=== PATIENT | male | born 1955 | race Caucasian/White ===

== ENCOUNTER 2022-10-23 11:40 | Outpatient (OUT) | payer MEDICARE, OTHER, SELFPAY ==
[2022-10-23 12:20] LABS: Estimated Average Glucose 120 mg/dL; Glycohemoglobin A1C 5.8 % (4.5-6.2)
== END 2022-10-23 11:41 ==
LOC: LAB 11:45
PROVIDERS: PCP Internal Medicine; Visit Provider Internal Medicine
DX: R73.9 Hyperglycemia, unspecified (principal)
CPT/HCPCS: 36415; 83036

== ENCOUNTER 2023-11-07 08:22 | Outpatient (OUT) | payer MEDICARE, OTHER, SELFPAY ==
[2023-11-07 08:52] LABS: Hematocrit 46.7 % (42.0-54.0); Hemoglobin 15.5 g/dL (14.0-18.0); Mean Corpuscular HGB Conc 33.2 g/dL (29.9-35.2); Mean Corpuscular Hemoglobin 34.9 pg (25.9-34.0); Mean Corpuscular Volume 105.2 fL (80.0-94.0); Mean Platelet Volume 10.7 fL (9.5-13.5); Platelet Count 201 10^3/uL (150-450); Red Blood Count 4.44 10^6/uL (4.70-6.10); White Blood Count 6.2 10^3/uL (4.0-11.0)
[2023-11-07 09:52] LABS: Segmented Neut Absolute Manual 3.72 10^3/uL (1.4-6.5)
[2023-11-07 09:53] LABS: Eosinophils Absolute Manual 0.24 10^3/uL (0.00-0.70); Lymphocytes Absolute Manual 2.17 10^3/uL (1.20-3.80); Macrocytosis 2+; Monocytes Absolute Manual 0.06 10^3/uL (0.30-0.80)
[2023-11-07 11:12] LABS: Alanine Aminotransferase 26 U/L (16-63); Albumin Globulin Ratio 0.9; Albumin Level 3.6 g/dL (3.4-5.0); Alkaline Phosphatase 71 U/L (46-116); Aspartate Amino Transferase 25 U/L (15-37); BUN Creatinine Ratio 10.5; Bilirubin Total 0.4 mg/dL (0.2-1.0); Carbon Dioxide 29.5 mmol/L (21.0-32.0); Chloride 106 mmol/L (98-107); Chol HDL Ratio 3.5; Cholesterol 212 mg/dL (<=200); Estimated GFR (African America >60 (>=60); Estimated GFR (Non-African Ame >60 (>=60); Globulin 4.2 g/dL; Glucose 115 mg/dL (74-106); HDL Cholesterol 61 mg/dL (40-60); Potassium 4.5 mmol/L (3.5-5.1); Sodium 144 mmol/L (136-145); Total Protein 7.8 g/dL (6.4-8.2); Triglycerides 63 mg/dL (<=150); VLDL CHOLESTEROL 12.6 mg/dL
== END 2023-11-07 08:23 | disposition home or self-care (01) ==
LOC: LAB 08:25
PROVIDERS: PCP Internal Medicine; Visit Provider Internal Medicine
DX: E78.49 Other hyperlipidemia (principal); I10 Essential (primary) hypertension
CPT/HCPCS: 36415; 80053; 80061; 85007; 85027

== ENCOUNTER 2023-11-18 10:35 | Outpatient (OUT) | payer MEDICARE, OTHER, SELFPAY ==
--- NOTE | 2023-11-18 10:43 | XR_ITS ---
[facility] [place] [address] Patient Name: MERE ADAMS MRN: [id number] date: 1955 Sex: M Assigned Patient Location: [facility] Current Patient Location: Accession/Order Number: [id number] Exam Date: 11/18/2023 10:54 Report Date: 11/19/2023 07:15 At the request of: SHAIKH ELPIDIO Procedure: XR lumbar spine 2-3V EXAMINATION: XR lumbar spine 2-3V HISTORY: Chronic Bilateral Low Back Pain With Sciatica r COMPARISON: No relevant comparison available. FINDINGS: BONES: Normal alignment with no acute fracture or spondylolisthesis. Moderate spondylosis. Moderate to severe facet osteoarthropathy most significant L4-S1 DISC SPACES: Moderate disc space narrowing and endplate sclerosis L5-S1 PARASPINOUS: Negative. No paraspinous abnormality is seen. OTHER: Calcified aortic aneurysm measuring up to 5.8 cm in AP dimension XR/XR lumbar spine 2-3V IMPRESSION: 5.8 cm abdominal aortic aneurysm Moderate spondylosis and moderate to severe facet arthropathy Electronically authenticated by: PRAVEEN CARRASCO Date: 11/19/2023 07:15
== END 2023-11-18 10:36 | disposition home or self-care (01) ==
LOC: RAD 10:38
PROVIDERS: PCP Internal Medicine; Visit Provider Internal Medicine
DX: M54.42 Lumbago with sciatica, left side (principal); M54.41 Lumbago with sciatica, right side; G89.29 Other chronic pain; I71.40 Abdominal aortic aneurysm, without rupture, unspecified; M47.816 Spondylosis without myelopathy or radiculopathy, lumbar region
CPT/HCPCS: 72100

== ENCOUNTER 2023-11-26 08:19 | Outpatient (OUT) | payer MEDICARE, OTHER, SELFPAY ==
--- NOTE | 2023-11-26 08:23 | US_ITS ---
[address] [address] Patient Name: MERE ADAMS MRN: [id number] date: 1955 Sex: M Assigned Patient Location: [place] Current Patient Location: Accession/Order Number: [id number] Exam Date: 11/26/2023 08:30 Report Date: 11/26/2023 09:28 At the request of: SHAIKH ELPIDIO Procedure: US abdominal aortic aneurysm EXAMINATION: US abdominal aortic aneurysm HISTORY: Abdominal Aortic Aneurysm COMPARISON: No relevant comparison available. TECHNIQUE: Ultrasound examination of the retroperitoneal area was performed, with a focused evaluation of the abdominal aorta. FINDINGS: Proximal aorta: 2.7 x 2.5 cm Mid aorta: 3.2 x 3.0 cm Distal aorta: 5.2 x 5.4 cm Right common iliac artery: 1.9 x 1.9 cm Left common iliac artery: 2.3 x 1.8 cm Moderate soft and calcific atherosclerotic plaque US/US abdominal aortic aneurysm IMPRESSION: 5.4 cm fusiform aneurysm of the distal abdominal aorta Electronically authenticated by: PRAVEEN CARRASCO Date: 11/26/2023 09:28
== END 2023-11-26 08:20 | disposition home or self-care (01) ==
LOC: US 08:20
PROVIDERS: PCP Internal Medicine; Visit Provider Internal Medicine
DX: I71.40 Abdominal aortic aneurysm, without rupture, unspecified (principal); I71.43 Infrarenal abdominal aortic aneurysm, without rupture
CPT/HCPCS: 76775

== ENCOUNTER 2024-01-22 08:40 | Outpatient (OUT) | payer MEDICARE, OTHER, SELFPAY ==
[2024-01-22 09:41] LABS: Phosphorus 2.8 mg/dL (2.6-4.7)
[2024-01-22 10:27] LABS: Percent Iron Saturation 59.6 %
[2024-01-23 04:12] LABS: Vitamin B12 379 pg/mL (232-1245)
[2024-01-23 08:12] LABS: Transferrin 244 mg/dL (177-329)
== END 2024-01-22 08:41 | disposition home or self-care (01) ==
LOC: LAB 08:41
DX: F10.10 Alcohol abuse, uncomplicated (principal)
CPT/HCPCS: 36415; 82306; 82607; 82728; 82746; 83540; 83550; 83735; 84100; 84207; 84425; 84466; 84591

== ENCOUNTER 2024-03-02 14:34 | Emergency (ER) | payer MEDICARE, OTHER, SELFPAY ==
[2024-03-02 14:37] VITALS: BP 198/104; PULSE 98; TEMP 37; O2SAT 99; BMI 22.5
--- NOTE | 2024-03-02 14:53 | ED.EXTPRO1 ---
HPI - Extremity Problem General Chief complaint: Extremity Problem, Nontraumatic Stated complaint: UPPER EXTREMITY, LEFT, SKIN Time Seen by Provider: 03/02/24 14:39 Source: patient Mode of arrival: walk-in History of Present Illness HPI Narrative: Patient is a 68-year-old male with a history of borderline diabetes who presents to the emergency department for 2 weeks of increasing redness and swelling to the left elbow. He states that he scraped his elbow 2 weeks ago and the area has become more swollen and red. He states he squeezed it and there was pus that he was able to express from the area. He has not had any fevers or vomiting. Unknown last tetanus. No medications taken prior to arrival. He is able to fully flex and extend the left elbow and denies any significant pain. He does not take any diabetic medications. He is a heavy smoker. No falls or injuries. Related Data Home Medications ?Medication ?Instructions ?Recorded ?Confirmed lisinopril 20 mg tablet 20 mg PO DAILY 03/02/24 03/02/24 venlafaxine 75 mg capsule,extended 75 mg PO DAILY 03/02/24 03/02/24 release 24 hr Previous Rx's ?Medication ?Instructions ?Recorded cephalexin 500 mg capsule 500 mg PO Q8H 10 days #30 caps 03/02/24 hydrocodone 5 mg-acetaminophen 325 1 tab PO Q6H PRN pain 3 days #12 03/02/24 mg tablet tabs sulfamethoxazole 800 1 tab PO BID 10 days #20 tabs 03/02/24 mg-trimethoprim 160 mg tablet (Bactrim DS) Allergies Allergy/AdvReac Type Severity Reaction Status Date / Time No Known Drug Allergies Allergy Verified 03/02/24 14:41 Review of Systems ROS Constitutional Denies: fever or chills Ears, nose, mouth, and throat Denies: throat pain Respiratory Denies: shortness of breath Gastrointestinal Denies: nausea or vomiting Musculoskeletal Reports: extremity pain, extremity swelling, joint pain and joint swelling; Denies: back pain, neck pain or limited range of motion Neurological Denies: numbness in extremities or weakness in extremities Hematologic/Lymphatic Denies: easy bruising or easy bleeding PFSH PFSH Social History Little interest or pleasure in doing things: not at all Feeling down, depressed, or hopeless: not at all Exam Narrative Exam Narrative: Gen.: Awake, alert, in no distress Head: Normocephalic, atraumatic ENT: Moist mucous membranes Respiratory: No respiratory distress Extremities: Patient is able to fully flex and extend the left elbow with no pain out of proportion or limited range of motion. Posterior aspect of the left elbow over the olecranon with a small scabbed area surrounded by erythema, the area is fluctuant with joint effusion and there is induration and erythema extending to the forearm and humerus. No circumferential erythema noted. Psych: Normal mood and affect Neuro: No focal neuro deficit Skin: Warm, dry, intact Constitutional Vital Signs, click to edit/add: Last Vital Signs Temp 98.6 F 03/02/24 14:37 Pulse 98 H 03/02/24 14:37 Resp 18 03/02/24 14:37 BP 177/96 H 03/02/24 16:55 Pulse Ox 99 03/02/24 14:37 O2 Del Method Room Air 03/02/24 14:37 Course Vital Signs Vital signs: Vital Signs Temperature 98.6 F 03/02/24 14:37 Pulse Rate 98 H 03/02/24 14:37 Respiratory Rate 18 03/02/24 14:37 Blood Pressure 198/104 H 03/02/24 14:37 Pulse Oximetry 99 03/02/24 14:37 Oxygen Delivery Method Room Air 03/02/24 14:37 Temperature 98.6 F 03/02/24 14:37 Pulse Rate 98 H 03/02/24 14:37 Respiratory Rate 18 03/02/24 14:37 Blood Pressure 177/96 H 03/02/24 16:55 Pulse Oximetry 99 03/02/24 14:37 Oxygen Delivery Method Room Air 03/02/24 14:37 MDM - Extremity (Nontraumatic) MDM Narrative Medical decision making narrative: Tetanus is updated for the patient, he declined pain medication in the ER. IV was established and labs were drawn including blood cultures. Patient with normal white blood cell count, elevated CRP and sed rates. He was treated with Zosyn and vancomycin for antibiotic coverage. X-rays were obtained showing possible gas-forming organism in the left elbow. Arthrocentesis was performed at bedside by myself. Please see procedure note for details. Cell count was sent to the lab, this shows elevated white blood cell count and red blood cell count. I discussed the case with Dr. Blood for orthopedics who can see the patient tomorrow morning between 8 and 9 AM in the family office. Patient states he should be able to make this appointment. He was given the phone number and address for the office and instructed to be reevaluated if he is not able to make this appointment. Patient started on Bactrim, Keflex and a short course of analgesics. Arthrocentesis: Betadine swabs were used to cleanse the left elbow, 3 cc of 1% lidocaine were used to inject locally for anesthesia of the skin. An 18-gauge needle was used with syringe to aspirate the left elbow joint. 40 cc of serous fluid were aspirated. At the end of the aspiration, there were bubbles aspirated into the syringe. No purulence or pus noted. Patient tolerated this well, minimal bleeding noted after the aspiration and the area was dressed with Telfa and gauze. SUPERVISED APC VISIT, PHYSICIAN ATTESTATION: Based on the medical record the care appears appropriate. ? Medical Records Attestation: I reviewed the patient's medical records. Lab Data Attestation: I reviewed the patient's lab results. Labs: Lab Results 03/02/24 03/02/24 03/02/24 Range/Units 14:55 15:07 15:25 WBC 10.1 (4.0-11.0) 10^3/uL RBC 4.24 L (4.70-6.10) 10^6/uL Hgb 15.1 (14.0-18.0) g/dL Hct 43.7 (42.0-54.0) % MCV 103.1 H (80.0-94.0) fL MCH 35.6 H (25.9-34.0) pg MCHC 34.6 (29.9-35.2) g/dL RDW 12.7 (11.0-15.0) % Plt Count 183 (150-450) 10^3/uL MPV 11.1 (9.5-13.5) fL Neut % (Auto) 69.1 (43.0-75.0) % Lymph % (Auto) 15.4 L (20.5-60.0) % [place] % (Auto) 14.0 H (1.7-12.0) % Eos % (Auto) 0.8 L (0.9-7.0) % Baso % (Auto) 0.4 (0.2-2.0) % Neut # (Auto) 7.0 H (1.4-6.5) 10^3/uL Lymph # (Auto) 1.6 (1.2-3.8) 10^3/uL [place] # (Auto) 1.4 H (0.3-0.8) 10^3/uL Eos # (Auto) 0.1 (0.0-0.7) 10^3/uL Baso # (Auto) 0.0 (0.0-0.1) 10^3/uL Abs Immat Gran (auto) 0.03 (0.00-0.03) 10^3/uL Imm/Tot Granulo (auto) 0.3 (0.0-0.5) % ESR 101 H (<=20) mm/hr VBG pH 7.439 H (7.330-7.430) VBG pCO2 41.8 (40.0-52.0) mmHg Sodium 141 (136-145) mmol/L Potassium 3.7 (3.5-5.1) mmol/L Chloride 104 (98-107) mmol/L Carbon Dioxide 25.3 (21.0-32.0) mmol/L Anion Gap 15.4 BUN 8.0 (7.0-18.0) mg/dL Creatinine 0.88 (0.70-1.30) mg/dL Est GFR ( Amer) >60 (>=60 mL/min/1.73m^2) Est GFR (Non-Af Amer) >60 (>=60 mL/min/1.73m^2) BUN/Creatinine Ratio 9.1 Glucose 126 H (74-106) mg/dL Lactate 2.0 (0.4-2.0) mmol/L Calcium 9.0 (8.5-10.1) mg/dL Total Bilirubin 0.6 (0.2-1.0) mg/dL AST 18 (15-37) U/L ALT 20 (16-63) U/L Alkaline Phosphatase 81 (46-116) U/L C-Reactive Protein 7.58 H (<=0.50) mg/dL Total Protein 7.7 (6.4-8.2) g/dL Albumin 3.2 L (3.4-5.0) g/dL Globulin 4.5 g/dL Albumin/Globulin Ratio 0.7 Fluid Color Yellow Fluid Clarity Cloudy Fluid WBC 4730 H (0-5) cubic mm Fluid RBC 1081 H (0-0) cubic mm Fluid Neutrophils 95 % Fluid Lymphocytes 4 % Fluid Monocytes 1 % Imaging Data XR elbow: Attestation: I have reviewed the pertinent imaging results. Radiologist's impression: ITS Impressions Elbow X-Ray 03/02/24 15:10 IMPRESSION: Posterior soft tissue swelling and subcutaneous emphysema, consider cellulitis/fasciitis with gas-forming organism Electronically authenticated by: PRAVEEN CARRASCO Date: 03/02/2024 15:57 Discharge Plan Discharge Chief Complaint: Extremity Problem, Nontraumatic Clinical Impression: Septic arthritis of elbow, left Patient Disposition: Home, Self-Care Time of Disposition Decision: 16:52 Condition: Good Mode of Transportation: Private Vehicle Prescriptions / Home Meds: New hydrocodone-acetaminophen 5-325 mg tablet 1 tab PO Q6H PRN (Reason: pain) 3 Days Qty: 12 0RF Rx Instructions: DX: M25.522 sulfamethoxazole-trimethoprim [Bactrim DS] 800-160 mg tablet 1 tab PO BID 10 Days Qty: 20 0RF cephalexin 500 mg capsule 500 mg PO Q8H 10 Days Qty: 30 0RF No Action lisinopril 20 mg tablet 20 mg PO DAILY venlafaxine 75 mg capsule,extended release 24hr 75 mg PO DAILY Print Language: Slovak Instructions: Swollen Joint (ED) Additional Instructions: Please follow up with Dr. Blood tomorrow in his [place] office between 8-9 am [address] [facility] [address] PLEASE CALL THE OFFICE IF YOU ARE NOT ABLE TO MAKE THIS APPOINTMENT TO RESCHEDULE WITH DR. BLOOD Referrals: WASHINGTON LOPEZ [Primary Care Provider] - 1 week Discharge Date/Time: 03/02/24 17:06
--- OUTSIDE RECORDS SUMMARY | 2024-03-02 14:58 | XMS_ITS | CCD ---
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 Name Role Phone Hillary La Unavailable SHAIKH Anais MAGALLANES Attending Unavailable SHAIKH Anais MAGALLANES Consulting Unavailable SHAIKH Anais MAGALLANES Primary Care Unavailable SHAIKH Anais MAGALLANES Admitting Unavailable DO Carlitos Douglas Attending Provider NO FAMILY, PHYSICIAN Primary Care Provider Unava ilable NO FAMILY, PHYSICIAN Primary Care Provider Unava ilable ROBIN Hurt Attending Provider Frannie Hurt Admitting Unavailable Frannie Hurt Attending Unavailable NO FAMILY, PHYSICIAN Primary Care Unavailable MAURICE ROSADO Referring Unavailable SHAIKH MAGALLANES Attending Unavailable SHAIKH MAGALLANES Attending Unavailable WASHINGTON LOPEZ Attending Unavailabl e Medications Current Medications Medication Drug Class(es) Dates Sig (Normalized) Sig (Original) acetaminophen 500 mg oral tablet (4 sources) Start: 09-24-2022 take 1 tablet by mouth four times daily Acetaminophen (Acetaminophen Extra Strength) 500 mg Tablet Active 500 MG PO Four times daily September 24, 2022 12:00am amoxicillin 875 mg / clavulanate 125 mg oral tablet (1 source) Penicillin-class Antibacterial Start: 06-18-2022 take 1 tablet by mouth every twelve hours Amoxicillin-Pot Clavulanate 875-125 MG 1 tablet Orally every 12 hrs for 10 day(s) Jun, Active fluticasone propionate 0.05 mg/actuat metered dose nasal spray (1 source) Corticosteroid Start: 06-18-2022 take 2 spray(s) nasal route once daily Fluticasone Propionate 50 MCG/ACT 2 sprays Nasally Once a day for 14 day(s) Jun, Active lisinopril 20 mg oral tablet (5 sources) Angiotensin Converting Enzyme Inhibitor Start: 09-24-2022 take 20 mg by mouth once daily in the morning Lisinopril Active 20 MG PO Every morning September 24, 2022 12:00am Lisinopril Activ e meloxicam 15 mg oral tablet (3 sources) Nonsteroidal Anti-inflammatory Drug Start: 12-09-2023 Meloxicam Active MG PO December 09, 2023 12:00am predniSONE 20 mg oral tablet (1 source) Start: 06-18-2022 take 1 tablet by mouth every twelve hours predniSONE 20 MG 1 tablet Orally 2 times a day for 5 day(s) Jun, Active 24 hr venlafaxine 75 mg extended release oral capsule (6 sources) Serotonin and Norepinephrine Reuptake Inhibitor Start: 12-23-2023 Venlafaxine Active 75 MG PO December 23, 2023 12:00am Start: 09-24-2022 End: 12-23-2023 take 37.5 mg by mouth once daily in the morning Venlafaxine Discontinued 37.5 MG PO Every morning September 24, 2022 12:00am December 23, 2023 9:59am Effexor Active Completed/Discontinued Medications Medication Drug Class(es) Dates Sig (Normalized) Sig (Original) acetaminophen 325 mg / HYDROcodone bitartrate 7.5 mg oral tablet (3 sources) Opioid Agonist Start: 10-04-2022 End: 12-09-2023 Hydrocodone-Acetami nophen Discontinued 1 TAB PO every 6 to 8 hours 20 7 October 04, 2022 December 09, 2023 8:52am Problems Active Problems Problem Classification Problem Date Documented Date Episodic/Chronic Aortic; peripheral; and visceral artery aneurysms (5 sources) Abdominal aortic aneurysm without rupture; Translations: [Abdominal aortic aneurysm (AAA) without rupture] 12-09-2023 Chronic Disorders of lipid metabolism (4 sources) Hyperlipidemia, unspecified; Translations: [HYPERLIPIDEMIA UNSPECIFIED] Onset: 09-05-2022 Chronic Essential hypertension (5 sources) Essential (primary) hypertension; Translations: [Hypertensive disorder] Onset: 09-08-2022 12-09-2023 Chronic Other nervous system disorders (3 sources) Postoperative pain ; Translations: [Other acute postprocedural pain] 04-24-2023 Episodic Other screening for suspected conditions (not mental disorders or infectious disease) (1 source) Encounter for screening for malignant neoplasm of respiratory organs; Translations: [Encounter for screening for malignant neoplasm of respiratory organs] Onset: 12-17-2023 Episodic Other upper respiratory infections (2 sources) Sinusitis; Translations: [Chronic sinusitis, unspecified] Chronic Substance-related disorders (5 sources) Smokes tobacco daily; Translations: [Nicotine dependence, unspecified, uncomplicated] Onset: 12-17-2023 12-09-2023 Chronic Unclassified (1 source) Abdominal aortic aneurysm, without rupture, unspecified; Translations: [Abdominal aortic aneurysm, without rupture, unspecified] Onset: 12-13-2023 Past or Other Problems Problem Classification Problem Date Documented Da te Episodic/Chronic Unclassified (1 source) Cough R05.9 Results Test Name Value Interpretation Reference Range Facility CT LOW DOSE LUNG SCREENINGon 12-18-2023 CT LOW DOSE LUNG SCREENING CT LOW DOSE LUNG SCREENING CLINICAL INFORMATION: Screening visit: Personal history of tobacco use/personal history of nicotine dependence. Lung cancer screening. Current tobacco abuse and 66 pack year exposure history COMPARISON: No relevant prior studies are available. TECHNIQUE: Low dose CT chest performed without contrast with coronal and sagittal and maximum intensity projection reconstructed images. Maximum intensity projection images generated to increase the sensitivity of pulmonary nodule detection. All CT scans at this facility use dose modulation, iterative reconstruction, and/or weight based dosing when appropriate to reduce radiation dose to as low as reasonably achievable. Automated exposure control was utilized. Computer aided detection for pulmonary nodules?was performed utilizing Affirm software.? FINDINGS: Diagnostic quality: Satisfactory Lung nodules: Anterior left upper lobe juxtapleural 5 mm nodule axial image 49 series 2, 3 mm nodule right upper lobe axial image 56 series 2. 2 mm nodule lingula axial image 63 series 2 Lungs and pleural spaces: Advanced centrilobular emphysema Mediastinum: Heart size: Normal Coronary calcification: Extensive Pericardial effusion: None Other findings: IMPRESSION: Lung Rads Category: 3- Probably benign Multiple low suspicion nodules. Lung RADS category 3. CT chest in 3 months recommended for further characterization. 50 Finalized by Mikhail Elena MD on 12/18/2023 6:28 PM 3 LDCT 3 Mo Normal [facility] CT angio abdomen pelvison CT angio abdomen pelvis [facility] [place] [address] [place] [address] CT Scan Report Signed Patient: Hua Adams MR#: [id number] 8 : 1955 Acct:[id number] Age/Sex: 68 / M ADM Date: 12/13/23 Loc: CT Room: Type: [facility] Attending Dr: Frannie Hurt BODY CORPORATE MANAGER-C Copies to: Frannie Hurt APRN Ordering Provider: Frannie Hurt APRN Date of Service: 12/13/23 CT/CT angio abdomen pelvis: I71.40 - Abdominal aortic aneurysm, without rupture, unsp... CTA abdomen and pelvis . CLINICAL DATA: Abdominal aortic aneurysm found on ultrasound.. TECHNIQUE: CT of the abdomen and pelvis was initially performed without contrast. Intravenous contrast-enhanced CT angiography of the abdomen and pelvis was then performed. Axial, sagittal, coronal and volume-rendered three-dimensional reconstructions were created and reviewed. This CT exam was performed using one or more of the following dose reduction techniques: Automated exposure control, adjustment of the mA and/or kV according to patient size, or use of iterative reconstruction technique. COMPARISON: Ultrasound 11/26/2023 performed at outside institution.. FINDINGS: Lung Bases: Mild reticular changes. No acute findings. Organs:Fusiform type infrarenal abdominal aneurysm is present with associated thrombus and calcification measuring 4.8 cm in greatest axial dimension. This tapers to the level of the iliac bifurcation. No evidence of rupture is seen. No critical stenosis or occlusion is seen involving the major visceral branch vessels. Moderate calcification at the origin of the SMA. Moderate calcification of the external iliac vasculature. 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 Liver gallbladder pancreas and adrenal glands appear unremarkable. Small cyst involving the spleen. No enhancing renal mass or hydronephrosis. GI: Stomach is grossly unremarkable. Small bowel appears nondilated. Colonic diverticulosis.[ Pelvis:[Urinary bladder is grossly unremarkable. Uterus has been removed]. No adnexal mass. Peritoneum/Retrope ritoneum:No free air, free fluid or lymphadenopathy.[ Abd wall/Bones:Abdomin al wall demonstrates no acute findings. Osseous structures demonstrate degenerative change.[ CT/CT angio abdomen pelvis IMPRESSION: Fusiform type infrarenal abdominal aneurysm measuring 4.8 cm. Finding is similar to the prior ultrasound study. No acute intra-abdominal process. Impression dictated by: Eladio Broderick Jr., D.O.12/13/2023 1:27 PM Dictation Location: [place] [address] Transcribed By: [facility] 12/13/23 1327 Dictated By: Eladio Broderick Jr, DO 12/13/23 1319 Signed By: 12/13/23 1327 Normal [facility] ISTAT XRay CREon 12-13-2023 ISTAT GFR > 60.0 Normal [facility] Comment on above: Result Comment: PERF ORMED BY: [place] [address] PATHOLOGIST VP SITE DEVONTE MOJICA M.D. Performed By: #### I SCRE #### [facility] [address] [place] [address] No Panel InformationOrdered By: Frannie Hurt on 12-13-2023 Bedside Estimated GFR (eGFR) > 60.0 [facility] Whole blood creatinine measu rementOrdered By: Frannie Hurt on 12-13-2023 Creatinine [Mass/Vol] 0.8 mg/dL 0.6-1.3 [facility] Comment on above: ER/ESD physician is notified/shown all ISTAT results.Critical values may be confirmed by laboratory testing ifdeemed necessary by ER attending doctor. Result Comment: ER/E SD physician is notified/shown all ISTAT results. Critical values may be confirmed by laboratory testing if deemed necessary by ER attending doctor. Performed By: #### I SCRE #### [facility] [address] [place] [address] Basophils Auto (Bld) [#/Vol] Ordered By: Carlitos Douglas on 09-24-2022 Basophils (Bld) [#/Vol] 0.0 10*3/uL 0.0-0.2 [facility] Basophils/100 WBC Auto (Bld) Ordered By: Carlitos Douglas on 09-24-2022 Basophils/100 WBC (Bld) 0.4 % . [facility] Calcium [Mass/volume] in Ser um or PlasmaOrdered By: Carlitos Douglas on 09-24-2022 Calcium [Mass/Vol] 9.3 mg/dL 8.6-10.3 [facility] Carbon dioxide, total [Moles /volume] in Serum or PlasmaOrdered By: Carlitos Douglas on 09-24-2022 CO2 [Moles/Vol] 29.1 mmol/L 21.0-31.0 [facility] Chloride [Moles/volume] in S ebony or PlasmaOrdered By: Carlitos Douglas on 09-24-2022 Chloride [Moles/Vol] 106 mmol/L 98-107 [facility] Creatinine [Mass/volume] in Serum or PlasmaOrdered By: Carlitos Douglas on 09-24-2022 Creatinine [Mass/Vol] 0.82 mg/dL 0.70-1.30 [facility] Eosinophils Auto (Bld) [#/Vo l]Ordered By: Carlitos Douglas on 09-24-2022 Eosinophils (Bld) [#/Vol] 0.1 10*3/uL 0.0-0.45 [facility] Eosinophils/100 WBC Auto (Bl d)Ordered By: Carlitos Douglas on 09-24-2022 Eosinophils/100 WBC (Bld) 1.5 % . [facility] Erythrocyte distribution wid th Auto (RBC) [Ratio]Ordered By: Carlitos Douglas on 09-24-2022 Erythrocyte distribution width (RBC) [Ratio] 13.5 % 12.0-14.8 [facility] Glucose [Mass/volume] in Ser um or PlasmaOrdered By: Carlitos Douglas on 09-24-2022 Glucose [Mass/Vol] 83 mg/dL 70-100 [facility] Comment on above: ADA recommended refe rence rangeRandom Glucose Reference Range is dependent on time and content of last meal. Glucose of more than 200 mg/dL in a nonstressed, ambulatory subject supports the diagnosis of Diabetes Mellitus. Hematocrit Auto (Bld) [Volum e fraction]Ordered By: Carlitos Douglas on 09-24-2022 Hematocrit (Bld) [Volume fraction] 46.7 % 38.8-50.0 [facility] Hemoglobin [Mass/volume] in BloodOrdered By: Carlitos Douglas on 09-24-2022 Hemoglobin (Bld) [Mass/Vol] 15.6 g/dL 13.0-17.0 [facility] Leukocytes [#/volume] correc bandar for nucleated erythrocytes in Blood by Automated counOrdered By: Carlitos Douglas on 09-24-2022 WBC corrected for nucl RBC Auto (Bld) [#/Vol] 6.8 10*3/uL 4.1-10.5 [facility] Lymphocytes Auto (Bld) [#/Vo l]Ordered By: Carlitos Douglas on 09-24-2022 Lymphocytes (Bld) [#/Vol] 1.7 10*3/uL 1.00-4.8 [facility] Lymphocytes/100 WBC Auto (Bl d)Ordered By: Carlitos Douglas on 09-24-2022 Lymphocytes/100 WBC (Bld) 24.8 % . [facility] MCH Auto (RBC) [Entitic mass ]Ordered By: Carlitos Douglas on 09-24-2022 MCH (RBC) [Entitic mass] 34.1 pg 27.5-35.2 [facility] MCHC Auto (RBC) [Mass/Vol]Or dered By: Carlitos Douglas on 09-24-2022 MCHC (RBC) [Mass/Vol] 33.5 g/dL 32.5-35.6 [facility] MCV Auto (RBC) [Entitic vol] Ordered By: Carlitos Douglas on 09-24-2022 MCV (RBC) [Entitic vol] 101.9 fL 83.5-101 [facility] Monocytes Auto (Bld) [#/Vol] Ordered By: Carlitos Douglas on 09-24-2022 Monocytes (Bld) [#/Vol] 0.7 10*3/uL 0.0-0.8 [facility] Monocytes/100 WBC Auto (Bld) Ordered By: Carlitos Douglas on 09-24-2022 Monocytes/100 WBC (Bld) 9.9 % . [facility] Neutrophils Auto (Bld) [#/Vo l]Ordered By: Carlitos Douglas on 09-24-2022 Neutrophils (Bld) [#/Vol] 4.3 10*3/uL 1.8-7.7 [facility] Neutrophils/100 WBC Auto (Bl d)Ordered By: Carlitos Douglas on 09-24-2022 Neutrophils/100 WBC (Bld) 63.4 % . [facility] No Panel InformationOrdered By: Carlitos Douglas on 09-24-2022 Estimated GFR (CKD-EPI) > 60.0 mL/Min [facility] Creatinine Clearance (Chem N/A [facility] Nucleated erythrocytes [Pres ence] in Blood by Automated countOrdered By: Carlitos Douglas on 09-24-2022 Nucleated RBC Auto Ql (Bld) 0.0 /100{WBC} 0-0.5 [facility] Platelet mean volume Auto (B ld) [Entitic vol]Ordered By: Carlitos Douglas on 09-24-2022 Platelet mean volume (Bld) [Entitic vol] 9.1 fL 6.6-10.1 [facility] Platelets Auto (Bld) [#/Vol] Ordered By: Carlitos Douglas on 09-24-2022 Platelets (Bld) [#/Vol] 189 10*3/uL 150-450 [facility] Potassium [Moles/volume] in Serum or PlasmaOrdered By: Carlitos Douglas on 09-24-2022 Potassium [Moles/Vol] 4.0 mmol/L 3.5-5.1 [facility] RBC Auto (Bld) [#/Vol]Ordere d By: Carlitos Douglas on 09-24-2022 RBC (Bld) [#/Vol] 4.58 10*6/uL 3.90-5.[address] [facility] Serum or plasma anion gap de terminationOrdered By: Carlitos Douglas on 09-24-2022 Anion gap [Moles/Vol] 10.9 mmol/L 6.0-15.0 [facility] Sodium [Moles/volume] in Ser um or PlasmaOrdered By: Carlitos Douglas on 09-24-2022 Sodium [Moles/Vol] 142 mmol/L 136-145 [facility] Urea nitrogen [Mass/volume] in Serum or PlasmaOrdered By: Carlitos Douglas on 09-24-2022 Urea nitrogen [Mass/Vol] 9 mg/dL 12-04 [facility] WBC Auto (Bld) [#/Vol]Ordere d By: Carlitos Douglas on 09-24-2022 WBC (Bld) [#/Vol] 6.8 10*3/uL 4.1-10.5 [facility] CBC AUTO DIFFon 09-05-2022 BASO # 0.1 103/ul Normal 0.0-0.1 [facility] Comment on above: Performed By: #### C BC #### [facility] [address] [place] [address] Dr. Petr Winchester Basophils/100 WBC (Bld) 0.6 % Normal 0.2-2.0 [facility] Comment on above: Performed By: #### C BC #### [facility] [address] [place] [address] Dr. Petr Winchester EO # 0.3 103/ul Normal 0.0-0.7 [facility] Comment on above: Performed By: #### C BC #### [facility] [address] [place] [address] Dr. Petr Winchester Eosinophils/100 WBC (Bld) 3.0 % Normal 0.9-7.0 [facility] Comment on above: Performed By: #### C BC #### [facility] [address] [place] [address] Dr. Petr Winchester Erythrocyte distribution width (RBC) [Ratio] 13.2 % Normal 11.0-15.0 [facility] Comment on above: Performed By: #### C BC #### [facility] [address] [place] [address] Dr. Petr Winchester Hematocrit (Bld) [Volume fraction] 46.1 % Normal 42.0-54.0 [facility] Comment on above: Performed By: #### C BC #### [facility] [address] [place] [address] Dr. Petr Winchester Hemoglobin (Bld) [Mass/Vol] 15.3 g/dL Normal 14.0-18.0 [facility] Comment on above: Performed By: #### C BC #### [facility] [address] [place] [address] Dr. Petr Winchester IG # 0.03 10e3/ul Normal 0.00-0.03 [facility] Comment on above: Performed By: #### C BC #### [facility] [address] [place] [address] Dr. Petr Winchester IG % 0.3 % Normal 0.0-0.5 [facility] Comment on above: Performed By: #### C BC #### [facility] [address] [place] [address] Dr. Petr Winchester LYMPH # 1.9 103/ul Normal 1.2-3.8 [facility] Comment on above: Performed By: #### C BC #### [facility] [address] [place] [address] Dr. Petr Winchester Lymphocytes/100 WBC (Bld) 19.2 % Critically low 20.5-60.0 [facility] Comment on above: Performed By: #### C BC #### [facility] [address] [place] [address] Dr. Petr Winchester MANUAL DIFF REQ NO Normal [facility] Comment on above: Performed By: #### C BC #### [facility] [address] [place] [address] Dr. Petr Winchester MCH (RBC) [Entitic mass] 34.0 pg Normal 25.9-34.0 [facility] Comment on above: Performed By: #### C BC #### [facility] [address] [place] [address] Dr. Petr Winchester MCHC (RBC) [Mass/Vol] 33.2 g/dL Normal 29.9-35.2 [facility] Comment on above: Performed By: #### C BC #### [facility] [address] [place] [address] Dr. Petr Winchester MCV (RBC) [Entitic vol] 102.4 fL Critically high 80.0-94 .0 [facility] Comment on above: Performed By: #### C BC #### [facility] [address] [place] [address] [address] Petr Winchester MONO # 0.9 103/ul Critically high 0.3-0.8 [facility] Comment on above: Performed By: #### C BC #### [facility] [address] [place] [address] [address] Petr Winchester Monocytes/100 WBC (Bld) 9.6 % Normal 1.7-12.0 [facility] Comment on above: Performed By: #### C BC #### [facility] [address] [place] [address] [address] Petr Winchester NEUT # 6.5 103/ul Normal 1.4-6.5 [facility] Comment on above: Performed By: #### C BC #### [facility] [address] [place] [address] Dr. Petr Winchester Neutrophils/100 WBC (Bld) 67.3 % Normal 43.0-75.0 [facility] Comment on above: Performed By: #### C BC #### [facility] [address] [place] [address] [address] Petr Winchester Platelet mean volume (Bld) [Entitic vol] 10.6 fL Normal 9.5-13.5 [facility] Comment on above: Performed By: #### C BC #### [facility] [address] [place] [address] Dr. Petr Winchester PLT 210 103/ul Normal 150-450 [facility] Comment on above: Performed By: #### C BC #### [facility] [address] [place] [address] [address] Petr Winchester RBC 4.50 106/ul Critically low 4.70-6.10 [facility] Comment on above: Performed By: #### C BC #### [facility] [address] [place] [address] [address] Petr Winchester WBC 9.7 103/ul Normal 4.0-11.0 [facility] Comment on above: Performed By: #### C BC #### [facility] [address] [place] [address] [address] Petr Winchester LIPID PROFILEon 09-05-2022 CHOL-HDL RATIO NORM SEE BELOW Normal [facility] Comment on above: Result Comment: 3.3 - 4.4 LOW RISK 4.4 - 7.1 AVERAGE RISK 7.1 - 11.0 MODERATE RISK >11.0 HIGH RISK Performed By: #### L IPID, CMP #### [facility] [address] [place] [address] [address] Petr Winchester Cholesterol [Mass/Vol] 224 mg/dL Critically high <=200 [facility] Comment on above: Performed By: #### L IPID, CMP #### [facility] [address] [place] [address] [address] Petr Winchester Cholesterol in HDL [Mass/Vol] 41 mg/dL Normal 40-60 [facility] Comment on above: Performed By: #### L IPID, CMP #### [facility] [address] [place] [address] [address] Petr Winchester Cholesterol in LDL [Mass/Vol] 163.8 mg/dL Normal [facility] Comment on above: Performed By: #### L IPID, CMP #### [facility] [address] [place] [address] [address] Petr Winchester Cholesterol.total/Choles terol in HDL [Mass ratio] 5.5 {ratio} Normal [facility] Comment on above: Performed By: #### L IPID, CMP #### [facility] [address] [place] [address] [address] Petr Winchester HDL NORMAL > or = 60 mg/dl - LOW CARDIOVASCULAR RISK <40 mg/dl - HIGH CARDIOVASCULAR RISK Normal [facility] Comment on above: Performed By: #### L IPID, CMP #### [facility] [address] [place] [address] [address] Petr Winchester LDL CALC NORMAL SEE BELOW Normal [facility] Comment on above: Result Comment: <100 mg/dl OPTIMAL 100 - 129 mg/dl NEAR OR ABOVE OPTIMAL 130 - 159 mg/dl BORDERLINE HIGH 160 - 189 mg/dl HIGH >190 mg/dl VERY HIGH Performed By: #### L IPID, CMP #### [facility] [address] [place] [address] Dr. Petr Winchester Triglyceride [Mass/Vol] 96 mg/dL Normal <=150 [facility] Comment on above: Performed By: #### L IPID, CMP #### [facility] [address] [place] [address] Dr. Petr Winchester VLDL CALC 19.2 mg/dL Normal [facility] Comment on above: Performed By: #### L IPID, CMP #### [facility] [address] [place] [address] [address] Petr Winchester PROF 14(COMP METB)on 023 Albumin [Mass/Vol] 3.4 g/dL Normal 3.4-5.0 [facility] Comment on above: Performed By: #### L IPID, CMP #### [facility] [address] [place] [address] Dr. Petr Winchester Albumin/Globulin [Mass ratio] 0.8 {ratio} Normal [facility] Comment on above: Performed By: #### L IPID, CMP #### [facility] [address] [place] [address] Dr. Petr Winchester ALP [Catalytic activity/Vol] 74 U/L Normal 46-116 [facility] Comment on above: Performed By: #### L IPID, CMP #### [facility] [address] [place] [address] Dr. Petr Winchester ALT [Catalytic activity/Vol] 32 U/L Normal 16-63 [facility] Comment on above: Performed By: #### L IPID, CMP #### [facility] [address] [place] [address] Dr. Petr Winchester Anion gap [Moles/Vol] 9.9 mmol/L Normal [facility] Comment on above: Performed By: #### L IPID, CMP #### [facility] [address] [place] [address] Dr. Petr Winchester AST [Catalytic activity/Vol] 17 U/L Normal 15-37 [facility] Comment on above: Performed By: #### L IPID, CMP #### [facility] [address] [place] [address] [address] Petr Winchester Bilirubin [Mass/Vol] 0.3 mg/dL Normal 0.2-1.0 [facility] Comment on above: Performed By: #### L IPID, CMP #### [facility] [address] [place] [address] [address] Petr Winchester Calcium [Mass/Vol] 9.0 mg/dL Normal 8.5-10.1 [facility] Comment on above: Performed By: #### L IPID, CMP #### [facility] [address] [place] [address] Dr. Petr Winchester Chloride [Moles/Vol] 106 mmol/L Normal 98-107 [facility] Comment on above: Performed By: #### L IPID, CMP #### [facility] [address] [place] [address] Dr. Petr Winchester CO2 [Moles/Vol] 29.8 mmol/L Normal 21.0-32.[address] [facility] Comment on above: Performed By: #### L IPID, CMP #### [facility] [address] [place] [address] Dr. Petr Winchester Creatinine [Mass/Vol] 0.97 mg/dL Normal 0.70-1.30 [facility] Comment on above: Performed By: #### L IPID, CMP #### [facility] [address] [place] [address] Dr. Petr Winchester EGFR-AF MONTSERRATIAN >60 Normal >=[address] [facility] Comment on above: Performed By: #### L IPID, CMP #### [facility] [address] [place] [address] Dr. Petr Winchester EGFR-NON AF MONTSERRATIAN >60 Normal >=60 [facility] Comment on above: Performed By: #### L IPID, CMP #### [facility] [address] [place] [address] Dr. Petr Winchester Globulin (S) [Mass/Vol] 4.2 g/dL Normal T [facility] Comment on above: Performed By: #### L IPID, CMP #### [facility] [address] [address] [address] Petr Winchester Glucose [Mass/Vol] 127 mg/dL Critically high 74-106 [facility] Comment on above: Performed By: #### L IPID, CMP #### [facility] [address] [place] [address] Dr. Petr Winchester Potassium [Moles/Vol] 4.7 mmol/L Normal 3.5-5.1 [facility] Comment on above: Performed By: #### L IPID, CMP #### [facility] [address] [place] [address] Dr. Petr Winchester Protein [Mass/Vol] 7.6 g/dL Normal 6.4-8.2 [facility] Comment on above: Performed By: #### L IPID, CMP #### [facility] [address] [place] [address] Dr. Petr Winchester Sodium [Moles/Vol] 141 mmol/L Normal 136-145 [facility] Comment on above: Performed By: #### L IPID, CMP #### [facility] [address] [place] [address] Dr. Petr Winchester Urea nitrogen [Mass/Vol] 18.0 mg/dL Normal 7.0-18.0 [facility] Comment on above: Performed By: #### L IPID, CMP #### [facility] [address] [place] [address] Dr. Petr Winchester Urea nitrogen/Creatinine [Mass ratio] 18.6 mg/mg Normal [facility] Comment on above: Performed By: #### L IPID, CMP #### [facility] [address] [place] [address] Dr. Petr Winchester COVID + FLU Quick Testingon 06-18-2022 SARS-CoV-2 (COVID-19) RNA KALEN+probe Ql (Unsp spec) Negative [facility] Other COVID + FLU Quick Testing Negative [facility] Other Vital Signs Date Time Vital Sign Value Performing Clinician Facility 12-23-2023 09:59-0400 Body height 170.[address] [facility] 12-23-2023 09:59-0400 Body mass index (BMI) [Ratio] 23.4 kg/m2 PHYSICIAN NO [facility] 12-23-2023 09:59-0400 Body temperature 97.8 [degF] PHYSICIAN NO [facility] 12-23-2023 09:59-0400 Body weight 67.[address] [facility] 12-23-2023 09:59-0400 Diastolic blood pressure 84 mm[Hg] PHYSICIAN NO [facility] 12-23-2023 09:59-0400 Heart rate 73 /min PHYSICIAN NO [facility] 12-23-2023 09:59-0400 Respiratory rate 16 /min PHYSICIAN NO [facility] 12-23-2023 09:59-0400 SaO2% (BldA) [Mass fraction] 96 % PHYSICIAN NO [facility] 12-23-2023 09:59-0400 Systolic blood pressure 122 mm[Hg] PHYSICIAN NO [facility] 12-09-2023 08:54-0400 Body height 170.18 cm [facility] 12-09-2023 08:54-0400 Body mass index (BMI) [Ratio] 23.5 kg/m2 [facility] 12-09-2023 08:54-0400 Body temperature 97.2 [degF] [facility] 12-09-2023 08:54-0400 Body weight 68.03 kg [facility] 12-09-2023 08:54-0400 Diastolic blood pressure 80 mm[Hg] [facility] 12-09-2023 08:54-0400 Heart rate 76 /min [facility] 12-09-2023 08:54-0400 SaO2% (BldA) [Mass fraction] 98 % [facility] 12-09-2023 08:54-0400 Systolic blood pressure 166 mm[Hg] [facility] 06-18-2022 12:45-0500 Body height 170.18 cm Hillary La Other [facility] Other 06-18-2022 12:45-0500 Body mass index (BMI) [Ratio] 25.12 kg/m2 Hillary La Other [facility] Other 06-18-2022 12:45-0500 Body temperature 98.2 [degF] [facility] Other [facility] Other 06-18-2022 12:45-0500 Body weight 72.76 kg Hillary La Other [facility] Other 06-18-2022 12:45-0500 Respiratory rate 18 /min Hillary La Other [facility] Other 06-18-2022 12:45-0500 SaO2% (BldA) [Mass fraction] 97 % [facility] Other [facility] Other Encounters Encounter Date Encounter Type Care Provider Facility Start: 01-15-2024 End: 01-15-2024 ambulatory WASHINGTON LOPEZ Not Available Start: 12-23-2023 End: 12-23-2023 ambulatory PHYSICIAN NO [facility] Work Phone: Start: 12-23-2023 End: 12-23-2023 Patient encounter procedure PHYSICIAN NO [facility] Vascular Surgery Work Phone: Start: 12-17-2023 End: 12-17-2023 ambulatory MAURICE SALAZARRACHEL [facility] Start: 12-13-2023 End: 12-13-2023 Patient encounter procedure PHYSICIAN NO [facility] [place] Work Phone: Start: 12-13-2023 End: 12-13-2023 ambulatory PHYSICIAN NO [facility] Work Phone: Start: 12-09-2023 End: 12-09-2023 ambulatory [facility] Work Phone: Start: 12-09-2023 End: 12-09-2023 Patient encounter procedure [facility] Vascular Surgery Work Phone: Start: 11-12-2023 End: 11-12-2023 ambulatory SHAIKH LAXMIWAD Not Available Start: 09-03-2023 End: 09-03-2023 ambulatory SHAIKH LAXMIWAD Not Available Start: 09-24-2022 End: 09-24-2022 ambulatory PHYSICIAN NO [facility] Work Phone: Start: 09-24-2022 End: 09-24-2022 Patient encounter procedure PHYSICIAN NO [facility] Work Phone: Start: 09-05-2022 End: 09-06-2022 ambulatory SHAIKH Anais MAGALLANES Facility: Start: 06-18-2022 End: 06-18-2022 ambulatory Hillary La Other [facility] Other Start: 06-18-2022 Office outpatient ne w 20 minutes Hillary La [facility] Procedures Date Procedure Procedure Detail Performing Clinician Start: 12-13-2023 Computed tomography of abdomen and pelvis with contrast PHYSICIAN NO [facility] Immunizations Immunization Date Immunization Notes Care Provider [facility] 01-20-2021 COVID-19 mRNA, Comirnaty (Pfizer) PHYSICIAN NO [facility] 12-30-2020 COVID-19 mRNA, Comirnaty (Pfizer) PHYSICIAN NO [facility] Payers Date Payer Category Payer Self-pay 2022 Unknown [id number] 1960 Medicare [id number] 2.1 [id number] 1960 Unknown [id number] 2.16.8 [id number] 1955 Unknown [id number] 2.16.84 [id number] 1955 Unknown [id number] 2.16.8 [id number] 1955 Unknown [id number] 2.16.84 [id number] 1955 Unknown [id number] 2.16.84 [id number] 1955 Unknown [id number] 2.16.84 [id number] Unknown [id number] 2.16.8 [id number] Social History Date Type Detail Facility Sex Assigned At [facility] Other Start: 09-24-2022 End: 12-09-2023 Tobacco smoking status [facility] Smoker (finding) [facility] Start: 1955 Sex Assigned At Male F [facility] Medical Equipment Procedure Code Equipment Code Equipment Origin al Text Equipment Identifier Dates VISTASEAL 4ML FI BRIN SE[employer] FDA Start: 10-04-2022 VISTASEAL 4ML FI [employer]IN SE[employer] FDA Start: 10-04-2022 VISTASEAL 4ML FI BRIN SEAL[employer] FDA Start: 10-04-2022 Evaluation note 06-18-2022 Note Date & Type Note Facility 06-18-2022 Evaluation note Encounter Date Diagnosis Assessment Notes Jun, Cough (ICD-10 - R05.9) Jun, Sinusitis, unspecified chronicity, unspecified location (ICD-10 - J32.9) Sinusitis home care material was printed Drink plenty fluids, get plenty of rest. Take the amoxicillin with clavulanate and prednisone as prescribed until gone. Use the Flonase inhaler as prescribed and her symptoms improved. Take Tylenol or Motrin as needed for aches pains or fevers. Follow-up with your family physician if no improvement in 2 to 3 days. [facility] Other Evaluation note Note Date & Type Note Facility Evaluation note No assessment information availa ble [facility] Work Phone: Evaluation note Note Date & Type Note Facility Evaluation note Diagnosis Onset Date AAA (abdominal aortic aneury sm) without rupture acute Current every day smoker acu te Uncontrolled hypertension [place] [facility] Work Phone: History general Narrative - Reported Note Date & Type Note Facility History general Narrative - Reported Type Medical History Hypertension Medical History Depression [facility] Other Summary Purpose Family History No Family History Records Found Relationship Condition Age at Onset Recorded Date/T shantell father Aneurysm Unknown brother Malignant neoplasm of lung Unknown Relationship Condition Age at Onset Recorded Date/T shantell father Aneurysm Unknown Renal failure Unknown brother Malignant neoplasm of lung Unknown mother Myocardial infarction Unknown father Unknown mother Unknown Advance Directives No Advanced Directives Records Found Advance Directive Response Recorded Date/ Time Advance Directives No September 24 3 1:13pm Advance Directive Response Recorded Date/ Time Advance Directives No December 01 24 4:24pm Chief Complaint and Reason for Visit Chief Complaint pharyngeal mass, pha ryngitis Chief Complaint REF FOR 5.5CM AAA Chief Complaint REF FOR 5.5CM AAA I71.40 Reason for Visit AAA (abdominal aorti c aneurysm) without rupture Current every day smoker Uncontrolled hypertension Chief Complaint REF FOR 5.5CM AAA I71.[address] [place] [facility] Reason for Visit AAA (abdominal aorti c aneurysm) without rupture Current every day smoker Uncontrolled hypertension Additional Source Comments REASON FOR VISIT (unrecogniz ed section and content) CONGESTION SORE THROAT (unrecognized sect ion and content) No Status Records FoundNo Status Records FoundNo Status Records FoundNo Status Records Found INFORMATION SOURCE (unrecogn ized section and content) DATE CREATED AUTHOR 09/08/2022 [facility] DATE CREATED AUTHOR AUTHOR'S ORGANIZ ATION 12/15/2023 [facility] DATE CREATED AUTHOR AUTHOR'S ORGANIZ ATION 12/19/2023 [facility] DATE CREATED AUTHOR AUTHOR'S ORGANIZ ATION 01/16/2024 [facility] EPIC Care Teams (unrecognized sec tion and content) Team Status: Active Member Role Status Dates PHYSICIAN NO FAMILY Primary Care Provider Active Team Status: Inactive Member Role Status Dates Carlitos Douglas DO Attending Provider Active PHYSICIAN NO FAMILY Primary Care Provider Active Team Status: Inactive Member Role Status Dates PHYSICIAN NO FAMILY Primary Care Provider Active Start: December 09, 2023 End: December 09, 2023 Ken Bland MD Attending Provider Active S tart: December 09, 2023 End: December 09, 2023 Team Status: Inactive Member Role Status Dates PHYSICIAN NO FAMILY Primary Care Provider Active Start: December 13, 2023 End: December 13, 2023 ROBIN Carcamo Attending Provider Active Start: December 13, 2023 End: December 13, 2023 Team Status: Inactive Member Role Status Dates PHYSICIAN NO FAMILY Primary Care Provider Active Start: December 23, 2023 End: December 23, 2023 Ken Blnad MD Attending Provider Active S tart: December 23, 2023 End: December 23, 2023 Goals (unrecognized section and content) Goals may be documented in a n alternate section FOR RECORDS PERTAINING TO PATIENTS WHO ARE OR HAVE BEEN ENROLLED IN A CHEMICAL DEPENDENCY/SUBSTANCEABUSE PROGRAM, SOME INFORMATION MAY BE OMITTED. This clinical summary was aggregated from multiple sources. Caution should be exercised in using it in the provision of clinical care. This summary normalizes information from multiple sources, and as a consequence, information in this document may materially change the coding, format and clinical context of patient data. In addition, data may be omitted in some cases. CLINICAL DECISIONS SHOULD BE BASED ON THE PRIMARY CLINICAL RECORDS. [employer] provides no warranty or guarantee of the accuracy or completeness of information in this document.
[2024-03-02] MEDS: VANCOMYCIN HCL 1,000 MG in 0.9 % SODIUM CHLORIDE 250 ML 250 MG IV (15:09)
[2024-03-02] MEDS: ADACEL DIPH,PERTUSS(ACELL),TET VAC/PF 0.5 ML ADULT SYRINGE IM (15:10)
--- NOTE | 2024-03-02 15:10 | XR_ITS ---
The [place] [id number] Patient Name: MERE ADAMS MRN: [id number] date: 1955 Sex: M Assigned Patient Location: ER Current Patient Location: ER Accession/Order Number: [id number] Exam Date: 03/02/2024 15:05 Report Date: 03/02/2024 15:57 At the request of: FRANKO SETH Procedure: XR elbow LT min 3V PROCEDURE: XR elbow LT min 3V COMPARISON: None. HISTORY: infection FINDINGS: BONES:No acute fracture or dislocation. Mild degenerative changes with marginal osteophyte formation SOFT TISSUES:Extensive posterior soft tissue swelling with subcutaneous emphysema EFFUSION:None visible. OTHER: Negative. XR/XR elbow LT min 3V IMPRESSION: Posterior soft tissue swelling and subcutaneous emphysema, consider cellulitis/fasciitis with gas-forming organism Electronically authenticated by: RPAVEEN CARRASCO Date: 03/02/2024 15:57
[2024-03-02 15:16] LABS: Basophils Percent Auto 0.4 % (0.2-2.0); Eosinophils Absolute Auto 0.1 10^3/uL (0.0-0.7); Eosinophils Percent Auto 0.8 % (0.9-7.0); Hematocrit 43.7 % (42.0-54.0); Hemoglobin 15.1 g/dL (14.0-18.0); Immature Granulocytes Abs Auto 0.03 10^3/uL (0.00-0.03); Immature Granulocytes Pct Auto 0.3 % (0.0-0.5); Lymphocytes Absolute Auto 1.6 10^3/uL (1.2-3.8); Lymphocytes Percent Auto 15.4 % (20.5-60.0); Mean Corpuscular HGB Conc 34.6 g/dL (29.9-35.2); Mean Corpuscular Hemoglobin 35.6 pg (25.9-34.0); Mean Corpuscular Volume 103.1 fL (80.0-94.0); Mean Platelet Volume 11.1 fL (9.5-13.5); Monocytes Absolute Auto 1.4 10^3/uL (0.3-0.8); Neutrophils Percent Auto 69.1 % (43.0-75.0); Platelet Count 183 10^3/uL (150-450); Red Blood Count 4.24 10^6/uL (4.70-6.10); Red Cell Distribution Width 12.7 % (11.0-15.0); White Blood Count 10.1 10^3/uL (4.0-11.0)
[2024-03-02] MEDS: LIDOCAINE HCL 1% 100 MG/10 ML MDV INJ (15:19)
[2024-03-02 15:21] LABS: PCO2 VBG 41.8 mmHg (40.0-52.0); pH VBG 7.439 (7.330-7.430)
[2024-03-02 15:31] LABS: Erythrocyte Sedimentation Rate 101 mm/hr (<=20)
[2024-03-02 15:33] LABS: Alanine Aminotransferase 20 U/L (16-63); Albumin Globulin Ratio 0.7; Albumin Level 3.2 g/dL (3.4-5.0); Alkaline Phosphatase 81 U/L (46-116); Anion Gap 15.4; Aspartate Amino Transferase 18 U/L (15-37); BUN Creatinine Ratio 9.1; Bilirubin Total 0.6 mg/dL (0.2-1.0); C Reactive Protein 7.58 mg/dL (<=0.50); Carbon Dioxide 25.3 mmol/L (21.0-32.0); Chloride 104 mmol/L (98-107); Estimated GFR (African America >60 (>=60 mL/min/1.73m^2); Estimated GFR (Non-African Ame >60 (>=60 mL/min/1.73m^2); Globulin 4.5 g/dL; Glucose 126 mg/dL (74-106); Potassium 3.7 mmol/L (3.5-5.1); Sodium 141 mmol/L (136-145); Total Protein 7.7 g/dL (6.4-8.2)
[2024-03-02] MEDS: PIPERACILLIN SODIUM/TAZOBACTAM 4.5 GM in 0.9 % SODIUM CHLORIDE 50 ML IV (16:14)
[2024-03-02 16:23] LABS: Clarity Body Fluid CLOUDY; Color Body Fluid YELLOW
[2024-03-02 16:24] LABS: Lymphocytes Body Fluid 4 %; Monocytes Body Fluid 1 %; Neutrophils Body Fluid 95 %; RBC Body Fluid 1081 cubic mm (0-0); Red Blood Cell BF Side 1 990; Red Blood Cell BF Side 2 957; WBC Body Fluid 4730 cubic mm (0-5); White Blood Cell BF Side 1 4092; White Blood Cell BF Side 2 4422
[2024-03-02 16:55] VITALS: BP 177/96
== END 2024-03-02 17:06 | disposition home or self-care (01) ==
PROVIDERS: Physician Assistant; Emergency Provider Emergency Medicine
DX: M00.9 Pyogenic arthritis, unspecified (principal); Z23 Encounter for immunization
CPT/HCPCS: 36415; 73080; 80053; 82800; 83605; 85025; 85652; 86140; 87040; 87070; 87205; 89051; 90471; 90715; 96365; 96367; 99285; J2543; J3370

== ENCOUNTER 2024-07-23 08:29 | Outpatient (OUT) | payer MEDICARE, OTHER, SELFPAY ==
--- NOTE | 2024-07-23 08:33 | MR_ITS ---
The [address] [address] Patient Name: MERE ADAMS MRN: [id number] date: 1955 Sex: M Assigned Patient Location: MRI Current Patient Location: MRI Accession/Order Number: [id number] Exam Date: 07/23/2024 09:30 Report Date: 07/23/2024 09:50 At the request of: ISAMAR MAXWELL MD Procedure: MR lumbar spine wo con MRI LUMBAR SPINE WITHOUT CONTRAST COMPARISON: Plain films 11/19/2023 CLINICAL DATA: Chronic back pain with radiation to the hips over the past 6 months. No injury. Multiecho imaging in the axial and sagittal plane was performed without contrast. There is levoscoliotic curvature. There is no significant displacement on the sagittal sequences. There are no acute compression fractures or marrow edema. The conus medullaris terminates at the T12-L1 level. No paraspinal soft tissue abnormalities are noted. There is a 4.5 cm abdominal aortic aneurysm. At T12-L1 and L1-2, the discs are normal height and signal intensity. No disc bulge or herniation is present. There is anterolateral endplate spurring at L1-2. No stenosis is identified. At L2-3, there is mild disc desiccation. There is disco-osteophytic bulging toward the neural foramen and asymmetric extending laterally on the right. There is minor facet and ligamentous hypertrophy. There is slight thecal sac effacement. No significant neural foraminal stenosis is identified. At L3-4, there is minor annular disc bulging, greater extending laterally on both sides. There is minor facet and ligamentous hypertrophy. There is no significant thecal sac effacement or foraminal stenosis. At L4-5, mild disc desiccation is present. Disco-osteophytic bulging is noted, greater extending laterally. There is prominent facet hypertrophy with fluid in the joints. There is thickening of ligamentum flavum. There is a small synovial cyst along the central aspect of the facets on the left measuring approximately 1 cm in greatest dimension on the sagittal T2 sequence. Severe central stenosis is present. There is also moderate foraminal impingement. At the lumbosacral junction, there is slight disc desiccation. There is minor annular disc bulging, asymmetric extending laterally on the left where there is also endplate spurring. There is mild facet hypertrophy. No central stenosis is identified. There is minimal right and at least moderate left foraminal impingement. MR/MR lumbar spine wo con IMPRESSION: SUBTLE SCOLIOSIS. MULTILEVEL DISCOVERTEBRAL DEGENERATIVE CHANGES, GREATEST AT L4-5 WHERE SEVERE CENTRAL STENOSIS IS SEEN. INCIDENTAL 4.5 CM ABDOMINAL AORTIC ANEURYSM. Impression dictated by: Darlyn Vo M.D.07/23/2024 9:50 AM Dictation Location: [place] [address] Electronically authenticated by: [id number] Y Date: 07/23/2024 09:50
--- OUTSIDE RECORDS SUMMARY | 2024-07-23 08:43 | XMS_ITS | CCD ---
Author Organization [facility] Care Team Providers Care Composite Technician Name Role Phone Hillary La Unavailable SHAIKH Anais MAGALLANES Attending Unavailable SHAIKH Anais MAGALLANES Consulting Unavailable SHAIKH Anais MAGALLANES Primary Care Unavailable SHAIKH Anais MAGALLANES Admitting Unavailable DO Carlitos Douglas Attending Provider NO FAMILY, PHYSICIAN Primary Care Provider Unava ilable NO FAMILY, PHYSICIAN Primary Care Provider Unava ilable ROBIN Hurt Attending Provider MAURICE ROSADO Referring Unavailable Kevin Maxwell MD Primary Care Provider Estrellita Teresa NP Unavailable NO FAMILY, PHYSICIAN Primary Care Unavailable Ken Bland Attending Unavailable Ken Bland Admitting Unavailable Frannie Hurt Attending Unavailable Frannie Hurt Admitting Unavailable NO FAMILY, PHYSICIAN Primary Care Unavailable Estrellita Teresa NP Unavailable KEVIN MAXWELL Attending Unavailable SHAIKH MAGALLANES Attending Unavailable SHAIKH MAGALLANES Attending Unavailable ESTRELLITA TERESA Attending UnavailESTRELLITA Hall Attending UnavailESTRELLITA Hall Referring UnavailESTRELLITA Hall Attending Unavailmeli e Medications Current Medications Medication Drug Class(es) Dates Sig (Normalized) Sig (Original) acetaminophen 500 mg oral tablet (6 sources) Start: 09-24-2022 take 1 tablet by mouth four times daily as needed for pain Acetaminophen (Acetaminophen Extra Strength) 500 mg Tablet Active 500 MG PO Four times daily as needed for Pain September 23, 2022 11:00pm acetaminophen 325 mg / HYDROcodone bitartrate 5 mg oral tablet (10 sources) Opioid Agonist Start: 03-03-2024 End: 04-16-2024 take 1 tablet by mouth every six hours as needed HYDROcodone-acetami nophen ([place]) 5-325 MG tablet Take 1 tablet by mouth every 6 (six) hours if needed 03/03/2024 04/16/2024 Discontinued (Therapy completed) Start: 10-04-2022 End: 12-09-2023 Hydrocodone-Acetaminophen 7. 5-325 mg tablet Discontinued 1 TAB PO every 6 to 8 hours as needed for pain 29 11October 04, 2022 December 09, 2023 7:52am [id number] 200 actuat albuterol 0.09 mg/actuat metered dose inhaler (2 sources) beta2-Adrenergic Agonist Start: 07-16-2024 take 2 puff(s) by inhalation every four hours for wheezing albuterol HFA 90 mcg/act inhaler Indications: Chronic obstructive pulmonary disease, unspecified COPD type (CMS/HCC) Inhale 2 puffs every 4 (four) hours if needed for shortness of breath or wheezing 18 g 2 07/16/2024 Active Start: 07-16-2024 take 2 puff(s) by in halation every four hours for wheezing albuterol HFA 90 mcg/act inhaler Indications: Chronic obstructive pulmonary disease, unspecified COPD type (CMS/HCC) Inhale 2 puffs every 4 (four) hours if needed for shortness of breath or wheezing 18 g 2 07/16/2024 Active amoxicillin 875 mg / clavulanate 125 mg oral tablet (1 source) Penicillin-class Antibacterial Start: 06-18-2022 take 1 tablet by mouth every twelve hours Amoxicillin-Pot Clavulanate 875-125 MG 1 tablet Orally every 12 hrs for 10 day(s) Jun, Active Blood Pressure Monitoring (Blood Pressure Cuff) misc (9 sources) Start: 03-16-2024 Blood Pressure Monitoring (Blood Pressure Cuff) misc Indications: Essential (primary) hypertension (CMS/HCC) 1 each in the morning and 1 each before bedtime. 1 each 03/16/2024 Active cephalexin 500 mg oral capsule (5 sources) Cephalosporin Antibacterial Start: 03-03-2024 End: 04-16-2024 take 1 capsule by mouth every eight hours cephalexin (Keflex) 500 MG capsule Take 500 mg by mouth every 8 (eight) hours 03/03/2024 04/16/2024 Discontinued (Therapy completed) fluticasone propionate 0.05 mg/actuat metered dose nasal spray (1 source) Corticosteroid Start: 06-18-2022 take 2 spray(s) nasal route once daily Fluticasone Propionate 50 MCG/ACT 2 sprays Nasally Once a day for 14 day(s) Jun, Active hydroCHLOROthiazide 12.5 mg / lisinopril 20 mg oral tablet (13 sources) Thiazide Diuretic, Angiotensin Converting Enzyme Inhibitor Start: 06-29-2024 Lisinopril-Hydroch lorothiazide 20-12.5 mg tablet Active 1 TAB PO June 29, 2024 12:00am Start: 03-16-2024 End: 04-16-2025 take 1 tablet by mouth once daily lisinopril-hydroCHLOROthiazide 20-12.5 M G tablet Indications: Essential (primary) hypertension (CMS/HCC) Take 1 tablet by mouth Daily 90 tablet 04/16/2024 04/16/2025 Active meloxicam 15 mg oral tablet (20 sources) Nonsteroidal Anti-inflammatory Drug Start: 12-09-2023 Meloxicam Active MG PO December 09, 2023 12:00am Start: 11-12-2023 End: 07-16-2024 take 1 tablet by mouth once daily meloxicam (Mobic) 15 MG tablet Indications: Chronic bilateral low back pain with bilateral sciatica Take 1 tablet (15 mg) by mouth Daily 90 tablet 04/16/2024 07/16/2024 Discontinued 24 hr nicotine 0.583 mg/hr transdermal system (3 sources) Cholinergic Nicotinic Agonist Start: 11-12-2023 End: 01-15-2024 apply 1 dose transdermal route every twenty-four hours nicotine (Nicoderm CQ) 14 MG/24HR patch Indications: Nicotine abuse Place 1 patch over 24 hours on the skin 1 (one) time each day at the same time 30 patch 11/12/2023 01/15/2024 Discontinued (Therapy completed) predniSONE 20 mg oral tablet (1 source) Start: 06-18-2022 take 1 tablet by mouth every twelve hours predniSONE 20 MG 1 tablet Orally 2 times a day for 5 day(s) Jun, Active sulfamethoxazole 800 mg / trimethoprim 160 mg oral tablet (5 sources) Dihydrofolate Reductase Inhibitor Antibacterial, Sulfonamide Antimicrobial Start: 03-03-2024 End: 04-16-2024 take 1 tablet by mouth once in the morning, then take 1 tablet by mouth once at bedtime sulfamethoxazole -trimethoprim (Bactrim DS) 800-160 MG per tablet Take 1 tablet by mouth in the morning and 1 tablet before bedtime. 03/03/2024 04/16/2024 Discontinued (Therapy completed) 24 hr venlafaxine 75 mg extended release oral capsule (20 sources) Serotonin and Norepinephrine Reuptake Inhibitor Start: 12-23-2023 take 1 capsule by mouth every twenty-four hours Venlafaxine 75 mg capsule,extended release 24hr Active 75 MG PO December 22, 2023 11:00pm Start: 11-12-2023 End: 04-27-2024 take 1 capsule by mouth once daily venlafaxine XR (Effexor XR) 75 MG 24 hr capsule Indications: Depression, unspecified (CMS/HCC) Take 1 capsule (75 mg) by mouth Daily 90 capsule 1 04/27/2024 Active Start: 09-24-2022 End: 12-23-2023 take 1 tablet by mouth once daily in the morning Venlafaxine 37.5 mg Tablet Discontinued 37.5 MG PO Every morning September 23, 2022 11:00pm December 23, 2023 8:59am Effexor Active Completed/Discontinued Medications Medication Drug Class(es) Dates Sig (Normalized) Sig (Original) lisinopril 20 mg oral tablet (16 sources) Angiotensin Converting Enzyme Inhibitor Start: 09-24-2022 End: 06-29-2024 take 1 tablet by mouth once daily in the morning Lisinopril 20 mg tablet Discontinued 20 MG PO Every morning September 23, 2022 11:00pm June 29, 2024 9:00am Lisinopril Activ e Problems Active Problems Problem Classification Problem Date Documented Date Episodic/Chronic Alcohol-related disorders (17 sources) Alcohol abuse; Translations: [Alcohol abuse, uncomplicated] Onset: 01-15-2024 01-15-2024 Chronic Aortic; peripheral; and visceral artery aneurysms (12 sources) Abdominal aortic aneurysm without rupture; Translations: [Abdominal aortic aneurysm (AAA) without rupture] Onset: 07-16-2024 12-09-2023 Chronic Chronic obstructive pulmonary disease and bronchiectasis (18 sources) Pulmonary emphysema; Translations: [Other emphysema] Onset: 09-03-2023 09-03-2023 Chronic Disorders of lipid metabolism (20 sources) Hyperlipidemia, unspecified; Translations: [Hyperlipidemia] Onset: 09-05-2022 Chronic Essential hypertension (20 sources) Essential (primary) hypertension; Translations: [Hypertensive disorder] Onset: 09-08-2022 12-09-2023 Chronic Mood disorders (20 sources) Recurrent major depression in full remission; Translations: [Major depressive disorder, recurrent, in full remission] Onset: 09-03-2023 Resolved: 07-16-2024 09-03-2023 Chronic Other nervous system disorders (5 sources) Postoperative pain ; Translations: [Other acute postprocedural pain] 04-24-2023 Episodic Comment on above: Problem List clean-u p per request of Phys. EHR Cmte Other upper respiratory infections (2 sources) Sinusitis; Translations: [Chronic sinusitis, unspecified] Chronic Spondylosis; intervertebral disc disorders; other back problems (8 sources) Lumbar spondylosis; Translations: [Spondylosis without myelopathy or radiculopathy, lumbar region] Onset: 09-03-2023 07-16-2024 Chronic Substance-related disorders (20 sources) Smokes tobacco daily; Translations: [Nicotine dependence, unspecified, uncomplicated] Onset: 09-03-2023 12-09-2023 Chronic Unclassified (1 source) Abdominal aortic aneurysm, without rupture, unspecified; Translations: [Abdominal aortic aneurysm, without rupture, unspecified] Onset: 06-29-2024 Past or Other Problems Problem Classification Problem Date Documented Da te Episodic/Chronic Mood disorders (16 sources) Mood disorders Onset: 11-12-2023 11-12-2023 Other lower respiratory disease (17 sources) Multiple nodules of lung; Translations: [Other nonspecific abnormal finding of lung field] Onset: 01-15-2024 01-15-2024 Episodic Other screening for suspected conditions (not mental disorders or infectious disease) (17 sources) Encounter for screening for malignant neoplasm of respiratory organs; Translations: [Patient encounter status] Onset: 11-12-2023 Resolved: 07-16-2024 11-12-2023 Episodic Residual codes; unclassified (18 sources) Tobacco user; Translations: [Tobacco use] Onset: 09-03-2023 Resolved: 07-16-2024 09-03-2023 Episodic Residual codes; unclassified (16 sources) Harmful pattern of use of nicotine; Translations: [Tobacco use] Onset: 11-12-2023 11-12-2023 Episodic Spondylosis; intervertebral disc disorders; other back problems (20 sources) Chronic low back pain; Translations: [Lumbago with sciatica, left side] Onset: 09-03-2023 Resolved: 07-16-2024 11-12-2023 Episodic Unclassified (1 source) Cough R05.9 Results Test Name Value Interpretation Reference Range Facility US aortaon 06-29-2024 US aorta [facility] [address] [place] [address] Ultrasound Report Signed Patient: Hua Bennett MR#: [id number] 8 : 1955 Acct:[id number] Age/Sex: 68 / M ADM Date: 06/29/24 Loc: [facility] Room: Type: [facility] Attending Dr: Ken Bland MD Ordering Provider: Ken Bland MD Date of Service: 06/29/24 US/US aorta: I71.40 - Abdominal aortic aneurysm, without rupture, unsp... Copies to: Ken Bland MD ULTRASOUND OF THE ABDOMINAL AORTA: CLINICAL INFORMATION: Follow-up known abdominal aortic aneurysm COMPARISON : CT December 2023 TECHNIQUE AND FINDINGS: Multiple ultrasonographic scans of the abdominal aorta were obtained and show Following measurement were obtained: Proximal height: 2.71 cm width : 2.6 Mid height: 3.2 width : 3.3 Distal height: 5.01 cm width : 5.0 Bilateral common iliac arteries measure 1.7 in height and 1.8 in width on the right and 1.9 in height and 1.8 in width on the left US/US aorta IMPRESSION: 5 CM INFRARENAL ABDOMINAL AORTIC ANEURYSM WITH MODERATE BILATERAL ILIAC ANEURYSMS Impression dictated by: Ken Bland M.D.06/29/2024 10:49 AM Dictation Location: [id number] Tech: Gayatri Dawkins Transcribed By: RL 06/29/24 1049 Dictated By: Ken Bland MD 06/29/24 1047 Signed By: 06/29/24 1049 Normal [facility] CT CHEST WO IV CONTRASTon CT CHEST WO IV CONTRAST CT CHEST WO IV CONTRAST Reason for exam: Follow-up lung nodule from previous CT on 12/18/2023 Technical: Spiral images were obtained through the chest. IV Contrast: None. FINDINGS: Chest wall: No soft tissue abnormalities. No significant rib lesions. Thyroid: The included portion is unremarkable. Heart: Normal size. No pericardial abnormalities. Coronary Artery Calcification: Present in all vessels. Thoracic aorta: No aneurysm or dissection. Mediastinum and ryan: No masses or lymphadenopathy. Lungs: Emphysematous. A 4 mm noncalcified nodule is noted in the right upper lobe, unchanged from previous CT dated 12/17/2023. A 3 mm nodule is present in the left upper lobe, also unchanged. There is an oval 5 x 3 mm nodule in the right upper lobe adjacent to a pulmonary artery branch which is stable. Pleura: Negative for effusion, plaques or pleural nodules. Upper abdomen included on study: No significant findings. Impression: Several nodules are stable. No evidence of new or enlarging nodules compared to 12/17/2023. Recommendation: Follow-up LDCT in [address] scans at this institution are performed using dose optimization techniques as appropriate for the performed exam including the following: Automated exposure control Adjustment of the mA and/or kV according to patient size Use of iterative reconstruction technique Dictated on: 03/18/2024 11:10 AM This report has been electronically signed and approved by the interpreting Radiologist. Normal Not Available [facility] GRAM STAINon 03-02-2024 Microscopic observation Gram stain Nom (Unsp spec) Gram Stain GSNOS Organisms Seen^Organisms Seen [facility] Microscopic observation Gram stain Nom (Unsp spec) NO NO ORGANISM SEEN^NO ORGANISM SEEN [facility] Microscopic observation Gram stain Nom (Unsp spec) GSWBC White Blood Cells^White Blood Cells [facility] Microscopic observation Gram stain Nom (Unsp spec) R RARE^RARE [facility] LEFT ELBOW FLUID [facility] ALL MAGNESIUMon 01-22-2024 Magnesium [Mass/Vol] 2.0 mg/dL 1.8 - 2 .4 mg/dL [facility] ALL PHOSPHOROUSon 01-22-2024 Phosphate [Mass/Vol] 2.8 mg/dL 2.6 - 4 .7 mg/dL [facility] No Panel Informationon 01-21 [facility] LOW DOSE LUNG SCREENINGon 12-18-2023 CT [...] aided detection for pulmonary nodules?was performed utilizing [employer] software.? FINDINGS: Diagnostic quality: Satisfactory Lung nodules: [...] in 3 months recommended for further characterization. 0 Finalized by Mikhail Elena MD on 12/18/2023 6:28 PM 3 LDCT 3 Mo Normal [facility] CT angio abdomen pelvison CT angio abdomen pelvis [facility] [place] [address] [place] [address] CT Scan Report Signed Patient: Hua Bennett MR#: [id number] 8 : 1955 Acct:[id number] Age/Sex: 68 / M ADM Date: 12/13/23 Loc: CT Room: Type: [facility] Attending Dr: Frannie Hurt ADVERTISING ACCOUNT REPRESENTATIVE-C Copies to: Frannie Hurt APRN Ordering Provider: [...] Uterus has been removed]. No adnexal mass. Peritoneum/Retroper itoneum:No free air, free fluid or lymphadenopathy.[ Abd wall/Bones:Abdomina l wall demonstrates no acute findings. Osseous structures demonstrate degenerative change.[ CT/CT angio abdomen pelvis IMPRESSION: Fusiform type infrarenal abdominal aneurysm measuring 4.8 cm. Finding is similar to the prior ultrasound study. No acute intra-abdominal process. Impression dictated by: Eladio Broderick Jr., D.OKaris12/13/2023 1:27 PM Dictation Location: [place] [address] Transcribed By: [facility] 12/13/23 1327 Dictated By: Eladio Broderick Jr, DO 12/13/23 1319 Signed By: 12/13/23 1327 Normal [facility] ISTAT XRay CREon 12-13-2023 ISTAT GFR > 60.0 Normal [facility] Comment on above: Result Comment: PERF ORMED BY: [place] [address] PATHOLOGIST MANAGER HARDWARE DEVONTE MOJICA M.D. Performed By: #### I SCRE #### [facility] [address] No Panel InformationOrdered By: Frannie Hurt on 12-13-2023 Bedside Estimated GFR (eGFR) > 60.0 [facility] Whole blood creatinine measu rementOrdered By: Frannie Hurt on 12-13-2023 Creatinine [Mass/Vol] 0.8 mg/dL Normal 0.6-1.3 [facility] Comment on above: ER/ESD physician is notified/shown all ISTAT results.Critical values may be confirmed by laboratory testing ifdeemed necessary by ER attending doctor. Result Comment: ER/E SD physician is notified/shown all ISTAT results. Critical values may be confirmed by laboratory testing if deemed necessary by ER attending doctor. Performed By: #### I SCRE #### [facility] [address] [place] [address] Basophils Auto (Bld) [#/Vol] Ordered By: Carlitos Douglas on 09-24-2022 Basophils (Bld) [#/Vol] 0.0 10*3/uL 0.0-0.2 [facility] Basophils/100 WBC Auto (Bld) Ordered By: Carlitos Douglas on 09-24-2022 Basophils/100 WBC (Bld) 0.4 % . [facility] Calcium [Mass/volume] in Ser um or PlasmaOrdered By: Carlitos Douglas on 09-24-2022 Calcium [Mass/Vol] 9.3 mg/dL 8.6-10.3 [facility] Carbon dioxide, total [Moles /volume] in Serum or PlasmaOrdered By: Carlitos Douglas on 09-24-2022 CO2 [Moles/Vol] 29.1 mmol/L 21.0-31.0 [facility] Chloride [Moles/volume] in S ebony or PlasmaOrdered By: Carlitos Douglas on 09-24-2022 Chloride [Moles/Vol] 106 mmol/L 98-107 [facility] Creatinine [Mass/volume] in Serum or PlasmaOrdered By: Carlitos Douglas on 09-24-2022 Creatinine [Mass/Vol] 0.82 mg/dL 0.70-1.30 [facility] Eosinophils Auto (Bld) [#/Vo l]Ordered By: Carlitos Douglas on 09-24-2022 Eosinophils (Bld) [#/Vol] 0.1 10*3/uL 0.0-0.45 [facility] Eosinophils/100 WBC Auto (Bl d)Ordered By: Carlitos Douglas on 09-24-2022 Eosinophils/100 WBC (Bld) 1.5 % . [facility] Erythrocyte distribution wid th Auto (RBC) [Ratio]Ordered By: Carlitos Douglas on 09-24-2022 Erythrocyte distribution width (RBC) [Ratio] 13.5 % 12.0-14.8 [facility] Glucose [Mass/volume] in Ser um or PlasmaOrdered By: Carlitos Douglas on 09-24-2022 Glucose [Mass/Vol] 83 mg/dL 70-100 [facility] Comment on above: ADA recommended refe rence rangeRandom Glucose Reference Range is dependent on time and content of last meal. Glucose of more than 200 mg/dL in a nonstressed, ambulatory subject supports the diagnosis of Diabetes Mellitus. Hematocrit Auto (Bld) [Volum e fraction]Ordered By: Carlitos Douglas on 09-24-2022 Hematocrit (Bld) [Volume fraction] 46.7 % 38.8-50.0 [facility] Hemoglobin [Mass/volume] in BloodOrdered By: Carlitos Douglas on 09-24-2022 Hemoglobin (Bld) [Mass/Vol] 15.6 g/dL 13.0-17.0 [facility] Leukocytes [#/volume] correc bandar for nucleated erythrocytes in Blood by Automated counOrdered By: Carlitos Douglas on 09-24-2022 WBC corrected for nucl RBC Auto (Bld) [#/Vol] 6.8 10*3/uL 4.1-10.5 [facility] Lymphocytes Auto (Bld) [#/Vo l]Ordered By: Carlitos Douglas on 09-24-2022 Lymphocytes (Bld) [#/Vol] 1.7 10*3/uL 1.00-4.8 [facility] Lymphocytes/100 WBC Auto (Bl d)Ordered By: Carlitos Douglas on 09-24-2022 Lymphocytes/100 WBC (Bld) 24.8 % . [facility] MCH Auto (RBC) [Entitic mass ]Ordered By: Carlitos Douglas on 09-24-2022 MCH (RBC) [Entitic mass] 34.1 pg 27.5-35.2 [facility] MCHC Auto (RBC) [Mass/Vol]Or dered By: Carlitos Douglas on 09-24-2022 MCHC (RBC) [Mass/Vol] 33.5 g/dL 32.5-35.6 [facility] MCV Auto (RBC) [Entitic vol] Ordered By: Carlitos Douglas on 09-24-2022 MCV (RBC) [Entitic vol] 101.9 fL 83.5-101 [facility] Monocytes Auto (Bld) [#/Vol] Ordered By: Carlitos Douglas on 09-24-2022 Monocytes (Bld) [#/Vol] 0.7 10*3/uL 0.0-0.8 [facility] Monocytes/100 WBC Auto (Bld) Ordered By: Carlitos Douglas on 09-24-2022 Monocytes/100 WBC (Bld) 9.9 % . [facility] Neutrophils Auto (Bld) [#/Vo l]Ordered By: Carlitos Douglas on 09-24-2022 Neutrophils (Bld) [#/Vol] 4.3 10*3/uL 1.8-7.7 [facility] Neutrophils/100 WBC Auto (Bl d)Ordered By: Carlitos Douglas on 09-24-2022 Neutrophils/100 WBC (Bld) 63.4 % . [facility] No Panel InformationOrdered By: Carlitos Douglas on 09-24-2022 Estimated GFR (CKD-EPI) > 60.0 mL/Min [facility] Creatinine Clearance (Chem N/A [facility] Nucleated erythrocytes [Pres ence] in Blood by Automated countOrdered By: Carlitos Douglas on 09-24-2022 Nucleated RBC Auto Ql (Bld) 0.0 /100{WBC} 0-0.5 [facility] Platelet mean volume Auto (B ld) [Entitic vol]Ordered By: Carlitos Douglas on 09-24-2022 Platelet mean volume (Bld) [Entitic vol] 9.1 fL 6.6-10.1 [facility] Platelets Auto (Bld) [#/Vol] Ordered By: Carlitos Douglas on 09-24-2022 Platelets (Bld) [#/Vol] 189 10*3/uL 150-450 [facility] Potassium [Moles/volume] in Serum or PlasmaOrdered By: Carlitos Douglas on 09-24-2022 Potassium [Moles/Vol] 4.0 mmol/L 3.5-5.1 [facility] RBC Auto (Bld) [#/Vol]Ordere d By: Carlitos Douglas on 09-24-2022 RBC (Bld) [#/Vol] 4.58 10*6/uL 3.90-5.60 [facility] Serum or plasma anion gap de terminationOrdered By: Carlitos Douglas on 09-24-2022 Anion gap [Moles/Vol] 10.9 mmol/L 6.0-15.0 [facility] Sodium [Moles/volume] in Ser um or PlasmaOrdered By: Carlitos Douglas on 09-24-2022 Sodium [Moles/Vol] 142 mmol/L 136-145 [facility] Urea nitrogen [Mass/volume] in Serum or PlasmaOrdered By: Carlitos Douglas on 09-24-2022 Urea nitrogen [Mass/Vol] 9 mg/dL 7-25 [facility] WBC Auto (Bld) [#/Vol]Ordere d By: Carlitos Douglas on 09-24-2022 WBC (Bld) [#/Vol] 6.8 10*3/uL 4.1-10.5 [facility] CBC AUTO DIFFon 04-26-2023 BASO # 0.1 103/ul Normal 0.0-0.1 [facility] Comment on above: Performed By: #### C BC #### [facility] [address] [place] [address] [address] Petr Winchester Basophils/100 WBC (Bld) 0.6 % Normal 0.2-2.[address] [facility] Comment on above: Performed By: #### C BC #### [facility] [address] [place] [address] Dr. Petr Winchester EO # 0.3 103/ul Normal 0.0-0.7 [facility] Comment on above: Performed By: #### C BC #### [facility] [address] [place] [address] Dr. Petr Winchester Eosinophils/100 WBC (Bld) 3.0 % Normal 0.9-7.0 [facility] Comment on above: Performed By: #### C BC #### [facility] [address] [place] [address] Dr. Petr Winchester Erythrocyte distribution width (RBC) [Ratio] 13.2 % Normal 11.0-15.0 [facility] Comment on above: Performed By: #### C BC #### [facility] [address] [place] [address] Dr. Petr Winchester Hematocrit (Bld) [Volume fraction] 46.1 % Normal 42.0-54.0 [facility] Comment on above: Performed By: #### C BC #### [facility] [address] [place] [address] Dr. Petr Winchester Hemoglobin (Bld) [Mass/Vol] 15.3 g/dL Normal 14.0-18.0 [facility] Comment on above: Performed By: #### C BC #### [facility] [address] [place] [address] Dr. Petr Winchester IG # 0.03 10e3/ul Normal 0.00-0.03 [facility] Comment on above: Performed By: #### C BC #### [facility] [address] [place] [address] Dr. Petr Winchester IG % 0.3 % Normal 0.0-0.5 [facility] Comment on above: Performed By: #### C BC #### [facility] [address] [place] [address] Dr. Petr Winchester LYMPH # 1.9 103/ul Normal 1.2-3.8 [facility] Comment on above: Performed By: #### C BC #### [facility] [address] [place] [address] Dr. Petr Winchester Lymphocytes/100 WBC (Bld) 19.2 % Critically low 20.5-60.0 [facility] Comment on above: Performed By: #### C BC #### [facility] [address] [place] [address] Dr. Petr Winchester MANUAL DIFF REQ NO Normal [facility] Comment on above: Performed By: #### C BC #### [facility] [address] [place] [address] Dr. Petr Winchester MCH (RBC) [Entitic mass] 34.0 pg Normal 25.9-34.0 [facility] Comment on above: Performed By: #### C BC #### [facility] [address] [place] [address] Dr. Petr Winchester MCHC (RBC) [Mass/Vol] 33.2 g/dL Normal 29.9-35.2 [facility] [facility] Comment on above: Performed By: #### C BC #### [facility] [address] [place] [address] Dr. Petr Winchester MCV (RBC) [Entitic vol] 102.4 fL Critically high 80.0-94 .0 [facility] Comment on above: Performed By: #### C BC #### [facility] [address] [place] [address] Dr. Petr Winchester MONO # 0.9 103/ul Critically high 0.3-0.8 [facility] Comment on above: Performed By: #### C BC #### [facility] [address] [place] [address] Dr. Petr Winchester Monocytes/100 WBC (Bld) 9.6 % Normal 1.7-12.[address] [facility] Comment on above: Performed By: #### C BC #### [facility] [address] [place] [address] Dr. Petr Winchester NEUT # 6.5 103/ul Normal 1.4-6.5 [facility] Comment on above: Performed By: #### C BC #### [facility] [address] [place] [address] Dr. Petr Winchester Neutrophils/100 WBC (Bld) 67.3 % Normal 43.0-75.0 [facility] Comment on above: Performed By: #### C BC #### [facility] [address] [place] [address] Dr. Petr Winchester Platelet mean volume (Bld) [Entitic vol] 10.6 fL Normal 9.5-13.5 [facility] Comment on above: Performed By: #### C BC #### [facility] [address] [place] [address] Dr. Petr Winchester PLT 210 103/ul Normal 150-450 [facility] Comment on above: Performed By: #### C BC #### [facility] [address] [place] [address] Dr. Petr Winchester RBC 4.50 106/ul Critically low 4.70-6.10 [facility] Comment on above: Performed By: #### C BC #### [facility] [address] [place] [address] Dr. Petr Winchester WBC 9.7 103/ul Normal 4.0-11.0 [facility] Comment on above: Performed By: #### C BC #### [facility] [address] [place] [address] Dr. Petr Winchester LIPID PROFILEon 09-05-2022 CHOL-HDL RATIO NORM SEE BELOW Normal [facility] Comment on above: Result Comment: 3.3 - 4.4 LOW RISK 4.4 - 7.1 AVERAGE RISK 7.1 - 11.0 MODERATE RISK >11.0 HIGH RISK Performed By: #### L IPID, CMP #### [facility] [address] [address] [address] Petr Winchester Cholesterol [Mass/Vol] 224 mg/dL Critically high <=200 [facility] Comment on above: Performed By: #### L IPID, CMP #### [facility] [address] [address] [address] Petr Winchester Cholesterol in HDL [Mass/Vol] 41 mg/dL Normal 40-60 [facility] Comment on above: Performed By: #### L IPID, CMP #### [facility] [address] [address] [address] Petr Winchester Cholesterol in LDL [Mass/Vol] 163.8 mg/dL Normal [facility] Comment on above: Performed By: #### L IPID, CMP #### [facility] [address] [address] [address] Petr Winchester Cholesterol.total/Camilla sterol in HDL [Mass ratio] 5.5 {ratio} Normal [facility] Comment on above: Performed By: #### L IPID, CMP #### [facility] [address] [address] [address] Petr Winchester HDL NORMAL > or = 60 mg/dl - LOW CARDIOVASCULAR RISK <40 mg/dl - HIGH CARDIOVASCULAR RISK Normal [facility] Comment on above: Performed By: #### L IPID, CMP #### [facility] [address] [address] [address] Petr Winchester LDL CALC NORMAL SEE BELOW Normal [facility] Comment on above: Result Comment: <100 mg/dl OPTIMAL 100 - 129 mg/dl NEAR OR ABOVE OPTIMAL 130 - 159 mg/dl BORDERLINE HIGH 160 - 189 mg/dl HIGH >190 mg/dl VERY HIGH Performed By: #### L IPID, CMP #### [facility] [address] [address] [address] Petr Winchester Triglyceride [Mass/Vol] 96 mg/dL Normal <=150 [facility] Comment on above: Performed By: #### L IPID, CMP #### [facility] [address] [address] [address] Petr Winchester VLDL CALC 19.2 mg/dL Normal [facility] Comment on above: Performed By: #### L IPID, CMP #### [facility] [address] [place] [address] Dr. Petr Winchester PROF 14(COMP METB)on 023 Albumin [Mass/Vol] 3.4 g/dL Normal 3.4-5.0 [facility] Comment on above: Performed By: #### L IPID, CMP #### [facility] [address] [place] [address] Dr. Petr Winchester Albumin/Globulin [Mass ratio] 0.8 {ratio} Normal [facility] Comment on above: Performed By: #### L IPID, CMP #### [facility] [address] [place] [address] Dr. Petr Winchester ALP [Catalytic activity/Vol] 74 U/L Normal 46-116 [facility] Comment on above: Performed By: #### L IPID, CMP #### [facility] [address] [place] [address] Dr. Petr Winchester ALT [Catalytic activity/Vol] 32 U/L Normal 16-63 [facility] Comment on above: Performed By: #### L IPID, CMP #### [facility] [address] [place] [address] Dr. Petr Winchester Anion gap [Moles/Vol] 9.9 mmol/L Normal [facility] Comment on above: Performed By: #### L IPID, CMP #### [facility] [address] [place] [address] Dr. Petr Winchester AST [Catalytic activity/Vol] 17 U/L Normal 15-37 [facility] Comment on above: Performed By: #### L IPID, CMP #### [facility] [address] [place] [address] Dr. Petr Winchester Bilirubin [Mass/Vol] 0.3 mg/dL Normal 0.2-1.0 [facility] Comment on above: Performed By: #### L IPID, CMP #### [facility] [address] [place] [address] Dr. Petr Winchester Calcium [Mass/Vol] 9.0 mg/dL Normal 8.5-10.1 [facility] Comment on above: Performed By: #### L IPID, CMP #### [facility] [address] [place] [address] Dr. Petr Winchester Chloride [Moles/Vol] 106 mmol/L Normal 98-107 [facility] Comment on above: Performed By: #### L IPID, CMP #### [facility] [address] [place] [address] Dr. Petr Winchester CO2 [Moles/Vol] 29.8 mmol/L Normal 21.0-32.0 [facility] Comment on above: Performed By: #### L IPID, CMP #### [facility] [address] [place] [address] Dr. Petr Winchester Creatinine [Mass/Vol] 0.97 mg/dL Normal 0.70-1.30 [facility] Comment on above: Performed By: #### L IPID, CMP #### [facility] [address] [place] [address] Dr. Petr Winchester EGFR-AF EGYPTIAN >60 Normal >=60 [facility] Comment on above: Performed By: #### L IPID, CMP #### [facility] [address] [place] [address] Dr. Petr Winchester EGFR-NON AF EGYPTIAN >60 Normal >=60 [facility] Comment on above: Performed By: #### L IPID, CMP #### [facility] [address] [place] [address] Dr. Petr Winchester Globulin (S) [Mass/Vol] 4.2 g/dL Normal [facility] Comment on above: Performed By: #### L IPID, CMP #### [facility] [address] [place] [address] Dr. Petr Winchester Glucose [Mass/Vol] 127 mg/dL Critically high 74-[address] [facility] Comment on above: Performed By: #### L IPID, CMP #### [facility] [address] [place] [address] Dr. Petr Winchester Potassium [Moles/Vol] 4.7 mmol/L Normal 3.5-5.1 [facility] Comment on above: Performed By: #### L IPID, CMP #### [facility] [address] [place] [address] Dr. Petr Winchester Protein [Mass/Vol] 7.6 g/dL Normal 6.4-8.[address] [facility] Comment on above: Performed By: #### L IPID, CMP #### [facility] [address] [place] [address] Dr. Petr Winchester Sodium [Moles/Vol] 141 mmol/L Normal 136-[address] [facility] Comment on above: Performed By: #### L IPID, CMP #### [facility] [address] [place] [address] Dr. Petr Winchester Urea nitrogen [Mass/Vol] 18.0 mg/dL Normal 7.0-18.0 [facility] Comment on above: Performed By: #### L IPID, CMP #### [facility] [address] [place] [address] Dr. Petr Winchester Urea nitrogen/Creatinine [Mass ratio] 18.6 mg/mg Normal [facility] Comment on above: Performed By: #### L IPID, CMP #### [facility] [address] [place] [address] Dr. Petr Winchester COVID + FLU Quick Testingon 06-18-2022 SARS-CoV-2 (COVID-19) RNA KALEN+probe Ql (Unsp spec) Negative [facility] [employer] Other COVID + FLU Quick Testing Negative [facility] [employer] Other Vital Signs Date Time Vital Sign Value Performing Clinician Facility 07-16-2024 11:08-0500 Body mass index (BMI) [Ratio] 21.59 kg/m2 Kevin Maxwell MD Work Phone: [facility] 07-16-2024 11:08-0500 Body temperature 98.2 [degF] Kevin Maxwell MD Work Phone: [facility] 07-16-2024 11:08-0500 Body weight 64.41 kg Kevin Maxwell MD Work Phone: [facility] 07-16-2024 11:08-0500 Diastolic blood pressure 90 mm[Hg] Kevin Maxwell MD Work Phone: [facility] 07-16-2024 11:08-0500 Heart rate 105 /min Kevin Maxwell MD Work Phone: [facility] 07-16-2024 11:08-0500 SaO2% (BldA) [Mass fraction] 94 % Kevin Maxwell MD Work Phone: [facility] 07-16-2024 11:08-0500 Systolic blood pressure 150 mm[Hg] Kevin Maxwell MD Work Phone: [facility] 06-29-2024 09:01-0500 Body height 170.18 cm [facility] 06-29-2024 09:01-0500 Body mass index (BMI) [Ratio] 23.4 kg/m2 [facility] 06-29-2024 09:01-0500 Body temperature 98.2 [degF] [facility] 06-29-2024 09:01-0500 Body weight 68 kg [facility] 06-29-2024 09:01-0500 Diastolic blood pressure 84 mm[Hg] [facility] 06-29-2024 09:01-0500 Heart rate 88 /min [facility] 06-29-2024 09:01-0500 Respiratory rate 16 /min [facility] 06-29-2024 09:01-0500 SaO2% (BldA) [Mass fraction] 96 % [facility] 06-29-2024 09:01-0500 Systolic blood pressure 122 mm[Hg] [facility] 04-16-2024 08:50-0500 Body mass index (BMI) [Ratio] 22.69 kg/m2 Estrellita Teresa NP Work Phone: [facility] 04-16-2024 08:50-0500 Body temperature 97.81 [degF] Estrellita Teresa ADVERTISING ACCOUNT REPRESENTATIVE Work Phone: [facility] 04-16-2024 08:50-0500 Body weight 67.68 kg Estrellita Teresa ADVERTISING ACCOUNT REPRESENTATIVE Work Phone: [facility] 04-16-2024 08:50-0500 Diastolic blood pressure 89 mm[Hg] Estrellita Teresa ADVERTISING ACCOUNT REPRESENTATIVE Work Phone: [facility] 04-16-2024 08:50-0500 Heart rate 101 /min Estrellita Teresa ADVERTISING ACCOUNT REPRESENTATIVE Work Phone: [facility] 04-16-2024 08:50-0500 SaO2% (BldA) [Mass fraction] 96 % Estrellita Teresa ADVERTISING ACCOUNT REPRESENTATIVE Work Phone: [facility] 04-16-2024 08:50-0500 Systolic blood pressure 138 mm[Hg] Estrellita Teresa ADVERTISING ACCOUNT REPRESENTATIVE Work Phone: [facility] 03-16-2024 09:35-0500 Body height 172.7 cm Estrellita Teresa ADVERTISING ACCOUNT REPRESENTATIVE Work Phone: [facility] 03-16-2024 09:35-0500 Body mass index (BMI) [Ratio] 21.96 kg/m2 Estrellita Teresa ADVERTISING ACCOUNT REPRESENTATIVE Work Phone: [facility] 03-16-2024 09:35-0500 Body temperature 96.1 [degF] Estrellita Teresa ADVERTISING ACCOUNT REPRESENTATIVE Work Phone: [facility] 03-16-2024 09:35-0500 Body weight 65.5 kg Estrellita Teresa ADVERTISING ACCOUNT REPRESENTATIVE Work Phone: [facility] 03-16-2024 09:35-0500 Diastolic blood pressure 92 mm[Hg] Estrellita Teresa ADVERTISING ACCOUNT REPRESENTATIVE Work Phone: [facility] 03-16-2024 09:35-0500 Heart rate 120 /min Estrellita Teresa ADVERTISING ACCOUNT REPRESENTATIVE Work Phone: [facility] 03-16-2024 09:35-0500 Respiratory rate 16 /min Estrellita Teresa ADVERTISING ACCOUNT REPRESENTATIVE Work Phone: [facility] 03-16-2024 09:35-0500 SaO2% (BldA) [Mass fraction] 98 % Estrellita Teresa ADVERTISING ACCOUNT REPRESENTATIVE Work Phone: [facility] 03-16-2024 09:35-0500 Systolic blood pressure 176 mm[Hg] Estrellita Teresa ADVERTISING ACCOUNT REPRESENTATIVE Work Phone: [facility] 01-15-2024 09:47-0400 Body height 170.2 cm Estrellita Teresa ADVERTISING ACCOUNT REPRESENTATIVE Work Phone: [facility] 01-15-2024 09:47-0400 Body mass index (BMI) [Ratio] 22.71 kg/m2 Estrellita Teresa ADVERTISING ACCOUNT REPRESENTATIVE Work Phone: [facility] 01-15-2024 09:47-0400 Body temperature 97 [degF] Estrellita Teresa ADVERTISING ACCOUNT REPRESENTATIVE Work Phone: [facility] 01-15-2024 09:47-0400 Body weight 65.77 kg Estrellita Teresa ADVERTISING ACCOUNT REPRESENTATIVE Work Phone: [facility] 01-15-2024 09:47-0400 Diastolic blood pressure 98 mm[Hg] Estrellita Teresa ADVERTISING ACCOUNT REPRESENTATIVE Work Phone: [facility] Comment on above: RT ARM LG CUFF 180/90 01-15-2024 09:47-0400 Heart rate 79 /min Estrellita Teresa ADVERTISING ACCOUNT REPRESENTATIVE Work Phone: [facility] Comment on above: 99% O2 01-15-2024 09:47-0400 Systolic blood pressure 178 mm[Hg] Estrellita Teresa ADVERTISING ACCOUNT REPRESENTATIVE Work Phone: [facility] Comment on above: RT ARM LG CUFF 180/90 12-23-2023 09:59-0400 Body height 170.18 cm PHYSICIAN NO [facility] 12-23-2023 09:59-0400 Body mass index (BMI) [Ratio] 23.4 kg/m2 PHYSICIAN NO [facility] 12-23-2023 09:59-0400 Body temperature 97.8 [degF] PHYSICIAN NO [facility] 12-23-2023 09:59-0400 Body weight 67.99 kg PHYSICIAN NO [facility] 12-23-2023 09:59-0400 Diastolic blood pressure 84 mm[Hg] PHYSICIAN NO [facility] 12-23-2023 09:59-0400 Heart rate 73 /min PHYSICIAN NO [facility] 12-23-2023 09:59-0400 Respiratory rate 16 /min PHYSICIAN NO [facility] 12-23-2023 09:59-0400 SaO2% (BldA) [Mass fraction] 96 % PHYSICIAN NO [facility] 12-23-2023 09:59-0400 Systolic blood pressure 122 mm[Hg] PHYSICIAN NO [facility] 12-09-2023 08:54-0400 Body height 170.18 cm [facility] 12-09-2023 08:54-0400 Body mass index (BMI) [Ratio] 23.5 kg/m2 [facility] 12-09-2023 08:54-0400 Body temperature 97.2 [degF] [facility] 12-09-2023 08:54-0400 Body weight 68.03 kg [facility] 12-09-2023 08:54-0400 Diastolic blood pressure 80 mm[Hg] [facility] 12-09-2023 08:54-0400 Heart rate 76 /min [facility] 12-09-2023 08:54-0400 SaO2% (BldA) [Mass fraction] 98 % [facility] 12-09-2023 08:54-0400 Systolic blood pressure 166 mm[Hg] [facility] 06-18-2022 12:45-0500 Body height 170.18 cm Hillary La Other [employer] Other 06-18-2022 12:45-0500 Body mass index (BMI) [Ratio] 25.12 kg/m2 Hillary La Other [employer] Other 06-18-2022 12:45-0500 Body temperature 98.2 [degF] Hillary La Other [employer] Other 06-18-2022 12:45-0500 Body weight 72.76 kg Hillary La Other [employer] Other 06-18-2022 12:45-0500 Respiratory rate 18 /min Hillary La Other [employer] Other 06-18-2022 12:45-0500 SaO2% (BldA) [Mass fraction] 97 % Hillary La Other [employer] Other Encounters Encounter Date Encounter Type Care Provider Facility Start: 07-16-2024 End: 07-16-2024 Laz Maxwell MD Work Phone: [facility] Start: 07-16-2024 End: 07-16-2024 Laz Maxwell MD Work Phone: [facility] Start: 07-16-2024 End: 07-16-2024 ambulatory KEVIN MAXWELL Not Available Start: 07-16-2024 End: 07-16-2024 Office outpatient visit 25 minutes Kevin Maxwell MD Work Phone: [facility] Comment on above: Essential (primary) hypertension (CMS/HCC) (Primary Dx); Chronic obstructive pulmonary disease, unspecified COPD type (CMS/HCC); Major depressive disorder, recurrent episode, mild (HCC) (CMS/HCC); Lumbar spondylosis; Infrarenal abdominal aortic aneurysm (AAA) without rupture (CMS/HCC); History of substance abuse (CMS/HCC) Start: 06-29-2024 End: 06-29-2024 Patient encounter procedure [facility] Work Phone: Start: 06-29-2024 End: 06-29-2024 ambulatory PHYSICIAN NO FAMILY Facility:[facility] Start: 04-27-2024 End: 04-27-2024 Refill Estrellita Teresa ADVERTISING ACCOUNT REPRESENTATIVE Work Phone: [facility] Comment on above: Depression, unspecif ied (CMS/HCC) Start: 04-16-2024 End: 04-16-2024 Bamboo flowsheet Estrellita Teresa ADVERTISING ACCOUNT REPRESENTATIVE Work Phone: [facility] Start: 04-16-2024 End: 04-16-2024 Bamboo flowsheet Estrellita Teresa ADVERTISING ACCOUNT REPRESENTATIVE Work Phone: [facility] Start: 04-16-2024 End: 04-16-2024 Office outpatient visit 15 minutes Estrellita Teresa ADVERTISING ACCOUNT REPRESENTATIVE Work Phone: [facility] Comment on above: Essential (primary) hypertension (CMS/HCC) (Primary Dx); Chronic bilateral low back pain with bilateral sciatica; Depression, unspecified (CMS/HCC) Start: 04-16-2024 End: 04-16-2024 ambulatory ESTRELLITA TERESA Not Available Start: 03-17-2024 End: 03-17-2024 ambulatory ESTRELLITA TERESA Not Available Start: 03-16-2024 End: 03-16-2024 Bamboo flowsheet Estrellita Teresa ADVERTISING ACCOUNT REPRESENTATIVE Work Phone: [facility] Start: 03-16-2024 End: 03-16-2024 Bamboo flowsheet Estrellita Teresa ADVERTISING ACCOUNT REPRESENTATIVE Work Phone: [facility] Start: 03-16-2024 End: 03-16-2024 Office outpatient visit 15 minutes Estrellita Teresa ADVERTISING ACCOUNT REPRESENTATIVE Work Phone: [facility] Comment on above: Essential (primary) hypertension (CMS/HCC) (Primary Dx) Start: 03-16-2024 End: 03-16-2024 ambulatory ESTRELLITA TERESA Not Available Start: 03-02-2024 End: 03-02-2024 Clinisync Result Encounter Generic External Data Provider [facility] External Department Unsolicited Start: 03-02-2024 End: 03-02-2024 Clinisync Result Encounter Generic External Data Provider [facility] External Department Unsolicited Start: 02-05-2024 End: 02-06-2024 Refill Amber Lwo MA [facility] Comment on above: Chronic bilateral lo w back pain with bilateral sciatica Start: 01-22-2024 End: 01-22-2024 Clinisync Result Encounter Estrellita Teresa ADVERTISING ACCOUNT REPRESENTATIVE Work Phone: [facility] Unsolicited Start: 01-22-2024 End: 01-22-2024 Clinisync Result Encounter Estrellita Teresa ADVERTISING ACCOUNT REPRESENTATIVE Work Phone: [facility] Unsolicited Start: 01-15-2024 End: 01-15-2024 Bamboo flowsheet Estrellita Teresa ADVERTISING ACCOUNT REPRESENTATIVE Work Phone: [facility] Start: 01-15-2024 End: 01-15-2024 Bamboo flowsheet Estrellita Teresa ADVERTISING ACCOUNT REPRESENTATIVE Work Phone: [facility] Start: 01-15-2024 End: 01-15-2024 Office outpatient visit 25 minutes Estrellita Teresa ADVERTISING ACCOUNT REPRESENTATIVE Work Phone: [facility] Comment on above: Essential (primary) hypertension (CMS/HCC) (Primary Dx); Other hyperlipidemia (CMS/HCC); Persistent depressive disorder (CMS/HCC); Chronic bilateral low back pain with bilateral sciatica; Alcohol use disorder, mild, abuse; Multiple lung nodules on CT; Lumbar stenosis with neurogenic claudication; Tobacco abuse Start: 01-15-2024 End: 01-15-2024 ambulatory ESTRELLITA TERESA Not Available Start: 12-23-2023 End: 12-23-2023 ambulatory PHYSICIAN NO [facility] Work Phone: Start: 12-23-2023 End: 12-23-2023 Patient encounter procedure PHYSICIAN NO [facility] Work Phone: Start: 12-17-2023 End: 12-17-2023 ambulatory [facility] Start: 12-13-2023 End: 12-13-2023 Patient encounter procedure PHYSICIAN NO [facility] [place] Work Phone: Start: 12-13-2023 End: 12-13-2023 ambulatory PHYSICIAN NO [facility] Work Phone: Start: 12-09-2023 End: 12-09-2023 ambulatory [facility] Work Phone: Start: 12-09-2023 End: 12-09-2023 Patient encounter procedure [facility] V[facility] Surgery Work Phone: Start: 11-12-2023 Patient encounter procedure Estrellita Teresa ADVERTISING ACCOUNT REPRESENTATIVE Work Phone: [facility] Start: 11-12-2023 End: 11-12-2023 ambulatory SHAIKH ELPIDIO Not Available Start: 09-03-2023 End: 09-03-2023 ambulatory SHAIKH ELPIDIO Not Available Start: 09-24-2022 End: 09-24-2022 ambulatory PHYSICIAN NO [facility] Work Phone: Start: 09-24-2022 End: 09-24-2022 Patient encounter procedure PHYSICIAN NO [facility] Work Phone: Start: 09-05-2022 End: 09-06-2022 ambulatory SHAIKH Anais MAGALLANES Facility: Start: 06-18-2022 End: 06-18-2022 ambulatory Hillary La Other [employer] Other Start: 06-18-2022 Office outpatient ne w 20 minutes Hillary Bessie [facility] Procedures Date Procedure Procedure Detail Performing Clinician Start: 03-02-2024 [facility] Generic External Data Provider Start: 01-22-2024 [facility] Estrellita Malick ADVERTISING ACCOUNT REPRESENTATIVE Work Phone: Start: 01-22-2024 ALL PHOSPHOROUS Jyoti y Malick ADVERTISING ACCOUNT REPRESENTATIVE Work Phone: Start: 12-13-2023 Computed tomography of abdomen and pelvis with contrast PHYSICIAN NO FAMILY Start: 05-15-2021 Colonoscopy Estrellita F naun ADVERTISING ACCOUNT REPRESENTATIVE Work Phone: Plan of Treatment Date Care Activity Detail Author Start: 05-15-2026 Screening for malign ant neoplasm of colon [facility] Start: 01-26-2025 End: 01-26-2025 Patient encounter procedure 01/26/2025 11:00 AM EDT Office Visit [facility] [address] [place] [phone] Kevin Maxwell MD [address] [place] [id number] [facility] Start: 11-11-2024 Medicare Annual Well ness (AWV) Medicare Annual Wellness (AWV) [facility] Start: 07-16-2024 End: 07-16-2025 MR Lumbar spine WO contrast MR lumbar spine wo contrast Imaging Routine Lumbar spondylosis Expected: 07/16/2024, Expires: 07/16/2025 [facility] Work Phone: Comment on above: Expected: 07/16/2024 , Expires: 07/16/2025 Start: 07-16-2024 End: 07-16-2024 Patient encounter procedure 07/16/2024 9:00 AM EST Office Visit [facility] [address] [place] [phone] Estrellita Teresa NP [address] [place] [phone] [facility] Start: 06-29-2024 US Thoracic and abdominal aorta [facility] Start: 04-16-2024 End: 04-16-2024 Patient encounter procedure [facility] Comment on above: Arrived Start: 03-17-2024 End: 03-17-2024 Professional / ancillary services management 03/17/2024 11:00 AM EST Ancillary Procedure [facility] [address] [place] [id number] [facility] Start: 03-16-2024 End: 03-16-2024 Patient encounter procedure [facility] Comment on above: Arrived Start: 01-15-2024 End: 01-14-2025 25-hydroxyvitamin D3 [Mass/volume] in Serum or Plasma Vitamin D 25 hydroxy Lab Routine Alcohol use disorder, mild, abuse Expected: 01/15/2024 (Approximate), Expires: 01/14/2025 [facility] Comment on above: Expected: 01/15/2024 (Approximate), Expires: 01/14/2025 Start: 01-15-2024 End: 01-14-2025 Cobalamin (Vitamin B12) [Mass/volume] in Serum or Plasma Vitamin B12 Lab Routine Alcohol use disorder, mild, abuse Expected: 01/15/2024 (Approximate), Expires: 01/14/2025 [facility] Work Phone: Comment on above: Expected: 01/15/2024 (Approximate), Expires: 01/14/2025 Start: 01-15-2024 End: 01-14-2025 CT Chest WO contrast CT chest wo IV contrast Imaging Routine Multiple lung nodules on CT Expected: 01/15/2024, Expires: 01/14/2025 [facility] Comment on above: Expected: 01/15/2024 , Expires: 01/14/2025 Start: 01-15-2024 End: 01-14-2025 Ferritin [Mass/volume] in Serum or Plasma Ferritin Lab Routine Alcohol use disorder, mild, abuse Expected: 01/15/2024 (Approximate), Expires: 01/14/2025 [facility] Comment on above: Expected: 01/15/2024 (Approximate), Expires: 01/14/2025 Start: 01-15-2024 End: 01-14-2025 Folate [Mass/volume] in Serum or Plasma Folate Lab Routine Alcohol use disorder, mild, abuse Expected: 01/15/2024 (Approximate), Expires: 01/14/2025 [facility] Comment on above: Expected: 01/15/2024 (Approximate), Expires: 01/14/2025 Start: 01-15-2024 End: 01-14-2025 Iron + transferrin + TIBC Iron + transferrin + TIBC Lab Routine Alcohol use disorder, mild, abuse Expected: 01/15/2024 (Approximate), Expires: 01/14/2025 [facility] Comment on above: Expected: 01/15/2024 (Approximate), Expires: 01/14/2025 Start: 01-15-2024 End: 01-14-2025 Magnesium [Mass/volume] in Serum or Plasma Magnesium Lab Routine Alcohol use disorder, mild, abuse Expected: 01/15/2024 (Approximate), Expires: 01/14/2025 [facility] Comment on above: Expected: 01/15/2024 (Approximate), Expires: 01/14/2025 Start: 01-15-2024 End: 01-14-2025 Niacin (vitamin B3) Niacin (vitamin B3) Lab Routine Alcohol use disorder, mild, abuse Expected: 01/15/2024 (Approximate), Expires: 01/14/2025 [facility] Comment on above: Expected: 01/15/2024 (Approximate), Expires: 01/14/2025 Start: 01-15-2024 End: 01-14-2025 Phosphate [Moles/volume] in Serum or Plasma Phosphorus Lab Routine Alcohol use disorder, mild, abuse Expected: 01/15/2024 (Approximate), Expires: 01/14/2025 [facility] Comment on above: Expected: 01/15/2024 (Approximate), Expires: 01/14/2025 Start: 01-15-2024 End: 01-14-2025 Vitamin B1 Vitamin B1 Lab Routine Alcohol use disorder, mild, abuse Expected: 01/15/2024 (Approximate), Expires: 01/14/2025 [facility] Comment on above: Expected: 01/15/2024 (Approximate), Expires: 01/14/2025 Start: 01-15-2024 End: 01-14-2025 Vitamin B6 Vitamin B6 Lab Routine Alcohol use disorder, mild, abuse Expected: 01/15/2024 (Approximate), Expires: 01/14/2025 [facility] Comment on above: Expected: 01/15/2024 (Approximate), Expires: 01/14/2025 Start: 01-15-2024 End: 01-15-2024 Patient encounter procedure 01/15/2024 10:00 AM EDT Office Visit [facility] [address] [place] [address] Estrellita Teresa NP [address] [place] [address] Essential (primary) hypertension (CMS/HCC) (Primary Dx); Other hyperlipidemia (CMS/HCC) [facility] Comment on above: Essential (primary) hypertension (CMS/HCC) (Primary Dx); Other hyperlipidemia (CMS/HCC) Start: 01-12-2024 Influenza vaccination Influenza Vacc ine (#1) [facility] Start: 1961 Pneumococcal Vaccine : 65+ Years (1 of 2 - PCV) Pneumococcal Vaccine: 65+ Years (1 of 2 - PCV) [facility] Start: 1955 Screening for malign ant neoplasm of colon [facility] Comprehensive metabo lic 2000 panel - Serum or Plasma Comprehensive metabolic panel Lab Routine Essential (primary) hypertension (CMS/HCC) Ordered: 04/16/2024 [facility] Work Phone: Comment on above: Ordered: 04/16/2024 CTA Abdominal vessel s and Pelvis vessels W contrast IV [facility] Immunizations Immunization Date Immunization Notes Care Provider Fa marely 01-20-2021 COVID-19 mRNA, Comirnaty (Pfizer) PHYSICIAN NO [facility] 12-30-2020 COVID-19 mRNA, Comirnaty (Pfizer) PHYSICIAN NO [facility] Payers Date Payer Category Payer Self-pay 2022 Unknown [id number] 2022 Private Health Insurance [facility] [id number] 5 2022 Unknown [id number] 2021 Medicare [id number] 5 1959 Medicare [id number] 1959 Unknown [id number] 1954 Unknown [id number] 2.16.840.1.053764.3.579 .2.593 1954 Unknown [id number] 2.16.840.1.789749.3.579 .2.1286 1954 Unknown [id number] 2.16.840.1.681200.3.579 .2.1259 1954 Unknown [id number] 2.16.840.1.603042.3.579 .2.1259 1954 Unknown [id number] 2.16.840.1.153377.3.579 .2.1259 1954 Unknown [id number] 2.16.840.1.243943.3.579 .2.1259 1954 Unknown [id number] 2.16.840.1.215443.3.579 .2.9 1954 Unknown [id number] 2.16.840.1.002263.3.579 .2.9 1954 Unknown [id number] 2.16.840.1.794393.3.579 .2.1259 Unknown [id number] 2.16.840.1.070101.3.579 .2.531 Unknown [id number] [id number] .2.531 Social History Date Type Detail Facility Start: 01-15-2024 End: 07-16-2024 Sex Assigned At [facility] [employer] Other Start: 09-24-2022 End: 12-09-2023 Tobacco smoking status NHIS Smoker (finding) [facility] Start: 1955 Sex Assigned At Male [facility] Start: 11-12-2023 Tobacco smoking stat us [facility] Smokes tobacco daily [facility] History of tobacco use Cigarette Smoker [facility] History of tobacco use Passive smoker [facility] Start: 11-12-2023 Tobacco use and exposure Smokeless tobacco non-user [facility] Start: 01-15-2024 End: 07-16-2024 Alcoholic beverage intake Current drinker of alcohol (finding) [facility] Start: 01-15-2024 End: 07-16-2024 Alcoholic beverage intake [facility] Start: 10-12-2022 Alcohol Comment Caffiene: More than 4 cups daily [facility] Start: 1955 Sex assigned at Not on file [facility] Start: 06-29-2024 End: 06-30-2024 Sex Male (finding) [facility] Medical Equipment Procedure Code Equipment Code Equipment Origin al Text Equipment Identifier Dates VISTASEAL 4ML FI [employer] FDA Start: 10-04-2022 VISTASEAL 4ML FI [employer] FDA Start: 10-04-2022 VISTASEAL 4ML FI [employer] FDA Start: 10-04-2022 VISTASEAL 4ML FI [employer] FDA Start: 10-04-2022 VISTASEAL 4ML FI [employer] FDA Start: 10-04-2022 Clinical Notes 06-18-2022 to 07-16-2024 Kevin Maxwell MD - 07/16/2024 11:42 AM Ayden Maxwell MD - 07/16/2024 11:42 AM Ayden Maxwell MD - 07/16/2024 11:42 AM Ayden Maxwell MD - 07/16/2024 11:41 AM EST Note Date & Type Note Facility 07-16-2024 History of Presen t illness Narrative Associated Problem(s): Major depressive disorder, recurrent episode, mild (HCC) (CMS/HCC) Symptoms controlled with effexor and continue. Associated Problem(s): Lumbar spondylosis Pain worse and hard to stay active. Check MRI and refer to pain management. Associated Problem(s): Essential (primary) hypertension (CMS/HCC) BP controlled at home and monitor PRN. Associated Problem(s): COPD (chronic obstructive pulmonary disease) (CMS/HCC) Continued SOB and use albuterol PRN. Stressed need to stop smoking. Associated Problem(s): Abdominal aortic aneurysm (AAA) without rupture (CMS/HCC) Follow with specialists. Images from the original note were not included. Subjective Patient ID: Hua Bennett is a 68 y.o. male who presents for No chief complaint on file.. Follow up HTN, COPD, depression, and back pain. Patient stable today. Checking BP PRN and typically controlled. BP elevated today but reports typically elevated in office. Taking medication daily and tolerating without side effects. COPD stable. Mild SOB with exertion. Frequent cough and sputum. Using albuterol PRN and helps. Still smoking 1 PPD. Back pain unchanged. Pain in low back and top hips. Pain into left leg and weakness in leg. Difficult to walk or stay active due to pain. Depression controlled with effexor. Not down or sad and doing well. Interacting with others. Follows with vascular for AAA. Review of Systems Constitutional: Negative for fatigue. Respiratory: Positive for cough and shortness of breath. Negative for wheezing. Cardiovascular: Negative for chest pain and palpitations. Gastrointestinal: Negative for abdominal pain, diarrhea, nausea and vomiting. Genitourinary: Negative for dysuria. Objective Physical Exam Constitutional: General: He is not in acute distress. Appearance: Normal appearance. HENT: Head: Normocephalic. Right Ear: Tympanic membrane and ear canal normal. Left Ear: Tympanic membrane and ear canal normal. Eyes: Extraocular Movements: Extraocular movements intact. Pupils: Pupils are equal, round, and reactive to light. Cardiovascular: Rate and Rhythm: Normal rate and regular rhythm. Heart sounds: No murmur heard. No friction rub. No gallop. Pulmonary: Breath sounds: Normal breath sounds. No wheezing, rhonchi or rales. Abdominal: General: Bowel sounds are normal. There is no distension. Palpations: Abdomen is soft. Tenderness: There is no abdominal tenderness. There is no guarding or rebound. Musculoskeletal: Left lower leg: No edema. Neurological: Mental Status: He is alert. Assessment/Plan Problem List Items Addressed This Visit Essential (primary) hypertension (CMS/HCC) - Primary BP controlled at home and monitor PRN. Major depressive disorder, recurrent episode, mild (HCC) (CMS/HCC) Symptoms controlled with effexor and continue. Lumbar spondylosis Pain worse and hard to stay active. Check MRI and refer to pain management. Relevant Orders MR lumbar spine wo contrast Ambulatory referral to Pain Medicine COPD (chronic obstructive pulmonary disease) (CMS/HCC) Continued SOB and use albuterol PRN. Stressed need to stop smoking. Relevant Medications albuterol HFA 90 mcg/act inhaler Abdominal aortic aneurysm (AAA) without rupture (CMS/HCC) Follow with specialists. documented in this encounter [facility] 06-29-2024 Evaluation note Diagnosis Onset Date Resolution AAA (abdominal aortic aneurysm) without rupture acute June 29, 2 025 8:09am [facility] Work Phone: [phone] 474-132612-05-2024 History of Present illness Narrative* Estrellita Teresa NP - 04/16/2024 9:04 AM ESTAssociated Problem(s): Essential (primary) hypertension (CMS/HCC) Currently taking Lisinopril-hydrochlorothiazide, added hydrochlorothiazide component at last OV. Checks BP at home; Averages are 120's-130's Denies orthostatic changes, dizziness, cough, shortness of breath, swelling in extremities. Continue current regimen. Given BP log, advised pt to record BP and bring log back with them to next visit. * Estrellita Teresa NP - 04/16/2024 9:00 AM EST Images from the original note were not included. Subjective Patient ID: Hua Bennett is a 68 y.o. male who presents for medication change follow up. HPI HTN: Currently taking Lisinopril-hydrochlorothiazide initiated hydrochlorothiazide component at last OV. Checks BP at home; Averages are 120's-130's Denies orthostatic changes, dizziness, cough, shortness of breath, swelling in extremities. Continue current regimen. Given BP log, advised pt to record BP and bring log back with them to next visit. Review of Systems Constitutional: Negative for activity change, appetite change, chills, diaphoresis, fatigue, fever and unexpected weight change. HENT: Negative for congestion, ear pain, rhinorrhea, sinus pressure, sinus pain, sneezing, sore throat, trouble swallowing and voice change. Eyes: Negative for visual disturbance. Respiratory: Negative for cough, chest tightness, shortness of breath and wheezing. Cardiovascular: Negative for chest pain, palpitations and leg swelling. Gastrointestinal: Negative for abdominal distention, abdominal pain, blood in stool, constipation, diarrhea and vomiting. Genitourinary: Negative for decreased urine volume, dysuria, flank pain, frequency, hematuria and urgency. Musculoskeletal: Negative for arthralgias, gait problem, joint swelling and myalgias. Skin: Negative for rash. Neurological: Negative for dizziness, tremors, syncope, weakness, light- headedness and headaches. Psychiatric/Behavioral: Negative for decreased concentration and suicidal ideas. The patient is notnervous/anxious. Hematological: Does not bruise/bleed easily. Endocrine: Negative for cold intolerance, heat intolerance, polydipsia, polyphagia and polyuria. Objective Physical Exam Vitals reviewed. Constitutional: Appearance: Normal appearance. HENT: Head: Normocephalic and atraumatic. Right Ear: Tympanic membrane normal. Left Ear: Tympanic membrane normal. Nose: Nose normal. Mouth/Throat: Mouth: Mucous membranes are moist. Pharynx: Oropharynx is clear. Eyes: Pupils: Pupils are equal, round, and reactive to light. Cardiovascular: Rate and Rhythm: Normal rate and regular rhythm. Pulses: Normal pulses. Heart sounds: Normal heart sounds. Pulmonary: Effort: Pulmonary effort is normal. Breath sounds: Normal breath sounds. Abdominal: General: Abdomen is flat. Bowel sounds are normal. Palpations: Abdomen is soft. Musculoskeletal: General: Normal range of motion. Cervical back: Normal range of motion. Skin: General: Skin is warm and dry. Capillary Refill: Capillary refill takes less than 2 seconds. Neurological: General: No focal deficit present. Mental Status: He is alert and oriented to person, place, and time. Psychiatric: Mood and Affect: Mood normal. Behavior: Behavior normal. Assessment/Plan Problem List Items Addressed This Visit Essential (primary) hypertension (CMS/HCC) - Primary Currently taking Lisinopril-hydrochlorothiazide, added hydrochlorothiazide component at last OV. Checks BP at home; Averages are 120's-130's Denies orthostatic changes, dizziness, cough, shortness of breath, swelling in extremities. Continue current regimen. Given BP log, advised pt to record BP and bring log back with them to next visit. Relevant Medications lisinopril-hydroCHLOROthiazide 20-12.5 MG tablet Other Relevant Orders Comprehensive metabolic panel Chronic bilateral low back pain with bilateral sciatica Relevant Medications meloxicam (Mobic) 15 MG tablet Depression, unspecified (CMS/HCC) Relevant Medications venlafaxine XR (Effexor XR) 75 MG 24 hr capsule [facility] [id number] History of Present illness Narrative* Estrellita Teresa NP - 03/16/2024 9:49 AM ESTAssociated Problem(s): Essential (primary) hypertension (CMS/HCC) Currently taking Lisinopril 20mg Does not check BP at home; BP has been consistently elevated during office visits. Will initiate Lisinopril-hydrochlorothiazide today. Denies orthostatic changes, dizziness, cough, shortness of breath, swelling in extremities. Given BP log, advised pt to record BP and bring log back with them to next visit. * Estrellita Teresa NP - 03/16/2024 9:30 AM EST Images from the original note were not included. Subjective Patient ID: Hua Bennett is a 68 y.o. male who presents for Labs Only. HPI CT chest scheduled for Saturday this week Labs ordered by me in January reviewed with patient. All WNL. HTN: Currently taking Lisinopril 20mg Does not check BP at home; BP has been consistently elevated during office visits. Will initiate Lisinopril-hydrochlorothiazide today. Denies orthostatic changes, dizziness, cough, shortness of breath, swelling in extremities. Given BP log, advised pt to record BP and bring log back with them to next visit. Was seeni ED on 03/02 for Infection of L elbow. (Do not have ED visit ereport. Will request.) Was discharged on Keflex and Bactrim Will complete ATB regimen today. Reports he feels symtpoms are imprioving signifcantly. Is using ice as needed for pain relief. Denies Fever, chills, drainage, s/s of infection. Review of Systems Constitutional: Negative for activity change, appetite change, chills, diaphoresis, fatigue, fever and unexpected weight change. HENT: Negative for congestion, ear pain, rhinorrhea, sinus pressure, sinus pain, sneezing, sore throat, trouble swallowing and voice change. Eyes: Negative for visual disturbance. Respiratory: Negative for cough, chest tightness, shortness of breath and wheezing. Cardiovascular: Negative for chest pain, palpitations and leg swelling. Gastrointestinal: Negative for abdominal distention, abdominal pain, blood in stool, constipation, diarrhea and vomiting. Genitourinary: Negative for decreased urine volume, dysuria, flank pain, frequency, hematuria and urgency. Musculoskeletal: Negative for arthralgias, gait problem, joint swelling and myalgias. Skin: Negative for rash. Neurological: Negative for dizziness, tremors, syncope, weakness, light- headedness and headaches. Psychiatric/Behavioral: Negative for decreased concentration and suicidal ideas. The patient is notnervous/anxious. Hematological: Does not bruise/bleed easily. Endocrine: Negative for cold intolerance, heat intolerance, polydipsia, polyphagia and polyuria. Objective Physical Exam Vitals reviewed. Constitutional: Appearance: Normal appearance. HENT: Head: Normocephalic and atraumatic. Right Ear: Tympanic membrane normal. Left Ear: Tympanic membrane normal. Nose: Nose normal. Mouth/Throat: Mouth: Mucous membranes are moist. Pharynx: Oropharynx is clear. Eyes: Pupils: Pupils are equal, round, and reactive to light. Cardiovascular: Rate and Rhythm: Normal rate and regular rhythm. Pulses: Normal pulses. Heart sounds: Normal heart sounds. Pulmonary: Effort: Pulmonary effort is normal. Breath sounds: Normal breath sounds. Abdominal: General: Abdomen is flat. Bowel sounds are normal. Palpations: Abdomen is soft. Musculoskeletal: General: Normal range of motion. Left elbow: Laceration present. Tenderness present. Cervical back: Normal range of motion. Skin: General: Skin is warm and dry. Capillary Refill: Capillary refill takes less than 2 seconds. Neurological: General: No focal deficit present. Mental Status: He is alert and oriented to person, place, and time. Psychiatric: Mood and Affect: Mood normal. Behavior: Behavior normal. Assessment/Plan Problem List Items Addressed This Visit Essential (primary) hypertension (CMS/HCC) - Primary Currently taking Lisinopril 20mg Does not check BP at home; BP has been consistently elevated during office visits. Will initiate Lisinopril-hydrochlorothiazide today. Denies orthostatic changes, dizziness, cough, shortness of breath, swelling in extremities. Given BP log, advised pt to record BP and bring log back with them to next visit. Relevant Medications lisinopril-hydroCHLOROthiazide 20-12.5 MG tablet Blood Pressure Monitoring (Blood Pressure Cuff) misc documented in this encounterMid [facility] [id number] Instructions* Patient Instructions* Estrellita Teresa NP - 03/16/2024 9:30 AM EST Your blood pressure is TOO HIGH in the office today. Check your blood pressure at home TWICE per day, once in the morning and once in the evening. Goal <130/90. Record results in blood pressure log. Bring back with you to your next visit. Redness, swelling, drainage from elbow, fever, chills, s/s of infection GO TO EMERGENCY DEPARTMENT!!! documented in this [facility]09-04-2024 History of Present illness Narrative* Estrellita Teresa NP - 01/15/2024 10:39 AM EDTAssociated Problem(s): Tobacco abuse Patient counseled on smoking/tobacco cessation. Patient educated on harmful effects of smoking cigarettes/tobacco including increased risk of cardiovascular diseases, chronic lung disease and multiple cancers. * Estrellita Teresa NP - 01/15/2024 10:37 AM EDTAssociated Problem(s): Lumbar stenosis with neurogenic claudication Xray completed 11/2023 shows: Moderate spondylosis. Moderate to severe facet osteoarthropathy most significant L4-S1 ; Pt does not feel Meloxicam is working effectively any longer. Stopped PT due to AAA. Following with Cardiology. Referral sent to Pain Management. * Estrellita Teresa NP - 01/15/2024 10:23 AM EDTAssociated Problem(s): Depression, unspecified (CMS/HCC) Currently taking Effexor 75mg Denies SI/HI. Feels is stable at this time. * Estrellita Teresa NP - 01/15/2024 10:22 AM EDTAssociated Problem(s): Other hyperlipidemia (CMS/HCC) Currently not on any regimen. Most recent Lipid panel below. Continue to monitor. Discussed dietary habits and lifestyle modifications for cholesterol. * Estrellita Teresa NP - 01/15/2024 10:21 AM EDTAssociated Problem(s): Essential (primary) hypertension (CMS/HCC) Currently taking Lisinopril 20mg Rarely Checks BP at home; Averages are 130's. Elevated in office today. Denies orthostatic changes, dizziness, cough, shortness of breath, swelling in extremities. Continue current regimen. * Estrellita Teresa NP - 01/15/2024 10:18 AM EDTAssociated Problem(s): Alcohol use disorder, mild, abuse Reports drinking 6-9 beers per day. Discussed health hazardous associated with alcohol consumption and need for cessation with patient. Vitamin levels ordered today * Estrellita Teresa NP - 01/15/2024 10:00 AM EDT Images from the original note were not included. Subjective Patient ID: Hua Bennett is a 68 y.o. male who presents for Follow-up (2MO). HPI Follows Cardiology for AAA Is a heavy drinker Reports drinking 6-9 beers per day. HTN: Currently taking Lisinopril 20mg Rarely Checks BP at home; Averages are 130's. Elevated in office today. Denies orthostatic changes, dizziness, cough, shortness of breath, swelling in extremities. Continue current regimen. HLD: Currently not on any regimen. Most recent Lipid panel below. Continue to monitor. Discussed dietary habits and lifestyle modifications for cholesterol. Component Ref Range & Units 2 mo ago (11/07/23) 2 mo ago (11/07/23) 2 mo ago (11/07/23) TRIGLYCERIDES <=150 mg/dL 63 144 R 60.0 R CHOLESTEROL <=200 mg/dL 212 High 4.5 R 35.0 R HDL CHOLESTEROL 40 - 60 mg/dL 61 High 13.0 R 1.0 Low R Comment: > or =60 mg/dl - LOW CARDIOVASCULAR RISK <40 mg/dl - HIGH CARDIOVASCULAR RISK LDL CHOLESTEROL CALCULATED mg/dL 139.0 115 High R 3.72 R Comment: <100 mg/dl OPTIMAL 100-129 mg/dl NEAR OR ABOVE OPTIMAL 130-159 mg/dl BORDERLINE HIGH 160-189 mg/dl HIGH >190 mg/dl VERY HIGH VLDL CHOLESTEROL mg/dL 12.6 0.4 R 2.17 R CHOL HDL RATIO 3.5 25 R 0.06 Low R Comment: 3.3 - 4.4 LOW RISK 4.4 - 7.1 AVERAGE RISK 7.1 - 11.0 MODERATE RISK >11.0 HIGH RISK ALANINE AMINOTRANSFERASE 26 R ALKALINE PHOSPHATASE 71 R TOTAL PROTEIN 7.8 R ALBUMIN LEVEL 3.6 R ALBUMIN GLOBULIN RATIO 0.9 Resulting Agency [facility] Depression: Currently taking Effexor 75mg Denies SI/HI. Feels is stable at this time. Review of Systems Constitutional: Negative for activity change, appetite change, chills, diaphoresis, fatigue, fever and unexpected weight change. HENT: Negative for congestion, ear pain, rhinorrhea, sinus pressure, sinus pain, sneezing, sore throat, trouble swallowing and voice change. Eyes: Negative for visual disturbance. Respiratory: Negative for cough, chest tightness, shortness of breath and wheezing. Cardiovascular: Negative for chest pain, palpitations and leg swelling. Gastrointestinal: Negative for abdominal distention, abdominal pain, blood in stool, constipation, diarrhea and vomiting. Genitourinary: Negative for decreased urine volume, dysuria, flank pain, frequency, hematuria and urgency. Musculoskeletal: Positive for arthralgias and back pain. Negative for gait problem, joint swelling and myalgias. Skin: Negative for rash. Neurological: Negative for dizziness, tremors, syncope, weakness, light- headedness and headaches. Psychiatric/Behavioral: Negative for decreased concentration and suicidal ideas. The patient is notnervous/anxious. Hematological: Does not bruise/bleed easily. Endocrine: Negative for cold intolerance, heat intolerance, polydipsia, polyphagia and polyuria. Objective Physical Exam Vitals reviewed. Constitutional: Appearance: Normal appearance. HENT: Head: Normocephalic and atraumatic. Right Ear: Tympanic membrane normal. Left Ear: Tympanic membrane normal. Nose: Nose normal. Mouth/Throat: Mouth: Mucous membranes are moist. Pharynx: Oropharynx is clear. Eyes: Pupils: Pupils are equal, round, and reactive to light. Cardiovascular: Rate and Rhythm: Normal rate and regular rhythm. Pulses: Normal pulses. Heart sounds: Normal heart sounds. Pulmonary: Effort: Pulmonary effort is normal. Breath sounds: Normal breath sounds. Abdominal: General: Abdomen is flat. Bowel sounds are normal. Palpations: Abdomen is soft. Musculoskeletal: General: Normal range of motion. Cervical back: Normal range of motion. Skin: General: Skin is warm and dry. Capillary Refill: Capillary refill takes less than 2 seconds. Neurological: General: No focal deficit present. Mental Status: He is alert and oriented to person, place, and time. Psychiatric: Mood and Affect: Mood normal. Behavior: Behavior normal. Assessment/Plan Problem List Items Addressed This Visit Essential (primary) hypertension (CMS/HCC) - Primary Currently taking Lisinopril 20mg Rarely Checks BP at home; Averages are 130's. Elevated in office today. Denies orthostatic changes, dizziness, cough, shortness of breath, swelling in extremities. Continue current regimen. Tobacco abuse Patient counseled on smoking/tobacco cessation. Patient educated on harmful effects of smoking cigarettes/tobacco including increased risk of cardiovascular diseases, chronic lung disease and multiple cancers. Chronic bilateral low back pain with bilateral sciatica Relevant Orders Ambulatory referral to Pain Medicine Lumbar stenosis with neurogenic claudication Xray completed 11/2023 shows: Moderate spondylosis. Moderate to severe facet osteoarthropathy most significant L4-S1 ; Pt does not feel Meloxicam is working effectively any longer. Stopped PT due to AAA. Following with Cardiology. Referral sent to Pain Management. Other hyperlipidemia (CMS/HCC) Currently not on any regimen. Most recent Lipid panel below. Continue to monitor. Discussed dietary habits and lifestyle modifications for cholesterol. Depression, unspecified (CMS/HCC) Currently taking Effexor 75mg Denies SI/HI. Feels is stable at this time. Multiple lung nodules on CT Relevant Orders CT chest wo IV contrast Alcohol use disorder, mild, abuse Reports drinking 6-9 beers per day. Discussed health hazardous associated with alcohol consumption and need for cessation with patient. Vitamin levels ordered today Relevant Orders Vitamin B12 Ferritin Iron + transferrin + TIBC Vitamin B6 Niacin (vitamin B3) Folate Vitamin B1 Magnesium Phosphorus Vitamin D 25 hydroxy documented in this encounterMid [facility] Mental Health [id number] Instructions* Patient Instructions* Estrellita Teresa NP - 01/15/2024 10:00 AM EDT Your blood pressure is TOO HIGH in the office today. Check your blood pressure at home 3 times per week, preferably in the afternoon. Goal <130/90. Record results in blood pressure log. Bring back with you to your next visit. Have labwork and CT of your chest done. DASH stands for Dietary Approaches to Stop Hypertension. The DASH diet is a healthy-eating plan designed to help prevent or treat high blood pressure, also called hypertension. It also may help lower cholesterol linked to heart disease, called low density lipoprotein (LDL) cholesterol. High blood pressure and high LDL cholesterol levels are two major risk factors for heart disease and stroke. Foods in the DASH diet are rich in the minerals potassium, calcium and magnesium. The DASH diet focuses on vegetables, fruits and whole grains. It includes fat-free or low-fat dairy products, fish, poultry, beans and nuts. The diet limits foods that are high in salt, also called sodium. It also limits added sugar and saturated fat, such as in fatty meats and full-fat dairy products. DASH diet and sodium The standard DASH diet limits salt to 2,300 milligrams (mg) a day. That amount agrees with the Dietary Guidelines for Americans. That's about the amount of sodium in 1 teaspoon of table salt. A lower sodium version of DASH restricts sodium to 1,500 mg a day. You can choose the version of the diet that meets your health needs. If you aren't sure what sodium level is right for you, talk to your health care provider. DASH diet: What to eat The DASH diet is a balanced eating plan that gives choices of what to eat. The diet helps create a heart-healthy eating style for life. There's no need for special foods or drinks. Foods in the diet are at grocery stores and in most restaurants. When following DASH, it is important to choose foods that are: Rich in potassium, calcium, magnesium, fiber and protein. Low in saturated fat. Low in salt. DASH diet: Suggested servings The DASH diet provides daily and weekly nutritional goals. The number of servings depends on daily calorie needs. Here's a look at the recommended servings from each food group for a 2,062-jiivjwf-j-day DASH diet: Grains: 6 to 8 servings a day. One serving may be 1/2 cup of cooked cereal, rice or pasta, 1 slice of bread or 1 ounce dry cereal. Vegetables: 4 to 5 servings a day. One serving is 1 cup raw leafy green vegetable, 1/2 cup cut-up raw or cooked vegetables, or 1/2 cup vegetable juice. Fruits: 4 to 5 servings a day. One serving is one medium fruit, 1/2 cup fresh, frozen or canned fruit, or 1/2 cup fruit juice. Fat-free or low-fat dairy products: 2 to 3 servings a day. One serving is 1 cup milk or yogurt, or 1 1/2 ounces cheese. Lean meats, poultry and fish: six 1-ounce servings or fewer a day. One serving is 1 ounce of cookedmeat, poultry or fish, or 1 egg. Nuts, seeds, or dry beans and peas: 4 to 5 servings a week. One serving is 1/3 cup nuts, 2 tablespoons peanut butter, 2 tablespoons seeds, or 1/2 cup cooked dried beans or peas, also called legumes. Fats and oils: 2 to 3 servings a day. One serving is 1 teaspoon soft margarine, 1 teaspoon vegetable oil, 1 tablespoon mayonnaise or 2 tablespoons salad dressing. Sweets and added sugars: 5 servings or fewer a week. One serving is 1 tablespoon sugar, jelly or jam, 1/2 cup sorbet or 1 cup lemonade. DASH diet: Alcohol and caffeine Drinking too much alcohol can increase blood pressure. The Dietary Guidelines for Americans recommends that men limit alcohol to no more than two drinks a day and women to one or less. The DASH diet doesn't talk about caffeine. How caffeine affects blood pressure isn't clear. But caffeine can cause blood pressure to rise at least briefly. If you have high blood pressure or if you think caffeine affects your blood pressure, think about cutting down. You might talk to your health care provider about caffeine. Take aim at salt The foods at the center of the DASH diet are low in salt. So following the DASH diet is likely to lower salt intake. To further reduce salt: Read food labels and choose low-salt or [id number] options. Use salt-free spices or flavorings instead of salt. Don't add salt when cooking rice, pasta or hot cereal. Choose plain fresh or frozen vegetables. Choose fresh skinless poultry, fish and lean cuts of meat. Eat less restaurant food. When eating at restaurants, ask for dishes with less salt and ask not to have salt added to your order. As you cut back on processed, salty foods, you might notice that food tastes different. It can taketime for your taste buds to adjust. But once they do, you might prefer the DASH way of eating. And you'll be healthier for it. documented in this encounterMid Missouri Mental Health [id number] Evaluation note* Encounter Date Diagnosis Assessment Notes Treatment Notes Treatment Clinical Notes Jun, Cough (ICD-10 - R05.9) Jun, [...] no improvement in 2 to 3 days. [employer] Other Evaluation noteNo assessment information available [facility] Work Phone: Evaluation note* Diagnosis Onset Date Resolution Status AAA (abdominal aortic aneurysm) without rupture acute Current every day smoker acu te Uncontrolled hypertension ac cassy [facility] Work Phone: Evaluation note* Diagnosis Primary hypertension (CMS/HCC)- Primary Unspecified essential hypertension Tobacco abuse Tobacco use disorder Lumbar stenosis with neurogenic claudication Recurrent major depressive disorder, in full remission (CMS/HCC) Other hyperlipidemia (CMS/HCC) Chronic right-sided low back pain with right-sided sciatica Essential (primary) hypertension (CMS/HCC) Unspecified essential hypertension Depression, unspecified (CMS/HCC) Primary hypertension (CMS/HCC)- Primary Unspecified essential hypertension Encounter for screening for lung cancer Chronic bilateral low back pain with bilateral sciatica Nicotine abuse Depression, unspecified (CMS/HCC) Essential (primary) hypertension (CMS/HCC) Unspecified essential hypertension Cigarette nicotine dependence without complication Medicare annual wellness visit, subsequent Essential (primary) hypertension (CMS/HCC)- Primary Unspecified essential hypertension Other hyperlipidemia (CMS/HCC) Persistent depressive disorder (CMS/HCC) Chronic bilateral low back pain with bilateral sciatica Alcohol use disorder, mild, abuse Multiple lung nodules on CT Lumbar stenosis with neurogenic claudication Tobacco abuse Tobacco use disorder Essential (primary) hypertension (CMS/HCC)- Primary Unspecified essential hypertension [facility] Diagnosis Primary hypertension (CMS/HCC)- Primary Unspecified essential hypertension Tobacco abuse Tobacco use disorder Lumbar stenosis with neurogenic claudication Recurrent major depressive disorder, in full remission (CMS/HCC) Other hyperlipidemia (CMS/HCC) Chronic right-sided low back pain with right-sided sciatica Essential (primary) hypertension (CMS/HCC) Unspecified essential hypertension Depression, unspecified (CMS/HCC) Primary hypertension (CMS/HCC)- Primary Unspecified essential hypertension Encounter for screening for lung cancer Chronic bilateral low back pain with bilateral sciatica Nicotine abuse Depression, unspecified (CMS/HCC) Essential (primary) hypertension (CMS/HCC) Unspecified essential hypertension Cigarette nicotine dependence without complication Medicare annual wellness visit, subsequent Essential (primary) hypertension (CMS/HCC)- Primary Unspecified essential hypertension Other hyperlipidemia (CMS/HCC) Persistent depressive disorder (CMS/HCC) Chronic bilateral low back pain with bilateral sciatica Alcohol use disorder, mild, abuse Multiple lung nodules on CT Lumbar stenosis with neurogenic claudication Tobacco abuse Tobacco use disorder Essential (primary) hypertension (CMS/HCC)- Primary Unspecified essential hypertension Essential (primary) hypertension (CMS/HCC)- Primary Unspecified essential hypertension Chronic bilateral low back pain with bilateral sciatica Depression, unspecified (CMS/HCC) [facility] Diagnosis Primary hypertension (CMS/HCC)- Primary Unspecified essential hypertension Tobacco abuse Tobacco use disorder Lumbar stenosis with neurogenic claudication Recurrent major depressive disorder, in full remission (CMS/HCC) Other hyperlipidemia (CMS/HCC) Chronic right-sided low back pain with right-sided sciatica Essential (primary) hypertension (CMS/HCC) Unspecified essential hypertension Depression, unspecified (CMS/HCC) Primary hypertension (CMS/HCC)- Primary Unspecified essential hypertension Encounter for screening for lung cancer Chronic bilateral low back pain with bilateral sciatica Nicotine abuse Depression, unspecified (CMS/HCC) Essential (primary) hypertension (CMS/HCC) Unspecified essential hypertension Cigarette nicotine dependence without complication Medicare annual wellness visit, subsequent Essential (primary) hypertension (CMS/HCC)- Primary Unspecified essential hypertension Other hyperlipidemia (CMS/HCC) Persistent depressive disorder (CMS/HCC) Chronic bilateral low back pain with bilateral sciatica Alcohol use disorder, mild, abuse Multiple lung nodules on CT Lumbar stenosis with neurogenic claudication Tobacco abuse Tobacco use disorder Essential (primary) hypertension (CMS/HCC)- Primary Unspecified essential hypertension Essential (primary) hypertension (CMS/HCC)- Primary Unspecified essential hypertension Chronic bilateral low back pain with bilateral sciatica Depression, unspecified (CMS/HCC) Depression, unspecified (CMS/HCC) [facility] Diagnosis Essential (primary) hypertension (CMS/HCC)- Primary Unspecified essential hypertension Other hyperlipidemia (CMS/HCC) Persistent depressive disorder (CMS/HCC) Chronic bilateral low back pain with bilateral sciatica Alcohol use disorder, mild, abuse Multiple lung nodules on CT Lumbar stenosis with neurogenic claudication Tobacco abuse Tobacco use disorder [facility] Diagnosis Chronic bilateral low back pain with bilateral sciatica documented in this encounter [facility]* Diagnosis Primary hypertension (CMS/HCC)- Primary Unspecified essential hypertension Tobacco abuse Tobacco use disorder Lumbar stenosis with neurogenic claudication Recurrent major depressive disorder, in full remission (CMS/HCC) Other hyperlipidemia (CMS/HCC) Chronic right-sided low back pain with right-sided sciatica Essential (primary) hypertension (CMS/HCC) Unspecified essential hypertension Depression, unspecified (CMS/HCC) Primary hypertension (CMS/HCC)- Primary Unspecified essential hypertension Encounter for screening for lung cancer Chronic bilateral low back pain with bilateral sciatica Nicotine abuse Depression, unspecified (CMS/HCC) Essential (primary) hypertension (CMS/HCC) Unspecified essential hypertension Cigarette nicotine dependence without complication Medicare annual wellness visit, subsequent Essential (primary) hypertension (CMS/HCC)- Primary Unspecified essential hypertension Other hyperlipidemia (CMS/HCC) Persistent depressive disorder (CMS/HCC) Chronic bilateral low back pain with bilateral sciatica Alcohol use disorder, mild, abuse Multiple lung nodules on CT Lumbar stenosis with neurogenic claudication Tobacco abuse Tobacco use disorder Essential (primary) hypertension (CMS/HCC)- Primary Unspecified essential hypertension Essential (primary) hypertension (CMS/HCC)- Primary Unspecified essential hypertension Chronic bilateral low back pain with bilateral sciatica Depression, unspecified (CMS/HCC) Essential (primary) hypertension (CMS/HCC)- Primary Unspecified essential hypertension Chronic obstructive pulmonary disease, unspecified COPD type (CMS/HCC) Major depressive disorder, recurrent episode, mild (HCC) (CMS/HCC) Major depressive disorder, recurrent episode, mild Lumbar spondylosis Lumbosacral spondylosis without myelopathy Infrarenal abdominal aortic aneurysm (AAA) without rupture (CMS/HCC) History of substance abuse (CMS/HCC) Other, mixed, or unspecified nondependent drug abuse, unspecified documented in this encounter [facility] HealthcareHistory general Narrative - Reported* Type Description Date Medical History Hypertension Medical History Depression [employer] Other Summary Purpose Family History No Family [...] Date/ Time Advance Directives No September 24 1:13pm Advance Directive Response Recorded Date/ Time Advance Directives No December 01 4:24pm Advance Directive Response Recorded Date/ Time Advance Directives No December 01 3:24pm Chief Complaint and Reason for Visit Chief Complaint pharyngeal mass, pha ryngitis Chief Complaint REF FOR 5.5CM AAA Chief Complaint REF FOR 5.5CM AAA I71.40 Reason for Visit AAA (abdominal aorti c aneurysm) without rupture Current every day smoker Uncontrolled hypertension Chief Complaint REF FOR 5.5CM AAA I71.[address] SCAN DONE ON 12/12 AT [facility] Reason for Visit AAA (abdominal aorti c aneurysm) without rupture Current every day smoker Uncontrolled hypertension Chief Complaint Admit Date 6 month follow up; ABD U/S at 8:30am Jun 2024 8:09am Reason for Visit Admit Date AAA (abdominal aortic aneurysm) without rupture June 29, 2024 8:09am Reason for Referral Specialty Diagnoses / Procedures Referred By Manjit celestin Referred To Contact Radiology Diagnoses Multiple lung nodules on CT Procedures CT chest wo IV contrast Estrellita Teresa NP [address] [place] [address] Referral ID Status Reason Start Date Expiration Date V isits Requested Visits Authorized [id number] Pending Review 01/15/2024 07/13/2024 1 1 Specialty Diagnoses / Procedures Referred By Manjit celestin Referred To Contact Pain Medicine Diagnoses Chronic bilateral low back pain with bilateral sciatica Procedures NV OFFICE/OUTPATIENT NEW HIGH MDM 60 MINUTES Estrellita Teresa NP [address] [place] [address] Rina Cortes MD [address] [place] [address] Referral ID Status Reason Start Date Expiration Date Visits Requested Visits Authorized [id number] Pending Review Specialty Services Required 01/15/2024 07/13/2024 1 1 Additional Source Comments REASON FOR VISIT (unrecogniz ed section and content) Reason Comments Labs Only Reason Comments medication change follow up Reason Onset Date Comments Med Refill 04/27/2024 Reason Comments Follow-up 2MO Reason Onset Date Comments Med Refill 02/05/2024 (unrecognized sect ion and content) No Status Records FoundNo Status Records FoundNo Status Records FoundNo Status Records Found INFORMATION SOURCE (unrecogn ized section and content) DATE CREATED AUTHOR 09/08/2022 [facility] DATE CREATED AUTHOR AUTHOR'S ORGANIZ ATION 12/19/2023 [facility] DATE CREATED AUTHOR AUTHOR'S ORGANIZ ATION 07/01/2024 [facility] DATE CREATED AUTHOR AUTHOR'S ORGANIZ ATION 07/18/2024 [facility] EPIC Care Teams (unrecognized [...] December 13, 2023 End: December 13, 2023 Frannie Hurt NP-C Attending Provider Active Start: December 13, 2023 End: December 13, 2023 Team Status: Inactive Member Role Status Dates PHYSICIAN NO FAMILY Primary Care Provider Active Start: December 23, 2023 End: December 23, 2023 Ken Bland MD Attending Provider Active S tart: December 23, 2023 End: December 23, 2023 Composite Technician Relationship Specialty Start Date End Date Kevin Maxwell MD [address] [place] [address] PCP - General Family Medicine 12/18/23 Estrellita Teresa NP [address] [place] [address] Nurse Practitioner Family Medicine 12/18/23 Composite Technician Relationship Specialty Start Date End Date Kevin Maxwell MD [address] [place] [phone] PCP - General Family Medicine 12/18/23 Estrellita Teresa NP [address] [place] [address] Nurse Practitioner Family Medicine 12/18/23 Composite Technician Relationship Specialty Start Date End Date Kevin Maxwell MD [address] [place] [phone] PCP - General Family Medicine 12/18/23 Estrellita Teresa NP [address] [place] [address] Nurse Practitioner Family Medicine 12/18/23 Composite Technician Relationship Specialty Start Date End Date Kevin Maxwell MD [address] [place] [phone] PCP - General Family Medicine 12/18/23 Estrellita Teresa NP [address] [place] [address] Nurse Practitioner Family Medicine 12/18/23 Composite Technician Relationship Specialty Start Date End Date Kevin Maxwell MD [address] [place] [phone] PCP - General Family Medicine 12/18/23 Estrellita Teresa NP [address] [place] [address] Nurse Practitioner Family Medicine 12/18/23 Composite Technician Relationship Specialty Start Date End Date Kevin Maxwell MD [address] [place] [phone] PCP - General Family Medicine 12/18/23 Estrellita Teresa NP [address] [place] [phone] Nurse Practitioner Family Medicine 12/18/23 Composite Technician Relationship Specialty Start Date End Date Kevin Maxwell MD [address] [place] [phone] PCP - General Family Medicine 12/18/23 Estrellita Teresa NP [address] [place] [address] Nurse Practitioner Family Medicine 12/18/23 Composite Technician Relationship Specialty Start Date End Date Kevin Maxwell MD [address] [place] [phone] PCP - General Family Medicine 12/18/23 Estrellita Teresa NP [address] [place] [address] Nurse Practitioner Family Medicine 12/18/23 Composite Technician Relationship Specialty Start Date End Date Kevin Maxwell MD [address] [place] [phone] PCP - General Family Medicine 12/18/23 Estrellita Teresa NP [address] [place] [address] Nurse Practitioner Family Medicine 12/18/23 Team Status: Inactive Member Role Status Dates PHYSICIAN NO FAMILY Primary Care Provider Active Start: June 29, 2024 End: June 29, 2024 Ken Bland MD Attending Provider Active S tart: June 29, 2024 End: June 29, 2024 Composite Technician Relationship Specialty Start Date End Date Kevin Maxwell MD [address] [place] [phone] PCP - General Family Medicine 12/18/23 Estrellita Teresa NP [address] [place] [phone] Nurse Practitioner Family [facility] 12/18/23 Composite Technician Relationship Specialty Start Date End Date Kevin Maxwell MD [address] [place] [phone] PCP - General Family Medicine 12/18/23 Goals (unrecognized section and content) Goals may [...] BE BASED ON THE PRIMARY CLINICAL RECORDS. [facility] [email or web address] [facility]. provides no warranty or guarantee of the accuracy or completeness of information in this document.
== END 2024-07-23 08:30 | disposition home or self-care (01) ==
LOC: MRI 08:29
PROVIDERS: PCP Family Medicine; Visit Provider Family Medicine
DX: M47.816 Spondylosis without myelopathy or radiculopathy, lumbar region (principal); M51.369 Other intervertebral disc degeneration, lumbar region without mention of lumbar back pain or lower extremity pain
CPT/HCPCS: 72148

== ENCOUNTER 2024-07-27 12:47 | Outpatient (OUT) | payer MEDICARE, OTHER, SELFPAY ==
--- NOTE | 2024-07-27 | CONS_ITS ---
CONSULTATION DATE: 07/27/2024 TO: Kevin Osorio M.D. CHIEF COMPLAINT: Includes severe left lower back pain, left leg pain. HISTORY OF PRESENT ILLNESS: Review of systems, past medical/surgical history were obtained and documented on the health questionnaire and is available upon request. He is a 68-year-old male. He reports having this pain for several years in the above mentioned areas, rated between 7-9/10 pain, deep aching in character with a sharp component, increased with activities such as standing and walking. Feels most comfortable in the semi-recumbent position. Denies any change in bowel and bladder habits, and reports progressive numbness in his left lower extremity, with occasional weakness. MEDICATIONS: Include meloxicam which he reports has not been helping him, and he has been using this for several months. He has also been using THC products to help improve his pain symptoms. EXAM: His examination is notable for patient with hypoesthesia along the left L4 and L5 dermatome, 3/5 strength of his left anterior tibialis and extensor hallucis, depressed left patellar and Achilles reflex. Straight leg raising is positive at approximately 90 degrees with pain radiating to his left foot. Patient also has significant myalgia and spasm of his lumbar paravertebral muscles on the left side. IMPRESSION: Our impression is patient appears to have chronic pain secondary to significant spinal stenosis with foraminal narrowing with a left L4 and L5 radicular process. RECOMMENDATIONS: I recommend he consider proceeding with a transforaminal epidural steroid injection on the left side at the L4-5 foramen and L5-S1 foramen. I have placed the patient on Zonegran 50 mg pills, 1-2 at bed time, and asked him to consider aquatic therapy. As part of providing excellent, safe, comprehensive care, the following was completed at our patient's visit: 1. A medication reconciliation and review to ensure accurate knowledge of current/active medications, including asking our patients to inform us about any opvi-[id number] medications or herbal remedies/nutritional supplements/alternative remedies. 2. A review to specifically ensure our patients have had annual screening for: elevated body mass index (BMI, see intake chart for exact total), tobacco use, screening for depression, and screening for unhealthy alcohol use. When screening is concerning, patients are provided with education and the specific recommendation to discuss the concerning health issue and treatment options with their primary care provider CAMILO
== END 2024-07-27 12:48 | disposition home or self-care (01) ==
LOC: PM 12:48
PROVIDERS: PCP Family Medicine; Visit Provider Anesthesiology Pain Medicine
DX: M48.062 Spinal stenosis, lumbar region with neurogenic claudication (principal)
CPT/HCPCS: G0463

== ENCOUNTER 2024-08-10 08:54 | Day surgery (SDC) | payer MEDICARE, OTHER, SELFPAY ==
[2024-08-10 09:27] VITALS: BP 135/86; PULSE 83; TEMP 36.4; O2SAT 98
[2024-08-10 09:56] VITALS: BP 159/86; PULSE 86; O2SAT 96
[2024-08-10 09:57] VITALS: BP 167/90; PULSE 99; O2SAT 98
[2024-08-10] MEDS: LIDOCAINE HCL 2% 400 MG/20 ML MDV 3 ML INJ (10:00)
[2024-08-10] MEDS: METHYLPREDNISOLONE ACETATE 80 MG/ML VIAL INJ (10:00)
[2024-08-10] MEDS: 0.9 % SODIUM CHLORIDE 10 ML SYRINGE - SALINE FLUSH INJ (10:00)
[2024-08-10] MEDS: IOHEXOL 240 MG/ML - 10 ML VIAL 24 MG INJ (10:00)
[2024-08-10] MEDS: BUPIVACAINE HCL 0.25% PF 25 MG/10 ML VIAL INJ (10:00)
--- NOTE | 2024-08-10 10:00 | P.ON_ITS ---
Date of procedure: 08/10/24 Pre-op diagnosis: Pain due to lumbar stenosis with neurogenic claudication Post-op diagnosis: same as pre-op Procedure: Procedure: Left L4-5, L5-S1 transforaminal epidural steroid injection Medications: Bupivacaine 0.25% 2cc, lidocaine 2% 1cc, depomedrol 80mg The patient was seen and examined in the preoperative holding area.? Informed consent was obtained and placed on the chart.? Patient was brought to the medical procedure unit and placed in the prone position where a timeout was completed verifying the correct patient, procedure site, position, and planned special equipment using sterile aseptic technique.? Under direct fluoroscopic visualization a 25-gauge Quincke tipped spinal needle was advanced to the designated neural foramen where contrast dye was injected to show adequate spread.? The needle was inserted at level left L4-5. There was no evidence of vascular or adverse uptake.? Epidural spread was appreciated.? The above- mentioned injectate was then placed in a 1.5 mL aliquot preceded by negative aspiration.? The needle was removed. The needle was inserted and the procedure repeated at level left L5-S1.? The surgery site was covered.? Patient was taken to the postprocedural recovery area and monitored for an appropriate length of time before found suitable for discharge in the accompaniment of a responsible adult. Anesthesia: Local Surgeon: Rina Cortes Pathology: none sent Condition: stable Disposition: no change
== END 2024-08-10 10:05 | disposition home or self-care (01) ==
PROVIDERS: PCP Family Medicine; Visit Provider Anesthesiology
DX: M48.062 Spinal stenosis, lumbar region with neurogenic claudication (principal); M54.50 Low back pain, unspecified
CPT/HCPCS: 64483; 64484; J0665; J1010; Q9966

== ENCOUNTER 2024-08-19 10:56 | Outpatient (OUT) | payer MEDICARE, OTHER, SELFPAY ==
--- NOTE | 2024-08-19 11:27 | P.CN_ITS ---
Consult Note: HPI Data of Consult Patient: known to practice within the last 3 years Requesting Physician: Lisa Jacobs NP Primary Care Provider: Kevin Osorio MD Consult Narrative Reason for consult: f/u Narrative: Hua Bennett a pleasant 68 year old male presents for evaluation of low back pain secondary to lumbar stenosis, lumbar DDD, and lumbar spondylosis. longstanding hx of back pain unresponsive to > 6 weeks of PT/HEP, heat, ice, tylenol, NSAIDs. currently utilizing meloxicam, zonegran, and marijuana with mild relief. pain today 5/10 in left hip and low back. recent left L4-5 L5-S1 TFESI providing mild relief per pt. cc:: CC: Lisa Jacobs NP Review of Systems ROS Status of ROS 10 or more systems reviewed and unremark able except as noted in history and below Musculoskeletal Reports: back pain and joint pain PFSH [facility] Medical History (Updated 08/19/24 @ 11:29 by Lisa Jacobs NP) Smoker ?F17.200 - Nicotine dependence, unspecified, uncomplicated (ICD-10) Hip pain ?M25.559 - Pain in unspecified hip (ICD-10) Osteoarthritis ?M19.90 - Unspecified osteoarthritis, unspecified site (ICD-10) COPD (chronic obstructive pulmonary disease) ?J44.9 - Chronic obstructive pulmonary disease, unspecified (ICD-10) Hypertension ?I10 - Essential (primary) hypertension (ICD-10) Social History Little interest or pleasure in doing things: not at all Feeling down, depressed, or hopeless: not at all Meds Home Medications and Allergies Home Medications ?Medication ?Instructions ?Recorded ?Confirmed ?Type lisinopril 20 mg tablet 20 mg PO DAILY 03/02/24 08/10/24 History venlafaxine 75 mg capsule,extended 75 mg PO DAILY 03/02/24 08/10/24 History release 24 hr meloxicam 15 mg tablet 15 mg PO DAILY 07/28/24 08/10/24 History zonisamide 50 mg capsule 50 mg PO DAILY 07/28/24 08/10/24 History Allergies Allergy/AdvReac Type Severity Reaction Status Date / Time No Known Drug Allergies Allergy Verified 08/10/24 09:28 Exam Constitutional Documenting provider has reviewed patient's vital signs: yes Common normals: no apparent distress, oriented x3, healthy appearing, alert and well nourished General appearance: cooperative HENMT Common normals: normocephalic, hearing grossly normal bilaterally and moist oral mucous membranes Head and scalp: normocephalic Eye Common normals: PERRL Pupil: PERRL Neck & C-Spine Common normals: full ROM General: normal visual inspection Chest Common normals: inspection of chest normal Respiratory Common normals: normal respiratory effort, no retractions and no use of accessory muscles Back & Pelvis Lumbar spine/lower back: normal to inspection, lumbar ROM normal and straight leg raise negative bilaterally; no pain with ROM and no lumbar spinal tenderness Sacroiliac joints: SI joint(s) abnormal Other: left sij positive darrius(patricks), gaenslens, thigh thrust, compression test negative radiculopathy strength 5/5 in BLE sensation intact BLE Neuro Common normals: oriented x3 Sensorium/orientation: alert Psych Common normals: mental status grossly normal, thought process normal, cooperative, affect normal, speech normal and activity/motor behavior normal Speech: normal speech Thought process: normal thought process Results Additional Findings Additional findings: If on a controlled substance or opioids, I have checked an [place] report on this patient and there are no aberrancies noted in the prescribing history.??If on a controlled substance or opioid a drug screen was completed and reviewed within the last year, and if there has not been a drug screen completed we ordered one today to monitor higher risk, state monitored pain medication use. As part of providing excellent, safe, comprehensive care, the following was completed at our patient's visit: 1. A medication reconciliation and review to ensure accurate knowledge of current/active medications, including asking our patients to inform us about any [id number] medications or herbal remedies/nutritional supplements/alt ernative remedies. 2. A review to specifically ensure our patients have had annual screening for screening for depression, screening for tobacco use, and screening for unhealthy alcohol use. For concerning screenings had a discussion with the patient, provided patient education, and recommended follow-up with primary care provider when appropriate. If patient noted with a risk of falling, they received education on strength, gait, and balance training to prevent future risk of falling. Portions of this note may have been carried over from the previous visit and updated as appropriate. Please note this office utilizes paper charting in addition to the electronic medical record. A list of current medications, vitals, and PMH is available there as the clinical staff outside of myself do not have access to [employer] charting during the clinic day operations. As part of providing quality comprehensive care the current medications, vitals, and PMH were reviewed in the paper chart. Assessment and Plan Assessment and Plan (1) Lumbar stenosis with neurogenic claudication: (2) Sacroiliitis: Plan The patient has had over 3 months of moderate to severe low back and left hip pain with functional impairment and inadequate response to conservative care including NSAIDS (unless there are contraindication such as concurrent blood thinners), multiple oral or topical pain medications, and home exercise program/physical therapy.? Patient has completed >6 weeks of guided home exercise program and/or formal physical therapy program without relief of their symptoms.? The Oswestry Disability Index was completed, and the patient scored a 32%.? The patient noted the following:?? moderate to severe pain with standing, sitting, walking, ADLs We discussed the risks and benefits of the procedure with the patient, and we are NOT planning on using sedation as outlined in the guidelines from Medicare unless there is a documented reason that sedation would be strongly recommended.?? ?The procedure will be completed with fluoroscopic guidance.? proceed with left SIJ injection increase zonegran 50mg AM and 100mg HS continue HEP as tolerated f/u 2 weeks after injection
== END 2024-08-19 10:57 | disposition home or self-care (01) ==
LOC: PM 10:57
PROVIDERS: PCP Family Medicine; Visit Provider Nurse Practitioner
DX: M48.062 Spinal stenosis, lumbar region with neurogenic claudication (principal); M46.1 Sacroiliitis, not elsewhere classified
CPT/HCPCS: G0463

== ENCOUNTER 2024-08-24 07:17 | Day surgery (SDC) | payer MEDICARE, OTHER, SELFPAY ==
--- OUTSIDE RECORDS SUMMARY | 2024-08-24 07:21 | XMS_ITS | CCD ---
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 Name Role Phone Hillary La Unavailable SHAIKH [...] Primary Care Unavailable Estrellita Teresa NP Unavailable [phone] KEVIN MAXWELL Attending Unavailable SHAIKH MAGALLANES Attending Unavailable SHAIKH MAGALLANES Attending Unavailable ESTRELLITA TERESA Attending UnavailESTRELLITA Hall Attending UnavailESTRELLITA Hall Referring UnavailESTRELLITA Hall Attending Unavailmeli Cortes MD, Rina Aden Attending Unavailable Medications Current Medications Medication Drug Class(es) Dates [...] every six hours as needed HYDROcodone-acetami nophen ([place]) 5-325 MG tablet Take 1 tablet by mouth every 6 (six) hours if needed 03/03/2024 04/16/2024 Discontinued (Therapy completed) Start: 10-04-2022 End: 12-09-2023 Hydrocodone-Acetaminophen 7. 5-325 mg tablet Discontinued 1 TAB PO every 6 to 8 hours as needed for pain 20 October 04, 2022 December 09, 2023 7:52am [id number] 200 actuat albuterol 0.09 mg/actuat metered dose inhaler (3 sources) beta2-Adrenergic Agonist Start: 07-16-2024 take 2 [...] Blood Pressure Monitoring (Blood Pressure Cuff) misc (10 sources) Start: 03-16-2024 Blood Pressure Monitoring (Blood [...] mg / lisinopril 20 mg oral tablet (14 sources) Thiazide Diuretic, Angiotensin Converting Enzyme Inhibitor [...] Problem Date Documented Date Episodic/Chronic Alcohol-related disorders (18 sources) Alcohol abuse; Translations: [Alcohol abuse, uncomplicated] Onset: 01-15-2024 01-15-2024 Chronic Aortic; peripheral; and visceral artery aneurysms (13 sources) Abdominal aortic aneurysm without rupture; Translations: [Abdominal aortic aneurysm (AAA) without rupture] Onset: 07-16-2024 12-09-2023 Chronic Chronic obstructive pulmonary disease and bronchiectasis (19 sources) Pulmonary emphysema; Translations: [Other emphysema] Onset: [...] Spondylosis; intervertebral disc disorders; other back problems (9 sources) Lumbar spondylosis; Translations: [Spondylosis without myelopathy or radiculopathy, lumbar region] Onset: 09-03-2023 07-16-2024 Chronic Substance-related disorders (20 sources) Smokes tobacco daily; Translations: [Nicotine dependence, unspecified, uncomplicated] Onset: 09-03-2023 12-09-2023 Chronic Unclassified (1 source) Abdominal aortic aneurysm, without rupture, unspecified; Translations: [Abdominal aortic aneurysm, without rupture, unspecified] Onset: 06-29-2024 Past or Other Problems Problem Classification Problem Date Documented Da te Episodic/Chronic Mood disorders (17 sources) Mood disorders Onset: 11-12-2023 11-12-2023 Other lower respiratory disease (18 sources) Multiple nodules of lung; Translations: [Other nonspecific abnormal finding of lung field] Onset: 01-15-2024 01-15-2024 Episodic Other screening for suspected conditions (not mental disorders or infectious disease) (18 sources) Encounter for screening for malignant neoplasm of respiratory organs; Translations: [Patient encounter status] Onset: 11-12-2023 Resolved: 07-16-2024 11-12-2023 Episodic Residual codes; unclassified (19 sources) Tobacco user; Translations: [Tobacco use] Onset: 09-03-2023 Resolved: 07-16-2024 09-03-2023 Episodic Residual codes; unclassified (17 sources) Harmful pattern of use of nicotine; Translations: [Tobacco use] Onset: 11-12-2023 11-12-2023 Episodic Spondylosis; intervertebral disc disorders; other back problems (20 sources) Chronic low back pain; Translations: [Lumbago with sciatica, left side] Onset: 09-03-2023 Resolved: 07-16-2024 11-12-2023 Episodic Unclassified (1 source) Cough R05.9 Results Test Name Value Interpretation Reference Range Facility [place] [address] Magnetic Resonance Report Signed Patient: HUA BENNETT MR#: [id number] : 1955 Acct:[id number] Age/Sex: 68 / M ADM Date: 07/23/24 Loc: MRI Attending Dr: Kevin Maxwell M.D. Ordering Physician: Kevin Maxwell M.D. Date of Service: 07/23/24 Procedure(s): MR lumbar spine wo con Accession Number(s): [id number] cc: Kevin Maxwell M.D. [place] [id number] Patient Name: HUA BENNETT MRN: [id number] date: 1955 Sex: M Assigned Patient Location: MRI Current Patient Location: MRI Accession/Order Number: [id number] Exam Date: 07/23/2024 09:30 Report Date: 07/23/2024 09:50 At the request of: KEVIN MAXWELL MD Procedure: MR lumbar spine wo con MRI LUMBAR SPINE WITHOUT CONTRAST COMPARISON: Plain films 11/19/2023 CLINICAL DATA: Chronic back pain with radiation to the hips over the past 6 months. No injury. Multiecho imaging in the axial and sagittal plane was performed without contrast. There is levoscoliotic curvature. There is no significant displacement on the sagittal sequences. There are no acute compression fractures or marrow edema. The conus medullaris terminates at the T12-L1 level. No paraspinal soft tissue abnormalities are noted. There is a 4.5 cm abdominal aortic aneurysm. At T12-L1 and L1-2, the discs are normal height and signal intensity. No disc bulge or herniation is present. There is anterolateral endplate spurring at L1-2. No stenosis is identified. At L2-3, there is mild disc desiccation. There is disco-osteophytic bulging toward the neural foramen and asymmetric extending laterally on the right. There is minor facet and ligamentous hypertrophy. There is slight thecal sac effacement. No significant neural foraminal stenosis is identified. At L3-4, there is minor annular disc bulging, greater extending laterally on both sides. There is minor facet and ligamentous hypertrophy. There is no significant thecal sac effacement or foraminal stenosis. At L4-5, mild disc desiccation is present. Disco-osteophytic bulging is noted, greater extending laterally. There is prominent facet hypertrophy with fluid in the joints. There is thickening of ligamentum flavum. There is a small synovial cyst along the central aspect of the facets on the left measuring approximately 1 cm in greatest dimension on the sagittal T2 sequence. Severe central stenosis is present. There is also moderate foraminal impingement. At the lumbosacral junction, there is slight disc desiccation. There is minor annular disc bulging, asymmetric extending laterally on the left where there is also endplate spurring. There is mild facet hypertrophy. No central stenosis is identified. There is minimal right and at least moderate left foraminal impingement. MR/MR lumbar spine wo con IMPRESSION: SUBTLE SCOLIOSIS. MULTILEVEL DISCOVERTEBRAL DEGENERATIVE CHANGES, GREATEST AT L4-5 WHERE SEVERE CENTRAL STENOSIS IS SEEN. INCIDENTAL 4.5 CM ABDOMINAL AORTIC ANEURYSM. Impression dictated by: Darlyn Vo M.D.07/23/2024 9:50 AM Dictation Location: [place] [address] Electronically authenticated by: [id number] Y Date: 07/23/2024 09:50 Dictated By: Darlyn Vo M.D. Signed By: 07/23/24 0952 DD/ 0950 TD/TT: [employer]: [facility] Radiology, Radiologist, MD - 07/23/2024 [place] [address] Magnetic Resonance Report Signed Patient: HUA BENNETT MR#: [id number] : 1955 Acct:[id number] Age/Sex: 68 / M ADM Date: 07/23/24 Loc: MRI Attending Dr: Kevin Maxwell M.D. Ordering Physician: Kevin Maxwell M.D. Date of Service: 07/23/24 Procedure(s): MR lumbar spine wo con Accession Number(s): [id number] cc: Kevin Maxwell M.D. The [place] [id number] Patient Name: HUA BENNETT MRN: [facility]:[id number] date: 1955 Sex: M Assigned Patient Location: MRI Current Patient Location: MRI Accession/Order Number: [id number] Exam Date: 07/23/2024 09:30 Report Date: 07/23/2024 09:50 At the request of: KEVIN MAXWELL MD Procedure: MR lumbar spine wo con MRI LUMBAR SPINE WITHOUT CONTRAST COMPARISON: Plain films 11/19/2023 CLINICAL DATA: Chronic back pain with radiation to the hips over the past 6 months. No injury. Multiecho imaging in the axial and sagittal plane was performed without contrast. There is levoscoliotic curvature. There is no significant displacement on the sagittal sequences. There are no acute compression fractures or marrow edema. The conus medullaris terminates at the T12-L1 level. No paraspinal soft tissue abnormalities are noted. There is a 4.5 cm abdominal aortic aneurysm. At T12-L1 and L1-2, the discs are normal height and signal intensity. No disc bulge or herniation is present. There is anterolateral endplate spurring at L1-2. No stenosis is identified. At L2-3, there is mild disc desiccation. There is disco-osteophytic bulging toward the neural foramen and asymmetric extending laterally on the right. There is minor facet and ligamentous hypertrophy. There is slight thecal sac effacement. No significant neural foraminal stenosis is identified. At L3-4, there is minor annular disc bulging, greater extending laterally on both sides. There is minor facet and ligamentous hypertrophy. There is no significant thecal sac effacement or foraminal stenosis. At L4-5, mild disc desiccation is present. Disco-osteophytic bulging is noted, greater extending laterally. There is prominent facet hypertrophy with fluid in the joints. There is thickening of ligamentum flavum. There is a small synovial cyst along the central aspect of the facets on the left measuring approximately 1 cm in greatest dimension on the sagittal T2 sequence. Severe central stenosis is present. There is also moderate foraminal impingement. At the lumbosacral junction, there is slight disc desiccation. There is minor annular disc bulging, asymmetric extending laterally on the left where there is also endplate spurring. There is mild facet hypertrophy. No central stenosis is identified. There is minimal right and at least moderate left foraminal impingement. MR/MR lumbar spine wo con IMPRESSION: SUBTLE SCOLIOSIS. MULTILEVEL DISCOVERTEBRAL DEGENERATIVE CHANGES, GREATEST AT L4-5 WHERE SEVERE CENTRAL STENOSIS IS SEEN. INCIDENTAL 4.5 CM ABDOMINAL AORTIC ANEURYSM. Impression dictated by: Darlyn Vo M.D.07/23/2024 9:50 AM Dictation Location: [place] [address] Electronically authenticated by: [id number] Y Date: 07/23/2024 09:50 Dictated By: Darlyn Vo M.D. Signed By: 07/23/24 0952 DD/ TD/TT: [employer]: [facility] [employer] Radiology Study observation (narrative) RADHA Mcgee lthcare MR LUMBAR SPINE WO CONOrdere d By: Radiologist Radiology on 07-23-2024 RADHA Shelfiecar e Work Phone: US aortaon 06-29-2024 aorta [facility] [address] [place] [address] Ultrasound Report Signed Patient: Hua Bennett MR#: [id number] : 1955 Acct:[id number] Age/Sex: 68 / M ADM Date: 06/29/24 Loc: [facility] Room: Type: [facility] Attending Dr: Ken Bland MD Ordering Provider: [...] Ken Bland M.D.06/29/2024 10:49 AM Dictation Location: [place] [address] Tech: Gayatri Dawkins Transcribed By: RL 06/29/24 1049 Dictated By: Ken Bland MD 06/29/24 1047 Signed By: 06/29/24 1049 Normal [facility] CT CHEST WO IV [...] spec) Gram Stain GSNOS Organisms Seen^Organisms Seen [facility] Microscopic observation Gram stain Nom (Unsp spec) NO NO ORGANISM SEEN^NO ORGANISM SEEN [facility] Microscopic observation Gram stain Nom (Unsp spec) GSWBC White Blood Cells^White Blood Cells [facility] Microscopic observation Gram stain Nom (Unsp spec) R RARE^RARE [facility] LEFT ELBOW FLUID [facility] ALL MAGNESIUMon 01-22-2024 Magnesium [Mass/Vol] 2.0 mg/dL 1.8 - 2 .4 mg/dL [facility] ALL PHOSPHOROUSon 01-22-2024 Phosphate [Mass/Vol] 2.8 mg/dL 2.6 - 4 .7 mg/dL [facility] No Panel Informationon 01-21 [facility] LOW DOSE LUNG SCREENINGon [...] aided detection for pulmonary nodules?was performed utilizing Qpyn software.? FINDINGS: Diagnostic quality: Satisfactory Lung nodules: [...] 6:28 PM 3 LDCT 3 Mo Normal [facility] CT angio abdomen pelvison CT angio abdomen pelvis [facility] Main [place] [address] [place] [address] CT Scan Report Signed Patient: Hua Bennett MR#: [id number] 8 : 1955 Acct:[id number] Age/Sex: 68 / M ADM Date: 12/13/23 Loc: CT Room: Type: [facility] Attending Dr: Frannie Hurt BLISTER PACK OPERATOR-C Copies to: Frannie Hurt APRN Ordering Provider: [...] Broderick Jr., D.O.12/13/2023 1:27 PM Dictation Location: [place] [address] Transcribed By: [facility] 12/13/23 1327 Dictated By: Eladio Broderick Jr, DO 12/13/23 1319 Signed By: 12/13/23 1327 Normal [facility] ISTAT XRay CREon 12-13-2023 ISTAT GFR > 60.0 Normal [facility] Comment on above: Result Comment: PERF ORMED BY: [place] [address] PATHOLOGIST BRICK SHADER DEVONTE MOJICA M.D. Performed By: #### I SCRE #### [address] No Panel InformationOrdered By: Frannie Hurt on 12-13-2023 Bedside Estimated GFR (eGFR) > 60.0 [facility] Whole blood creatinine measu rementOrdered By: Frannie Hurt on 12-13-2023 Creatinine [Mass/Vol] 0.8 mg/dL Normal 0.6-1.3 [facility] Comment on above: ER/ESD physician is notified/shown all ISTAT results.Critical values may be confirmed by laboratory testing ifdeemed necessary by ER attending doctor. Result Comment: ER/E SD physician is notified/shown all ISTAT results. Critical values may be confirmed by laboratory testing if deemed necessary by ER attending doctor. Performed By: #### I SCRE #### [facility] [address] Basophils Auto (Bld) [#/Vol] Ordered By: Carlitos Douglas on 09-24-2022 Basophils (Bld) [#/Vol] 0.0 10*3/uL 0.0-0.2 [facility] Basophils/100 WBC Auto (Bld) Ordered By: Carlitos Douglas on 09-24-2022 Basophils/100 WBC (Bld) 0.4 % . F [facility] Calcium [Mass/volume] in Ser um or PlasmaOrdered By: Carlitos Douglas on 09-24-2022 Calcium [Mass/Vol] 9.3 mg/dL 8.6-10.[address] [facility] Carbon dioxide, total [Moles /volume] in Serum or PlasmaOrdered By: Carlitos Douglas on 09-24-2022 CO2 [Moles/Vol] 29.1 mmol/L 21.0-31.0 [facility] Chloride [Moles/volume] in S ebony or PlasmaOrdered By: Carlitos Douglas on 09-24-2022 Chloride [Moles/Vol] 106 mmol/L 98-107 [facility] Creatinine [Mass/volume] in Serum or PlasmaOrdered By: Carlitos Douglas on 09-24-2022 Creatinine [Mass/Vol] 0.82 mg/dL 0.70-1.30 [facility] Eosinophils Auto (Bld) [#/Vo l]Ordered By: Carlitos Douglas on 09-24-2022 Eosinophils (Bld) [#/Vol] 0.1 10*3/uL 0.0-0.45 [facility] Eosinophils/100 WBC Auto (Bl d)Ordered By: Carlitos Douglas on 09-24-2022 Eosinophils/100 WBC (Bld) 1.5 % . [facility] Erythrocyte distribution wid th Auto (RBC) [Ratio]Ordered By: Carlitos Douglas on 09-24-2022 Erythrocyte distribution width (RBC) [Ratio] 13.5 % 12.0-14.8 [facility] Glucose [Mass/volume] in Ser um or PlasmaOrdered By: Carlitos Douglas on 09-24-2022 Glucose [Mass/Vol] 83 mg/dL 70-[address] [facility] Comment on above: ADA recommended refe rence rangeRandom Glucose Reference Range is dependent on time and content of last meal. Glucose of more than 200 mg/dL in a nonstressed, ambulatory subject supports the diagnosis of Diabetes Mellitus. Hematocrit Auto (Bld) [Volum e fraction]Ordered By: Carlitos Douglas on 09-24-2022 Hematocrit (Bld) [Volume fraction] 46.7 % 38.8-50.0 [facility] Hemoglobin [Mass/volume] in BloodOrdered By: Carlitos Douglas on 09-24-2022 Hemoglobin (Bld) [Mass/Vol] 15.6 g/dL 13.0-17.0 [facility] Leukocytes [#/volume] correc bandar for nucleated erythrocytes in Blood by Automated counOrdered By: Carlitos Douglas on 09-24-2022 WBC corrected for nucl RBC Auto (Bld) [#/Vol] 6.8 10*3/uL 4.1-10.5 [facility] Lymphocytes Auto (Bld) [#/Vo l]Ordered By: Carlitos Douglas on 09-24-2022 Lymphocytes (Bld) [#/Vol] 1.7 10*3/uL 1.00-4.8 [facility] Lymphocytes/100 WBC Auto (Bl d)Ordered By: Carlitos Douglas on 09-24-2022 Lymphocytes/100 WBC (Bld) 24.8 % . [facility] MCH Auto (RBC) [Entitic mass ]Ordered By: Carlitos Douglas on 09-24-2022 MCH (RBC) [Entitic mass] 34.1 pg 27.5-35.2 [facility] MCHC Auto (RBC) [Mass/Vol]Or dered By: Carlitos Douglas on 09-24-2022 MCHC (RBC) [Mass/Vol] 33.5 g/dL 32.5-35.6 [facility] MCV Auto (RBC) [Entitic vol] Ordered By: Carlitos Douglas on 09-24-2022 MCV (RBC) [Entitic vol] 101.9 fL 83.5-101 F [facility] Monocytes Auto (Bld) [#/Vol] Ordered By: Carlitos Douglas on 09-24-2022 Monocytes (Bld) [#/Vol] 0.7 10*3/uL 0.0-0.8 [facility] Monocytes/100 WBC Auto (Bld) Ordered By: Carlitos Douglas on 09-24-2022 Monocytes/100 WBC (Bld) 9.9 % . F [facility] Neutrophils Auto (Bld) [#/Vo l]Ordered By: Carlitos Douglas on 09-24-2022 Neutrophils (Bld) [#/Vol] 4.3 10*3/uL 1.8-7.7 [facility] Neutrophils/100 WBC Auto (Bl d)Ordered By: Carlitos Douglas on 09-24-2022 Neutrophils/100 WBC (Bld) 63.4 % . [facility] No Panel InformationOrdered By: Carlitos Douglas on 09-24-2022 Estimated GFR (CKD-EPI) > 60.0 mL/Min [facility] Creatinine Clearance (Chem N/A [facility] Nucleated erythrocytes [Pres ence] in Blood by Automated countOrdered By: Carlitos Douglas on 09-24-2022 Nucleated RBC Auto Ql (Bld) 0.0 /100{WBC} 0-0.5 [facility] Platelet mean volume Auto (B ld) [Entitic vol]Ordered By: Carlitos Douglas on 09-24-2022 Platelet mean volume (Bld) [Entitic vol] 9.1 fL 6.6-10.1 [facility] Platelets Auto (Bld) [#/Vol] Ordered By: Carlitos Douglas on 09-24-2022 Platelets (Bld) [#/Vol] 189 10*3/uL 150-450 [facility] Potassium [Moles/volume] in Serum or PlasmaOrdered By: Carlitos Douglas on 09-24-2022 Potassium [Moles/Vol] 4.0 mmol/L 3.5-5.1 [facility] RBC Auto (Bld) [#/Vol]Ordere d By: Carlitos Douglas on 09-24-2022 RBC (Bld) [#/Vol] 4.58 10*6/uL 3.90-5.60 [facility] Serum or plasma anion gap de terminationOrdered By: Carlitos Douglas on 09-24-2022 Anion gap [Moles/Vol] 10.9 mmol/L 6.0-15.0 [facility] Sodium [Moles/volume] in Ser um or PlasmaOrdered By: Carlitos Douglas on 09-24-2022 Sodium [Moles/Vol] 142 mmol/L 136-[address] [facility] Urea nitrogen [Mass/volume] in Serum or PlasmaOrdered By: Carlitos Douglas on 09-24-2022 Urea nitrogen [Mass/Vol] 9 mg/dL 7-25 [facility] WBC Auto (Bld) [#/Vol]Ordere d By: Carlitos Douglas on 09-24-2022 WBC (Bld) [#/Vol] 6.8 10*3/uL 4.1-10.[address] [facility] CBC AUTO DIFFon 09-05-2022 BASO # 0.1 103/ul Normal 0.0-0.1 [facility] Comment on above: Performed By: #### C BC #### [facility] [address] [place] [address] Dr. Petr Winchester Basophils/100 WBC (Bld) 0.6 % Normal 0.2-2.0 [facility] Comment on above: Performed By: #### C BC #### [facility] [address] [place] [address] Dr. Petr Winchester EO # 0.3 103/ul Normal 0.0-0.7 [facility] Comment on above: Performed By: #### C BC #### [facility] [address] [place] [address] Dr. Petr Winchester Eosinophils/100 WBC (Bld) 3.0 % Normal 0.9-7.0 [facility] Comment on above: Performed By: #### C BC #### [facility] [address] [place] [address] Dr. Petr Winchester Erythrocyte distribution width (RBC) [Ratio] 13.2 % Normal 11.0-15.0 [facility] Comment on above: Performed By: #### C BC #### [facility] [address] [place] [address] Dr. Petr Winhcester Hematocrit (Bld) [Volume fraction] 46.1 % Normal 42.0-54.0 [facility] Comment on above: Performed By: #### C BC #### [facility] [address] [place] [address] Dr. Petr Winchester Hemoglobin (Bld) [Mass/Vol] 15.3 g/dL Normal 14.0-18.0 [facility] Comment on above: Performed By: #### C BC #### [facility] [address] [place] [address] Dr. Petr Winchester IG # 0.03 10e3/ul Normal 0.00-0.03 [facility] Comment on above: Performed By: #### C BC #### [facility] [address] [place] [address] Dr. Petr Winchester IG % 0.3 % Normal 0.0-0.5 [facility] Comment on above: Performed By: #### C BC #### [facility] [address] [place] [address] Dr. Petr Winchester LYMPH # 1.9 103/ul Normal 1.2-3.8 [facility] Comment on above: Performed By: #### C BC #### [facility] [address] [place] [address] Dr. Petr Winchester Lymphocytes/100 WBC (Bld) 19.2 % Critically low 20.5-60.0 [facility] Comment on above: Performed By: #### C BC #### [facility] [address] [place] [address] Dr. Petr Winchester MANUAL DIFF REQ NO Normal [facility] Comment on above: Performed By: #### C BC #### [facility] [address] [place] [address] Dr. Petr Winchester MCH (RBC) [Entitic mass] 34.0 pg Normal 25.9-34.0 [facility] Comment on above: Performed By: #### C BC #### [facility] [address] [place] [address] [address] Petr Winchester MCHC (RBC) [Mass/Vol] 33.2 g/dL Normal 29.9-35.2 [facility] Comment on above: Performed By: #### C BC #### [facility] [address] [place] [address] Dr. Petr Winchester MCV (RBC) [Entitic vol] 102.4 fL Critically high 80.0-94 .0 [facility] Comment on above: Performed By: #### C BC #### [facility] [address] [place] [address] Dr. Petr Winchester MONO # 0.9 103/ul Critically high 0.3-0.8 [facility] Comment on above: Performed By: #### C BC #### [facility] [address] [place] [address] Dr. Petr Winchester Monocytes/100 WBC (Bld) 9.6 % Normal 1.7-12.0 [facility] Comment on above: Performed By: #### C BC #### [facility] [address] [place] [address] Dr. Petr Winchester NEUT # 6.5 103/ul Normal 1.4-6.5 [facility] Comment on above: Performed By: #### C BC #### [facility] [address] [place] [address] Dr. Petr Winchester Neutrophils/100 WBC (Bld) 67.3 % Normal 43.0-75.0 [facility] Comment on above: Performed By: #### C BC #### [facility] [address] [place] [address] Dr. Petr Winchester Platelet mean volume (Bld) [Entitic vol] 10.6 fL Normal 9.5-13.5 [facility] Comment on above: Performed By: #### C BC #### [facility] [address] [place] [address] Dr. Petr Winchester PLT 210 103/ul Normal 150-450 [facility] Comment on above: Performed By: #### C BC #### [facility] [address] [place] [address] [address] Petr Winchester RBC 4.50 106/ul Critically low 4.70-6.10 [facility] Comment on above: Performed By: #### C BC #### [facility] [address] [place] [address] [address] Petr [place] WBC 9.7 103/ul Normal 4.0-11.0 [facility] Comment on above: Performed By: #### C BC #### [facility] [address] [address] [address] Petr [place] LIPID PROFILEon 09-05-2022 CHOL-HDL RATIO NORM SEE BELOW Normal [facility] Comment on above: Result Comment: 3.3 - 4.4 LOW RISK 4.4 - 7.1 AVERAGE RISK 7.1 - 11.0 MODERATE RISK >11.0 HIGH RISK Performed By: #### L IPID, CMP #### [facility] [address] [place] [address] Dr. Petr [place] Cholesterol [Mass/Vol] 224 mg/dL Critically high <=200 [facility] Comment on above: Performed By: #### L IPID, CMP #### [facility] [address] [place] [address] Dr. Petr [place] Cholesterol in HDL [Mass/Vol] 41 mg/dL Normal 40-60 [facility] Comment on above: Performed By: #### L IPID, CMP #### [facility] [address] [address] [address] Petr [place] Cholesterol in LDL [Mass/Vol] 163.8 mg/dL Normal [facility] Comment on above: Performed By: #### L IPID, CMP #### [facility] [address] [address] [address] Petr [place] Cholesterol.total/Camilla sterol in HDL [Mass ratio] 5.5 {ratio} Normal [facility] Comment on above: Performed By: #### L IPID, CMP #### [facility] [address] [address] [address] Petr [place] HDL NORMAL > or = 60 mg/dl - LOW CARDIOVASCULAR RISK <40 mg/dl - HIGH CARDIOVASCULAR RISK Normal [facility] Comment on above: Performed By: #### L IPID, CMP #### [facility] [address] [place] [address] Dr. Petr [place]ster LDL CALC NORMAL SEE BELOW Normal [facility] Comment on above: Result Comment: <100 mg/dl OPTIMAL 100 - 129 mg/dl NEAR OR ABOVE OPTIMAL 130 - 159 mg/dl BORDERLINE HIGH 160 - 189 mg/dl HIGH >190 mg/dl VERY HIGH Performed By: #### L IPID, CMP #### [facility] [address] [place] [address] Dr. Petr [place] Triglyceride [Mass/Vol] 96 mg/dL Normal <=150 [facility] Comment on above: Performed By: #### L IPID, CMP #### [facility] [address] [place] [address] Dr. Petr [place] VLDL CALC 19.2 mg/dL Normal [facility] Comment on above: Performed By: #### L IPID, CMP #### [facility] [address] [place] [address] Dr. Petr [place] PROF 14(COMP METB)on 023 Albumin [Mass/Vol] 3.4 g/dL Normal 3.4-5.0 [facility] Comment on above: Performed By: #### L IPID, CMP #### [facility] [address] [place] [address] Dr. Petr [place] Albumin/Globulin [Mass ratio] 0.8 {ratio} Normal [facility] Comment on above: Performed By: #### L IPID, CMP #### [facility] [address] [place] [address] Dr. Petr [place] ALP [Catalytic activity/Vol] 74 U/L Normal 46-116 [facility] Comment on above: Performed By: #### L IPID, CMP #### [facility] [address] [place] [address] Dr. Petr [place] ALT [Catalytic activity/Vol] 32 U/L Normal 16-63 [facility] Comment on above: Performed By: #### L IPID, CMP #### [facility] [address] [place] [address] Dr. Petr W[place]ster Anion gap [Moles/Vol] 9.9 mmol/L Normal [facility] Comment on above: Performed By: #### L IPID, CMP #### [facility] [address] [place] [address] Dr. Petr W[place] AST [Catalytic activity/Vol] 17 U/L Normal 15-37 [facility] Comment on above: Performed By: #### L IPID, CMP #### [facility] [address] [place] [address] Dr. Petr W[place] Bilirubin [Mass/Vol] 0.3 mg/dL Normal 0.2-1.0 [facility] Comment on above: Performed By: #### L IPID, CMP #### [facility] [address] [place] [address] Dr. Petr [place] Calcium [Mass/Vol] 9.0 mg/dL Normal 8.5-10.1 [facility] Comment on above: Performed By: #### L IPID, CMP #### [facility] [address] [place] [address] Dr. Petr [place] Chloride [Moles/Vol] 106 mmol/L Normal 98-107 [facility] Comment on above: Performed By: #### L IPID, CMP #### [facility] [address] [place] [address] Dr. Petr [place] CO2 [Moles/Vol] 29.8 mmol/L Normal 21.0-32.0 [facility] Comment on above: Performed By: #### L IPID, CMP #### [facility] [address] [place] [address] Dr. Petr W[place]ster Creatinine [Mass/Vol] 0.97 mg/dL Normal 0.70-1.30 [facility] Comment on above: Performed By: #### L IPID, CMP #### [facility] [address] [place] [address] Dr. Petr W[place]ster EGFR-AF ROMANIAN >60 Normal >=60 [facility] Comment on above: Performed By: #### L IPID, CMP #### [facility] [address] [place] [address] Dr. Petr W[place]ster EGFR-NON AF ROMANIAN >60 Normal >=60 [facility] Comment on above: Performed By: #### L IPID, CMP #### [facility] [address] [address] [address] Petr W[place]ster Globulin (S) [Mass/Vol] 4.2 g/dL Normal [facility] Comment on above: Performed By: #### L IPID, CMP #### [facility] [address] [place] [address] Dr. Petr W[place]ster Glucose [Mass/Vol] 127 mg/dL Critically high 74-106 [facility] Comment on above: Performed By: #### L IPID, CMP #### [facility] [address] [place] [address] Dr. Petr W[place] Potassium [Moles/Vol] 4.7 mmol/L Normal 3.5-5.1 [facility] Comment on above: Performed By: #### L IPID, CMP #### [facility] [address] [place] [address] Dr. Petr W[place] Protein [Mass/Vol] 7.6 g/dL Normal 6.4-8.2 [facility] Comment on above: Performed By: #### L IPID, CMP #### [facility] [address] [place] [address] Dr. Petr W[place] Sodium [Moles/Vol] 141 mmol/L Normal 136-145 [facility] Comment on above: Performed By: #### L IPID, CMP #### [facility] [address] [place] [address] Dr. Petr W[place]ster Urea nitrogen [Mass/Vol] 18.0 mg/dL Normal 7.0-18.0 [facility] Comment on above: Performed By: #### L IPID, CMP #### [facility] [address] [place] [address] Dr. Petr W[place]ster Urea nitrogen/Creatinine [Mass ratio] 18.6 mg/mg Normal [facility] Comment on above: Performed By: #### L IPID, CMP #### [facility] [address] [address] [address] Petr W[place]ster COVID + FLU Quick Testingon 06-18-2022 SARS-CoV-2 (COVID-19) RNA KALEN+probe Ql (Unsp spec) Negative [facility] [employer] Other COVID + FLU Quick Testing Negative [facility] [employer] Other Vital Signs Date Time Vital Sign Value Performing Clinician Facility 07-16-2024 11:08-0500 Body mass index (BMI) [Ratio] 21.59 kg/m2 Kevin Maxwell MD Work Phone: [facility] 07-16-2024 11:08-0500 Body temperature 98.2 [degF] Kevin Maxwell MD Work Phone: [facility] 07-16-2024 11:08-0500 Body weight 64.41 kg Kevin Maxwell MD Work Phone: [facility] 07-16-2024 11:08-0500 Diastolic blood pressure 90 mm[Hg] Kevin Maxwell MD Work Phone: [facility] 07-16-2024 11:08-0500 Heart rate 105 /min Kevin Maxwell MD Work Phone: [facility] 07-16-2024 11:08-0500 SaO2% (BldA) [Mass fraction] 94 % Kevin Maxwell MD Work Phone: [facility] 07-16-2024 11:08-0500 Systolic blood pressure 150 mm[Hg] Kevin Maxwell MD Work Phone: [facility] 06-29-2024 09:01-0500 Body height 170.18 cm [facility] 06-29-2024 09:01-0500 Body mass index (BMI) [Ratio] 23.4 kg/m2 [facility] 06-29-2024 09:01-0500 Body temperature 98.2 [degF] [facility] 06-29-2024 09:01-0500 Body weight 68 kg [facility] 06-29-2024 09:01-0500 Diastolic blood pressure 84 mm[Hg] [facility] 06-29-2024 09:01-0500 Heart rate 88 /min [facility] 06-29-2024 09:01-0500 Respiratory rate 16 /min [facility] 06-29-2024 09:01-0500 SaO2% (BldA) [Mass fraction] 96 % [facility] 06-29-2024 09:01-0500 Systolic blood pressure 122 mm[Hg] [facility] 04-16-2024 08:50-0500 Body mass index (BMI) [Ratio] 22.69 kg/m2 Estrellita Teresa [employer]ISTER P[employer] OPERATOR Work Phone: [facility] 04-16-2024 08:50-0500 Body temperature 97.81 [degF] Estrellita Teresa [employer] P[employer] OPERATOR Work Phone: [facility] 04-16-2024 08:50-0500 Body weight 67.68 kg Estrellita Teresa [employer] P[employer] OPERATOR Work Phone: [facility] 04-16-2024 08:50-0500 Diastolic blood pressure 89 mm[Hg] Estrellita Teresa [employer] P[employer] OPERATOR Work Phone: [facility] 04-16-2024 08:50-0500 Heart rate 101 /min Estrellita Teresa [employer] P[employer] OPERATOR Work Phone: [facility] 04-16-2024 08:50-0500 SaO2% (BldA) [Mass fraction] 96 % Estrellita Teresa [employer] P[employer] OPERATOR Work Phone: [facility] 04-16-2024 08:50-0500 Systolic blood pressure 138 mm[Hg] Estrellita Teresa [employer]ISTER P[employer] OPERATOR Work Phone: [facility] 03-16-2024 09:35-0500 Body height 172.7 cm Estrellita Teresa [employer] P[employer] OPERATOR Work Phone: [facility] 03-16-2024 09:35-0500 Body mass index (BMI) [Ratio] 21.96 kg/m2 Estrellita Teresa [employer] P[employer] OPERATOR Work Phone: [facility] 03-16-2024 09:35-0500 Body temperature 96.1 [degF] Estrellita Teresa [employer] P[employer] OPERATOR Work Phone: [facility] 03-16-2024 09:35-0500 Body weight 65.5 kg Estrellita Teresa [employer] P[employer] OPERATOR Work Phone: [facility] 03-16-2024 09:35-0500 Diastolic blood pressure 92 mm[Hg] Estrellita Teresa [employer] P[employer] OPERATOR Work Phone: [facility] 03-16-2024 09:35-0500 Heart rate 120 /min Estrellita Teresa [employer] P[employer] OPERATOR Work Phone: [facility] 03-16-2024 09:35-0500 Respiratory rate 16 /min Estrellita Teresa [employer] P[employer] OPERATOR Work Phone: [facility] 03-16-2024 09:35-0500 SaO2% (BldA) [Mass fraction] 98 % Estrellita Teresa [employer] P[employer] OPERATOR Work Phone: [facility] 03-16-2024 09:35-0500 Systolic blood pressure 176 mm[Hg] Estrellita Teresa [employer] P[employer] OPERATOR Work Phone: [facility] 01-15-2024 09:47-0400 Body height 170.2 cm Estrellita Teresa [employer] P[employer] OPERATOR Work Phone: [facility] 01-15-2024 09:47-0400 Body mass index (BMI) [Ratio] 22.71 kg/m2 Estrellita Teresa [employer] P[employer] OPERATOR Work Phone: [facility] 01-15-2024 09:47-0400 Body temperature 97 [degF] Estrellita Teresa [employer] P[employer] OPERATOR Work Phone: [facility] 01-15-2024 09:47-0400 Body weight 65.77 kg Estrellita Wilderpatrick [employer] P[employer] OPERATOR Work Phone: [facility] 01-15-2024 09:47-0400 Diastolic blood pressure 98 mm[Hg] Estrellita Wilderpatrick [employer] P[employer] OPERATOR Work Phone: [facility] Comment on above: RT ARM LG CUFF 180/90 01-15-2024 09:47-0400 Heart rate 79 /min Estrellita Wilderpatrick [employer] P[employer] OPERATOR Work Phone: [facility] Comment on above: 99% O2 01-15-2024 09:47-0400 Systolic blood pressure 178 mm[Hg] Estrellita Wilderpatrick [employer] P[employer] OPERATOR Work Phone: [facility] Comment on above: RT ARM LG CUFF 180/90 12-23-2023 09:59-0400 Body height 170.18 cm PHYSICIAN NO [facility] 12-23-2023 09:59-0400 Body mass index (BMI) [Ratio] 23.4 kg/m2 PHYSICIAN NO [facility] 12-23-2023 09:59-0400 Body temperature 97.8 [degF] PHYSICIAN NO [facility] 12-23-2023 09:59-0400 Body weight 67.99 kg PHYSICIAN NO [facility] 12-23-2023 09:59-0400 Diastolic blood pressure 84 mm[Hg] PHYSICIAN NO [facility] 12-23-2023 09:59-0400 Heart rate 73 /min PHYSICIAN NO [facility] 12-23-2023 09:59-0400 Respiratory rate 16 /min PHYSICIAN NO [facility] 12-23-2023 09:59-0400 SaO2% (BldA) [Mass fraction] 96 % PHYSICIAN NO [facility] 12-23-2023 09:59-0400 Systolic blood pressure 122 mm[Hg] PHYSICIAN NO [facility] 12-09-2023 08:54-0400 Body height 170.18 cm [facility] 12-09-2023 08:54-0400 Body mass index (BMI) [Ratio] 23.5 kg/m2 [facility] 12-09-2023 08:54-0400 Body temperature 97.2 [degF] [facility] 12-09-2023 08:54-0400 Body weight 68.03 kg [facility] 12-09-2023 08:54-0400 Diastolic blood pressure 80 mm[Hg] [facility] 12-09-2023 08:54-0400 Heart rate 76 /min [facility] 12-09-2023 08:54-0400 SaO2% (BldA) [Mass fraction] 98 % [facility] 12-09-2023 08:54-0400 Systolic blood pressure 166 mm[Hg] [facility] 06-18-2022 12:45-0500 Body height 170.18 cm Hillary Bessie Other [employer] Other 06-18-2022 12:45-0500 Body mass index (BMI) [Ratio] 25.12 kg/m2 Hillary Bessie Other [facility] Other 06-18-2022 12:45-0500 Body temperature 98.2 [degF] Hillary Bessie Other [facility] Other 06-18-2022 12:45-0500 Body weight 72.76 kg Hillary Bessie Other [facility] Other 06-18-2022 12:45-0500 Respiratory rate 18 /min Hillary Bessie Other [facility] Other 06-18-2022 12:45-0500 SaO2% (BldA) [Mass fraction] 97 % Hillarysamuel La Other [facility] [employer] Other Encounters Encounter Date Encounter Type Care Provider Facility Start: 08-10-2024 End: 08-10-2024 ambulatory Rina Cortes MD Facility:[facility] Start: 07-23-2024 End: 07-23-2024 Clinisync Result Encounter Kevin Maxwell MD Work Phone: [facility] Unsolicited Start: 07-23-2024 End: 07-23-2024 Clinisync Result Encounter Kevin Maxwell MD Work Phone: [facility] Unsolicited Start: 07-16-2024 End: 07-16-2024 Bamboo flowsheet Kevin Maxwell MD Work Phone: [facility] Start: 07-16-2024 End: 07-16-2024 Bamboo flowsheet Kevin Maxwell MD Work Phone: [facility] [...] Start: 06-29-2024 End: 06-29-2024 Patient encounter procedure [facility] V[facility] Surg Work Phone: Start: 06-29-2024 End: 06-29-2024 ambulatory PHYSICIAN NO FAMILY Facility:[facility] Start: 04-27-2024 End: 04-27-2024 Refill Estrellita Teresa NP Work Phone: [facility] Comment on above: Depression, unspecif ied (CMS/HCC) Start: 04-16-2024 End: 04-16-2024 Bamboo flowsheet Estrellita Teresa [employer] P[employer] OPERATOR Work Phone: [facility] Start: 04-16-2024 End: 04-16-2024 Bamboo flowsheet Estrellita Teresa [employer] P[employer] OPERATOR Work Phone: [facility] Start: 04-16-2024 End: 04-16-2024 Office outpatient visit 15 minutes Estrellita Teresa [employer] P[employer] OPERATOR Work Phone: [facility] Comment on above: Essential (primary) hypertension (CMS/HCC) (Primary Dx); Chronic bilateral low back pain with bilateral sciatica; Depression, unspecified (CMS/HCC) Start: 04-16-2024 End: 04-16-2024 ambulatory ESTRELLITA TERESA Not Available Start: 03-17-2024 End: 03-17-2024 ambulatory ESTRELLITA TERESA Not Available Start: 03-16-2024 End: 03-16-2024 Bamboo flowsheet Estrellita Teresa [employer] P[employer] OPERATOR Work Phone: [facility] Start: 03-16-2024 End: 03-16-2024 Bamboo flowsheet Estrellita Teresa [employer] P[employer] OPERATOR Work Phone: [facility] Start: 03-16-2024 End: 03-16-2024 Office outpatient visit 15 minutes Estrellita Teresa [employer] P[employer] OPERATOR Work Phone: [facility] Comment on above: Essential (primary) hypertension (CMS/HCC) (Primary Dx) Start: 03-16-2024 End: 03-16-2024 ambulatory ESTRELLITA TERESA Not Available Start: 03-02-2024 End: 03-02-2024 Clinisync Result Encounter Generic External Data Provider [facility] Unsolicited Start: 03-02-2024 End: 03-02-2024 Clinisync Result Encounter Generic External Data Provider [facility] Unsolicited Start: 02-05-2024 End: 02-06-2024 Erica Low MA [facility] Comment on above: Chronic bilateral lo w back pain with bilateral sciatica Start: 01-22-2024 End: 01-22-2024 Clinisync Result Encounter Estrellita Wilderpatrick [employer] P[employer] OPERATOR Work Phone: [facility] Unsolicited Start: 01-22-2024 End: 01-22-2024 Clinisync Result Encounter Estrellita Carranzak [employer] P[employer] OPERATOR Work Phone: [facility] Unsolicited Start: 01-15-2024 End: 01-15-2024 Bamboo flowsheet Estrellita Verdezpatrick [employer]ISTER P[employer] OPERATOR Work Phone: [facility] Start: 01-15-2024 End: 01-15-2024 Bamboo flowsheet Estrellita Teresa [employer] P[employer] OPERATOR Work Phone: [facility] Start: 01-15-2024 End: 01-15-2024 Office outpatient visit 25 minutes Estrellita Keytrick [employer] P[employer] OPERATOR Work Phone: [facility] Comment on above: Essential (primary) hypertension (CMS/HCC) (Primary Dx); Other hyperlipidemia (CMS/HCC); Persistent depressive disorder (CMS/HCC); Chronic bilateral low back pain with bilateral sciatica; Alcohol use disorder, mild, abuse; Multiple lung nodules on CT; Lumbar stenosis with neurogenic claudication; Tobacco abuse Start: 01-15-2024 End: 01-15-2024 ambulatory ESTRELLITA TERESA Not Available Start: 12-23-2023 End: 12-23-2023 ambulatory PHYSICIAN NO [facility] Work Phone: Start: 12-23-2023 End: 12-23-2023 Patient encounter procedure PHYSICIAN NO [facility] V[facility] Surgery Work Phone: Start: 12-17-2023 End: 12-17-2023 ambulatory MAURICE SALAZARRACHEL [facility] Start: 12-13-2023 End: 12-13-2023 Patient encounter procedure PHYSICIAN NO [facility] [place] Work Phone: Start: 12-13-2023 End: 12-13-2023 ambulatory PHYSICIAN NO [facility] Work Phone: Start: 12-09-2023 End: 12-09-2023 ambulatory [facility] Work Phone: Start: 12-09-2023 End: 12-09-2023 Patient encounter procedure [facility] Vascular Surgery Work Phone: Start: 11-12-2023 Patient encounter procedure Estrellita Teresa BLISTER P[employer] OPERATOR Work Phone: [facility] Start: 11-12-2023 End: 11-12-2023 ambulatory CARTWRIGHT FAWWAD Not Available Start: 09-03-2023 End: 09-03-2023 ambulatory CARTWRIGHT FAWWAD Not Available Start: 09-24-2022 End: 09-24-2022 ambulatory PHYSICIAN NO [facility] Work Phone: Start: 09-24-2022 End: 09-24-2022 Patient encounter procedure PHYSICIAN [facility] Work Phone: Start: 09-05-2022 End: 09-06-2022 ambulatory CARTWRIGHT H FAWWAD Facility: Start: 06-18-2022 End: 06-18-2022 ambulatory Hillary La Other [employer] Other Start: 06-18-2022 Office outpatient ne w 20 minutes Hillary La [facility] Procedures Date Procedure Procedure Detail Performing Clinician Start: 07-23-2024 MR LUMBAR SPINE WO CON Kevin Maxwell MD Work Phone: Start: 03-02-2024 [facility] Generic External Data Provider Start: 01-22-2024 ALL MAGNESIUM Estrellita Carranzak [employer] P[employer] OPERATOR Work Phone: Start: 01-22-2024 ALL PHOSPHOROUS Jyoti Carranzak BLISTER P[employer] OPERATOR Work Phone: Start: 12-13-2023 Computed tomography of abdomen and pelvis with contrast PHYSICIAN NO FAMILY Start: 05-15-2021 Colonoscopy Estrellita magallon NP Work Phone: Plan of Treatment Date Care Activity Detail Author Start: 05-15-2026 Screening for malign ant neoplasm of colon [facility] Start: 01-26-2025 End: 01-26-2025 Patient encounter procedure 01/26/2025 11:00 AM EDT [facility] Visit [facility] [address] [place] [id number] Kevin Maxwell MD [address] [place] [address] [facility] Start: 11-11-2024 Medicare Annual Well ness (AWV) Medicare Annual Wellness (AWV) [facility] Start: 07-16-2024 End: 07-16-2025 MR Lumbar spine WO contrast MR lumbar spine wo contrast Imaging Routine Lumbar spondylosis Expected: 07/16/2024, Expires: 07/16/2025 [facility] Work Phone: Comment on above: Expected: 07/16/2024 , Expires: 07/16/2025 Start: 07-16-2024 End: 07-16-2024 Patient encounter procedure 07/16/2024 9:00 AM EST Office Visit [facility] [address] [place] [address] Estrellita Teresa NP [address] [place] [address] [facility] Start: 06-29-2024 US Thoracic and abdominal aorta [facility] Start: 04-16-2024 End: 04-16-2024 Patient encounter procedure [facility] Comment on above: Arrived Start: 03-17-2024 End: 03-17-2024 Professional / ancillary services management 03/17/2024 11:00 AM EST Ancillary Procedure [facility] [address] [place] [id number] Start: 03-16-2024 End: 03-16-2024 Patient encounter procedure [facility] Comment on above: Arrived Start: 01-15-2024 End: 01-14-2025 25-hydroxyvitamin D3 [Mass/volume] in Serum or Plasma Vitamin D 25 hydroxy Lab Routine Alcohol use disorder, mild, abuse Expected: 01/15/2024 (Approximate), Expires: 01/14/2025 [facility] Comment on above: Expected: 01/15/2024 (Approximate), Expires: 01/14/2025 Start: 01-15-2024 End: 01-14-2025 Cobalamin (Vitamin B12) [Mass/volume] in Serum or Plasma Vitamin B12 Lab Routine Alcohol use disorder, mild, abuse Expected: 01/15/2024 (Approximate), Expires: 01/14/2025 [facility] Work Phone: Comment on above: Expected: 01/15/2024 (Approximate), Expires: 01/14/2025 Start: 01-15-2024 End: 01-14-2025 CT Chest WO contrast CT chest wo IV contrast Imaging Routine Multiple lung nodules on CT Expected: 01/15/2024, Expires: 01/14/2025 [facility] Comment on above: Expected: 01/15/2024 , [...] procedure 01/15/2024 10:00 AM EDT Office Visit [facility] [address] [place] [address] Esterllita Teresa NP [address] [place] [address] Essential (primary) hypertension (CMS/HCC) (Primary Dx); Other hyperlipidemia (CMS/HCC) [facility] Comment on above: Essential (primary) hypertension (CMS/HCC) (Primary Dx); Other hyperlipidemia (CMS/HCC) Start: 01-12-2024 Influenza vaccination Influenza Vacc ine (#1) [facility] Start: 1961 Pneumococcal Vaccine : 65+ Years (1 of 2 - PCV) Pneumococcal Vaccine: 65+ Years (1 of 2 - PCV) [facility] Start: 1955 Screening for malign ant neoplasm of colon [facility] Comprehensive metabo lic 2000 panel - Serum or Plasma Comprehensive metabolic panel Lab Routine Essential (primary) hypertension (CMS/HCC) Ordered: 04/16/2024 [facility] Work Phone: Comment on above: Ordered: 04/16/2024 CTA Abdominal vessel s and Pelvis vessels W contrast IV [facility] Immunizations Immunization Date Immunization Notes Care Provider Fa cility 01-20-2021 COVID-19 mRNA, Comirnaty (Pfizer) PHYSICIAN [facility] 12-30-2020 COVID-19 mRNA, Comirnaty (Pfizer) PHYSICIAN [facility] [facility] Payers Date Payer Category Payer Self-pay 2022 Unknown [id number] 2022 Private Health Insurance [facility] [id number] [id number] 2022 Unknown [id number]. 1.13.693. [id number] 2021 Medicare [id number]. 1.13.693. [id number] 1959 Medicare [id number] 2.16.840.1.830161.19 1959 Unknown [id number] 2.16.840.1.104507.19 1954 Unknown [id number] 2.16.840.1.706263.3.579. 2.593 1954 Unknown [id number] 2.16.840.1.396146.3.579. 2.1286 1954 Unknown [id number] 2.16.840.1.840805.3.579. 2.1258 1954 Unknown [id number] 2.16.840.1.571072.3.579. 2.1258 1954 Unknown [id number] 2.16.840.1.610890.3.579. 2.1258 1954 Unknown [id number] 2.16.840.1.235598.3.579. 2.1258 1954 Unknown [id number] 2.16.840.1.819550.3.579. 2.125 1954 Unknown [id number] 2.16.840.1.040470.3.579. 2.125 1954 Unknown [id number] 2.16.840.1.896800.3.579. 2.1258 1954 Unknown [id number] 2.16.840.1.902208.3.579. 2.196 Unknown [id number] 2.16.840.1.126058.3.579. 2.531 Unknown [id number] 2.16.840.1.805275.3.579. 2.531 Social History Date Type Detail Facility Start: 01-15-2024 End: 07-16-2024 Sex Assigned At [facility] VIEO Other Start: 09-24-2022 End: 12-09-2023 Tobacco smoking status NHIS Smoker (finding) [facility] Start: 1955 Sex Assigned At Male F [facility] Start: 11-12-2023 Tobacco smoking stat us MEIS Smokes tobacco daily [facility] History of [...] Start: 06-29-2024 End: 06-30-2024 Sex Male (finding) [facility] Medical Equipment Procedure Code Equipment Code Equipment Origin al Text Equipment Identifier Dates VISTASEAL 4ML FI BRIN SEALANT FDA Start: 10-04-2022 VISTASEAL 4ML FI BRIN SEALANT FDA Start: 10-04-2022 VISTASEAL 4ML FI BRIN SEALANT FDA Start: 10-04-2022 VISTASEAL 4ML FI BRIN SEALANT FDA Start: 10-04-2022 VISTASEAL 4ML FI BRIN SEALANT FDA Start: 10-04-2022 Clinical Notes 06-18-2022 to 07-16-2024 Kevin Mawxell MD - 07/16/2024 11:42 AM Ayden Maxwell [...] Follow with specialists. documented in this encounter [facility] 06-29-2024 Evaluation note Diagnosis Onset Date Resolution AAA (abdominal aortic aneurysm) without rupture acute June 29, 2 025 8:09am [facility] Work Phone: 1(486) 923-288012-05-2024 History of Present illness Narrative* Estrellita Teresa [...] MG 24 hr capsule [place] [id number] History of Present illness Narrative* Estrellita Teresa [...] for Saturday this week Labs ordered by nd in January reviewed with patient. All WNL. [...] (Blood Pressure Cuff) misc documented in this [facility]11-04-2024 Instructions* Patient Instructions* Estrellita Teresa NP - [...] Vitamin D 25 hydroxy documented [facility] [id number] Instructions* Patient Instructions* Estrellita Teresa NP - [...] servings from each food group for a 2,794-dyfvjrr-x-day DASH diet: Grains: 6 to 8 servings [...] Read food labels and choose low-salt or eg-kyme-woulo options. Use salt-free spices or flavorings instead [...] be healthier for it. documented in [facility]Heart[facility] [id number] Evaluation note* Encounter Date Diagnosis Assessment Notes [...] no improvement in 2 to 3 days. [employer] Other Evaluation noteNo assessment information available [facility] Work Phone: evaluation note* Diagnosis Onset Date Resolution Status AAA (abdominal aortic aneurysm) without rupture acute Current every day smoker acu te Uncontrolled hypertension ac cassy [facility] Work Phone: Evaluation note* [...] with bilateral sciatica [facility] [...] without rupture (CMS/HCC) History of substance abuse ([facility]/HCC) Other, mixed, or unspecified nondependent drug abuse, unspecified documented in this encounter [facility] HealthcareHistory general Narrative - Reported* Type Description Date Medical History Hypertension Medical History Depression [employer] Other Summary Purpose Family History No Family [...] CT SCAN DONE ON 12/12 AT [facility] Reason for Visit AAA (abdominal aorti c aneurysm) without rupture Current every day smoker Uncontrolled hypertension Chief Complaint Admit Date 6 month follow up; ABD U/S at 8:30am Jun 2024 8:09am Reason for Visit Admit Date AAA (abdominal aortic aneurysm) without rupture June 29, 2024 8:09am Reason for Referral Specialty Diagnoses / Procedures Referred By Manjit t Referred To Contact Radiology Diagnoses Multiple lung nodules on CT Procedures CT chest wo IV contrast Estrellita Teresa NP [address] [place] [address] Referral ID Status Reason Start Date Expiration Date V isits Requested Visits Authorized [id number] Pending Review 01/15/2024 07/13/2024 1 1 Specialty Diagnoses / Procedures Referred By Manjit t Referred To Contact Pain Medicine Diagnoses Chronic bilateral low back pain with bilateral sciatica Procedures MA OFFICE/OUTPATIENT NEW HIGH MDM 60 MINUTES Estrellita Teresa NP [address] [place] [address] Rina Cortes MD [address] [place] [address] Referral ID Status Reason Start Date Expiration Date Visits Requested Visits Authorized [id number] Pending Review Specialty Services Required 01/15/2024 07/13/2024 [...] and content) DATE CREATED AUTHOR 09/08/2022 [facility] DATE CREATED AUTHOR AUTHOR'S ORGANIZ ATION 12/19/2023 [facility] DATE CREATED AUTHOR AUTHOR'S ORGANIZ ATION 07/01/2024 [facility] DATE CREATED AUTHOR AUTHOR'S ORGANIZ ATION 07/18/2024 [facility] Special[facility] EPIC DATE CREATED AUTHOR AUTHOR'S ORGANIZ ATION 08/16/2024 [facility] Care Teams (unrecognized sec tion and content) [...] December 23, 2023 End: December 23, 2023 Boat Finisher Relationship Specialty Start Date End Date Kvein Maxwell MD [address] [place] [address] PCP - General Family Medicine 12/18/23 Estrellita Teresa NP [address] [place] [address] Nurse Practitioner Family Medicine 12/18/23 Boat Finisher Relationship Specialty Start Date End Date Kevin Maxwell MD [address] [place] [address] PCP - General Family Medicine 12/18/23 Estrellita Teresa NP [address] [place] [address] Nurse Practitioner Family Medicine 12/18/23 Boat Finisher Relationship Specialty Start Date End Date Kevin Maxwell MD [address] [place] [address] PCP - General Family Medicine 12/18/23 Estrellita Teresa NP [address] [place] [address] Nurse Practitioner Family Medicine 12/18/23 Boat Finisher Relationship Specialty Start Date End Date Kevin Maxwell MD [address] [place] [address] PCP - General Family Medicine 12/18/23 Estrellita Teresa NP [address] [place] [address] Nurse Practitioner Family Medicine 12/18/23 Boat Finisher Relationship Specialty Start Date End Date Kevin Maxwell MD [address] [place] [address] PCP - General Family Medicine 12/18/23 Estrellita Teresa NP [address] [place] [address] Nurse Practitioner Family Medicine 12/18/23 Boat Finisher Relationship Specialty Start Date End Date Kevin Maxwell MD [address] [place] [address] PCP - General Family Medicine 12/18/23 Estrellita Teresa NP [address] [place] [address] Nurse Practitioner Family Medicine 12/18/23 Boat Finisher Relationship Specialty Start Date End Date Kevin Maxwell MD [address] [place] [address] PCP - General Family Medicine 12/18/23 Estrellita Teresa NP [address] [place] [address] Nurse Practitioner Family Medicine 12/18/23 Boat Finisher Relationship Specialty Start Date End Date Kevin Maxwell MD [address] [place] [address] PCP - General Family Medicine 12/18/23 Estrellita Teresa NP [address] [place] [address] Nurse Practitioner Family Medicine 12/18/23 Boat Finisher Relationship Specialty Start Date End Date Kevin Maxwell MD [address] [place] [address] PCP - General Family Medicine 12/18/23 Estrellita Teresa NP [address] [place] [address] Nurse Practitioner Family Medicine 12/18/23 Team Status: Inactive Member Role Status Dates PHYSICIAN NO FAMILY Primary Care Provider Active Start: June 29, 2024 End: June 29, 2024 Ken Bland MD Attending Provider Active S tart: June 29, 2024 End: June 29, 2024 Boat Finisher Relationship Specialty Start Date End Date Kevin Maxwell MD [address] [place] [address] PCP - General Family Medicine 12/18/23 Estrellita Teresa NP [address] [place] [address] Nurse Practitioner Family Medicine 12/18/23 Boat Finisher Relationship Specialty Start Date End Date Kevin Maxwell MD [address] [place] [address] PCP - General Family Medicine 12/18/23 Boat Finisher Relationship Specialty Start Date End Date Kevin Maxwell MD [address] [place] [address] PCP - General Family Medicine 12/18/23 Goals [...] BE BASED ON THE PRIMARY CLINICAL RECORDS. [employer] [facility]. provides no warranty or guarantee of the accuracy or completeness of information in this document.
[2024-08-24 07:39] VITALS: BP 142/85; PULSE 86; TEMP 36.6; O2SAT 98
[2024-08-24 08:13] VITALS: BP 160/82; PULSE 80; O2SAT 100
[2024-08-24 08:14] VITALS: BP 162/85; PULSE 80; O2SAT 100
[2024-08-24] MEDS: BUPIVACAINE HCL 0.25% PF 25 MG/10 ML VIAL 2 ML INJ (08:15)
[2024-08-24] MEDS: IOHEXOL 240 MG/ML - 10 ML VIAL 24 MG INJ (08:15)
[2024-08-24] MEDS: METHYLPREDNISOLONE ACETATE 40 MG/ML VIAL INJ (08:16)
[2024-08-24] MEDS: LIDOCAINE HCL 2% 400 MG/20 ML MDV INJ (08:16)
--- NOTE | 2024-08-24 08:16 | W.PM.PROCNOT ---
Date of procedure: 08/24/24 Pre-op diagnosis: Pain due to left sacroiliitis Post-op diagnosis: same as pre-op Procedure: Procedure: Left sacroiliac joint injection Medications: Bupivacaine 0.25% 3cc, depomedrol 40mg After informed consent was obtained, the patient was brought to the medical procedure unit and placed in the prone position, when a timeout was completed verifying correct patient, procedure, site, positioning, implant, and/or special equipment.? The skin overlying the area was prepped and draped in standard sterile fashion using alcohol.? A 25-gauge needle was inserted towards the left sacroiliac joint under direct fluoroscopic imaging.? Needle tip was advanced until the joint was encountered.? We instilled a total of 2 mL of solution.? Postoperatively needles were removed.? The patient tolerated the procedure well without complication.? The patient reported reduction in pain symptoms postoperatively. Anesthesia: Local Surgeon: Rina Cortes Pathology: none sent Condition: stable Disposition: no change
== END 2024-08-24 08:20 | disposition home or self-care (01) ==
PROVIDERS: PCP Family Medicine; Visit Provider Anesthesiology
DX: M46.1 Sacroiliitis, not elsewhere classified (principal); M53.3 Sacrococcygeal disorders, not elsewhere classified
CPT/HCPCS: 27096; J0665; J1010; Q9966

== ENCOUNTER 2024-09-03 12:51 | Outpatient (OUT) | payer MEDICARE, OTHER, SELFPAY ==
--- NOTE | 2024-09-03 13:27 | PM.CN ---
Consult Note: HPI Data of Consult Patient: known to practice within the last 3 years Requesting Physician: Lisa Jacobs NP Primary Care Provider: Kevin Osorio MD Consult Narrative Reason for consult: f/u Narrative: Hua Bennett a pleasant 68 year old male presents for evaluation of low back pain secondary to lumbar stenosis, lumbar DDD, and lumbar spondylosis. longstanding hx of back pain unresponsive to > 6 weeks of PT/HEP, heat, ice, tylenol, NSAIDs. currently utilizing meloxicam, zonegran, and marijuana with mild relief. pain today 5/10 in left hip and low back increasing to 10/10 with standing and walking. recent left L4-5 L5-S1 TFESI and left SIJ injection providing mild relief per pt. cc:: CC: Lisa Jacobs NP Review of Systems ROS Status of ROS 10 or more systems reviewed and unremarkable except as noted in history and below Musculoskeletal Reports: joint pain PFSH PFSH Medical History (Updated 08/19/24 @ 11:29 by Lisa Jacobs NP) Smoker ?F17.200 - Nicotine dependence, unspecified, uncomplicated (ICD-10) Hip pain ?M25.559 - Pain in unspecified hip (ICD-10) Osteoarthritis ?M19.90 - Unspecified osteoarthritis, unspecified site (ICD-10) COPD (chronic obstructive pulmonary disease) ?J44.9 - Chronic obstructive pulmonary disease, unspecified (ICD-10) Hypertension ?I10 - Essential (primary) hypertension (ICD-10) Social History Little interest or pleasure in doing things: not at all Feeling down, depressed, or hopeless: not at all Meds Home Medications and Allergies Home Medications ?Medication ?Instructions ?Recorded ?Confirmed ?Type lisinopril 20 mg tablet 20 mg PO DAILY 03/02/24 08/24/24 History venlafaxine 75 mg capsule,extended 75 mg PO DAILY 03/02/24 08/24/24 History release 24 hr meloxicam 15 mg tablet 15 mg PO DAILY 07/28/24 08/24/24 History zonisamide 50 mg capsule 50 mg PO DAILY 07/28/24 08/24/24 History Allergies Allergy/AdvReac Type Severity Reaction Status Date / Time No Known Drug Allergies Allergy Verified 08/24/24 07:42 Exam Constitutional Documenting provider has reviewed patient's vital signs: yes Common normals: no apparent distress, oriented x3, healthy appearing, alert and well nourished General appearance: cooperative HENMT Common normals: normocephalic, hearing grossly normal bilaterally and moist oral mucous membranes Head and scalp: normocephalic Eye Common normals: PERRL Pupil: PERRL Neck & C-Spine Common normals: full ROM General: normal visual inspection Chest Common normals: inspection of chest normal Respiratory Common normals: normal respiratory effort, no retractions and no use of accessory muscles Back & Pelvis Lumbar spine/lower back: normal to inspection, lumbar ROM normal and straight leg raise negative bilaterally; no pain with ROM and no lumbar spinal tenderness Sacroiliac joints: SI joints normal Other: left sij negative darrius(patricks), gaenslens, thigh thrust, compression test negative radiculopathy on exam, however pt reports moderate to severe left calf and posterior leg pain with standing and walking strength 5/5 in BLE sensation intact BLE Neuro Common normals: oriented x3 Sensorium/orientation: alert Psych Common normals: mental status grossly normal, thought process normal, cooperative, affect normal, speech normal and activity/motor behavior normal Speech: normal speech Thought process: normal thought process Results Additional Findings Additional findings: If on a controlled substance or opioids, I have checked an [place]AR[place] report on this patient and there are no aberrancies noted in the prescribing history.??If on a controlled substance or opioid a drug screen was completed and reviewed within the last year, and if there has not been a drug screen completed we ordered one today to monitor higher risk, state monitored pain medication use. As part of providing excellent, safe, comprehensive care, the following was completed at our patient's visit: 1. A medication reconciliation and review to ensure accurate knowledge of current/active medications, including asking our patients to inform us about any iqcb-fuu-xfgpbjh medications or herbal remedies/nutritional supplements/alternative remedies. 2. A review to specifically ensure our patients have had annual screening for screening for depression, screening for tobacco use, and screening for unhealthy alcohol use. For concerning screenings had a discussion with the patient, provided patient education, and recommended follow-up with primary care provider when appropriate. If patient noted with a risk of falling, they received education on strength, gait, and balance training to prevent future risk of falling. Portions of this note may have been carried over from the previous visit and updated as appropriate. Please note this office utilizes paper charting in addition to the electronic medical record. A list of current medications, vitals, and PMH is available there as the clinical staff outside of myself do not have access to [employer] charting during the clinic day operations. As part of providing quality comprehensive care the current medications, vitals, and PMH were reviewed in the paper chart. Assessment and Plan Assessment and Plan (1) Lumbar stenosis with neurogenic claudication: (2) Sacroiliitis: Plan increase zonegran 100mg BID, risks vs benefits reviewed refer to NS Dr Medina for evaluation of lumbar surgical intervention vs spinal cord stim trial as briefly discussed today if pt is non surgical we will consider tobacco cessation encouraged and discussed, currently 1 PPD for 50 years per pt f/u after NS consultation
== END 2024-09-03 12:52 | disposition home or self-care (01) ==
PROVIDERS: PCP Family Medicine; Visit Provider Nurse Practitioner
DX: M48.062 Spinal stenosis, lumbar region with neurogenic claudication (principal); M46.1 Sacroiliitis, not elsewhere classified
CPT/HCPCS: G0463

== ENCOUNTER 2025-02-22 09:53 | Outpatient (OUT) | payer MEDICARE, OTHER, SELFPAY ==
--- OUTSIDE RECORDS SUMMARY | 2025-02-22 09:57 | XMS_ITS | Encounter Summary ---
Author Organization [facility] Address [address] [place] [address] Care Team Providers Care Machine Maintenance Mechanic Name Role Phone Shaikh CHRISTIANO Hugo Primary Care Provider [phone] Kevin Osorio MD Primary Care Provider [phone] Estrellita Teresa NP Unavailable [phone] Encounter Details Date Type Department Care Team (Late st Contact Info) Description 11/26/2023 Clinisync Result Encounter [facility] Unsolicited Shaikh Hugo MD [address] [place] [address] Social History Tobacco Use Types Packs/Day Years Used Date Smoking Tobacco: Every Day Cigarettes Passive Smoke Exposure: Current Smokeless Tobacco: Never Alcohol Use Standard Drinks/Week Comments Yes 28 (1 standard drink = 0.6 oz pure alcohol) Caffiene: More than 4 cups daily PHQ-2 Answer Date Recorded Patient Health Questionnaire-2 Score 0 11/12/2023 Sex and Gender Information Value Date Recorded Sex Assigned at Not on file Legal Sex Male 12:16 PM EDT Gender Identity Not on file Sexual Orientation Not on file documented as of this encounter Plan of Treatment Not on file documented as of this encounter Procedures Procedure Name Priority Date/Time Associated Diagnosis Comments VASC US ABDOMINAL AORTA ANUERYSM AAA SCREENING 11/26/2023 9:28 AM EDT documented in this encounter Results * Vascular US abdominal aorta anuerysm AAA screening (11/26/2023 9:28 AM EDT) Anatomical Region Laterality Modality Abdomen Ultrasound 11/26/2023 9:28 AM EDT Narrative 11/26/2023 9:31 AM EDT [place] [id number] Ultrasound Report Signed Patient: HUA ADAMS MR#: [id number] : 1955 Acct:[id number] Age/Sex: 68 / M ADM Date: 11/26/23 Loc: US Attending Dr: Shaikh Oanh Bautista Ordering Physician: Shaikh Michele Hugo Date of Service: 11/26/23 Procedure(s): US abdominal aortic aneurysm Accession Number(s): [id number] cc: Shaikh Michele Hugo [address] [address] Patient Name: HUA ADAMS MRN: [id number] date: 1955 Sex: M Assigned Patient Location: [place] Current Patient Location: [place] Accession/Order Number: [id number] Exam Date: 11/26/2023 08:30 Report Date: 11/26/2023 09:28 At the request of: SHAIKH OANH Procedure: US abdominal aortic aneurysm EXAMINATION: US abdominal aortic aneurysm HISTORY: Abdominal Aortic Aneurysm COMPARISON: No relevant comparison available. TECHNIQUE: Ultrasound examination of the retroperitoneal area was performed, with a focused evaluation of the abdominal aorta. FINDINGS: Proximal aorta: 2.7 x 2.5 cm Mid aorta: 3.2 x 3.0 cm Distal aorta: 5.2 x 5.4 cm Right common iliac artery: 1.9 x 1.9 cm Left common iliac artery: 2.3 x 1.8 cm Moderate soft and calcific atherosclerotic plaque US/US abdominal aortic aneurysm IMPRESSION: 5.4 cm fusiform aneurysm of the distal abdominal aorta Electronically authenticated by: PRAVEEN CARRASCO Date: 11/26/2023 09:28 Dictated By: Praveen Carrasco M.D. Signed By: 11/26/2331 DD/ 7 TD/TT: Webbing Weaver: Procedure Note Radiology, Radiologist, MD - 11/26/[address] [address] Ultrasound Report Signed Patient: HUA ADAMS LMR#: [id number] : 5Acct:[id number] Age/Sex: 68 / MADM Date: 11/26/23 Loc: US Attending Dr: Shaikh Oanh Bautista Ordering Physician: Shaikh Michele Hugo Date of Service: 11/26/23 Procedure(s): US abdominal aortic aneurysm Accession Number(s): [id number] cc: Shaikh Michele Hugo The [address] [address] Patient Name: HUA ADAMS MRN: [id number] date: 1955 Sex: M Assigned Patient Location: US Current Patient Location: US Accession/Order Number: [id number] Exam Date: 11/26/2023 08:30 Report Date: 11/26/2023 09:28 At the request of: SHAIKH OANH Procedure: US abdominal aortic aneurysm EXAMINATION: US abdominal aortic aneurysm HISTORY: Abdominal Aortic Aneurysm COMPARISON: No relevant comparison available. TECHNIQUE: Ultrasound examination of the retroperitoneal area wasperformed, with a focused evaluation of the abdominal aorta. FINDINGS: Proximal aorta: 2.7 x 2.5 cm Mid aorta: 3.2 x 3.0 cm Distal aorta: 5.2 x 5.4 cm Right common iliac artery: 1.9 x 1.9 cm Left common iliac artery: 2.3 x 1.8 cm Moderate soft and calcific atherosclerotic plaque US/US abdominal aortic aneurysm IMPRESSION: 5.4 cm fusiform aneurysm of the distal abdominal aorta Electronically authenticated by: PRAVEEN CARRASCO Date: 11/26/2023 09:28 Dictated By: Praveen Carrasco M.D. Signed By:11/26/2331 DD/ 7 TD/TT: Webbing Weaver: us Shaikh Oanh ALVARADO IMG US PROCEDURES Final Result documented in this encounter Visit Diagnoses Not on filedocumented in this encounter Additional Health Concerns Assessment Noted Time PHQ-9 Depression Total Score: 0 11/12/19 2:00 PM EDT documented as of this encounter Care Teams Machine Maintenance Mechanic Relationship Specialty Start Date End Date Shaikh Hugo MD PCP - General Internal Medicine 10/12/22 12/17/23 Kevin Osorio MD PCP - General Family Medicine 12/18/23 Estrellita Teresa NP Nurse Practitioner Family Medicine 12/18/23 07/15/24 documented as of this encounter
--- OUTSIDE RECORDS SUMMARY | 2025-02-22 09:57 | XMS_ITS | Encounter Summary ---
Author Organization [facility] Address [address] [place] [address] Care Team Providers Care Automobile Accessories Installer Name Role Phone Kevin Osorio MD Primary Care Provider [phone] Estrellita Teresa FORENSIC DNA ANALYST Unavailable [phone] Encounter Details Date Type Department Care Team (Late st Contact Info) Description 12/18/2023 External Result Encounter [facility] [address] [place] [address] Doris Inman NP [address] [place] [address] Social History Tobacco Use Types Packs/Day Years [...] Procedure Name Priority Date/Time Associated Diagnosis Comments CT LUNG SCREENING LOW DOSE 12/18/2023 6:29 PM EDT documented in this encounter Results * CT lung screening low dose (12/18/2023 6:29 PM EDT) Anatomical Region Laterality Modality Lung Computed Tomogra phy 12/18/2023 6:29 PM EDT Narrative 12/18/2023 6:28 PM EDT THIS EXAM WAS PERFORMED AT [facility] CLINICAL INFORMATION: Screening visit: Personal history of [...] aided detection for pulmonary nodules?was performed utilizing Nacuii software.? FINDINGS: Diagnostic quality: Satisfactory Lung nodules: [...] in 3 months recommended for further characterization. Finalized by Mikhail Elena MD on 12/18/2023 6:28 PM Procedure Note Radiology, Radiologist, - 12/18/2023 THIS EXAM WAS PERFORMED AT [facility] CLINICAL INFORMATION: Screening visit: Personal history of tobacco use/personal history ofnicotine dependence. Lung cancer screening. Current tobacco abuse and 66 pack year exposure history COMPARISON: No relevant prior studies are available. TECHNIQUE: Low dose CT chest performed without contrast with coronal and sagittal andmaximum intensity projection reconstructed images. Maximum intensityprojection images generated to increase the sensitivity of pulmonarynodule detection. All CT scans at this facility use dose modulation, iterativereconstruction, and/or weight based dosing when appropriate to reduceradiation dose to as low as reasonably achievable. Automated exposure control was utilized. Computer aided detection forpulmonary nodules?was performed utilizing Nacuii software.? FINDINGS: Diagnostic quality: Satisfactory Lung nodules: Anterior left upper lobe juxtapleural 5 mm nodule axialimage 49 series 2, 3 mm nodule right upper lobe axial image 56 series 2.2 mm nodule lingula axial image 63 series 2 Lungs and pleural spaces: Advanced centrilobular emphysema Mediastinum: Heart size: Normal Coronary calcification: Extensive Pericardial effusion: None Other findings: IMPRESSION: Lung Rads Category: 3- Probably benign Multiple low suspicion nodules.Lung RADS category 3. CT chest in 3 months recommended for furthercharacterization. Finalized by Mikhail Elena MD on 12/18/2023 6:28 PM us Doris Inman NP IMG CT PROCEDURES Final Result documented in this encounter Visit Diagnoses Not on filedocumented in this encounter Additional Health Concerns Assessment Noted Time PHQ-9 Depression Total Score: 0 11/12/19 24 2:00 PM EDT documented as of this encounter Care Teams Automobile Accessories Installer Relationship Specialty Start Date End Date Kevin Osorio MD PCP - General Family Medicine 12/18/23 Estrellita Teresa NP Nurse Practitioner Family Medicine 12/18/23 07/15/24 documented as of this encounter
--- OUTSIDE RECORDS SUMMARY | 2025-02-22 09:57 | XMS_ITS | Clinical Summary ---
Author Organization [facility] Address [id number] [address] [place] [address] Care Team Providers Care Hvac Sheet Metal Installer Helper Name Role Phone Unavailable Primary Care Provider Unavailabl e Social History Tobacco Use Types Packs/Day Years Used Date Smoking Tobacco: Every Day Cigarettes 1.3 54.2 Started: 12/16/1970 Passive Smoke Exposure: Current Tobacco Cessation:Ready to Q uit: Not Asked; Counseling Given: Not Answered Childcare Answer Date Recorded Childcare Unknown 10/22/2018 Employment Answer Date Recorded Employment Unknown 10/22/2018 Sex and Gender Information Value Date Recorded Sex Assigned at Not on file Legal Sex Male 11:40 AM EDT Gender Identity Not on file Sexual Orientation Not on file Last Filed Vital Signs Vital Sign Reading Time Taken Comments Blood Pressure - - Pulse - - Temperature - - Respiratory Rate - - Oxygen Saturation - - Inhaled Oxygen Concentration - - Weight 68 kg (150 lb) 12/17/2023 1:01 PM EDT Height 170.2 cm (5' 7 ) 12/17/2023 1:01 PM EDT Body Mass Index 23.49 12/17/2023 1:01 PM EDT Plan of Treatment Health Maintenance Due Date Last Done Comments Depression Screening 1966 Zoster (Shingles) Vaccine (1 of 2) 2004 DTaP,Tdap and Td Vaccines (2 - Td or Tdap) 10/13/2017 10/14/2007 Fall Risk Screening 11/23/2019 Adult BMI Screening 12/16/2024 12/17/2023 Tobacco Screening 12/16/2024 12/17/2023 Influenza Vaccine 01/11/2025 Medical Devices Not on file Insurance MEDICARE [facility] [place] [address]
--- OUTSIDE RECORDS SUMMARY | 2025-02-22 09:57 | XMS_ITS | Encounter Summary ---
Author Organization [facility] Address [address] [place] [address] Care Team Providers Care Surgical Instrument Mechanic Name Role Phone Kevin Osorio MD Primary Care Provider [phone] Estrellita Teresa NP Unavailable [phone] Encounter Details Date Type Department Care Team (Late st Contact Info) Description 03/17/2024 Orders Only [facility] [address] [place] [address] Estrellita Teresa NP Social History Tobacco Use Types Packs/Day Years Used Date Smoking Tobacco: Every Day Cigarettes Passive Smoke Exposure: Current Smokeless Tobacco: Never Alcohol Use Standard Drinks/Week Comments Yes 28 (1 standard drink = 0.6 oz pure alcohol) Caffiene: More than 4 cups daily PHQ-2 Answer Date Recorded Patient Health Questionnaire-2 Score 0 01/15/2024 Sex and Gender Information Value Date Recorded Sex Assigned at Not on file Legal Sex Male 12:16 PM EDT Gender Identity Not on file Sexual Orientation Not on file documented as of this encounter Plan of Treatment Not on file documented as of this encounter Procedures Procedure Name Priority Date/Time Associated Diagnosis Comments XR ELBOW 3+ VIEWS LEFT Routine 03/17/2024 9:26 AM EST documented in this encounter Results * XR elbow 3+ views left (03/17/2024 9:26 AM EST) Anatomical Region Laterality Modality Upper Extremities, Elbow Left Radiogr aphic Imaging Estrellita Teresa NP IMG XR PROCEDURES Final Result documented in this encounter Visit Diagnoses Not on filedocumented in this encounter Additional Health Concerns Assessment Noted Time PHQ-9 Depression Total Score: 0 11/12/19 2:00 PM EDT documented as of this encounter Care Teams Surgical Instrument Mechanic Relationship Specialty Start Date End Date Kevin Osorio MD PCP - General Family Medicine 12/18/23 Estrellita Teresa NP Nurse Practitioner Family Medicine 12/18/23 07/15/24 documented as of this encounter
--- OUTSIDE RECORDS SUMMARY | 2025-02-22 09:57 | XMS_ITS | Encounter Summary ---
Author Organization [facility] Address [address] [place] [address] Care Team Providers Care Solar Engineer Name Role Phone Shaikh CHRISTIANO Hugo Primary Care Provider [phone] Kevin Osorio MD Primary Care Provider [phone] Estrellita Teresa BUSINESS PROCESS COORDINATOR Unavailable [phone] Encounter Details Date Type Department Care Team (Late st Contact Info) Description 11/26/2023 Orders Only [facility] [address] [place] [address] Shaikh Hugo MD [address] [place] [address] Social History Tobacco Use Types Packs/Day Years [...] on file documented as of this encounter Visit Diagnoses Not on filedocumented in this encounter Additional Health Concerns Assessment Noted Time PHQ-9 Depression Total Score: 0 11/12/19 24 2:00 PM EDT documented as of this encounter Care Teams Solar Engineer Relationship Specialty Start Date End Date Shaikh Hugo MD PCP - General Internal Medicine 10/12/22 12/17/23 Kevin Osorio MD PCP - General Family Medicine 12/18/23 Estrellita Teresa NP Nurse Practitioner Family Medicine 12/18/23 07/15/24 documented as of this encounter
--- OUTSIDE RECORDS SUMMARY | 2025-02-22 09:57 | XMS_ITS | Encounter Summary ---
Author Organization [facility] Address [address] [place] [address] Care Team Providers Care Portrait Photographer Name Role Phone Shaikh CHRISTIANO Hugo Primary Care Provider [phone] Kevin Osorio MD Primary Care Provider [phone] Estrellita Teresa PRODUCTION SOLDERER Unavailable [phone] Reason for Visit * Reason Comments Med Refill Encounter Details Date Type Department Care Team (Late st Contact Info) Description 05/03/2023 Refill [facility] [address] [place] [address] Shaikh Hugo MD [address] [place] [address] Depression, unspecified Social History Tobacco Use Types Packs/Day Years Used Date Smoking Tobacco: Never Smokeless Tobacco: Never Alcohol Use Standard Drinks/Week Comments Defer 0 (1 standard drink = 0.6 oz pure alcohol) Caffiene: More than 4 cups daily Sex and Gender Information Value Date Recorded Sex Assigned at Not on file Legal Sex Male 12:16 PM EDT Gender Identity Not on file Sexual Orientation Not on file documented as of this encounter Miscellaneous Notes * Telephone Encounter - Shaikh Oanh MD - 05/07/2023 1:08 PM EST Approving, but needs appt for additional refills. documented in this encounter Plan of Treatment Not on file documented as of this encounter Visit Diagnoses Diagnosis Depression, unspecified documented in this encounter Care Teams Portrait Photographer Relationship Specialty Start Date End Date Shaikh Hugo MD PCP - General Internal Medicine 10/12/22 12/17/23 Kevin Osorio MD PCP - General Family Medicine 12/18/23 Estrellita Teresa NP Nurse Practitioner Family Medicine 12/18/23 07/15/24 documented as of this encounter
--- OUTSIDE RECORDS SUMMARY | 2025-02-22 09:57 | XMS_ITS | Encounter Summary ---
Author Organization [facility] Address [address] [place] [address] Care Team Providers Care Utility Locate Technician Name Role Phone Shaikh CHRISTIANO Hugo Primary Care Provider [phone] Kevin Osorio MD Primary Care Provider [phone] Estrellita Teresa WIND INSTRUMENT REPAIRER Unavailable [phone] Encounter Details Date Type Department Care Team (Late st Contact Info) Description 10/04/2022 Abstract [facility] [address] [place] [address] Carlitos Douglas DO [address] [place] [address] Social History Tobacco Use Types Packs/Day Years Used Date Smoking Tobacco: Never Assessed Sex and Gender Information Value Date Recorded Sex Assigned at Not on file Legal Sex Male 12:16 PM EDT Gender Identity Not on file Sexual Orientation Not on file documented as of this encounter Plan of Treatment Not on file documented as of this encounter Visit Diagnoses Not on filedocumented in this encounter Care Teams Utility Locate Technician Relationship Specialty Start Date End Date Shaikh Hugo MD PCP - General Internal Medicine 10/12/22 12/17/23 Kevin Osorio MD PCP - General Family Medicine 12/18/23 Estrellita Teresa NP Nurse Practitioner Family Medicine 12/18/23 07/15/24 documented as of this encounter
--- OUTSIDE RECORDS SUMMARY | 2025-02-22 09:57 | XMS_ITS | Clinical Summary ---
Author Organization [facility] Address [address] [place] [address] Care Team Providers Care Freight Breaker Name Role Phone Kevin Osorio MD Primary Care Provider [phone] Allergies No known active allergies Medications Blood Pressure Monitoring (Blood Pressure Cuff) miscIndications:E ssential (primary) hypertension 1 each in the morning and 1 each before bedtime. 1 each 4 Active lisinopril-hydroC HLOROthiazide 20-12.5 MG tabletIndications :Essential (primary) hypertension Take 1 tablet by mouth Daily 90 tablet 4 04/16/20 25 Active albuterol HFA 90 mcg/act inhalerIndication s:Chronic obstructive pulmonary disease, unspecified COPD type (HCC) Inhale 2 puffs every 4 (four) hours if needed for shortness of breath or wheezing 18 g 2 5 Active venlafaxine XR (Effexor XR) 75 MG 24 hr capsuleIndication s:Depression, unspecified Take 1 capsule (75 mg) by mouth Daily 90 capsule 3 5 Active Active Problems Problem Noted Date Diagnosed Date Spinal stenosis of lumbar region with radiculopa thy 10/19/2024 Abdominal aortic aneurysm (AAA) without rupture 07/16/2024 Assessment & Plan (07/16/2024 11:41 AM EST): Follow with specialists. Multiple lung nodules on CT 01/15/2024 Alcohol use disorder, mild, abuse 01/15/2024 Assessment & Plan (01/15/2024 10:26 AM EDT): Reports drinking 6-9 beers per day. Discussed health hazardous associated with alcohol consumption and need for cessation with patient. Vitamin levels ordered today Nicotine abuse 11/12/2023 Assessment & Plan (11/12/2023 2:14 PM EDT): Patient counseled on smoking/tobacco cessation. Patient educated on harmful effects of smoking cigarettes/tobacco including increased risk of cardiovascular diseases, chronic lung disease and multiple cancers. Patient was educated and informed of different behavioral and therapeutic interventions that can help with smoking/tobacco use. Patient's questions/concerns were addressed and answered related to therapeutic options. Patient was offered help and encouraged to reach out to provider if/when they are ready to quit. A total of over 3 minutes and up to 10 minutes were spent on Smoking/Tobacco use counseling. Started on Nicotine patch. Medicare annual wellness visit, subsequent 11/11 Assessment & Plan (11/12/2023 2:17 PM EDT): Patient here for Medicare Wellness. Reviewed medical, surgical and social history. Reviewed medication list. Patient screened for depression, fall risk, cognitive impairment. Patient provided appropriate education on chronic medical conditions, prescription medications. Patient's health related questions and concerns addressed and answered. Ordered LDCT for lung cancer screening. Colonoscopy about 2 years ago, had polyp removed and was told that he will need repeat colonoscopy in 5 years. He can't recall where it was done and who performed his colonoscopy. Cigarette nicotine dependence without complicati on 11/12/2023 Essential (primary) hypertension 09/03/2023 Assessment & Plan (07/16/2024 11:42 AM EST): BP controlled at home and monitor PRN. Assessment & Plan (04/16/2024 9:04 AM EST): Currently taking Lisinopril-hydrochlorothiazide, added hydrochlorothiazide component at last OV. Checks BP at home; Averages are 120's-130's Denies orthostatic changes, dizziness, cough, shortness of breath, swelling in extremities. Continue current regimen. Given BP log, advised pt to record BP and bring log back with them to next visit. Assessment & Plan (03/16/2024 9:49 AM EST): Currently taking Lisinopril 20mg Does not check BP at home; BP has been consistently elevated during office visits. Will initiate Lisinopril-hydrochlorothiazide today. Denies orthostatic changes, dizziness, cough, shortness of breath, swelling in extremities. Given BP log, advised pt to record BP and bring log back with them to next visit. Assessment & Plan (01/15/2024 10:21 AM EDT): Currently taking Lisinopril 20mg Rarely Checks BP at home; Averages are 130's. Elevated in office today. Denies orthostatic changes, dizziness, cough, shortness of breath, swelling in extremities. Continue current regimen. Assessment & Plan (11/12/2023 2:13 PM EDT): BP usually well controlled but above goal, likely because of poorly controlled low back pain. Patient encouraged to continue with home BP monitoring and call office if he experiences orthostatic symptoms or persistently elevated BP. C/w Lisinopril. Normal CMP 11/03 Assessment & Plan (09/03/2023 10:46 AM EDT): BP well controlled. On average less than 130/90. Tolerating Anti hypertensive w/o adverse effects. Denies lightheadedness, dizziness, syncope, presyncope. Patient encouraged to continue with home BP monitoring and call office if he experiences orthostatic symptoms or persistently elevated BP. C/w Lisinopril. Will order CMP to ensure Normal renal function and electrolytes. Major depressive disorder, recurrent episode, mi ld 09/03/2023 Assessment & Plan (07/16/2024 11:42 AM EST): Symptoms controlled with effexor and continue. Assessment & Plan (11/12/2023 2:18 PM EDT): Well controlled and stable on Effexor. C/w same. Assessment & Plan (09/03/2023 10:47 AM EDT): Well controlled and stable on Effexor. C/w same. Lumbar spondylosis 09/03/2023 Assessment & Plan (07/16/2024 11:42 AM EST): Pain worse and hard to stay active. Check MRI and refer to pain management. Assessment & Plan (01/15/2024 10:37 AM EDT): Xray completed 11/2023 shows: Moderate spondylosis. Moderate to severe facet osteoarthropathy most significant L4-S1 ; Pt does not feel Meloxicam is working effectively any longer. Stopped PT due to AAA. Following with Cardiology. Referral sent to Pain Management. Assessment & Plan (09/03/2023 10:47 AM EDT): Right sided low back pain with neurogenic claudication on ambulation. Ongoing for one year. Responds to tylenol. Likely spinal stenosis Will order XR, PT eval and rx. C/w tylenol or motrin as needed as it helps. History of substance abuse 09/03/2023 COPD (chronic obstructive pulmonary disease) Assessment & Plan (07/16/2024 11:41 AM EST): Continued SOB and use albuterol PRN. Stressed need to stop smoking. Dyslipidemia 09/03/2023 Assessment & Plan (01/15/2024 10:22 AM EDT): Currently not on any regimen. Most recent Lipid panel below. Continue to monitor. Discussed dietary habits and lifestyle modifications for cholesterol. Assessment & Plan (09/03/2023 10:47 AM EDT): Prior hx of HLD - not on statin. Check lipid panel. Resolved Problems Problem Noted Date Diagnosed Date Resolved Date Encounter for screening for lung cancer 11/12/2023 07/16/2024 Assessment & Plan (11/12/2023 2:15 PM EDT): Current smoker, smokes 1 PPD, smoking for about 50 years. Discussed pros/cons of LDCT and lung cancer screening. Patient interested in pursuing screening and also motivated to quit. Will order LDCT. Depression, unspecified 11/12/2023 03/0 10/2024 Assessment & Plan (01/15/2024 10:23 AM EDT): Currently taking Effexor 75mg Denies SI/HI. Feels is stable at this time. Tobacco abuse 09/03/2023 07/16/2024 Assessment & Plan (01/15/2024 10:39 AM EDT): Patient counseled on smoking/tobacco cessation. Patient educated on harmful effects of smoking cigarettes/tobacco including increased risk of cardiovascular diseases, chronic lung disease and multiple cancers. Assessment & Plan (09/03/2023 10:47 AM EDT): Patient counseled on smoking/tobacco cessation. Patient educated on harmful effects of smoking cigarettes/tobacco including increased risk of cardiovascular diseases, chronic lung disease and multiple cancers. Chronic bilateral low back p ain with bilateral sciatica 09/03/2023 07/16/2024 Assessment & Plan (11/12/2023 2:16 PM EDT): Low back pain, now bilateral with neurogenic claudication on ambulation. Pain worsens on ambulation. Improves with rest and sitting down. Negative straight leg test. Ongoing for one year. Now not responding to tylenol. Trial of mobic. Did not get XR or participate in PT Reorder XR, PT. F/U after XR/PT in 2 months to determine whether or not his pain improved with conservative management, if not, we can order an MRI for him Assessment & Plan (09/03/2023 10:48 AM EDT): Right sided low back pain with neurogenic claudication on ambulation. Pain worsens on ambulation. Improves with rest and sitting down. Negative straight leg test. Ongoing for one year. Responds to tylenol. Likely spinal stenosis Will order XR, PT eval and rx. C/w tylenol or motrin as needed as it helps. Immunizations Immunization Administration Dates Next Due Pfizer Purple Cap SARS-CoV-2 Vaccination 021,12/30/2020 Family History Medical History Relation Name Comments Aneurysm Father Kidney failure Father Heart attack Mother Relation Name Status Comments Father Mother Social History Tobacco Use Types Packs/Day Years Used Date Smoking Tobacco: Every Day Cigarettes Passive Smoke Exposure: Current Smokeless Tobacco: Never Tobacco Cessation:Ready to Q uit: Not Asked; Counseling Given: Not Answered Alcohol Use Standard Drinks/Week Comments Yes 28 [...] Sign Reading Time Taken Comments Blood Pressure 150/90 07/16/2024 11:08 AM EST Pulse 105 07/16/2024 11:08 AM EST Temperature 36.8 C (98.2 F) 07/16/2024 11:08 AM EST Respiratory Rate 16 03/16/2024 9:35 AM EST Oxygen Saturation 94% 07/16/2024 11:08 AM EST Inhaled Oxygen Concentration - - Weight 64.4 kg (142 lb) 07/16/2024 11:08 AM EST Height 172.7 cm (5' 8 ) 03/16/2024 9:35 AM EST Body Mass Index 21.59 03/16/2024 9:35 AM EST Plan of Treatment Not on file Insurance MEDICARE [facility] [id number] Care Teams Freight Breaker Relationship Specialty Start Date End Date Kevin Osorio MD PCP - General Family Medicine 12/18/23
--- OUTSIDE RECORDS SUMMARY | 2025-02-22 09:58 | XMS_ITS | Encounter Summary ---
Author Organization [facility] Address [address] [place] [address] Care Team Providers Care De Ionizer Operator Name Role Phone Shaikh CHRISTIANO Hugo Primary Care Provider [phone] Kevin Osorio MD Primary Care Provider [phone] Estrellita Teresa NP Unavailable [phone] Encounter Details Date Type Department Care Team (Late st Contact Info) Description 11/19/2023 Clinisync Result Encounter [facility] Department Unsolicited Shaikh Hugo MD [address] [place] [address] Social History Tobacco Use Types Packs/Day Years [...] Name Priority Date/Time Associated Diagnosis Comments XR LUMBAR SPINE 2 OR 3V 11/19/2023 7:15 AM EDT documented in this encounter Results * XR LUMBAR SPINE 2 OR 3V (11/19/2023 7:15 AM EDT) Anatomical Region Laterality Modality Radiographic Natalie ging 11/19/2023 7:15 AM EDT Narrative 11/19/2023 7:18 [place] [address] XRay Report Signed Patient: HUA ADAMS MR#: [id number] : 1955 Acct:[id number] Age/Sex: 67 / M ADM Date: 11/18/23 Loc: RAD Attending Dr: Shaikh Oanh Bautista Ordering Physician: Shaikh Michele Hugo Date of Service: 11/18/23 Procedure(s): XR lumbar spine 2-3V Accession Number(s): [id number] cc: Shaikh Michele Hugo [place] [address] Patient Name: HUA ADAMS MRN: [id number] date: 1955 Sex: M Assigned Patient Location: [facility] Current Patient Location: Accession/Order Number: [id number] Exam Date: 11/18/2023 10:54 Report Date: 11/19/2023 07:15 At the request of: SHAIKH OANH Procedure: XR lumbar spine 2-3V EXAMINATION: XR lumbar spine 2-3V HISTORY: Chronic Bilateral Low Back Pain With Sciatica r COMPARISON: No relevant comparison available. FINDINGS: BONES: Normal alignment with no acute fracture or spondylolisthesis. Moderate spondylosis. Moderate to severe facet osteoarthropathy most significant L4-S1 DISC SPACES: Moderate disc space narrowing and endplate sclerosis L5-S1 PARASPINOUS: Negative. No paraspinous abnormality is seen. OTHER: Calcified aortic aneurysm measuring up to 5.8 cm in AP dimension XR/XR lumbar spine 2-3V IMPRESSION: 5.8 cm abdominal aortic aneurysm Moderate spondylosis and moderate to severe facet arthropathy Electronically authenticated by: PRAVEEN CARRASCO Date: 11/19/2023 07:15 Dictated By: Praveen Carrasco M.D. Signed By: 11/19/2318 DD/ 4 TD/TT: Regional Trainer: Procedure Note Radiology, Radiologist, MD - 11/19/[address] [address] XRay Report Signed Patient: HUA ADAMS LMR#: [id number] : 5Acct:[id number] Age/Sex: 67 / MADM Date: 11/18/23 Loc: RAD Attending Dr: Shaikh Oanh Bautista Ordering Physician: Shaikh Michele Hugo Date of Service: 11/18/23 Procedure(s): XR lumbar spine 2-3V Accession Number(s): [id number] cc: Shaikh Michele Hugo [facility] [place] [id number] Patient Name: HUA ADAMS MRN: [id number] date: 1955 Sex: M Assigned Patient Location: [facility] Current Patient Location: Accession/Order Number: [id number] Exam Date: 11/18/2023 10:54 Report Date: 11/19/2023 07:15 At the request of: SHAIKH OANH Procedure: XR lumbar spine 2-3V EXAMINATION: XR lumbar spine 2-3V HISTORY: Chronic Bilateral Low Back Pain With Sciatica r COMPARISON: No relevant comparison available. FINDINGS: BONES: Normal alignment with no acute fracture or spondylolisthesis.Moderate spondylosis. Moderate to severe facet osteoarthropathy most significantL4-S1 DISC SPACES: Moderate disc space narrowing and endplate sclerosis L5-S1 PARASPINOUS: Negative. No paraspinous abnormality is seen. OTHER: Calcified aortic aneurysm measuring up to 5.8 cm in AP dimension XR/XR lumbar spine 2-3V IMPRESSION: 5.8 cm abdominal aortic aneurysm Moderate spondylosis and moderate to severe facet arthropathy Electronically authenticated by: PRAVEEN CARRASCO Date: 11/19/2023 07:15 Dictated By: Praveen Carrasco M.D. Signed By:11/19/23717 DD/ 4 TD/TT: Regional Trainer: Shaikh Oanh ALVARADO IMG XR PROCEDURES Final Result documented in this encounter Visit Diagnoses Not on filedocumented in this encounter Additional Health Concerns Assessment Noted Time PHQ-9 Depression Total Score: 0 11/12/19 24 2:00 PM EDT documented as of this encounter Care Teams De Ionizer Operator Relationship Specialty Start Date End Date Shaikh Hugo MD PCP - General Internal Medicine 10/12/22 12/17/23 Kevin Osorio MD PCP - General Family Medicine 12/18/23 Estrellita Teresa NP Nurse Practitioner Family Medicine 12/18/23 07/15/24 documented as of this encounter
--- OUTSIDE RECORDS SUMMARY | 2025-02-22 10:00 | XMS_ITS | CCD ---
Author Organization [facility] Care Team Providers Care Pawn Broker Name Role Phone Hillary La Unavailable SHAIKH Anais MAGALLANES Attending Unavailable SHAIKH Anais MAGALLANES Consulting Unavailable SHAIKH Anais MAGALLANES Primary Care Unavailable SHAIKH Anais MAGALLANES Admitting Unavailable DO Carlitos Douglas Attending Provider [phone] NO FAMILY, PHYSICIAN Primary Care Provider Unava ilable NO FAMILY, PHYSICIAN Primary Care Provider Unava ilable ROBIN Hurt Attending Provider MAURICE ROSADO Referring Unavailable Kevin Maxwell MD Primary Care Provider Malick HOURLY SALES STAFF, [place] Unavailable Malick HARO, [place] Unavailable [phone] Sebastian ALVARADO, Rina Aden Attending Unavailable Sebastian ALVARADO, Rina Aden Attending Unavailable KEVIN MAXWELL Attending Unavailable JACQUELIN MALDONADO Attending Unavailable LINDA KINNEY Referring Unavailable COCO KU Attending Unavailable LINDA KINNEY Referring Unavailable COCO KU Attending Unavailable LINDA KINNEY Referring Unavailable COCO KU Attending Unavailable LINDA KINNEY Referring Unavailable COCO KU Attending Unavailable LINDA KINNEY Referring Unavailable SHAIKH MAGALLANES Attending Unavailable [place] TERESA Attending Unavailmeli e [place] TERESA Attending Unavailmeli e [place] TERESA Referring Unavailmeli e [place] TERESA Attending Unavailabl e NO FAMILY, PHYSICIAN Primary Care Provider Unava ilable Linda Kinney MD Attending Provider [phone] NON STAFF Primary Care Provider UnavailKevin Mac MD Primary Care Provider Blu KELLY, Frannie Arias Attending Provider Ken Bland MD Attending Provider Linda Kinney MD Attending Provider [phone] Linda Kinney MD Attending Provider [phone] Ken Bland MD Other Provider [phone] Jo ALVARADO, Kevin Primary Care Provider Linda Kinney MD Attending Provider Epifanio KELLY, Frannie Arias Attending Provider [phone] Kevin Maxwell MD Attending Provider [phone] NO FAMILY, PHYSICIAN Primary Care Unavailable Ken Bland Admitting Unavailable Ken Bland Attending Unavailable Linda Kinney Attending Unavailable NON STAFF Primary Care Unavailable Linda Kinney Admitting Unavailable Ken Bland Attending Unavailable Ken Bland Admitting Unavailable Naderer, Kevin Primary Care Unavailable Ken Bland Attending Unavailable Ken Bland Admitting Unavailable Naderer, Kevin Primary Care Unavailable Ken Bland Admitting Unavailable Ken Bland Attending Unavailable Caitlinerer, Kevin Primary Care Unavailable Naderer, Keivn Primary Care Unavailable Frannie Godfrey Admitting Unavailable Frannie Godfrey Attending Unavailable Reyesr, Kevin Primary Care Unavailable Linda Kinney Attending Unavailable Linda Kinney Admitting Unavailable Naderer, Kevin Primary Care Unavailable Linda Kinney Attending Unavailable Linda Kinney Admitting Unavailable Ken Bland Attending Unavailable Ken Bland Admitting Unavailable Naderer, Kevin Primary Care Unavailable Medications Current Medications Medication Drug Class(es) Dates Sig (Normalized) Sig (Original) acetaminophen 325 mg / HYDROcodone bitartrate 5 mg oral tablet (20 sources) Opioid Agonist Start: 03-03-2024 End: 04-16-2024 take 1 tablet by mouth every six hours as needed HYDROcodone-acetami nophen ([place]) 5-325 MG tablet Take 1 tablet by mouth every 6 (six) hours if needed 03/03/2024 04/16/2024 Discontinued (Therapy completed) Start: 10-04-2022 End: 12-09-2023 Hydrocodone-Acetaminophen 7. 5-325 mg tablet Discontinued 1 TAB PO every 6 to 8 hours as needed for pain 20 October 04, 2022 December 09, 2023 8:52am [id number] actuat albuterol 0.09 mg/actuat metered dose inhaler (19 sources) beta2-Adrenergic Agonist Start: 02-10-2025 End: 02-11-2025 take 1 puff(s) by inhalation every four hours as needed for wheezing Start: 01-26-2025 End: 02-10-2025 take 1 puff(s) by inhalation five times daily Albuterol Sulfate 90 mcg/actuation HFA aerosol inhaler Discontinued 2 PUFF INHALATION EVERY 4-8 HOURS January 26, 2025 12:00am February 10, 2025 1:52pm Start: 01-26-2025 Albuterol Sulf ate 90 mcg/actuation HFA aerosol inhaler Active INHALATION January 26, 2025 12:00am Complies with drug therapy Start: 07-16-2024 take 2 puff(s) by in halation every four hours for wheezing albuterol HFA 90 mcg/act inhaler Indications: Chronic obstructive pulmonary disease, unspecified COPD type (HCC) [...] Active Blood Pressure Monitoring (Blood Pressure Cuff) [facility] [place] (19 sources) Start: 03-16-2024 Blood Pressure Monitoring (Blood Pressure Cuff) [facility] [place] Indications: Essential (primary) hypertension 1 each in the morning and 1 each before bedtime. 1 each 03/16/2024 Active Start: 03-16-2024 Blood Pressure Monitoring (Blood Pressure Cuff) [facility] [place] Indications: Essential (primary) hypertension (CMS/HCC) 1 each [...] a day for 14 day(s) Jun, Active 24 hr nicotine 0.583 mg/hr transdermal system [...] release 24hr Active 75 MG PO December 23, 2023 12:00am Complies with drug therapy Start: 11-12-2023 End: 11-02-2024 take 1 capsule by mouth once daily Start: 09-24-2022 End: 12-23-2023 take 1 tablet by mouth once daily in the morning Venlafaxine 37.5 mg Tablet Discontinued 37.5 MG PO Every morning September 24, 2022 12:00am December 23, 2023 9:59am Effexor Active Completed/Discontinued Medications Medication Drug Class(es) Dates Sig (Normalized) Sig (Original) acetaminophen 500 mg oral tablet (19 sources) Start: 09-24-2022 End: 10-13-2024 take 1 tablet by mouth four times daily as needed for pain Acetaminophen (Acetaminophen Extra Strength) 500 mg Tablet Discontinued 500 MG PO Four times daily as needed for Pain September 24, 2022 12:00am October 13, 2024 10:42am hydroCHLOROthiazide 12.5 mg / lisinopril 20 mg oral tablet (20 sources) Thiazide Diuretic, Angiotensin Converting Enzyme Inhibitor Start: 06-29-2024 Lisinopril-Hydroch lorothiazide 20-12.5 mg tablet Active 1 TAB PO June 29, 2024 1:00am Complies with drug therapy Start: 03-16-2024 End: 04-16-2025 take 1 tablet by mouth once daily Lisinopril-Hydrochlorothiazide 20-12.5 m g tablet Discontinued 1 TAB PO Daily June 29, 2024 1:00am February 11, 2025 1:53pm lisinopril 20 mg oral tablet (20 sources) Angiotensin Converting Enzyme Inhibitor Start: 09-24-2022 End: 06-29-2024 take 1 tablet by mouth once daily in the morning Lisinopril 20 mg tablet Discontinued 20 MG PO Every morning September 24, 2022 12:00am June 29, 2024 10:00am Lisinopril Activ e meloxicam 15 mg oral tablet (20 sources) Nonsteroidal Anti-inflammatory Drug Start: 12-09-2023 Meloxicam Active MG PO December 09, 2023 12:00am Start: 11-12-2023 End: 10-13-2024 Meloxicam 15 mg tablet Disco ntinued MG PO December 09, 2023 12:00am October 13, 2024 10:42am Problems Active Problems Problem Classification Problem Date Documented Da te Episodic/Chronic Alcohol-related disorders (20 sources) Alcohol abuse; Translations: [Alcohol abuse, uncomplicated] Onset: 01-15-2024 01-15-2024 Chronic Aortic; peripheral; and visceral artery aneurysms (20 sources) Abdominal aortic aneurysm without rupture; Translations: [Abdominal aortic aneurysm (AAA) without rupture] Onset: 07-16-2024 12-09-2023 Chronic Chronic obstructive pulmonary disease and bronchiectasis (20 sources) Pulmonary emphysema; Translations: [Other emphysema] Onset: 09-03-2023 09-03-2023 Chronic Diabetes mellitus without complication (2 sources) Prediabetes; Translations: [Prediabetes] 02-11-2025 Episodic Disorders of lipid metabolism (20 sources) Hyperlipidemia, unspecified; Translations: [Hyperlipidemia] Onset: 09-05-2022 Chronic Essential hypertension (20 sources) Essential (primary) hypertension; Translations: [Hypertensive disorder] Onset: 09-08-2022 12-09-2023 Chronic Mood disorders (20 sources) Recurrent major depression in full remission; Translations: [Major depressive disorder, recurrent, in full remission] Onset: 09-03-2023 Resolved: 07-16-2024 09-03-2023 Chronic Osteoporosis (1 source) Age-related osteoporosis without current pathological fracture; Translations: [Age-related osteoporosis without current pathological fracture] Onset: 11-11-2024 Chronic Other aftercare (2 sources) Long-term current use of drug therapy; Translations: [Other retirement (current) drug therapy] 02-11-2025 Episodic Other connective tissue disease (20 sources) Synovial cyst of lumbar spine; Translations: [Other bursal cyst, other site] 10-13-2024 Episodic Other lower respiratory disease (20 sources) Multiple nodules of lung; Translations: [Other nonspecific abnormal finding of lung field] Onset: 01-15-2024 01-15-2024 Episodic Other nervous system disorders (18 sources) Postoperative pain ; Translations: [Other acute postprocedural pain] 04-24-2023 Episodic Comment on above: Problem List clean-u p per request of Phys. EHR Cmte Other screening for suspected conditions (not mental disorders or infectious disease) (20 sources) Encounter for screening for malignant neoplasm of respiratory organs; Translations: [Patient encounter status] Onset: 11-12-2023 Resolved: 07-16-2024 11-12-2023 Episodic Other upper respiratory infections (2 sources) Sinusitis; Translations: [Chronic sinusitis, unspecified] Chronic Peripheral and visceral atherosclerosis (20 sources) Peripheral vascular disease; Translations: [Intermittent claudication] Onset: 02-17-2025 Chronic Spondylosis; intervertebral disc disorders; other back problems (20 sources) Lumbar spondylosis; Translations: [Spondylosis without myelopathy or radiculopathy, lumbar region] Onset: 09-03-2023 07-16-2024 Chronic Spondylosis; intervertebral disc disorders; other back problems (20 sources) Chronic low back pain; Translations: [Lumbago with sciatica, left side] Onset: 09-03-2023 Resolved: 07-16-2024 11-12-2023 Episodic Substance-related disorders (20 sources) Smokes tobacco daily; Translations: [Nicotine dependence, unspecified, uncomplicated] Onset: 09-03-2023 12-09-2023 Chronic Unclassified (7 sources) M48.062 - Spinal stenosis, lumbar region with neurogenic claudication Unclassified (3 sources) I73.9 - Peripheral vascular disease, unspecified Unclassified (1 source) Infrarenal abdominal aortic aneurysm, without rupture; Translations: [Infrarenal abdominal aortic aneurysm, without rupture] Onset: 01-12-2025 Unclassified (1 source) Low back pain, unspecified; Translations: [Low back pain, unspecified] Onset: 10-30-2024 Unclassified (1 source) Abdominal aortic aneurysm, without rupture, unspecified; Translations: [Abdominal aortic aneurysm, without rupture, unspecified] Onset: 06-29-2024 Past or Other Problems Problem Classification Problem Date Documented Da te Episodic/Chronic Mood disorders (20 sources) Mood disorders Onset: 11-12-2023 11-12-2023 Other connective tissue disease (1 source) Pain in right lower leg; Translations: [Pain in right lower leg] Onset: 11-20-2024 Episodic Other connective tissue disease (1 source) Pain in left lower leg; Translations: [Pain in left lower leg] Onset: 11-20-2024 Episodic Residual codes; unclassified (20 sources) Tobacco user; Translations: [Tobacco use] Onset: 09-03-2023 Resolved: 07-16-2024 09-03-2023 Episodic Residual codes; unclassified (20 sources) Harmful pattern of use of nicotine; Translations: [Tobacco use] Onset: 11-12-2023 11-12-2023 Episodic Unclassified (1 source) Cough R05.9 Results Test Name Value Interpretation Reference Range Facility US venous mapping [facility] 02-18-2025 US venous mapping [facility] [place] [address] [place], [place] [id number] Ultrasound Report Signed Patient: Mere Bennett MR#: [id number] 8 : 1955 Acct:[id number] Age/Sex: 69 / M ADM Date: 02/17/25 Loc: Room: Type: [facility] Attending Dr: Ken Bland MD Ordering Provider: Ken Bland MD Date of Service: 02/17/25 US/US venous mapping [facility]: Z01.818 - Encounter for other preprocedural examination Copies to: Ken Bland MD VENOUS MAPPING ULTRASOUND OF BILATERAL LOWER EXTREMITIES HISTORY / INDICATION: Peripheral arterial disease COMPARISON: NONE TECHNIQUE: Venous Duplex color Doppler ultrasonographic scans of bilateral lower extremities were obtained. Size of greater saphenous vein and lesser saphenous vein were evaluated FINDINGS: Right lower extremity: Greater saphenous vein measurements At saphenofemoral junction: 0.33 cm High thigh: 0.16 cm Mid thigh: 0.11 cm Low thigh: 0.11 cm Knee: 0.09 cm Proximal calf: 0.11 cm Mid calf: 0.13 cm Distal calf: 0.08 cm Lesser saphenous vein measurements: At lesser saphenous junction: 0.12 cm Proximal calf: 0.11 cm Mid calf: 0.12 cm Distal calf: 0.09 cm Left lower extremity: Greater saphenous vein measurements At saphenofemoral junction: 0.2 cm 0.19 cm Mid thigh: 0.17 cm Distal thigh: 0.11 cm At knee: 0.11 cm Proximal calf: 0.14 cm Mid calf: 0.11 cm Distal calf: 0.11 cm Lesser saphenous vein measurements: At lesser saphenous vein junction: 0.15 cm Proximal calf: 0.17 cm Mid calf: 0.15 cm Distal calf: 0.12 cm US/US venous mapping lower IMPRESSION: Greater saphenous vein and lesser saphenous vein measurements as above. No long segments of greater saphenous or lesser saphenous vein measuring over 3 cm in the bilateral lower extremity indicating poor conduit for any surgical intervention Impression dictated by: Simone Cordova M.D. 02/18/2025 2:35 PM Dictation Location: [place] [address] Tech: Gayatri Dawkins Transcribed By: RL 02/18/25 143 Dictated By: Simone Cordova MD 02/18/25 1428 Signed By: 02/18/25 1435 Normal [facility] Blood Urea Nitrogenon 2024 Urea nitrogen [Mass/Vol] 11 mg/dL Normal 7- [facility] Comment on above: Performed By: #### C REAT, BUN #### [address] Creatinineon 02-03-2025 Creatinine [Mass/Vol] 0.77 mg/dL Normal 0.70-1.30 [facility] Comment on above: Performed By: #### C REAT, BUN #### [address] Creatinine Clr Calc Pharmacy 80.33 Normal [facility] Comment on above: Result Comment: PERF ORMED BY: [place] [address] PATHOLOGIST ROCK DRILL OPERATOR LALIT SKELTON M.D. Performed By: #### C REAT, BUN #### [address] GFR/1.73 sq M.predicted MDRD (S/P/Bld) [Vol rate/Area] mL/min/{1.73_m2} Normal [facility] Comment on above: Performed By: #### C REAT, BUN #### [address] angio abd aorta runoffon 01-12-2025 CT angio abd aorta runoff [facility] Main [place] [address] [place] [address] CT Scan Report Signed Patient: Mere Bennett MR#: [id number] 8 : 1955 Acct:[id number] Age/Sex: 69 / M ADM Date: 01/12/25 Loc: CT Room: Type: [facility] Attending Dr: Ken Bland MD Copies to: Ken Bland MD Ordering Provider: Ken Bland MD Date of Service: 01/12/25 CT/CT angio abd aorta runoff: I71.43 - Infrarenal abdominal aortic aneurysm, without ru... CTA abdomen, pelvis, and bilateral lower extremities . CLINICAL DATA: Legs burning, numbness.. TECHNIQUE: Intravenous contrast-enhanced CT angiography of the abdomen, pelvis, and bilateral lower extremities was performed. Axial, sagittal, coronal, and 3D-dimensional reconstructions were created and reviewed. This CT exam was performed using one or more of the following dose reduction techniques: Automated exposure control, adjustment of the mA and/or kV according to patient size, or use of iterative reconstruction technique. COMPARISON: CTA abdomen and pelvis 12/21/2024 FINDINGS: Lung Bases: Reticular changes. No honeycombing. Organs:Liver gallbladder spleen pancreas and adrenal glands all appear unremarkable. No enhancing renal mass or hydronephrosis. There is fusiform type bilobed infrarenal abdominal aortic aneurysm measuring 4.9 cm on today's study once measuring 4.8 cm on the prior study. This is once again partially thrombosed with a small amount of contrast seen within the thrombus. No critical stenosis or occlusion is seen involving the major visceral branch vessels. Moderate calcification at the origin of the SMA. Moderate calcification of the external iliac vasculature. 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 GI: Stomach is grossly unremarkable. Small bowel appears nondilated. Colonic diverticulosis.[ Pelvis:[Urinary bladder is grossly unremarkable. Prostate gland is normal in size. Peritoneum/Retroper itoneum:No free air, free fluid or lymphadenopathy.[ Abd wall/Bones:Abdomina l wall demonstrates no acute findings. Osseous structures demonstrate degenerative change.[ Lower extremities: Left : Left common femoral artery demonstrates moderate calcification near its origin causing severe stenosis with aneurysmal dilatation seen at the level of the hot metal mixer operator branches measuring 1.5 cm in greatest axial dimension. Employment And Claims Aide branches are patent. There is occlusion of the left proximal and mid SFA with reconstitution seen distally suggestive of collateral flow. Mild calcification and soft plaquing involving the distal SFA. Popliteal artery appears patent with minimal calcification. The tibial peroneal trunk, anterior tibial, dorsalis pedis, posterior tibial and peroneal arteries all appear patent. There appears to be calcification involving the posterior tibial artery. No soft tissue swelling is noted. No soft tissue mass or fluid collection is seen. Osseous structures demonstrate degenerative change. Musculature demonstrates no focal abnormality. Right: Moderate calcification and soft plaquing involving the right common femoral artery without critical stenosis or occlusion. Employment And Claims Aide branches are patent. There is occlusion involving the SFA with reconstitution seen distally at the level of the popliteal artery suggestive of collateral flow. There is calcification and soft plaquing involving the popliteal artery without occlusion. Calcification is seen involving the lower leg arteries with the tibial peroneal trunk, anterior tibial, dorsalis pedis and peroneal arteries appear patent. The posterior tibial artery is likely occluded. No soft tissue swelling is noted. No soft tissue mass or fluid collection is seen. Osseous structures demonstrate degenerative change. Musculature demonstrates no focal abnormality. CT/CT angio abd aorta runoff IMPRESSION: 1. Overall, no significant change in size of the abdominal aortic aneurysm compared to the prior study from 12/21/2024. 2. There is moderate calcification at the origin of the left common femoral artery causing severe stenosis with distal aneurysmal dilatation measuring 1.5 cm in greatest axial dimension at the level of the hot metal mixer operator origins. 3. Occlusion of the left proximal and mid SFA with reconstitution seen distally suggestive of collateral flow. 4. Conclusion involving the right SFA with reconstitution seen distally involving the popliteal artery suggestive of collateral flow. 5. There appears be occlusion of the right posterior tibial artery. 6. Occlusion of the bilateral internal iliac arteries. Impression dictated by: Eladio Broderick Jr., D.O. 01/12/2025 10:02 AM Dictation Location: [place] [address] Transcribed By: [facility] 01/12/25 1002 Dictated By: Eladio Broderick Jr, DO 01/12/25 0947 Signed By: 01/12/25 1002 Normal [facility] US art pvr/post Janet 025 US art pvr/post [facility] Main [place] [id number] Ultrasound Report Signed Patient: Mere Bennett MR#: [id number] 8 : 1955 Acct:[id number] Age/Sex: 69 / M ADM Date: 12/21/24 Loc: UL Room: Type: [facility] CLI Attending Dr: Frannie Hurt HOURLY SALES STAFF-C Ordering Provider: Frannie Hurt APRN Date of Service: 12/21/24 US/US art pvr/post LE: I73.9 Copies to: Frannie Hurt APRN LOWER EXTREMITY SEGMENTAL ARTERIAL DOPSCAN (PVR) INDICATION: Claudication. PROCEDURE: Right arm blood pressure is 152 , left is 160 . Pressures throughout the right leg are 86 at the ankle using the posterior tibial artery and 119 ,119 ,31,51,102 ,103 ,102 ,104 at the ankle using the dorsalis pedis artery with ankle-brachial index of 0.74 0.54 . Pressures throughout the left leg are 117 at the ankle using the posterior tibial artery and 98 at the ankle using the dorsalis pedis artery with ankle-brachial index of 0.61 0.73 . Wave forms by plethysmography are biphasic, bilaterally. US/US art pvr/post LE IMPRESSION: SEVERE PERIPHERAL ARTERIAL DISEASE OF THE bilateral LOWER EXTREMITY WITH EXERCISE. With exercise the patient developed critical limb ischemia and severe PAD. Impression dictated by: Vicente Kuhn MD,FACS,FSVS 12/22/2024 2:08 PM Dictation Location: [place] [address] Tech: Ailyn Todd Transcribed By: RL 12/22/24 1408 Dictated By: Vicente Kuhn MD 12/22/24 140 Signed By: 12/22/24 1408 Normal [facility] CT angio abdomen pelvison CT angio abdomen pelvis [facility] [place] [address] CT Scan Report Signed Patient: Meer Bennett MR#: [id number] 8 : 1955 Acct:[id number] Age/Sex: 69 / M ADM Date: 12/21/24 Loc: CT Room: Type: [facility] CLI Attending Dr: Ken Bland MD Copies to: Ken Bland MD Ordering Provider: Ken Bland MD Date of Service: 12/21/24 CT/CT angio abdomen pelvis: I71.43 - Infrarenal abdominal aortic aneurysm, without ru... CTA abdomen and pelvis . CLINICAL DATA: Follow-up aneurysm. TECHNIQUE: Intravenous contrast-enhanced CT angiography of the abdomen and pelvis was then performed. Axial, sagittal, coronal and volume-rendered three-dimensional reconstructions were created and reviewed. This CT exam was performed using one or more of the following dose reduction techniques: Automated exposure control, adjustment of the mA and/or kV according to patient size, or use of iterative reconstruction technique. COMPARISON: None. Lung Bases: Mild reticular changes. No acute findings. Organs:Fusiform, bilobed infrarenal abdominal aneurysm is present with associated thrombus and calcification measuring 4.8 cm in greatest axial dimension. A small amount of contrast is seen within the thrombus. This tapers to the level of the [...] CT/CT angio abdomen pelvis IMPRESSION: Fusiform type bilobed infrarenal abdominal aneurysm measuring 4.8 cm. Finding is grossly unchanged from the prior study. No acute intra-abdominal process. Impression dictated by: Eladio Broderick Jr., DKarisOKrais 12/21/2024 2:41 PM Dictation Location: [place] [address] Transcribed By: [facility] 12/21/24 1441 Dictated By: Eladio Broderick Jr, DO 12/21/24 1430 Signed By: 12/21/24 1441 Normal [facility] ISTAT XRay CREon 12-21-2024 ISTAT GFR >60.0 Normal [facility] Comment on above: Result Comment: PERF ORMED BY: [place] [address] PATHOLOGIST ROCK DRILL OPERATOR LALIT SKELTON M.D. Performed By: #### I SCRE #### [address] No Panel InformationOrdered By: Ken Bland on 12-21-2024 Bedside Estimated GFR (eGFR) > 60.0 [facility] Whole blood creatinine measu rementOrdered By: Ken Bland on 12-21-2024 Creatinine [Mass/Vol] 1.1 mg/dL Normal 0.6-1.3 [facility] Comment on above: ER/ESD physician is notified/shown all ISTAT results.Critical values may be confirmed by laboratory testing ifdeemed necessary by ER attending doctor. Result Comment: ER/E SD physician is notified/shown all ISTAT results. Critical values may be confirmed by laboratory testing if deemed necessary by ER attending doctor. Performed By: #### I SCRE #### [address] US arterial pvr rest Janet US arterial pvr rest LE [facility] Main [place] [address] [place] [address] Ultrasound Report Signed Patient: Mere Bennett MR#: [id number] 8 : 1955 Acct:[id number] Age/Sex: 68 / M ADM Date: 11/20/24 Loc: Room: Type: [facility] Attending Dr: Linda Kinney MD Ordering Provider: Linda Kinney MD Date of Service: 11/20/24 US/US arterial pvr rest LE: M79.661 - Pain in right lower leg Copies to: Linda Kinney MD LOWER EXTREMITY SEGMENTAL ARTERIAL DOPSCAN (PVR) INDICATION: Claudication PROCEDURE: Right arm blood pressure is 134 , left is 134 . Pressures throughout the right leg are 136 at the high thigh, at the 122 low thigh, 128 at the calf, 119 at the ankle using the posterior tibial artery, and 118 at the ankle using the dorsalis pedis artery with ankle- brachial index of 0.89 0.88 . Pressures throughout the left leg are 137 at the high thigh, at the 128 low thigh, 133 at the calf and 129 at the ankle using the posterior tibial artery, and 127 at the ankle using the dorsalis pedis artery with ankle-brachial index of 0.96 0.95 . Wave forms by plethysmography are moderately blunted on the right mildly blunted on the left US/US arterial pvr rest LE IMPRESSION: Ankle-brachial indices suggest borderline or mild peripheral vascular occlusive disease at rest on the right and no significant peripheral vascular occlusive disease on the left. However, the plethysmographic waveforms on the right are moderately dampened and are mildly dampened on the left. Its likely that there is at least bilateral mild peripheral vascular occlusive disease. This may be more evident with a post exercise study. Impression dictated by: Ken Bland M.D. 11/20/2024 2:49 PM Dictation Location: [facility]04 Tech: Tammy Raúl Transcribed By: RL 11/20/24 1449 Dictated By: Ken Bland MD 11/20/24 1446 Signed By: 11/20/24 1449 Normal [facility] XR lumbar spine 6V w bending on 10-30-2024 XR lumbar spine 6V w bending [facility] [place] [address] [place] [address] XRay Report Signed Patient: Mere Bennett MR#: [id number] 8 : 1955 Acct:[id number] Age/Sex: 68 / M ADM Date: 10/30/24 Loc: Room: Type: [facility] Attending Dr: Linda Kinney MD Copies to: Linda Kinney MD Ordering Provider: Linda Kinney MD Date of Service: 10/30/24 XR/XR lumbar spine 6V w bending: M54.50 - Low back pain, unspecified 6 views Lumbar Spinewith bending HISTORY: Back pain with radiation down both legs COMPARISON: 07/23/2024 POSTSURGICAL CHANGES: None BONY ALIGNMENT: Mild scoliosis HYPERMOBILITY:No hypermobility LISTHESIS:Mild degenerative listhesis. L3-4 3 mm degenerative retrolisthesis. FRACTURE: None DEGENERATIVE CHANGES: Mild to moderate spondylosis greatest at the L5-S1 level. Extensive lower lumbar hypertrophic facet changes. SOFT TISSUES: 6.3 cm aneurysmal dilatation of the abdominal aorta. Atherosclerosis. Prior measurement 12/13/2023 4.8 cm. . Measurement 07/23/2024 5.2 cm. BONY MINERALIZATION:Adeq uate XR/XR lumbar spine 6V w bending IMPRESSION: No hypermobility. Similar degenerative changes. 6.3 cm aneurysmal dilatation of the abdominal aorta. Prior measurement 07/23/2024 5.2 cm. Consider further assessment with CT of abdomen and pelvis.. Impression dictated by: Ken Bell M.D. 10/30/2024 4:13 PM Dictation Location: [facility]--16 Transcribed By: [facility] 10/30/24 1613 Dictated By: Ken Bell DO 10/30/24 1608 Signed By: 10/30/24 1613 Normal [facility] MR [place] [address] Magnetic Resonance Report Signed Patient: MERE BENNETT MR#: [id number] : 1955 Acct:[id number] Age/Sex: 68 / M ADM Date: 07/23/24 Loc: MRI Attending Dr: Kevin Maxwell M.D. Ordering Physician: Kevin Maxwell M.D. Date of Service: 07/23/24 Procedure(s): MR lumbar spine wo con Accession Number(s): [id number] cc: Kevin Maxwell M.D. [place] [address] Patient Name: MERE BENNETT MRN: [id number] date: 1955 Sex: M Assigned Patient Location: MRI Current Patient Location: MRI Accession/Order Number: [id number] Exam Date: 07/23/2024 09:30 Report Date: 07/23/2024 [...] Darlyn Vo M.D.07/23/2024 9:50 AM Dictation Location: [place] [address] Electronically authenticated by: [id number] Y Date: 07/23/2024 09:50 Dictated By: Darlyn Vo M.D. Signed By: 07/23/24 0952 DD/ 0950 TD/TT: Scientific Editor: [facility] Radiology, Radiologist, - 07/23/2024 [place] [address] Magnetic Resonance Report Signed Patient: MERE BENNETT MR#: [id number] : 1955 Acct:[id number] Age/Sex: 68 / M ADM Date: 07/23/24 Loc: MRI Attending Dr: Kevin Maxwell M.D. Ordering Physician: Kevin Maxwell M.D. Date of Service: 07/23/24 Procedure(s): MR lumbar spine wo con Accession Number(s): [id number] cc: Kevin Maxwell M.D. [place] [address] Patient Name: MERE BENNETT MRN: [facility]:[id number] date: 1955 Sex: M Assigned Patient Location: MRI Current Patient Location: MRI Accession/Order Number: [id number] Exam Date: 07/23/2024 09:30 Report Date: 07/23/2024 [...] Darlyn Vo M.D.07/23/2024 9:50 AM Dictation Location: [place] [address] Electronically authenticated by: [id number] Y Date: 07/23/2024 09:50 Dictated By: Darlyn Vo M.D. Signed By: 07/23/24 0952 DD/ TD/TT: Scientific Editor: [facility] [email or web address] Radiology Study observation (narrative) [facility] MR LUMBAR SPINE WO CONOrdere d By: Radiologist Radiology on 07-23-2024 [facility] [employer] Work Phone: US aortaon 06-29-2024 US aorta [facility] [address] [place] [address] Ultrasound Report Signed Patient: Mere Bennett MR#: [id number] 8 : 1955 Acct:[id number] Age/Sex: 68 / M ADM Date: 06/29/24 Loc: [facility] Room: Type: [facility] Attending Dr: Ken Bland MD Ordering Provider: [...] Ken Bland M.D.06/29/2024 10:49 AM Dictation Location: [place] [address] Tech: Gayatri Dawkins Transcribed By: RL 06/29/24 1049 Dictated By: Ken Bland MD 06/29/24 1047 Signed By: 06/29/24 1049 Normal [facility] CT CHEST WO IV CONTRASTon [...] spec) Gram Stain GSNOS Organisms Seen^Organisms Seen [facility] Microscopic observation Gram stain Nom (Unsp spec) NO NO ORGANISM SEEN^NO ORGANISM SEEN [facility] Microscopic observation Gram stain Nom (Unsp spec) GSWBC White Blood Cells^White Blood Cells [facility] Microscopic observation Gram stain Nom (Unsp spec) R RARE^RARE [facility] LEFT ELBOW FLUID [facility] Healthcar e ALL MAGNESIUMon 01-22-2024 Magnesium [Mass/Vol] 2.0 mg/dL 1.8 - 2 .4 mg/dL [facility] ALL PHOSPHOROUSon 01-22-2024 Phosphate [Mass/Vol] 2.8 mg/dL 2.6 - 4 .7 mg/dL [facility] No Panel Informationon 01-21 [facility]car [facility] CT LOW DOSE LUNG SCREENINGon [...] aided detection for pulmonary nodules?was performed utilizing [employer] software.? FINDINGS: Diagnostic quality: Satisfactory Lung nodules: [...] 6:28 PM 3 LDCT 3 Mo Normal [facility] Creatinine (Bld) [Mass/Vol]O rdered By: Frannie Hurt on 12-13-2023 Creatinine [Mass/Vol] 0.8 mg/dL 0.6-1.3 [facility] Comment on above: ER/ESD physician is notified/shown all ISTAT results.Critical values may be confirmed by laboratory testing ifdeemed necessary by ER attending doctor. No Panel InformationOrdered By: Frannie Hurt on 12-13-2023 Bedside Estimated GFR (eGFR) > 60.0 [facility] Basophils Auto (Bld) [#/Vol] Ordered By: Carlitos Douglas on 09-24-2022 Basophils (Bld) [#/Vol] 0.0 10*3/uL 0.0-0.2 [facility] Basophils/100 WBC Auto (Bld) Ordered By: Carlitos Douglas on 09-24-2022 Basophils/100 WBC (Bld) 0.4 % . [facility] Calcium [Mass/volume] in Ser um or PlasmaOrdered By: Carlitos Douglas on 09-24-2022 Calcium [Mass/Vol] 9.3 mg/dL 8.6-10.3 [facility] Carbon dioxide, total [Moles /volume] in Serum or PlasmaOrdered By: Carlitos Douglas on 09-24-2022 CO2 [Moles/Vol] 29.1 mmol/L 21.0-31.0 [facility] Chloride [Moles/volume] in S ebony or PlasmaOrdered By: Carlitos Douglas on 09-24-2022 Chloride [Moles/Vol] 106 mmol/L 98-107 [facility] Creatinine [Mass/volume] in Serum or PlasmaOrdered By: Carlitos Douglas on 09-24-2022 Creatinine [Mass/Vol] 0.82 mg/dL 0.70-1.30 [facility] Eosinophils Auto (Bld) [#/Vo l]Ordered By: Carlitos Douglas on 09-24-2022 Eosinophils (Bld) [#/Vol] 0.1 10*3/uL 0.0-0.45 [facility] Eosinophils/100 WBC Auto (Bl d)Ordered By: Carlitos Douglas on 09-24-2022 Eosinophils/100 WBC (Bld) 1.5 % . [facility] Erythrocyte distribution wid th Auto (RBC) [Ratio]Ordered By: Carlitos Douglas on 09-24-2022 Erythrocyte distribution width (RBC) [Ratio] 13.5 % 12.0-14.8 [facility] Glucose [Mass/volume] in Ser um or PlasmaOrdered By: Carlitos Douglas on 09-24-2022 Glucose [Mass/Vol] 83 mg/dL 70-100 [facility] Comment on above: ADA recommended refe rence rangeRandom Glucose Reference Range is dependent on time and content of last meal. Glucose of more than 200 mg/dL in a nonstressed, ambulatory subject supports the diagnosis of Diabetes Mellitus. Hematocrit Auto (Bld) [Volum e fraction]Ordered By: Carlitos Douglas on 09-24-2022 Hematocrit (Bld) [Volume fraction] 46.7 % 38.8-50.0 [facility] Hemoglobin [Mass/volume] in BloodOrdered By: Carlitos Douglas on 09-24-2022 Hemoglobin (Bld) [Mass/Vol] 15.6 g/dL 13.0-17.0 [facility] Leukocytes [#/volume] correc bandar for nucleated erythrocytes in Blood by Automated counOrdered By: Carlitos Douglas on 09-24-2022 WBC corrected for nucl RBC Auto (Bld) [#/Vol] 6.8 10*3/uL 4.1-10.5 [facility] Lymphocytes Auto (Bld) [#/Vo l]Ordered By: Carlitos Douglas on 09-24-2022 Lymphocytes (Bld) [#/Vol] 1.7 10*3/uL 1.00-4.8 [facility] Lymphocytes/100 WBC Auto (Bl d)Ordered By: Carlitos Douglas on 09-24-2022 Lymphocytes/100 WBC (Bld) 24.8 % . [facility] MCH Auto (RBC) [Entitic mass ]Ordered By: Carlitos Douglas on 09-24-2022 MCH (RBC) [Entitic mass] 34.1 pg 27.5-35.2 [facility] MCHC Auto (RBC) [Mass/Vol]Or dered By: Carlitos Douglas on 09-24-2022 MCHC (RBC) [Mass/Vol] 33.5 g/dL 32.5-35.6 [facility] MCV Auto (RBC) [Entitic vol] Ordered By: Carlitos Douglas on 09-24-2022 MCV (RBC) [Entitic vol] 101.9 fL 83.5-101 [facility] Monocytes Auto (Bld) [#/Vol] Ordered By: Carlitos Douglas on 09-24-2022 Monocytes (Bld) [#/Vol] 0.7 10*3/uL 0.0-0.8 [facility] Monocytes/100 WBC Auto (Bld) Ordered By: Carlitos Douglas on 09-24-2022 Monocytes/100 WBC (Bld) 9.9 % . [facility] Neutrophils Auto (Bld) [#/Vo l]Ordered By: Carlitos Douglas on 09-24-2022 Neutrophils (Bld) [#/Vol] 4.3 10*3/uL 1.8-7.7 [facility] Neutrophils/100 WBC Auto (Bl d)Ordered By: Carlitos Douglas on 09-24-2022 Neutrophils/100 WBC (Bld) 63.4 % . [facility] No Panel InformationOrdered By: Carlitos Douglas on 09-24-2022 Estimated GFR (CKD-EPI) > 60.0 mL/Min [facility] Creatinine Clearance (Chem N/A [facility] Nucleated erythrocytes [Pres ence] in Blood by Automated countOrdered By: Carlitos Douglas on 09-24-2022 Nucleated RBC Auto Ql (Bld) 0.0 /100{WBC} 0-0.5 [facility] Platelet mean volume Auto (B ld) [Entitic vol]Ordered By: Carlitos Douglas on 09-24-2022 Platelet mean volume (Bld) [Entitic vol] 9.1 fL 6.6-10.1 [facility] Platelets Auto (Bld) [#/Vol] Ordered By: Carlitos Douglas on 09-24-2022 Platelets (Bld) [#/Vol] 189 10*3/uL 150-450 [facility] Potassium [Moles/volume] in Serum or PlasmaOrdered By: Carlitos Douglas on 09-24-2022 Potassium [Moles/Vol] 4.0 mmol/L 3.5-5.1 [facility] RBC Auto (Bld) [#/Vol]Ordere d By: Carlitos Douglas on 09-24-2022 RBC (Bld) [#/Vol] 4.58 10*6/uL 3.90-5.60 [facility] Serum or plasma anion gap de terminationOrdered By: Carlitos Douglas on 09-24-2022 Anion gap [Moles/Vol] 10.9 mmol/L 6.0-15.0 [facility] Sodium [Moles/volume] in Ser um or PlasmaOrdered By: Carlitos Douglas on 09-24-2022 Sodium [Moles/Vol] 142 mmol/L 136-145 [facility] Urea nitrogen [Mass/volume] in Serum or PlasmaOrdered By: Carlitos Douglas on 09-24-2022 Urea nitrogen [Mass/Vol] 9 mg/dL 7-25 [facility] WBC Auto (Bld) [#/Vol]Ordere d By: Carlitos Douglas on 09-24-2022 WBC (Bld) [#/Vol] 6.8 10*3/uL 4.1-10.5 [facility] CBC AUTO DIFFon 09-05-2022 BASO # 0.1 103/ul Normal 0.0-0.1 [facility] Comment on above: Performed By: #### C BC #### [facility] [address] [place] [address] [address] Petr Winchester Basophils/100 WBC (Bld) 0.6 % Normal 0.2-2.0 [facility] Comment on above: Performed By: #### C BC #### [facility] [address] [place] [address] [address] Petr Winchester EO # 0.3 103/ul Normal 0.0-0.7 [facility] Comment on above: Performed By: #### C BC #### [facility] [address] [place] [address] Dr. Petr Winchester Eosinophils/100 WBC (Bld) 3.0 % Normal 0.9-7.0 [facility] Comment on above: Performed By: #### C BC #### [facility] [address] [place] [address] Dr. Petr Winchester Erythrocyte distribution width (RBC) [Ratio] 13.2 % Normal 11.0-15.0 [facility] Comment on above: Performed By: #### C BC #### [facility] [address] [place] [address] Dr. Petr Winchester Hematocrit (Bld) [Volume fraction] 46.1 % Normal 42.0-54.0 [facility] Comment on above: Performed By: #### C BC #### [facility] [address] [place] [address] Dr. Petr Winchester Hemoglobin (Bld) [Mass/Vol] 15.3 g/dL Normal 14.0-18.0 [facility] Comment on above: Performed By: #### C BC #### [facility] [address] [place] [address] Dr. Petr Winchester IG # 0.03 10e3/ul Normal 0.00-0.03 [facility] Comment on above: Performed By: #### C BC #### [facility] [address] [place] [address] Dr. Petr Winchester IG % 0.3 % Normal 0.0-0.5 [facility] Comment on above: Performed By: #### C BC #### [facility] [address] [place] [address] [address] Petr Winchester LYMPH # 1.9 103/ul Normal 1.2-3.8 [facility] Comment on above: Performed By: #### C BC #### [facility] [address] [place] [address] Dr. Petr Winchester Lymphocytes/100 WBC (Bld) 19.2 % Critically low 20.5-60.0 [facility] Comment on above: Performed By: #### C BC #### [facility] [address] [place] [address] Dr. Petr Winchester MANUAL DIFF REQ NO Normal [facility] Comment on above: Performed By: #### C BC #### [facility] [address] [place] [address] Dr. Petr Winchester MCH (RBC) [Entitic mass] 34.0 pg Normal 25.9-34.0 [facility] Comment on above: Performed By: #### C BC #### [facility] [address] [place] [address] Dr. Petr Winchester MCHC (RBC) [Mass/Vol] 33.2 g/dL Normal 29.9-35.2 [facility] Comment on above: Performed By: #### C BC #### [facility] [address] [place] [address] Dr. Petr Winchester MCV (RBC) [Entitic vol] 102.4 fL Critically high 80.0-94 .0 [facility] Comment on above: Performed By: #### C BC #### [facility] [address] [place] [address] Dr. Petr Winchester MONO # 0.9 103/ul Critically high 0.3-0.8 [facility] Comment on above: Performed By: #### C BC #### [facility] [address] [place] [address] Dr. Petr Winchester Monocytes/100 WBC (Bld) 9.6 % Normal 1.7-12.0 [facility] Comment on above: Performed By: #### C BC #### [facility] [address] [place] [address] [address] Petr Winchester NEUT # 6.5 103/ul Normal 1.4-6.5 [facility] Comment on above: Performed By: #### C BC #### [facility] [address] [place] [address] [address] Petr Winchester Neutrophils/100 WBC (Bld) 67.3 % Normal 43.0-75.0 [facility] Comment on above: Performed By: #### C BC #### [facility] [address] [place] [address] [address] Petr Winchester Platelet mean volume (Bld) [Entitic vol] 10.6 fL Normal 9.5-13.5 [facility] Comment on above: Performed By: #### C BC #### [facility] [address] [place] [address] Dr. Petr Winchester PLT 210 103/ul Normal 150-450 [facility] Comment on above: Performed By: #### C BC #### [facility] [address] [place] [address] [address] Petr Winchester RBC 4.50 106/ul Critically low 4.70-6.10 [facility] Comment on above: Performed By: #### C BC #### [facility] [address] [place] [address] Dr. Petr Winchester WBC 9.7 103/ul Normal 4.0-11.0 [facility] Comment on above: Performed By: #### C BC #### [facility] [address] [place] [address] Dr. Petr Winchester LIPID PROFILEon 09-05-2022 CHOL-HDL RATIO NORM SEE BELOW Normal [facility] Comment on above: Result Comment: 3.3 - 4.4 LOW RISK 4.4 - 7.1 AVERAGE RISK 7.1 - 11.0 MODERATE RISK >11.0 HIGH RISK Performed By: #### L IPID, CMP #### [facility] [address] [place] [address] [address] Petr Winchester Cholesterol [Mass/Vol] 224 mg/dL Critically high <=200 [facility] Comment on above: Performed By: #### L IPID, CMP #### [facility] [address] [place] [address] [address] Petr Winchester Cholesterol in HDL [Mass/Vol] 41 mg/dL Normal 40-60 [facility] Comment on above: Performed By: #### L IPID, CMP #### [facility] [address] [place] [address] [address] Petr Winchester Cholesterol in LDL [Mass/Vol] 163.8 mg/dL Normal [facility] Comment on above: Performed By: #### L IPID, CMP #### [facility] [address] [place] [address] [address] Petr Winchester Cholesterol.total/Camilla sterol in HDL [Mass ratio] 5.5 {ratio} Normal [facility] Comment on above: Performed By: #### L IPID, CMP #### [facility] [address] [place] [address] [address] Petr Winchester HDL NORMAL > or = 60 mg/dl - LOW CARDIOVASCULAR RISK <40 mg/dl - HIGH CARDIOVASCULAR RISK Normal [facility] Comment on above: Performed By: #### L IPID, CMP #### [facility] [address] [place] [address] [address] Petr Winchester LDL CALC NORMAL SEE BELOW Normal [facility] Comment on above: Result Comment: <100 mg/dl OPTIMAL 100 - 129 mg/dl NEAR OR ABOVE OPTIMAL 130 - 159 mg/dl BORDERLINE HIGH 160 - 189 mg/dl HIGH >190 mg/dl VERY HIGH Performed By: #### L IPID, CMP #### [facility] [address] [place] [address] [address] Petr Winchester Triglyceride [Mass/Vol] 96 mg/dL Normal <=150 T [facility] Comment on above: Performed By: #### L IPID, CMP #### [facility] [address] [place] [address] [address] Petr Winchester VLDL CALC 19.2 mg/dL Normal [facility] Comment on above: Performed By: #### L IPID, CMP #### [facility] [address] [place] [address] [address] Petr Winchester PROF 14(COMP METB)on 023 Albumin [Mass/Vol] 3.4 g/dL Normal 3.4-5.0 [facility] Comment on above: Performed By: #### L IPID, CMP #### [facility] [address] [place] [address] [address] Petr Winchester Albumin/Globulin [Mass ratio] 0.8 {ratio} Normal [facility] Comment on above: Performed By: #### L IPID, CMP #### [facility] [address] [place] [address] [address] Petr Winchester ALP [Catalytic activity/Vol] 74 U/L Normal 46-116 [facility] Comment on above: Performed By: #### L IPID, CMP #### [facility] [address] [place] [address] Dr. Petr Winchester ALT [Catalytic activity/Vol] 32 U/L Normal 16-63 [facility] Comment on above: Performed By: #### L IPID, CMP #### [facility] [address] [place] [address] Dr. Petr Winchester Anion gap [Moles/Vol] 9.9 mmol/L Normal [facility] Comment on above: Performed By: #### L IPID, CMP #### [facility] [address] [place] [address] Dr. Petr Winchester AST [Catalytic activity/Vol] 17 U/L Normal 15-37 [facility] Comment on above: Performed By: #### L IPID, CMP #### [facility] [address] [place] [address] [address] Petr Winchester Bilirubin [Mass/Vol] 0.3 mg/dL Normal 0.2-1.0 [facility] Comment on above: Performed By: #### L IPID, CMP #### [facility] [address] [place] [address] [address] Petr Winchester Calcium [Mass/Vol] 9.0 mg/dL Normal 8.5-10.[address] [facility] Comment on above: Performed By: #### L IPID, CMP #### [facility] [address] [place] [address] [address] Petr Winchester Chloride [Moles/Vol] 106 mmol/L Normal 98-107 [facility] Comment on above: Performed By: #### L IPID, CMP #### [facility] [address] [place] [address] [address] Petr Winchester CO2 [Moles/Vol] 29.8 mmol/L Normal 21.0-32.0 [facility] Comment on above: Performed By: #### L IPID, CMP #### [facility] [address] [place] [address] [address] Petr Winchester Creatinine [Mass/Vol] 0.97 mg/dL Normal 0.70-1.30 [facility] Comment on above: Performed By: #### L IPID, CMP #### [facility] [address] [place] [address] [address] Petr Winchester EGFR-AF LITHUANIAN >60 Normal >=60 [facility] Comment on above: Performed By: #### L IPID, CMP #### [facility] [address] [place] [address] [address] Petr Winchester EGFR-NON AF LITHUANIAN >60 Normal >=60 [facility] Comment on above: Performed By: #### L IPID, CMP #### [facility] [address] [place] [address] Dr. Petr Winchester Globulin (S) [Mass/Vol] 4.2 g/dL Normal [facility] Comment on above: Performed By: #### L IPID, CMP #### [facility] [address] [place] [address] [address] Petr Winchester Glucose [Mass/Vol] 127 mg/dL Critically high 74-106 [facility] Comment on above: Performed By: #### L IPID, CMP #### [facility] [address] [place] [address] [address] Petr Winchester Potassium [Moles/Vol] 4.7 mmol/L Normal 3.5-5.1 [facility] Comment on above: Performed By: #### L IPID, CMP #### [facility] [address] [place] [address] [address] Petr Winchester Protein [Mass/Vol] 7.6 g/dL Normal 6.4-8.2 [facility] Comment on above: Performed By: #### L IPID, CMP #### [facility] [address] [place] [address] [address] Petr Winchester Sodium [Moles/Vol] 141 mmol/L Normal 136-145 [facility] Comment on above: Performed By: #### L IPID, CMP #### [facility] [address] [place] [address] [address] Petr Winchester Urea nitrogen [Mass/Vol] 18.0 mg/dL Normal 7.0-18.0 [facility] Comment on above: Performed By: #### L IPID, CMP #### [facility] [address] [place] [address] [address] Petr Winchester Urea nitrogen/Creatinine [Mass ratio] 18.6 mg/mg Normal [facility] Comment on above: Performed By: #### L IPID, CMP #### [facility] [address] [place] [address] [address] Petr Winchester COVID + FLU Quick Testingon 06-18-2022 SARS-CoV-2 (COVID-19) RNA KALEN+probe Ql (Unsp spec) Negative [facility] Other COVID + FLU Quick Testing Negative [facility] Other Vital Signs Date Time Vital Sign [facility] 02-11-2025 13:16-0400 Body height 170.18 cm Kevin Maxwell MD Work Phone: [facility] 02-11-2025 13:16-0400 Body mass index (BMI) [Ratio] 22.1 kg/m2 Kevin Maxwell MD Work Phone: [facility] 02-11-2025 13:16-0400 Body temperature 97.5 [degF] Kevin Maxwell MD Work Phone: [facility] 02-11-2025 13:16-0400 Body weight 63.95 kg Kevin Maxwell MD Work Phone: [facility] 02-11-2025 13:16-0400 Diastolic blood pressure 78 mm[Hg] Kevin Maxwell MD Work Phone: [facility] 02-11-2025 13:16-0400 Heart rate 103 /min Kevin Maxwell MD Work Phone: [facility] 02-11-2025 13:16-0400 Respiratory rate 18 /min Kevin Maxwell MD Work Phone: [facility] 02-11-2025 13:16-0400 SaO2% (BldA) [Mass fraction] 98 % Kevin Maxwell MD Work Phone: [facility] 02-11-2025 13:16-0400 Systolic blood pressure 124 mm[Hg] Kevin Maxwell MD Work Phone: [facility] 02-03-2025 15:41-0400 Diastolic blood pressure 91 mm[Hg] Linda Kinney MD Work Phone: [facility] 02-03-2025 15:41-0400 Heart rate 90 /min Linda Kinney MD Work Phone: [facility] 02-03-2025 15:41-0400 Respiratory rate 16 /min Linda Kinney MD Work Phone: [facility] 02-03-2025 15:41-0400 SaO2% (BldA) [Mass fraction] 94 % Linda Kinney MD Work Phone: [facility] 02-03-2025 15:41-0400 Systolic blood pressure 157 mm[Hg] Linda Kinney MD Work Phone: [facility] 02-03-2025 12:37-0400 Inhaled oxygen flow rate 2 L/min Lidna Kinney MD Work Phone: [facility] 02-03-2025 10:52-0400 Body height 170.18 cm Linda Kinney MD Work Phone: [facility] 02-03-2025 10:52-0400 Body weight 68.03 kg Linda Kinney MD Work Phone: [facility] 01-26-2025 09:52-0400 Body height 170.18 cm [facility] 01-26-2025 09:52-0400 Body mass index (BMI) [Ratio] 23.5 kg/m2 [facility] 01-26-2025 09:52-0400 Body temperature 98.1 [degF] [facility] 01-26-2025 09:52-0400 Body weight 68.03 kg [facility] 01-26-2025 09:52-0400 Diastolic blood pressure 80 mm[Hg] [facility] 01-26-2025 09:52-0400 Heart rate 105 /min [facility] 01-26-2025 09:52-0400 Respiratory rate 18 /min [facility] 01-26-2025 09:52-0400 SaO2% (BldA) [Mass fraction] 99 % [facility] 01-26-2025 09:52-0400 Systolic blood pressure 132 mm[Hg] [facility] 12-28-2024 10:34-0400 Body height 170.18 cm PHYSICIAN NO [facility] 12-28-2024 10:34-0400 Body mass index (BMI) [Ratio] 22.7 kg/m2 PHYSICIAN NO [facility] 12-28-2024 10:34-0400 Body temperature 97.8 [degF] PHYSICIAN NO [facility] 12-28-2024 10:34-0400 Body weight 65.77 kg PHYSICIAN NO [facility] 12-28-2024 10:34-0400 Diastolic blood pressure 82 mm[Hg] PHYSICIAN NO [facility] 12-28-2024 10:34-0400 Heart rate 62 /min PHYSICIAN NO [facility] 12-28-2024 10:34-0400 Respiratory rate 16 /min PHYSICIAN NO [facility] 12-28-2024 10:34-0400 SaO2% (BldA) [Mass fraction] 98 % PHYSICIAN NO [facility] 12-28-2024 10:34-0400 Systolic blood pressure 124 mm[Hg] PHYSICIAN NO [facility] 11-30-2024 15:01-0400 Body height 170.18 cm PHYSICIAN NO [facility] 11-30-2024 15:01-0400 Body mass index (BMI) [Ratio] 22.7 kg/m2 PHYSICIAN NO [facility] 11-30-2024 15:01-0400 Body temperature 98 [degF] PHYSICIAN NO [facility] 11-30-2024 15:01-0400 Body weight 65.77 kg PHYSICIAN NO [facility] 11-30-2024 15:01-0400 Diastolic blood pressure 66 mm[Hg] PHYSICIAN NO [facility] 11-30-2024 15:01-0400 Heart rate 88 /min PHYSICIAN NO [facility] 11-30-2024 15:01-0400 SaO2% (BldA) [Mass fraction] 98 % PHYSICIAN NO [facility] 11-30-2024 15:01-0400 Systolic blood pressure 126 mm[Hg] PHYSICIAN NO [facility] 11-05-2024 11:29-0400 Body height 170.18 cm PHYSICIAN NO [facility] 11-05-2024 11:29-0400 Body mass index (BMI) [Ratio] 21.6 kg/m2 PHYSICIAN NO [facility] 11-05-2024 11:29-0400 Body weight 62.7 kg PHYSICIAN NO [facility] 10-13-2024 10:39-0400 Body height 170.18 cm [facility] 10-13-2024 10:39-0400 Body mass index (BMI) [Ratio] 21.6 kg/m2 [facility] 10-13-2024 10:39-0400 Body weight 62.7 kg [facility] 10-13-2024 10:39-0400 Diastolic blood pressure 82 mm[Hg] [facility] 10-13-2024 10:39-0400 Systolic blood pressure 142 mm[Hg] [facility] 07-16-2024 11:08-0500 Body mass index (BMI) [Ratio] 21.59 kg/m2 Kevin Maxwell MD Work Phone: [facility] 07-16-2024 11:08-0500 Body temperature 98.2 [degF] Kevin Maxwell MD Work Phone: [facility] 07-16-2024 11:08-0500 Body weight 64.41 kg Kevin Maxwell MD Work Phone: [facility] 07-16-2024 11:08-0500 Diastolic blood pressure 90 mm[Hg] Kevin Maxwell MD Work Phone: [facility] 07-16-2024 11:08-0500 Heart rate 105 /min Kevin Maxwell MD Work Phone: [facility] 07-16-2024 11:08-0500 SaO2% (BldA) [Mass fraction] 94 % Kevin Maxwell MD Work Phone: [facility] 07-16-2024 11:08-0500 Systolic blood pressure 150 mm[Hg] Kevin Maxwell MD Work Phone: [facility] 06-29-2024 09:01-0500 Body height 170.18 cm [facility] 06-29-2024 09:01-0500 Body mass index (BMI) [Ratio] 23.4 kg/m2 [facility] 06-29-2024 09:01-0500 Body temperature 98.2 [degF] [facility] 06-29-2024 09:01-0500 Body weight 68 kg [facility] 06-29-2024 09:01-0500 Diastolic blood pressure 84 mm[Hg] [facility] 06-29-2024 09:01-0500 Heart rate 88 /min [facility] 06-29-2024 09:01-0500 Respiratory rate 16 /min [facility] 06-29-2024 09:01-0500 SaO2% (BldA) [Mass fraction] 96 % [facility] 06-29-2024 09:01-0500 Systolic blood pressure 122 mm[Hg] [facility] 04-16-2024 08:50-0500 Body mass index (BMI) [Ratio] 22.69 kg/m2 Washington Wilderpatrick [employer] SAL[employer]AFF Work Phone: [facility] 04-16-2024 08:50-0500 Body temperature 97.81 [degF] Washington Teresa [employer] SALES STAFF Work Phone: [facility] 04-16-2024 08:50-0500 Body weight 67.68 kg Washington Teresa [employer] SALES STAFF Work Phone: [facility] 04-16-2024 08:50-0500 Diastolic blood pressure 89 mm[Hg] Washington Teresa [employer]Y SALES STAFF Work Phone: [facility] 04-16-2024 08:50-0500 Heart rate 101 /min Washington Teresa [employer]Y SALES STAFF Work Phone: [facility] 04-16-2024 08:50-0500 SaO2% (BldA) [Mass fraction] 96 % Washington Teresa [employer] SALES STAFF Work Phone: [facility] 04-16-2024 08:50-0500 Systolic blood pressure 138 mm[Hg] Washington Teresa [employer]Y SALES STAFF Work Phone: [facility] 03-16-2024 09:35-0500 Body height 172.7 cm Washington Teresa [employer]Y SALES STAFF Work Phone: [facility] 03-16-2024 09:35-0500 Body mass index (BMI) [Ratio] 21.96 kg/m2 Washington Teresa [employer]Y SALES STAFF Work Phone: [facility] 03-16-2024 09:35-0500 Body temperature 96.1 [degF] Washington Teresa [employer]Y SALES STAFF Work Phone: [facility] 03-16-2024 09:35-0500 Body weight 65.5 kg Washington Teresa [employer] SALES STAFF Work Phone: [facility] 03-16-2024 09:35-0500 Diastolic blood pressure 92 mm[Hg] Washington Teresa [employer] SALES STAFF Work Phone: [facility] 03-16-2024 09:35-0500 Heart rate 120 /min Washington Teresa [employer]Y SALES STAFF Work Phone: [facility] 03-16-2024 09:35-0500 Respiratory rate 16 /min Washington Teresa [employer]Y SALES STAFF Work Phone: [facility] 03-16-2024 09:35-0500 SaO2% (BldA) [Mass fraction] 98 % Washington Teresa [employer]Y SALES STAFF Work Phone: [facility] 03-16-2024 09:35-0500 Systolic blood pressure 176 mm[Hg] Washington Teresa [employer]Y SALES STAFF Work Phone: [facility] 01-15-2024 09:47-0400 Body height 170.2 cm Washington Teresa [employer]Y SALES STAFF Work Phone: [facility] 01-15-2024 09:47-0400 Body mass index (BMI) [Ratio] 22.71 kg/m2 Washington Teresa [employer]Y SALES STAFF Work Phone: [facility] 01-15-2024 09:47-0400 Body temperature 97 [degF] Washington Teresa [employer]Y SALES STAFF Work Phone: [facility] 01-15-2024 09:47-0400 Body weight 65.77 kg Washington Teresa [employer]Y SALES STAFF Work Phone: [facility] 01-15-2024 09:47-0400 Diastolic blood pressure 98 mm[Hg] Washington Teresa [employer]Y SALES STAFF Work Phone: [facility] Comment on above: RT ARM LG CUFF 180/90 01-15-2024 09:47-0400 Heart rate 79 /min Washington Teresa [employer]Y SALES STAFF Work Phone: [facility] Comment on above: 99% O2 01-15-2024 09:47-0400 Systolic blood pressure 178 mm[Hg] Washington Carranzak [employer]Y SALES STAFF Work Phone: [facility] Healthcare Comment on above: RT ARM LG CUFF 180/90 12-23-2023 09:59-0400 Body height 170.18 cm PHYSICIAN NO [facility] 12-23-2023 09:59-0400 Body mass index (BMI) [Ratio] 23.4 kg/m2 PHYSICIAN NO [facility] 12-23-2023 09:59-0400 Body temperature 97.8 [degF] PHYSICIAN NO [facility] 12-23-2023 09:59-0400 Body weight 67.99 kg PHYSICIAN NO [facility] 12-23-2023 09:59-0400 Diastolic blood pressure 84 mm[Hg] PHYSICIAN NO [facility] 12-23-2023 09:59-0400 Heart rate 73 /min PHYSICIAN NO [facility] 12-23-2023 09:59-0400 Respiratory rate 16 /min PHYSICIAN NO [facility] 12-23-2023 09:59-0400 SaO2% (BldA) [Mass fraction] 96 % PHYSICIAN NO [facility] 12-23-2023 09:59-0400 Systolic blood pressure 122 mm[Hg] PHYSICIAN NO [facility] 12-09-2023 08:54-0400 Body height 170.18 cm [facility] 12-09-2023 08:54-0400 Body mass index (BMI) [Ratio] 23.5 kg/m2 [facility] 12-09-2023 08:54-0400 Body temperature 97.2 [degF] [facility] 12-09-2023 08:54-0400 Body weight 68.03 kg [facility] 12-09-2023 08:54-0400 Diastolic blood pressure 80 mm[Hg] [facility] 12-09-2023 08:54-0400 Heart rate 76 /min [facility] 12-09-2023 08:54-0400 SaO2% (BldA) [Mass fraction] 98 % [facility] 12-09-2023 08:54-0400 Systolic blood pressure 166 mm[Hg] [facility] 06-18-2022 12:45-0500 Body height 170.18 cm Hillary La Other [employer] Other 06-18-2022 12:45-0500 Body mass index (BMI) [Ratio] 25.12 kg/m2 Hillary La Other [employer] Other 06-18-2022 12:45-0500 Body temperature 98.2 [degF] Hillary La Other [employer] Other 06-18-2022 12:45-0500 Body weight 72.76 kg Hillary La Other [employer] Other 06-18-2022 12:45-0500 Respiratory rate 18 /min Hillary La Other [employer] Other 06-18-2022 12:45-0500 SaO2% (BldA) [Mass fraction] 97 % Hillary La Other [employer] Other Encounters Encounter Date Encounter Type Care Provider Facility Start: 02-17-2025 End: 02-17-2025 Patient encounter procedure Ken Bland MD -[facility] Work Phone: Start: 02-17-2025 End: 02-17-2025 ambulatory Kevin Maxwell MD Work Phone: [facility] Work Phone: Start: 02-17-2025 Encounter for other preprocedural examination Ken Bland [facility] Start: 02-11-2025 End: 02-11-2025 ambulatory Kevin Maxwell MD Work Phone: [facility] Work Phone: Start: 02-11-2025 End: 02-11-2025 Patient encounter procedure Kevin Maxwell MD -[facility] Work Phone: Start: 02-03-2025 End: 02-03-2025 ambulatory Ken Bland Facility:[facility] Start: 02-03-2025 Non-patient / Non-visit Ken navarro MD -[facility] V[facility] Surg Work Phone: Start: 01-26-2025 End: 01-26-2025 ambulatory NON STAFF [facility] Work Phone: Start: 01-26-2025 End: 01-26-2025 Patient encounter procedure Ken Bland MD -[facility] Work Phone: Start: 01-12-2025 End: 01-12-2025 Patient encounter procedure Ken Bland MD -CT [facility] Work Phone: Start: 01-12-2025 End: 01-12-2025 ambulatory NON STAFF [facility] Work Phone: Start: 12-28-2024 End: 12-28-2024 ambulatory PHYSICIAN NO [facility] Work Phone: Start: 12-28-2024 End: 12-28-2024 Patient encounter procedure Ken Bland MD -[facility] Vascular Surg Work Phone: Start: 12-21-2024 End: 12-21-2024 Patient encounter procedure Ken Bland MD -[facility] Work Phone: Start: 12-21-2024 End: 12-21-2024 ambulatory PHYSICIAN NO [facility] Work Phone: Start: 11-30-2024 End: 11-30-2024 ambulatory PHYSICIAN NO [facility] Work Phone: Start: 11-30-2024 End: 11-30-2024 Patient encounter procedure Frannie Arias Rosetteanniebj GOMEZN -[facility] Vascular Surgery [place] Work Phone: Start: 11-20-2024 End: 11-20-2024 Patient encounter procedure Linda Kinney MD -[facility] Work Phone: Start: 11-20-2024 End: 11-20-2024 ambulatory PHYSICIAN NO [facility] Work Phone: Start: 11-11-2024 End: 11-11-2024 Patient encounter procedure Linda Kin[facility] MD -[facility] Work Phone: Start: 11-11-2024 End: 11-11-2024 ambulatory PHYSICIAN NO [facility] Work Phone: Start: 11-05-2024 End: 11-05-2024 ambulatory PHYSICIAN NO [facility] Work Phone: Start: 11-05-2024 End: 11-05-2024 Patient encounter procedure Linda Kinney MD -[facility] Work Phone: Start: 11-02-2024 End: 11-03-2024 Refomar Maxwell MD Work Phone: [facility] Comment on above: Depression, unspecif ied Start: 10-30-2024 End: 10-30-2024 ambulatory Coco Ku [employer] [facility] Work Phone: [facility] Comment on above: Spinal stenosis of l umbar region with radiculopathy (Primary Dx) Start: 10-30-2024 End: 10-30-2024 Patient encounter procedure Linda Kinney MD -[facility] Work Phone: Start: 10-30-2024 End: 10-30-2024 ambulatory Linda Kinney Facility:[facility] Start: 10-26-2024 End: 10-26-2024 Bamboo flowsheet Coco Ku [employer] Work Phone: [facility] Start: 10-26-2024 End: 10-26-2024 Bamboo flowsheet Coco Ku [employer] Work Phone: [facility] Start: 10-26-2024 End: 10-26-2024 ambulatory Coco Ku [employer] Work Phone: [facility] Comment on above: Spinal stenosis of l umbar region with radiculopathy (Primary Dx) Start: 10-23-2024 End: 10-23-2024 ambulatory Coco Ku [employer] Work Phone: [facility] Comment on above: Spinal stenosis of l umbar region with radiculopathy (Primary Dx) Start: 10-21-2024 End: 10-21-2024 Bamboo flowsheet Coco Ku [employer] Work Phone: [facility] Start: 10-21-2024 End: 10-21-2024 Bamboo flowsmadelyn Ku [employer] Work Phone: [facility] Start: 10-21-2024 End: 10-22-2024 ambulatory Coco Ku [employer] Work Phone: [facility] Comment on above: Spinal stenosis of l umbar region with radiculopathy (Primary Dx) Start: 10-19-2024 End: 10-19-2024 Bamboo flowsheet Jacquelin J Chris PT Work Phone: [facility] Start: 10-19-2024 End: 10-19-2024 Bamboo flowsheet Jaqcuelin J Chris PT Work Phone: [facility] Start: 10-19-2024 End: 10-19-2024 ambulatory Jacquelin J Chris PT Work Phone: [facility] Comment on above: Spinal stenosis of l umbar region with radiculopathy (Primary Dx) Start: 10-13-2024 End: 10-13-2024 ambulatory [facility] Work Phone: Start: 10-13-2024 End: 10-13-2024 Patient encounter procedure [facility] Work Phone: Start: 08-24-2024 End: 08-24-2024 ambulatory Rina Cortes MD Facility:[facility] [place] Start: 08-10-2024 End: 08-10-2024 ambulatory Rina Cortes MD Facility:[facility] [place] Start: 07-23-2024 End: 07-23-2024 Clinisync Result Encounter [...] Start: 06-29-2024 End: 06-29-2024 Patient encounter procedure [facility] Work Phone: Start: 06-29-2024 End: 06-29-2024 ambulatory PHYSICIAN [facility] Work Phone: Start: 04-27-2024 End: 04-27-2024 Refill Washington Teresa [employer] SALES STAFF Work Phone: [facility] Comment on above: Depression, unspecif ied (CMS/HCC) Start: 04-16-2024 End: 04-16-2024 Bamboo flowsheet [place] Teresa [employer]Y SALES STAFF Work Phone: [facility] Start: 04-16-2024 End: 04-16-2024 Bamboo flowsheet [place] Teresa [employer]Y SALES STAFF Work Phone: [facility] Start: 04-16-2024 End: 04-16-2024 Office outpatient visit 15 minutes Washington Teresa [employer]Y SALES STAFF Work Phone: [facility] Comment on above: Essential (primary) hypertension (CMS/HCC) (Primary Dx); Chronic bilateral low back pain with bilateral sciatica; Depression, unspecified (CMS/HCC) Start: 04-16-2024 End: 04-16-2024 ambulatory WASHINGTON TERESA Not Available Start: 03-17-2024 End: 03-17-2024 ambulatory WASHINGTON TERESA Not Available Start: 03-16-2024 End: 03-16-2024 Bamboo flowsheet [place] Teresa [employer] SALES STAFF Work Phone: [facility] Start: 03-16-2024 End: 03-16-2024 Bamboo flowsheet Washington Teresa [employer]Y SALES STAFF Work Phone: [facility] Start: 03-16-2024 End: 03-16-2024 Office outpatient visit 15 minutes Washington Teresa [employer]Y SALES STAFF Work Phone: [facility] Comment on above: Essential (primary) hypertension (CMS/HCC) (Primary Dx) Start: 03-16-2024 End: 03-16-2024 ambulatory WASHINGTON TERESA Not Available Start: 03-02-2024 End: 03-02-2024 Clinisync Result Encounter Generic External Data Provider [facility] External Department Unsolicited Start: 03-02-2024 End: 03-02-2024 Clinisync Result Encounter Generic External Data Provider [facility] External Department Unsolicited Start: 02-05-2024 End: 02-06-2024 Refill Amber Low MA [facility] Comment on above: Chronic bilateral lo w back pain with bilateral sciatica Start: 01-22-2024 End: 01-22-2024 Clinisync Result Encounter Washington Wilderpatrick [employer]Y SALES STAFF Work Phone: [facility] External Department Unsolicited Start: 01-22-2024 End: 01-22-2024 Clinisync Result Encounter Washington Teresa [employer] SALES STAFF Work Phone: [facility] External Department Unsolicited Start: 01-15-2024 End: 01-15-2024 Bamboo flowsheet Washington Teresa [employer]Y SALES STAFF Work Phone: [facility] Start: 01-15-2024 End: 01-15-2024 Bamboo flowsheet Washington Teresa [employer] SALES STAFF Work Phone: [facility] Start: 01-15-2024 End: 01-15-2024 Office outpatient visit 25 minutes Washington Teresa [employer] SALES STAFF Work Phone: [facility] Comment on above: Essential (primary) hypertension (CMS/HCC) (Primary Dx); Other hyperlipidemia (CMS/HCC); Persistent depressive disorder (CMS/HCC); Chronic bilateral low back pain with bilateral sciatica; Alcohol use disorder, mild, abuse; Multiple lung nodules on CT; Lumbar stenosis with neurogenic claudication; Tobacco abuse Start: 01-15-2024 End: 01-15-2024 ambulatory WASHINGTON TERESA Not Available Start: 12-23-2023 End: 12-23-2023 ambulatory PHYSICIAN [facility] Work Phone: Start: 12-23-2023 End: 12-23-2023 Patient encounter procedure PHYSICIAN NO [facility] Physician [facility] Vascular Surgery Work Phone: Start: 12-17-2023 End: 12-17-2023 ambulatory MAURICE Yehuda ROSADO [facility] Start: 12-13-2023 End: 12-13-2023 ambulatory PHYSICIAN NO [facility] Work Phone: Start: 12-13-2023 End: 12-13-2023 Patient encounter procedure PHYSICIAN NO [facility]-CT [facility] Work Phone: Start: 12-09-2023 End: 12-09-2023 ambulatory [facility] Work Phone: Start: 12-09-2023 End: 12-09-2023 Patient encounter procedure [facility] Physician [facility] Vascular Surgery Work Phone: Start: 11-12-2023 Patient encounter procedure Washington Teresa [employer]Y SALES STAFF Work Phone: [facility] Start: 11-12-2023 End: 11-12-2023 ambulatory SHAIKH ELPIDIO Not Available Start: 09-24-2022 End: 09-24-2022 ambulatory PHYSICIAN NO [facility] Work Phone: Start: 09-24-2022 End: 09-24-2022 Patient encounter procedure PHYSICIAN NO [facility]-Pre-Surgical Testing Work Phone: Start: 09-05-2022 End: 09-06-2022 ambulatory H FAWDAPHNE Facility: Start: 06-18-2022 End: 06-18-2022 ambulatory Hillary La Other [employer] Other Start: 06-18-2022 Office outpatient ne w 20 minutes Hillary La [facility] Procedures Date Procedure Procedure Detail Performing Clinician Start: 01-12-2025 CT of abdominal aorta with contrast Start: 12-21-2024 Computed tomography of abdomen and pelvis with contrast PHYSICIAN NO [facility] Start: 12-21-2024 Pulse volume recorder plethysmography PHYSICIAN NO FAM[facility] Start: 11-20-2024 Pulse volume recorder pneumoplethysmography PHYSICIAN NO FAM[facility] Start: 11-11-2024 Dual energy X-ray absorptiometry PHYSICI AN NO [facility] Start: 10-30-2024 X-ray of lumbar spine, six views including bending views PHYSICIAN NO [facility] Start: 07-23-2024 MR LUMBAR SPINE WO CON Kevin Maxwell MD Work Phone: Start: 03-02-2024 [facility] GRAM STAIN Generic External [place] a Provider Start: 01-22-2024 ALL MAGNESIUM [place] Teresa [employer]Y SALES STAFF Work Phone: Start: 01-22-2024 ALL PHOSPHOROUS [place] Teresa [employer] SALES STAFF Work Phone: Start: 12-13-2023 Computed tomography of abdomen and pelvis with contrast PHYSICIAN NO [facility] Start: 05-15-2021 Colonoscopy [place] Teresa [employer] SALES STAFF Work Phone: Plan of Treatment Date Care Activity Detail Author Start: 05-15-2026 Screening for malignant neoplasm of colon [facility] Start: 02-17-2025 US scan venography of lower limbs US venous mapping [facility] Start: 02-03-2025 [facility] Start: 01-26-2025 End: 01-26-2025 Patient encounter procedure 01/26/2025 11:00 AM EDT Office Visit [facility] [address] [place] [id number] Kevin Maxwell MD [address] [place] [id number] [facility] Start: 01-11-2025 Influenza vaccination Influenza Vaccine (Season Ended) [facility] Start: 12-21-2024 Pulse volume recorder plethysmography [facility] Start: 11-11-2024 Medicare Annual Wellness (AWV) Medicare Annual Wellness (AWV) [facility] Start: 11-05-2024 Patient referral [facility] Work Phone: Start: 10-30-2024 End: 10-30-2024 ambulatory 10/30/2024 1:00 PM EDT Treatment [facility] [address] [place] [id number] Jacquelin Maldonado, PT [address] [place] [address] [facility] Start: 10-28-2024 End: 10-28-2024 ambulatory 10/28/2024 12:00 PM EDT Treatment [facility] [address] [place] [id number] Coco Ku, [employer] [address] [place] [address] [facility] Start: 10-26-2024 End: 10-26-2024 ambulatory [facility] Comment on above: Arrived Start: 10-23-2024 End: 10-23-2024 ambulatory 10/23/2024 1:30 PM EDT Treatment [facility] [address] [place] [phone] Coco Ku, [employer] [address] [place] [address] [facility] Start: 10-21-2024 End: 10-21-2024 ambulatory [facility] Comment on above: Arrived Start: 10-19-2024 End: 10-19-2024 ambulatory 10/19/2024 1:00 PM EDT Evaluation [facility] [address] [place] [phone] Jacquelin Maldonado, PT [address] [place] [address] Arrived [facility] Comment on above: Arrived Start: 10-13-2024 Patient referral [facility] Work Phone: Start: 07-16-2024 End: 07-16-2025 MR Lumbar spine WO contrast MR lumbar spine wo contrast Imaging Routine Lumbar spondylosis Expected: 07/16/2024, Expires: 07/16/2025 [facility] Work Phone: Comment on above: Expected: 07/16/2024, Expires: Start: 07-16-2024 End: 07-16-2024 Patient encounter procedure 07/16/2024 9:00 AM EST Office Visit [facility] [address] [place] [address] [place] Teresa, TAHIR [address] [place] [address] [facility] Start: 06-29-2024 US Thoracic and abdominal aorta [facility] Start: 04-16-2024 End: 04-16-2024 Patient encounter procedure [facility] Comment on above: Arrived Start: 03-17-2024 End: 03-17-2024 Professional / ancillary services management 03/17/2024 11:00 AM EST Ancillary Procedure [facility] [address] [place] [address] Start: 03-16-2024 End: 03-16-2024 Patient encounter procedure [facility] Comment on above: Arrived Start: 01-15-2024 End: 01-14-2025 25-hydroxyvitamin D3 [Mass/volume] in Serum or Plasma Vitamin D 25 hydroxy Lab Routine Alcohol use disorder, mild, abuse Expected: 01/15/2024 (Approximate), Expires: 01/14/2025 [facility] Comment on above: Expected: 01/15/2024 (Approximate), Expi res: 01/14/2025 Start: 01-15-2024 End: 01-14-2025 Cobalamin (Vitamin B12) [Mass/volume] in Serum or Plasma Vitamin B12 Lab Routine Alcohol use disorder, mild, abuse Expected: 01/15/2024 (Approximate), Expires: 01/14/2025 [facility] Work Phone: Comment on above: Expected: 01/15/2024 (Approximate), Expi res: 01/14/2025 Start: 01-15-2024 End: 01-14-2025 CT Chest WO contrast CT chest wo IV contrast Imaging Routine Multiple lung nodules on CT Expected: 01/15/2024, Expires: 01/14/2025 [facility] Comment on above: Expected: 01/15/2024, Expires: Start: 01-15-2024 End: 01-14-2025 Ferritin [Mass/volume] in Serum or Plasma Ferritin Lab Routine Alcohol use disorder, mild, abuse Expected: 01/15/2024 (Approximate), Expires: 01/14/2025 [facility] Comment on above: Expected: 01/15/2024 (Approximate), Expi res: 01/14/2025 Start: 01-15-2024 End: 01-14-2025 Folate [Mass/volume] in Serum or Plasma Folate Lab Routine Alcohol use disorder, mild, abuse Expected: 01/15/2024 (Approximate), Expires: 01/14/2025 [facility] Comment on above: Expected: 01/15/2024 (Approximate), Expi res: 01/14/2025 Start: 01-15-2024 End: 01-14-2025 Iron + transferrin + TIBC Iron + transferrin + TIBC Lab Routine Alcohol use disorder, mild, abuse Expected: 01/15/2024 (Approximate), Expires: 01/14/2025 [facility] Comment on above: Expected: 01/15/2024 (Approximate), Expi res: 01/14/2025 Start: 01-15-2024 End: 01-14-2025 Magnesium [Mass/volume] in Serum or Plasma Magnesium Lab Routine Alcohol use disorder, mild, abuse Expected: 01/15/2024 (Approximate), Expires: 01/14/2025 [facility] Comment on above: Expected: 01/15/2024 (Approximate), Expi res: 01/14/2025 Start: 01-15-2024 End: 01-14-2025 Niacin (vitamin B3) Niacin (vitamin B3) Lab Routine Alcohol use disorder, mild, abuse Expected: 01/15/2024 (Approximate), Expires: 01/14/2025 [facility] Comment on above: Expected: 01/15/2024 (Approximate), Expi res: 01/14/2025 Start: 01-15-2024 End: 01-14-2025 Phosphate [Moles/volume] in Serum or Plasma Phosphorus Lab Routine Alcohol use disorder, mild, abuse Expected: 01/15/2024 (Approximate), Expires: 01/14/2025 [facility] Comment on above: Expected: 01/15/2024 (Approximate), Expi res: 01/14/2025 Start: 01-15-2024 End: 01-14-2025 Vitamin B1 Vitamin B1 Lab Routine Alcohol use disorder, mild, abuse Expected: 01/15/2024 (Approximate), Expires: 01/14/2025 [facility] Comment on above: Expected: 01/15/2024 (Approximate), Expi res: 01/14/2025 Start: 01-15-2024 End: 01-14-2025 Vitamin B6 Vitamin B6 Lab Routine Alcohol use disorder, mild, abuse Expected: 01/15/2024 (Approximate), Expires: 01/14/2025 [facility] Comment on above: Expected: 01/15/2024 (Approximate), Expi res: 01/14/2025 Start: 01-15-2024 End: 01-15-2024 Patient encounter procedure 01/15/2024 10:00 AM EDT [facility] [address] [place] [address] [place] Teresa NP [address] [place] [address] Essential (primary) hypertension (CMS/HCC) (Primary Dx); Other hyperlipidemia (CMS/HCC) [facility] Comment on above: Essential (primary) hypertension (CMS/HC C) (Primary Dx); Other hyperlipidemia (CMS/HCC) Start: 01-12-2024 Influenza vaccination Influenza Vaccine (#1) [facility] Start: 1973 Pneumococcal Vaccine: 65+ Years (1 of 2 - PCV) Pneumococcal Vaccine: 65+ Years (1 of 2 - PCV) [facility] Start: 1960 Pneumococcal Vaccine: 65+ Years (1 of 2 - PCV) Pneumococcal Vaccine: 65+ Years (1 of 2 - PCV) [facility] Start: 1954 Screening for malignant neoplasm of colon [facility] Comprehensive metabo lic 1999 panel - Serum or Plasma Comprehensive metabolic panel Lab Routine Essential (primary) hypertension (CMS/HCC) Ordered: 04/16/2024 [facility] Work Phone: Comment on above: Ordered: 04/16/2024 Comprehensive metabo lic 1999 panel - Serum or Plasma [facility] CT Unspecified body region F [facility] CTA Abdominal vessel s and Pelvis vessels W contrast IV [facility] DXA Skeletal system. axial Views for bone density [facility] referral [facility] Work Phone: Pulse volume recorde r plethysmography [facility] Pulse volume recorde r pneumoplethysmography [facility] XR Lumbar spine Views [facility] Immunizations Immunization Date Immunization Notes Care Provider Fa cility 01-20-2021 COVID-19 mRNA, Comirnaty (Pfizer) PHYSICIAN [facility] 12-30-2020 COVID-19 mRNA, Comirnaty (Pfizer) PHYSICIAN [facility] Payers Date Payer Category Payer Self-pay 2022 Private Health Insurance [id number] 2022 Unknown [id number] 2022 Unknown [id number] 2021 Medicare [id number] 1959 Medicare [id number] 2.1 [id number] 1959 Unknown [id number] 2.16.8 40.1.508384.19 1954 Unknown [id number] 2.16.84 0.1.149398.3.579.2.593 1954 Unknown [id number] 2.16.8 40.1.956122.3.579.2.1286 1954 Unknown [id number] 2.16. 840.1.108897.3.579.2.196 1954 Unknown [id number] 2.16. 840.1.154789.3.579.2.196 1954 Unknown [id number] 2.16.8 40.1.070015.3.579.2.1259 1954 Unknown [id number] 2.16.8 40.1.131032.3.579.2.125 1954 Unknown [id number] 2.16.8 40.1.107647.3.579.2.1259 1954 Unknown [id number] 2.16.8 40.1.512980.3.579.2.1259 1954 Unknown [id number] 2.16.8 40.1.733237.3.579.2.1259 1954 Unknown [id number] 2.16.84 0.1.864053.3.579.2.1259 1954 Unknown [id number] 2.16.84 0.1.203599.3.579.2.125 1954 Unknown [id number] 2.16.84 0.1.840316.3.579.2.125 1954 Unknown [id number] 2.16.84 0.1.172142.3.579.2.1259 1954 Unknown [id number] 2.16.84 0.1.031058.3.579.2.1259 1954 Unknown [id number] 2.16.84 0.1.251379.3.579.2.1259 Unknown [id number] 2.16.8 40.1.639160.3.579.2.531 Unknown [id number] 2.16.8 40.1.822882.3.579.2.531 Unknown [id number] 2.16.8 40.1.778329.3.579.2.531 Unknown [id number] 2.16.8 40.1.116806.3.579.2.531 Unknown [id number] 2.16.8 40.1.876643.3.579.2.531 Unknown [id number] 2.16.8 40.1.267533.3.579.2.531 Unknown [id number] 2.16.8 40.1.631007.3.579.2.531 Unknown [id number] 2.16.8 40.1.811212.3.579.2.531 Unknown [id number] 2.16.8 40.1.772660.3.579.2.531 Social History Date Type Detail Facility Start: 01-15-2024 End: 07-16-2024 Sex Assigned At [facility] Other Start: 09-24-2022 End: 12-09-2023 Tobacco smoking status VAIS Smoker (finding) [facility] Start: 1955 Sex Assigned At Male F [facility] Start: 11-12-2023 End: 02-11-2025 Tobacco smoking status [facility] Smokes tobacco daily [facility] History [...] file [facility] Start: 06-29-2024 End: 10-13-2024 Sex Male (finding) [facility] Medical Equipment Procedure Code Equipment [...] FDA Start: 10-04-2022 Clinical Notes 06-18-2022 to 01-12-2025 Note Date & Type Note Facility 01-12-2025 Radiology Diagnostic study note [facility] [place] [address] CT Scan Report Signed Patient: Mere Bennett MR#: [id number] : 1955 Acct:[id number] Age/Sex: 69 / M ADM Date: 5 Loc: CT Room: Type: [facility] Attending Dr: Ken Bland MD Copies to: Ken Bland MD~ Ordering Provider: Ken Bland MD Date of Service: 01/12/25 CT/CT angio abd aorta runoff: I71.43 - Infrarenal abdominal aortic aneurysm, without ru... CTA abdomen, pelvis, and bilateral lower extremities . CLINICAL DATA: Legs burning, numbness.. TECHNIQUE: Intravenous contrast-enhanced CT angiography of the abdomen, pelvis, and bilateral lower extremities was performed. Axial, sagittal, coronal, and 3D-dimensional reconstructions were created and reviewed. This CT exam was performed using one or more of the following dose reduction techniques: Automated exposure control, adjustment of the mA and/or kV according to patient size, or use of iterative reconstruction technique. COMPARISON: CTA abdomen and pelvis 12/21/2024 FINDINGS: Lung Bases: Reticular changes. No honeycombing. Organs:Liver gallbladder spleen pancreas and adrenal glands all appear unremarkable. No enhancing renal mass or hydronephrosis. There is fusiform type bilobed infrarenal abdominal aortic aneurysm measuring 4.9 cm on today's study once measuring 4.8 cm on the prior study. This is once again partially thrombosed with a small amount of contrast seen within the thrombus. No critical stenosis or occlusion is seen involving the major visceral branch vessels. Moderate calcification at the origin of the SMA. Moderate calcification of the external iliac vasculature. 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 GI: Stomach is grossly unremarkable. Small bowel appears nondilated. Colonic diverticulosis.[ Pelvis:[Urinary bladder is grossly unremarkable. Prostate gland is normal in size. Peritoneum/Retroperitoneum:No free air, free fluid or lymphadenopathy.[ Abd wall/Bones:Abdominal wall demonstrates no acute findings. Osseous structures demonstrate degenerative change.[ Lower extremities: Left : Left common femoral artery demonstrates moderate calcification near its origin causing severe stenosis with aneurysmal dilatation seen at the level of the hot metal mixer operator branches measuring 1.5 cm in greatest axial dimension. Employment And Claims Aide branches are patent. There is occlusion of the left proximal and mid SFA with reconstitution seen distally suggestive of collateral flow. Mild calcification and soft plaquing involving the distal SFA. Popliteal artery appears patent with minimal calcification. The tibial peroneal trunk, anterior tibial, dorsalis pedis, posterior tibial and peroneal arteries all appear patent. There appears to be calcification involving the posterior tibial artery. No soft tissue swelling is noted. No soft tissue mass or fluid collection is seen. Osseous structures demonstrate degenerative change. Musculature demonstrates no focal abnormality. Right: Moderate calcification and soft plaquing involving the right common femoral artery without critical stenosis or occlusion. Employment And Claims Aide branches are patent. There is occlusion involving the SFA with reconstitution seen distally at the level of the popliteal artery suggestive of collateral flow. There is calcification and soft plaquing involving the popliteal artery without occlusion. Calcification is seen involving the lower leg arteries with the tibial peroneal trunk, anterior tibial, dorsalis pedis and peroneal arteries appear patent. The posterior tibial artery is likely occluded. No soft tissue swelling is noted. No soft tissue mass or fluid collection is seen. Osseous structures demonstrate degenerative change. Musculature demonstrates no focal abnormality. CT/CT angio abd aorta runoff IMPRESSION: 1. Overall, no significant change in size of the abdominal aortic aneurysm compared to the prior study from 12/21/2024. 2. There is moderate calcification at the origin of the left common femoral artery causing severe stenosis with distal aneurysmal dilatation measuring 1.5 cm in greatest axial dimension at the level of the hot metal mixer operator origins. 3. Occlusion of the left proximal and mid SFA with reconstitution seen distally suggestive of collateral flow. 4. Conclusion involving the right SFA with reconstitution seen distally involving the popliteal artery suggestive of collateral flow. 5. There appears be occlusion of the right posterior tibial artery. 6. Occlusion of the bilateral internal iliac arteries. Impression dictated by: Eladio Broderick Jr., D.OKaris 01/12/2025 10:02 AM Dictation Location: [place] [address] Transcribed By: [facility] 01/12/25 1002 Dictated By: Eladio Broderick Jr, DO 01/12/25 0947 Signed By: 01/12/25 1002 [facility] 12-21-2024 Radiology Diagnostic study note [facility] [place] [address] [place] [address] CT Scan Report Signed Patient: Mere Bennett MR#: [id number] : 1955 Acct:[id number] Age/Sex: 69 / M ADM Date: 5 Loc: CT Room: Type: [facility] Attending Dr: Ken Bland MD Copies to: Ken Bland MD~ Ordering Provider: Ken Bland MD Date of Service: 12/21/24 CT/CT angio abdomen pelvis: I71.43 - Infrarenal abdominal aortic aneurysm, without ru... CTA abdomen and pelvis . CLINICAL DATA: Follow-up aneurysm. TECHNIQUE: Intravenous contrast-enhanced CT angiography of the abdomen and pelvis was then performed. Axial, sagittal, coronal and volume-rendered three-dimensional reconstructions were created and reviewed. This CT exam was performed using one or more of the following dose reduction techniques: Automated exposure control, adjustment of the mA and/or kV according to patient size, or use of iterative reconstruction technique. COMPARISON: None. Lung Bases: Mild reticular changes. No acute findings. Organs:Fusiform, bilobed infrarenal abdominal aneurysm is present with associated thrombus and calcification measuring 4.8 cm in greatest axial dimension. A small amount of contrast is seen within the thrombus. This tapersto the level of the iliac bifurcation. No [...] Uterus has been removed]. No adnexal mass. Peritoneum/Retroperitoneum:No free air, free fluid or lymphadenopathy.[ Abd wall/Bones:Abdominal wall demonstrates no acute findings. Osseous structures demonstrate degenerative change.[ CT/CT angio abdomen pelvis IMPRESSION: Fusiform type bilobed infrarenal abdominal aneurysm measuring 4.8 cm. Finding is grossly unchanged from the prior study. No acute intra-abdominal process. Impression dictated by: Eladio Broderick Jr. DKarisOKaris 12/21/2024 2:41 PM Dictation Location: [place] [address] Transcribed By: RL 12/21/24 1441 Dictated By: Eladio Broderick Jr, 12/21/24 1430 Signed By: 12/21/24 1441 [facility] 11-30-2024 Evaluation note Diagnosis Onset Date Resolution Claudication acute November 30, 025 2:18pm PAD (peripheral artery disease) acute November 30, 2024 2:18pm Current every day smoker inactive November 30, 2024 2:18pm AAA (abdominal aortic aneurysm) without rupture acute December 28 10:19am Claudication acute December 28, 2024 10:19am PAD (peripheral artery disease) acute December 28 10:19am AAA (abdominal aortic aneurysm) without rupture acute January 26, 2025 9:45am PAD (peripheral artery disease) acute January 26, 2025 9:45am Medicare annual wellness visit, subsequent acute February 11 12:58pm [facility] Work Phone: 1(956) 717-327507-11-2025 [facility] [place] [address] Ultrasound Report Signed Patient: Mere Bennett MR#: [id number] : 1955 Acct:[id number] Age/Sex: 68 / M ADM Date: 5 Loc: Room: Type: [facility] Attending Dr: Linda Kinney MD Ordering Provider: Linda Kinney MD Date of Service: 11/20/24 US/US arterial pvr rest LE: M79.661 - Pain in right lower leg Copies to: Linda Kinney MD~ LOWER EXTREMITY SEGMENTAL ARTERIAL DOPSCAN (PVR) INDICATION: Claudication PROCEDURE: Right arm blood pressure is 134 , left is 134 . Pressures throughout the right leg are 136 at the high thigh, at the 122 low thigh, 128 at the calf, 119 at the ankle using the posterior tibial artery, and 118 at the ankle using the dorsalis pedis artery with ankle-brachial index of 0.890.88 . Pressures throughout the left leg are 137 at the high thigh, at the 128 low thigh, 133 at the calf and 129 at the ankle using the posterior tibial artery, and 127 at the ankle using the dorsalis pedis artery with ankle-brachial index of 0.96 0.95 . Wave forms by plethysmography are moderately blunted on the right mildly bluntedon the left US/US arterial pvr rest LE IMPRESSION: Ankle-brachial indices suggest borderline or mild peripheral vascular occlusive disease at rest on the right and no significant peripheral vascular occlusive disease on the left. However, the plethysmographic waveforms on the right are moderately dampened and are mildly dampened on the left. Its likely that there is at least bilateral mild peripheral vascular occlusive disease. This may be more evident with a post exercise study. Impression dictated by: Ken Bland M.D. 11/20/2024 2:49 PM Dictation Location: [facility] Tech: Tammy Raúl Transcribed By: RL 11/20/241448 Dictated By: Ken Bland MD 11/20/241445 Signed By: 11/20/24 144 [facility] Work Phone: 1(951) 487-103206-26-2025 Evaluation note* Diagnosis Onset Date Resolution Status Admit Date Lumbar stenosis with neuroge shon claudication acute November 05, 2024 11:19am Synovial cyst of lumbar face t joint acute November 05, 2024 11:19am Claudication acute November 30, 2 025 2:18pm Current every day smoker acute November 30, 2024 2:18pm PAD (peripheral artery disease) acut e November 30, 2024 2:18pm AAA (abdominal aortic aneury sm) without rupture acute December 28 10:19am Claudication acute December 28, 2024 10:19am PAD (peripheral artery disease) acut e December 28, 2024 10:19am [facility] Work Phone: 1(629) 184-416706-26-2025 Evaluation note* Diagnosis Onset Date Resolution Status Admit Date Lumbar stenosis with neurogenic claudication acute October 11:19am Synovial cyst of lumbar face t joint acute November 05, 2024 11:19am Claudication acute November 30, 2 025 2:18pm Current every day smoker acute November 30, 2024 2:18pm PAD (peripheral artery disease) acute November 30, 2024 2:18pm AAA (abdominal aortic aneurysm) without rupture acute December 28, 2024 10:19am Claudication acute December 28, 2024 10:19am PAD (peripheral artery disease) acute December 28 10:19am AAA (abdominal aortic aneurysm) without rupture acute Sept2024 9:45am PAD (peripheral artery disease) acute January 26, 2025 9:45am [facility] Work Phone: 1(784) 204-867606-09-2025 History of Present illness Narrative* Jacquelin Maldonado, PT - 10/19/2024 1:00 PM EDT Images from the original note were not included. Physical Therapy Physical Therapy Evaluation Visit Patient Name: Mere Bennett Today's Date: 10/19/2024 Encounter Diagnoses Name Primary? Spinal stenosis of lumbar region with radiculopathy Yes Visit number: 1 Subjective Mere Bennett 68 y.o. male presents to physical therapy w/ chief c/o low back and denny LE pain. Mechanism of Onset: known deg changes including spinal stenosis, pain ~8+ months per pt. Current deficits: pain, denny radicular s/s, decreased standing activity tolerance Pain: 4/10 amb into session, up to severe at times has to look for somewhere to sit at times Location: central/denny low back, denny LE's to feet mostly in calves Aggravating Factors: Standing, walking, ADLs/self care, lifting Relieving factors: sitting, has not tried heat/cold, no real improvement with pain management per pt Imaging: MRI 07/23/24 MR/MR lumbar spine wo con IMPRESSION: SUBTLE SCOLIOSIS. MULTILEVEL DISCOVERTEBRAL DEGENERATIVE CHANGES, GREATEST AT L4-5 WHERE SEVERE CENTRAL STENOSIS IS SEEN. Occupation: retired Precautions: known spinal stenosis, tried pain management, PT vs sx at this point, seeing Dr Kinney. Objective Back index=40% impaired at IE Gait: decreased step ht/length denny, decreased stanislav and trunk/arm swing denny Lumbar mobility WNL all planes, pain with extension relief with flexion based CONCEPCION Neg dural slump and SLR denny other than min HS tightness denny. Min increased calf tightness denny as well. Pt able to bridge buttocks fully off table min pain Denny core/hips 4/5 MMT denny knees and ankles 4+ to 5/5 MMT Treatment Interventions Education: HEP education with demonstration, Educated on Eval Findings and POC, heat use x 10 min self care/home maintenance Manual Therapy: METs, STM/massage prn Therapeutic Exercise: per CONCEPCION grid, ROM, flexibility, core/hip strength with lumbar stabilization principles x 15 min sup demo and verbal cues Therapeutic Activity: Exercises to improve dynamic activities, functional tasks, functional mobility to return to prior activity level Modalities: MHP/ESU x 10 min end of session with some relief reported. lumbar mechanical traction prn Assessment/Plan Low back pain, denny radicular like s/s causing increased difficulty with Adls/self care, functional mobility, decreased standing activity tolerance and QOL. Patient Goals Short Term Goal #1: pt will self report impairment less than or equal to 10% per Back index at DC from PT Short Term Goal #2: pt will report mod improved standing activity tolerance and ability to self centralize s/s prn Short Term Goal #3: pt will be ind with HEP for maintenance and able to avoid furhter intervention at DC from PT. Pt will benefit from skilled PT to address the above impairments for 2x/week for 4-6 weeks pending pt needs/progress I hereby deem this POC medically necessary. Please sign below. Date: documented in this [facility]06-03-2025 Evaluation note* Diagnosis Onset Date Resolution Status Admit Date Lumbar stenosis with neuroge shon claudication acute October 13, 2024 9 :37am Synovial cyst of lumbar face t joint acute October 13, 2024 9 :37am [facility] Work Phone: 1(526) 359-663606-03-2025 Evaluation note* Diagnosis Onset Date Resolution Status Admit Date Lumbar stenosis with neuroge shon claudication acute October 13, 2024 9 :37am Synovial cyst of lumbar face t joint acute October 13, 2024 9 :37am Lumbar stenosis with neuroge shon claudication acute November 05, 2024 11:19am Synovial cyst of lumbar face t joint acute November 05, 2024 11:19am [facility] Work Phone: [phone] [id number] Evaluation note* Diagnosis Onset Date Resolution Status Admit Date Lumbar stenosis with neuroge shon claudication acute October 13, 2024 9 :37am Synovial cyst of lumbar face t joint acute October 13, 2024 9 :37am Lumbar stenosis with neuroge shon claudication acute November 05, 2024 11:19am Synovial cyst of lumbar face t joint acute November 05, 2024 11:19am Claudication acute November 30, 2 025 2:18pm Current every day smoker acute November 30, 2024 2:18pm PAD (peripheral artery disease) acut e November 30, 2024 2:18pm [facility] Work Phone: 1(129) 204-522803-06-2025 History of Present illness Narrative* Kevin Maxwell MD - 07/16/2024 11:42 AM ESTAssociated Problem(s): Major depressive disorder, recurrent episode, mild (HCC) (CMS/HCC) Symptoms controlled with effexor and continue. * Kevin Maxwell MD - 07/16/2024 11:42 AM ESTAssociated Problem(s): Lumbar spondylosis Pain worse and hard to stay active. Check MRI and refer to pain management. * Kevin Maxwell MD - 07/16/2024 11:42 AM ESTAssociated Problem(s): Essential (primary) hypertension (CMS/HCC) BP controlled at home and monitor PRN. * Kevin Maxwell MD - 07/16/2024 11:41 AM ESTAssociated Problem(s): COPD (chronic obstructive pulmonary disease) (CMS/HCC) Continued SOB and use albuterol PRN. Stressed need to stop smoking. * Kevin Maxwell MD - 07/16/2024 11:41 AM ESTAssociated Problem(s): Abdominal aortic aneurysm (AAA) without rupture (CMS/HCC) Follow with specialists. * Kevin Maxwell MD - 07/16/2024 11:00 AM EST Images from the original note were not included. Subjective Patient ID: Mere Bennett is a 68 y.o. male who presents for No chief complaint on file.. Follow up HTN, COPD, depression, and back pain. Patient stable today. Checking BP PRN and typicallycontrolled. BP elevated today but reports typically elevated in office. Taking medication daily andtolerating without side effects. COPD stable. Mild SOB [...] (CMS/HCC) Follow with specialists. documented in this encounterCo[facility] [id number] Evaluation note* Diagnosis Onset Date Resolution Status Admit Date AAA (abdominal aortic aneurysm) without rupture acute Februa 2024 8:09am [facility] Work Phone: [phone]) 272-299412-05-2024 History of Present illness Narrative* Washington Teresa NP - 04/16/2024 9:04 AM ESTAssociated Problem(s): Essential (primary) hypertension (CMS/HCC) Currently taking Lisinopril-hydrochlorothiazide, added hydrochlorothiazide component at last OV. Checks BP at home; Averages are 120's-130's Denies orthostatic changes, dizziness, cough, shortness of breath, swelling in extremities. Continue current regimen. Given BP log, advised pt to record BP and bring log back with them to next visit. * Washington Teresa NP - 04/16/2024 9:00 AM EST Images from the original note were not included. Subjective Patient ID: Mere Bennett is a 68 y.o. male who [...] MG 24 hr capsule documented in this encounterCooper County Memorial [id number] History of Present illness Narrative* Washington Teresa NP - 03/16/2024 9:49 AM ESTAssociated Problem(s): Essential (primary) hypertension (CMS/HCC) Currently taking Lisinopril 20mg Does not check BP at home; BP has been consistently elevated during office visits. Will initiate Lisinopril-hydrochlorothiazide today. Denies orthostatic changes, dizziness, cough, shortness of breath, swelling in extremities. Given BP log, advised pt to record BP and bring log back with them to next visit. * Washington Teresa NP - 03/16/2024 9:30 AM EST Images from the original note were not included. Subjective Patient ID: Mere Bennett is a 68 y.o. male who [...] (Blood Pressure Cuff) misc documented in this [facility]11-04-2024 Instructions* Patient Instructions* Washington Teresa NP - 03/16/2024 9:30 AM EST [...] GO TO EMERGENCY DEPARTMENT!!! documented in this [facility]09-04-2024 History of Present illness Narrative* Washington Teresa NP - 01/15/2024 10:39 AM EDTAssociated Problem(s): Tobacco abuse Patient counseled on smoking/tobacco cessation. Patient educated on harmful effects of smoking cigarettes/tobacco including increased risk of cardiovascular diseases, chronic lung disease and multiple cancers. * Washington Teresa NP - 01/15/2024 10:37 AM EDTAssociated Problem(s): Lumbar stenosis with neurogenic claudication Xray completed 11/2023 shows: Moderate spondylosis. Moderate to severe facet osteoarthropathy most significant L4-S1 ; Pt does not feel Meloxicam is working effectively any longer. Stopped PT due to AAA. Following with Cardiology. Referral sent to Pain Management. * Washington Teresa NP - 01/15/2024 10:23 AM EDTAssociated Problem(s): Depression, unspecified (CMS/HCC) Currently taking Effexor 75mg Denies SI/HI. Feels is stable at this time. * Washington Teresa NP - 01/15/2024 10:22 AM EDTAssociated Problem(s): Other hyperlipidemia (CMS/HCC) Currently not on any regimen. Most recent Lipid panel below. Continue to monitor. Discussed dietary habits and lifestyle modifications for cholesterol. * Washington Teresa NP - 01/15/2024 10:21 AM EDTAssociated Problem(s): Essential (primary) hypertension (CMS/HCC) Currently taking Lisinopril 20mg Rarely Checks BP at home; Averages are 130's. Elevated in office today. Denies orthostatic changes, dizziness, cough, shortness of breath, swelling in extremities. Continue current regimen. * Washington Teresa NP - 01/15/2024 10:18 AM EDTAssociated Problem(s): Alcohol use disorder, mild, abuse Reports drinking 6-9 beers per day. Discussed health hazardous associated with alcohol consumption and need for cessation with patient. Vitamin levels ordered today * Washington Teresa NP - 01/15/2024 10:00 AM EDT Images from the original note were not included. Subjective Patient ID: Mere Bennett is a 68 y.o. male who [...] Vitamin D 25 hydroxy documented in this encounterCooper County Memorial [id number] Instructions* Patient Instructions* Washington Teresa NP - 01/15/2024 10:00 AM EDT [...] servings from each food group for a 2,631-yyoomdu-x-day DASH diet: Grains: 6 to 8 servings [...] Read food labels and choose low-salt or fq-oddv-iamor options. Use salt-free spices or flavorings instead [...] be healthier for it. documented in this encounterCooper County Memorial [id number] Evaluation note* Encounter Date Diagnosis Assessment Notes [...] no improvement in 2 to 3 days. [employer] Other Evaluation noteNo assessment information available [facility] Work Phone: Evaluation note* Diagnosis Onset Date Resolution Status AAA (abdominal aortic aneurysm) without rupture acute Current every day smoker acu te Uncontrolled hypertension ac [place] [facility] Work Phone: Evaluation note* Diagnosis Primary [...] Depression, unspecified (CMS/HCC) documented in this encounter [facility] HealthcareEvaluation note* Diagnosis Primary hypertension [...] drug abuse, unspecified documented in this encounter [facility] HealthcareEvaluation note* Diagnosis Primary hypertension (CMS/HCC)- Primary Unspecified essential hypertension Tobacco abuse Tobacco use disorder Lumbar stenosis with neurogenic claudication Recurrent major depressive disorder, in full remission (CMS/HCC) Other hyperlipidemia Chronic right-sided low back pain with right-sided [...] (CMS/HCC)- Primary Unspecified essential hypertension Other hyperlipidemia Persistent depressive disorder (CMS/HCC) Chronic bilateral low [...] without rupture (CMS/HCC) History of substance abuse Other, mixed, or unspecified nondependent drug abuse, unspecified Spinal stenosis of lumbar region with radiculopathy- Primary documented in this encounter [facility] HealthcareEvaluation note* Diagnosis Primary hypertension (CMS/HCC)- Primary Unspecified essential hypertension Tobacco abuse Tobacco use disorder Lumbar stenosis with neurogenic claudication Recurrent major depressive disorder, in full remission (CMS/HCC) Other hyperlipidemia Chronic right-sided low back pain with right-sided [...] (CMS/HCC)- Primary Unspecified essential hypertension Other hyperlipidemia Persistent depressive disorder (CMS/HCC) Chronic bilateral low [...] Infrarenal abdominal aortic aneurysm (AAA) without rupture ([facility]) History of substance abuse Other, mixed, or unspecified nondependent drug abuse, unspecified Spinal stenosis of lumbar region with radiculopathy- Primary documented in this encounter [facility] HealthcareEvaluation note* Diagnosis Primary hypertension- Primary Unspecified essential hypertension Tobacco abuse Tobacco use disorder Lumbar stenosis with neurogenic claudication Recurrent major depressive disorder, in full remission Other hyperlipidemia Chronic right-sided low back pain with right-sided sciatica Essential (primary) hypertension Unspecified essential hypertension Depression, unspecified Primary hypertension- Primary Unspecified essential hypertension Encounter for screening for lung cancer Chronic bilateral low back pain with bilateral sciatica Nicotine abuse Depression, unspecified Essential (primary) hypertension Unspecified essential hypertension Cigarette nicotine dependence without complication Medicare annual wellness visit, subsequent Essential (primary) hypertension- Primary Unspecified essential hypertension Other hyperlipidemia Persistent depressive disorder Chronic bilateral low back pain with bilateral sciatica Alcohol use disorder, mild, abuse Multiple lung nodules on CT Lumbar stenosis with neurogenic claudication Tobacco abuse Tobacco use disorder Essential (primary) hypertension- Primary Unspecified essential hypertension Essential (primary) hypertension- Primary Unspecified essential hypertension Chronic bilateral low back pain with bilateral sciatica Depression, unspecified Essential (primary) hypertension- Primary Unspecified essential hypertension Chronic obstructive pulmonary disease, unspecified COPD type (HCC) Major depressive disorder, recurrent episode, mild Major depressive disorder, recurrent episode, mild Lumbar spondylosis Lumbosacral spondylosis without myelopathy Infrarenal abdominal aortic aneurysm (AAA) without rupture History of substance abuse (CMS-HCC) Other, mixed, or unspecified nondependent drug abuse, unspecified Spinal stenosis of lumbar region with radiculopathy- Primary documented in this encounter [facility] HealthcareEvaluation note* Diagnosis Primary hypertension- Primary Unspecified essential hypertension Tobacco abuse Tobacco use disorder Lumbar stenosis with neurogenic claudication Recurrent major depressive disorder, in full remission Other hyperlipidemia Chronic right-sided low back pain with right-sided sciatica Essential (primary) hypertension Unspecified essential hypertension Depression, unspecified Primary hypertension- Primary Unspecified essential hypertension Encounter for screening for lung cancer Chronic bilateral low back pain with bilateral sciatica Nicotine abuse Depression, unspecified Essential (primary) hypertension Unspecified essential hypertension Cigarette nicotine dependence without complication Medicare annual wellness visit, subsequent Essential (primary) hypertension- Primary Unspecified essential hypertension Other hyperlipidemia Persistent depressive disorder Chronic bilateral low back pain with bilateral sciatica Alcohol use disorder, mild, abuse Multiple lung nodules on CT Lumbar stenosis with neurogenic claudication Tobacco abuse Tobacco use disorder Essential (primary) hypertension- Primary Unspecified essential hypertension Essential (primary) hypertension- Primary Unspecified essential hypertension Chronic bilateral low back pain with bilateral sciatica Depression, unspecified Essential (primary) hypertension- Primary Unspecified essential hypertension Chronic obstructive pulmonary disease, unspecified COPD type (HCC) Major depressive disorder, recurrent episode, mild Major depressive disorder, recurrent episode, mild Lumbar spondylosis Lumbosacral spondylosis without myelopathy Infrarenal abdominal aortic aneurysm (AAA) without rupture History of substance abuse (CMS-HCC) Other, mixed, or unspecified nondependent drug abuse, unspecified Spinal stenosis of lumbar region with radiculopathy- Primary documented in this encounter [facility]Evaluation note* Diagnosis Primary hypertension- Primary Unspecified essential hypertension Tobacco abuse Tobacco use disorder Lumbar stenosis with neurogenic claudication Recurrent major depressive disorder, in full remission Other hyperlipidemia Chronic right-sided low back pain with right-sided sciatica Essential (primary) hypertension Unspecified essential hypertension Depression, unspecified Primary hypertension- Primary Unspecified essential hypertension Encounter for screening for lung cancer Chronic bilateral low back pain with bilateral sciatica Nicotine abuse Depression, unspecified Essential (primary) hypertension Unspecified essential hypertension Cigarette nicotine dependence without complication Medicare annual wellness visit, subsequent Essential (primary) hypertension- Primary Unspecified essential hypertension Other hyperlipidemia Persistent depressive disorder Chronic bilateral low back pain with bilateral sciatica Alcohol use disorder, mild, abuse Multiple lung nodules on CT Lumbar stenosis with neurogenic claudication Tobacco abuse Tobacco use disorder Essential (primary) hypertension- Primary Unspecified essential hypertension Essential (primary) hypertension- Primary Unspecified essential hypertension Chronic bilateral low back pain with bilateral sciatica Depression, unspecified Essential (primary) hypertension- Primary Unspecified essential hypertension Chronic obstructive pulmonary disease, unspecified COPD type (HCC) Major depressive disorder, recurrent episode, mild Major depressive disorder, recurrent episode, mild Lumbar spondylosis Lumbosacral spondylosis without myelopathy Infrarenal abdominal aortic aneurysm (AAA) without rupture History of substance abuse ([facility]) Other, mixed, or unspecified nondependent drug abuse, unspecified Spinal stenosis of lumbar region with radiculopathy- Primary documented in this encounter [facility]Evaluation note* Diagnosis Primary hypertension- Primary Unspecified essential hypertension Tobacco abuse Tobacco use disorder Lumbar stenosis with neurogenic claudication Recurrent major depressive disorder, in full remission Other hyperlipidemia Chronic right-sided low back pain with right-sided sciatica Essential (primary) hypertension Unspecified essential hypertension Depression, unspecified Primary hypertension- Primary Unspecified essential hypertension Encounter for screening for lung cancer Chronic bilateral low back pain with bilateral sciatica Nicotine abuse Depression, unspecified Essential (primary) hypertension Unspecified essential hypertension Cigarette nicotine dependence without complication Medicare annual wellness visit, subsequent Essential (primary) hypertension- Primary Unspecified essential hypertension Other hyperlipidemia Persistent depressive disorder Chronic bilateral low back pain with bilateral sciatica Alcohol use disorder, mild, abuse Multiple lung nodules on CT Lumbar stenosis with neurogenic claudication Tobacco abuse Tobacco use disorder Essential (primary) hypertension- Primary Unspecified essential hypertension Essential (primary) hypertension- Primary Unspecified essential hypertension Chronic bilateral low back pain with bilateral sciatica Depression, unspecified Essential (primary) hypertension- Primary Unspecified essential hypertension Chronic obstructive pulmonary disease, unspecified COPD type (HCC) Major depressive disorder, recurrent episode, mild Major depressive disorder, recurrent episode, mild Lumbar spondylosis Lumbosacral spondylosis without myelopathy Infrarenal abdominal aortic aneurysm (AAA) without rupture History of substance abuse ([facility]) Other, mixed, or unspecified nondependent drug abuse, unspecified Depression, unspecified documented in this encounter [facility] HealthcareHistory general Narrative - Reported* Type Description Date Medical History Hypertension Medical History Depression [employer] Other Hospital Discharge instructions Additional Instructions DISCHARGE INSTRUCTIONS FOR ANGIOGRAM, ANGIOPLASTY, STENT PLACEMENT FIRST TWO (2) DAYS AFTER DISCHARGE: -Take it easy at home, no strenuous activity. -Do not lift or pull objects over 10 pounds, including children and groceries (10 pounds = 1 gallon milk). -May shower. -Able to go upstairs -No excessive scrubbing of affected groin or arm. -May drive car unless you had sedation for the procedure, then you cannot drive for 24 hours. CALL [name at #] OR [facility] [place] [phone]: -If excessive bleeding should occur from the puncture site, immediately apply pressure to the site and call 911. -Report any fever, redness, drainage, increased swelling, or firmness at catheter site insertion. Some bruising or slight swelling may be present and this is normal. -Should the arm or leg become cold, numb, white, or blue - go to the nearest emergency room. MEDICATIONS -Follow instructions on the discharge medication sheet regarding your medications. -[Do NOT take any Metformin containing medications for the next two days: ActoPlusMet, ActoPlusMet XR, Avandamet, Fortamet, Glucophage, Glucophage XR, Glucovance, Glumetza, Janumet, Janumet XR, Jentadueto, Kombiglyze XR, Metaglip, Metformin, PrandiMet, Riomet.][facility] Work Phone: Reason for referral (narrative)No reason for referral information availableDayton [facility]opathic [facility] Work Phone: Reason for visit Narrative* Rehabilitation - Outpatient (Routine) - Authorized Specialty Diagnoses / Procedures Referred By Contac t Referred To Contact Physical Therapy Diagnoses Spinal stenosis, lumbar region with neurogenic claudication Procedures DE PHYSICAL THERAPY EVALUATION LOW COMPLEX 20 MINS Linda Kinney MD [address] [place] [address], [address] [place] [address] Phone: tel: fax: Jacquelin Maldonado, PT [address] [place] [address] Phone: tel: fax: Referral ID Status Reason Start Date Expiration Date Visits Requested Visits Authorized [id number] Authorized Consult and Treat 10/13/2024 04/11/2025 30 30 [facility]* [facility] - Outpatient (Routine) - Authorized Specialty Diagnoses / Procedures Referred By Contac t Referred To Contact Physical Therapy Diagnoses Spinal stenosis, lumbar region with neurogenic claudication Procedures DE PHYSICAL THERAPY EVALUATION LOW COMPLEX 20 MINS Linda Kinney MD [address] [facility], [address] [place] [address] Phone: tel: fax: Jacquelin Maldonado, PT [address] [place] [address] Phone: tel: fax: Referral ID Status Reason Start Date Expiration Date Visits Requested Visits Authorized [id number] Authorized Consult and Treat 10/13/2024 05/12/2025 30 30 [facility] Summary Purpose Family History No Family History [...] OVER CT SCAN [place] 12[place]12 [place] [facility] [place] for Visit AAA (abdominal aorti c aneurysm) without rupture Current every day smoker Uncontrolled hypertension Chief Complaint Admit Date 6 month follow up; ABD U/S at 8:30am Feb ruary 2024 8:09am Reason for Visit Admit Date AAA (abdominal aortic aneurysm) without rupture June 29, 2024 8:09am Chief Complaint Admit Date Refer: lower back pain October 13, 2024 9: 37am Chief Complaint Admit Date Refer: lower back pain October 13, 2024 9: 37am 354.50 October 30, 2024 9:20 am dexa results November 05, 2024 11:1 9am Reason for Visit Admit Date Lumbar stenosis with neurogenic claudica tion October 13, 2024 9:37am Synovial cyst of lumbar facet joint October 13, 2024 9:37am Chief Complaint Admit Date Refer: lower back pain October 13, 2024 9: 37am 354.50 October 30, 2024 9:20 am dexa results November 05, 2024 11:1 9am m81.0 November 11, 2024 9:51a m Reason for Visit Admit Date Lumbar stenosis with neurogenic claudica tion October 13, 2024 9:37am Synovial cyst of lumbar facet joint October 13, 2024 9:37am Lumbar stenosis with neurogenic claudica tion November 05, 2024 11:19am Synovial cyst of lumbar facet joint November 05, 2024 11:19am Chief Complaint Admit Date Refer: lower back pain October 13, 2024 9: 37am 354.50 October 30, 2024 9:20 am dexa results November 05, 2024 11:1 9am m81.0 November 11, 2024 9:51a m M79.661 M79.662 November 20, 2024 9:19 am Chief Complaint Admit Date Refer: lower back pain October 13, 2024 9: 37am 354.50 October 30, 2024 9:20 am dexa results November 05, 2024 11:1 9am m81.0 November 11, 2024 9:51a m M79.661 M79.662 November 20, 2024 9:[address] Kinney for PVD November 30, 2024 2:18pm Chief Complaint Admit Date Refer: lower back pain October 13, 2024 9: 37am 354.50 October 30, 2024 9:20 am dexa results November 05, 2024 11:1 9am m81.0 November 11, 2024 9:51a m M79.661 M79.662 November 20, 2024 9:[address] Kinney for PVD November 30, 2024 2:18pm I73.9 December 21, 2024 9: 43am I71.43 December 21, 2024 9: 46am Reason for Visit Admit Date Lumbar stenosis with neurogenic claudica tion October 13, 2024 9:37am Synovial cyst of lumbar facet joint October 13, 2024 9:37am Lumbar stenosis with neurogenic claudica tion November 05, 2024 11:19am Synovial cyst of lumbar facet joint November 05, 2024 11:19am Claudication November 30, 2024 2:18 pm Current every day smoker November 30, 2024 2:18pm PAD (peripheral artery disease) November 2:18pm Chief Complaint Admit Date Refer: lower back pain October 13, 2024 9: 37am 354.50 October 30, 2024 9:20 am dexa results November 05, 2024 11:1 9am m81.0 November 11, 2024 9:51a m M79.661 M79.662 November 20, 2024 9:[address] Kinney for PVD November 30, 2024 2:18pm I73.9 December 21, 2024 9: 43am I71.43 December 21, 2024 9: 46am 6 MONTH F/U; [facility] December 28, 2024 10:19am Chief Complaint Admit Date 354.50 October 30, 2024 9:20 am dexa results November 05, 2024 11:1 9am m81.0 November 11, 2024 9:51a m M79.661 M79.662 November 20, 2024 9:[address] Kinney for PVD November 30, 2024 2:18pm I73.9 December 21, 2024 9: 43am I71.43 December 21, 2024 9: 46am 6 MONTH F/U; [facility] December 28, 2024 10:19am I71.43 I73.9 January 12, 2025 7:51am Reason for Visit Admit Date Lumbar stenosis with neurogenic claudica tion November 05, 2024 11:19am Synovial cyst of lumbar facet joint November 05, 2024 11:19am Claudication November 30, 2024 2:18 pm Current every day smoker November 30, 2024 2:18pm PAD (peripheral artery disease) November 2:18pm AAA (abdominal aortic aneurysm) without rupture December 28, 2024 10:19am Claudication December 28, 2024 10 :19am PAD (peripheral artery disease) December 112024 10:19am Chief Complaint Admit Date 354.50 October 30, 2024 9:20 am dexa results November 05, 2024 11:1 9am m81.0 November 11, 2024 9:51a m M79.661 M79.662 November 20, 2024 9:[address] Kinney for PVD November 30, 2024 2:18pm I73.9 December 21, 2024 9: 43am I71.43 December 21, 2024 9: 46am 6 MONTH F/U; [facility] December 28, 2024 10:19am I71.43 I73.9 January 12, 2025 7:51am CT scan f/u on 01/12January 26 9:45am Chief Complaint Admit Date dexa results November 05, 2024 11:1 9am m81.0 November 11, 2024 9:51a m M79.661 M79.662 November 20, 2024 9:[address] Kinney for PVD November 30, 2024 2:18pm I73.9 December 21, 2024 9: 43am I71.43 December 21, 2024 9: 46am 6 MONTH F/U; [facility] December 28, 2024 10:19am I71.43 I73.9 January 12, 2025 7:51am CT scan f/u on 01/12January 26 9:45am PVD w/ Claudication February 03, 2025 10:41am Reason for Visit Admit Date Lumbar stenosis with neurogenic claudica tion November 05, 2024 11:19am Synovial cyst of lumbar facet joint November 05, 2024 11:19am Claudication November 30, 2024 2:18 pm Current every day smoker November 30, 2024 2:18pm PAD (peripheral artery disease) November 2:18pm AAA (abdominal aortic aneurysm) without rupture December 28, 2024 10:19am Claudication December 28, 2024 10 :19am PAD (peripheral artery disease) December 112024 10:19am AAA (abdominal aortic aneurysm) without rupture January 26, 2025 9:45am PAD (peripheral artery disease) Septembe r 2024 9:45am Chief Complaint Admit Date M79.661 M79.662 November 20, 2024 9:[address] Kinney for PVD November 30, 2024 2:18pm I73.9 December 21, 2024 9: 43am I71.43 December 21, 2024 9: 46am 6 MONTH F/U; [facility] [place] 28, 2024 10:19am I71.43 I73.9 January 12, 2025 7:51am CT scan f/u on 01/12January 26 9:45am PVD w/ Claudication February 03, 2025 10:41am Reason for Visit Admit Date Claudication November 30, 2024 2:18 pm PAD (peripheral artery disease) November 2:18pm Current every day smoker November 30, 2024 2:18pm AAA (abdominal aortic aneurysm) without rupture December 28, 2024 10:19am Claudication December 28, 2024 10 :19am PAD (peripheral artery disease) December 112024 10:19am AAA (abdominal aortic aneurysm) without rupture January 26, 2025 9:45am PAD (peripheral artery disease) Septembe r 2024 9:45am Medicare annual wellness visit, subseque nt February 11, 2025 12:58pm Chief Complaint Admit Date M79.661 M79.662 November 20, 2024 9:[address] Kinney for PVD November 30, 2024 2:18pm I73.9 December 21, 2024 9: 43am I71.43 December 21, 2024 9: 46am 6 MONTH F/U; [facility] [place] December 28, 2024 10:19am I71.43 I73.9 January 12, 2025 7:51am CT scan f/u on 01/12January 26 9:45am PVD w/ Claudication February 03, 2025 10:41am Z01.818 I73.9 February 17, 2025 12 :42pm Reason for Referral Specialty Diagnoses / Procedures Referred By Contac t Referred To Contact Radiology Diagnoses Multiple lung nodules on CT Procedures CT chest wo IV contrast Washington Teresa NP [address] [facility] [place] [address] Referral ID Status Reason Start Date Expiration Date V isits Requested Visits Authorized [id number] Pending Review 01/15/2024 07/13/2024 1 1 Specialty Diagnoses / Procedures Referred By Contac t Referred To Contact Pain Medicine Diagnoses Chronic bilateral low back pain with bilateral sciatica Procedures DE OFFICE/OUTPATIENT NEW HIGH MDM 60 MINUTES Washington Teresa NP [address] [place] [address] Rina Cortes MD [address] [place] [address] Referral ID Status Reason Start Date Expiration Date Visits Requested Visits Authorized [id number] Pending Review Specialty Services Required 01/15/2024 07/13/2024 1 1 Additional Source Comments REASON FOR VISIT (unrecogniz ed section and content) Reason Comments Labs Only Reason Comments medication change follow up Reason Onset Date Comments Med Refill 04/27/2024 Reason Comments Follow-up 2MO Reason Onset Date Comments Med Refill 02/05/2024 Reason Onset Date Comments Med Refill 11/02/2024 (unrecognized sect ion and content) No Status Records FoundNo Status Records FoundNo Status Records FoundNo Status Records FoundNo Status Records Found INFORMATION SOURCE (unrecogn ized section and content) DATE CREATED AUTHOR 09/08/2022 [facility] DATE CREATED AUTHOR AUTHOR'S ORGANIZ ATION 12/19/2023 [facility] DATE CREATED AUTHOR AUTHOR'S ORGANIZ ATION 09/03/2024 [facility] DATE CREATED AUTHOR AUTHOR'S ORGANIZ ATION 11/02/2024 [facility] DATE CREATED AUTHOR AUTHOR'S ORGANIZ ATION 02/22/2025 [facility] Care Teams (unrecognized sec tion and content) [...] December 23, 2023 End: December 23, 2023 Pawn Broker Relationship Specialty Start Date End Date Kevin Maxwell MD [address] [place] [phone] PCP - General Family Medicine 12/18/23 Washington Teresa NP [address] [place] [address] Nurse Practitioner Family Medicine 12/18/23 Pawn Broker Relationship Specialty Start Date End Date Kevin Maxwell MD [address] [place] [address] PCP - General Family Medicine 12/18/23 Washington Teresa NP [address] [place] [address] Nurse Practitioner Family Medicine 12/18/23 Pawn Broker Relationship Specialty Start Date End Date Kevin Maxwell MD [address] [place] [phone] PCP - General Family Medicine 12/18/23 Washington Teresa NP [address] [place] [address] Nurse Practitioner Family Medicine 12/18/23 Pawn Broker Relationship Specialty Start Date End Date Kevin Maxwell MD [address] [place] [phone] PCP - General Family Medicine 12/18/23 Washington Teresa NP [address] [place] [address] Nurse Practitioner Family Medicine 12/18/23 Pawn Broker Relationship Specialty Start Date End Date Kevin Maxwell MD [address] [place] [phone] PCP - General Family Medicine 12/18/23 Washington Teresa NP [address] [place] [address] Nurse Practitioner Family Medicine 12/18/23 Pawn Broker Relationship Specialty Start Date End Date Kevin Maxwell MD [address] [place] [phone] PCP - General Family Medicine 12/18/23 Washington Teresa NP [address] [place] [address] Nurse Practitioner Family Medicine 12/18/23 Pawn Broker Relationship Specialty Start Date End Date Kevin Maxwell MD [address] [place] [phone] PCP - General Family Medicine 12/18/23 Washington Teresa NP [address] [place] [address] Nurse Practitioner Family Medicine 12/18/23 Pawn Broker Relationship Specialty Start Date End Date Kevin Maxwell MD [address] [place] [phone] PCP - General Family Medicine 12/18/23 Washington Teresa NP [address] [place] [address] Nurse Practitioner Family Medicine 12/18/23 Pawn Broker Relationship Specialty Start Date End Date Kevin Maxwell MD [address] [place] [phone] PCP - General Family Medicine 12/18/23 Washington Teresa NP [address] [place] [address] Nurse Practitioner Family Medicine 12/18/23 Team Status: Inactive Member Role Status Dates PHYSICIAN NO FAMILY Primary Care Provider Active Start: June 29, 2024 End: June 29, 2024 Ken Bland MD Attending Provider Active S tart: June 29, 2024 End: June 29, 2024 Pawn Broker Relationship Specialty Start Date End Date Kevin Maxwell MD [address] [place] [phone] PCP - General Family Medicine 12/18/23 Washington Teresa NP [address] [place] [address] Nurse Practitioner Family Medicine 12/18/23 Pawn Broker Relationship Specialty Start Date End Date Kevin Maxwell MD [address] [place] [address] PCP - General Family Medicine 12/18/23 Pawn Broker Relationship Specialty Start Date End Date Kevin Maxwell MD [address] [place] [phone] PCP - General Family Medicine 12/18/23 Pawn Broker Relationship Specialty Start Date End Date Kevin Maxwell MD [address] [place] [phone] PCP - General Family Medicine 12/18/23 Pawn Broker Relationship Specialty Start Date End Date Kevin Maxwell MD [address] [place] [phone] PCP - General Family Medicine 12/18/23 Pawn Broker Relationship Specialty Start Date End Date Kevin Maxwell MD [address] [place] [phone] PCP - General Family Medicine 12/18/23 Pawn Broker Relationship Specialty Start Date End Date Kevin Maxwell MD [address] [place] [address] PCP - General Family Medicine 12/18/23 Pawn Broker Relationship Specialty Start Date End Date Kevin Maxwell MD [address] [place] [phone] PCP - [facility] Medicine 12/18/23 Pawn Broker Relationship Specialty Start Date End Date Kevin Maxwell MD [address] [place] [phone] PCP - [facility] Medicine 12/18/23 Team Status: Inactive Member Role Status Dates PHYSICIAN NO FAMILY Primary Care Provider Active Start: October 13, 2024 End: October 13, 2024 Linda Kinney MD Attending Provider Active Star t: October 13, 2024 End: October 13, 2024 Pawn Broker Relationship Specialty Start Date End Date Kevin Maxwell MD [address] [place] [phone] PCP - General Family Medicine 12/18/23 Team Status: Active Member Role Status Dates Kevin Maxwell MD Primary Care Provider Active Team Status: Inactive Member Role Status Dates NON STAFF Primary Care Provider Active Start: October 30, 2024 End: October 30, 2024 Linda Kinney MD Attending Provider Active Star t: October 30, 2024 End: October 30, 2024 Team Status: Inactive Member Role Status Dates Linda Kinney MD Attending Provider Active Star t: November 05, 2024 End: November 05, 2024 Kevin Maxwell MD Primary Care Provider Active S tart: November 05, 2024 End: November 05, 2024 Team Status: Inactive Member Role Status Dates Linda Kinney MD Attending Provider Active Star t: November 11, 2024 End: November 11, 2024 Kevin Maxwell MD Primary Care Provider Active S tart: November 11, 2024 End: November 11, 2024 Team Status: Inactive Member Role Status Dates Kevin Maxwell MD Primary Care Provider Active S tart: November 20, 2024 End: November 20, 2024 Linda Kinney MD Attending Provider Active Star t: November 20, 2024 End: November 20, 2024 Team Status: Inactive Member Role Status Dates Kevin Maxwell MD Primary Care Provider Active S tart: November 30, 2024 End: November 30, 2024 CEE CarcamoC Attending Provider Active Start: November 30, 2024 End: November 30, 2024 Team Status: Active Member Role Status Dates Kevin Maxwell MD Primary Care Provider Active S tart: December 21, 2024 CEE CarcamoC Attending Provider Active Start: December 21, 2024 Team Status: Inactive Member Role Status Dates Ken Bland MD Attending Provider Active S tart: December 21, 2024 End: December 21, 2024 Kevin Maxwell MD Primary Care Provider Active S tart: December 21, 2024 End: December 21, 2024 Team Status: Inactive Member Role Status Dates Kevin Maxwell MD Primary Care Provider Active S tart: December 21, 2024 End: December 21, 2024 CEE CarcamoC Attending Provider Active Start: December 21, 2024 End: December 21, 2024 Team Status: Inactive Member Role Status Dates Ken Bland MD Attending Provider Active S tart: December 28, 2024 End: December 28, 2024 Kevin Maxwell MD Primary Care Provider Active S tart: December 28, 2024 End: December 28, 2024 Team Status: Inactive Member Role Status Dates Kevin Maxwell MD Primary Care Provider Active S tart: January 12, 2025 End: January 12, 2025 Ken Bland MD Attending Provider Active S tart: January 12, 2025 End: January 12, 2025 Team Status: Inactive Member Role Status Dates Kevin Maxwell MD Primary Care Provider Active S tart: January 26, 2025 End: January 26, 2025 Ken Bland MD Attending Provider Active S tart: January 26, 2025 End: January 26, 2025 Team Status: Active Member Role Status Dates Kevin Maxwell MD Primary Care Provider Active S tart: February 03, 2025 Ken Bland MD Attending Provider Active S tart: February 03, 2025 Ken Bland MD Other Provider Active Start : February 03, 2025 Team Status: Inactive Member Role Status Dates Kevin Maxwell MD Primary Care Provider Active S tart: November 30, 2024 End: November 30, 2024 ROBIN Lowry Attending Provider Active Start: November 30, 2024 End: November 30, 2024 Team Status: Inactive Member Role Status Dates Kevin Maxwell MD Primary Care Provider Active S tart: December 21, 2024 End: December 21, 2024 ROBIN Lowry Attending Provider Active Start: December 21, 2024 End: December 21, 2024 Team Status: Inactive Member Role Status Dates Kevin Maxwell MD Primary Care Provider Active S tart: February 11, 2025 End: February 11, 2025 Kevin Maxwell MD Attending Provider Active Star t: February 11, 2025 End: February 11, 2025 Team Status: Inactive Member Role Status Dates Kevin Maxwell MD Primary Care Provider Active S tart: February 17, 2025 End: February 17, 2025 Ken Bland MD Attending Provider Active S tart: February 17, 2025 End: February 17, 2025 Goals (unrecognized section and content) Goals may [...] BE BASED ON THE PRIMARY CLINICAL RECORDS. [employer] [facility]. provides no warranty or guarantee of the accuracy or completeness of information in this document.
[2025-02-22 10:26] LABS: Hematocrit 42.8 % (42.0-54.0); Hemoglobin 14.7 g/dL (14.0-18.0); Immature Granulocytes Abs Auto 0.02 10^3/uL (0.00-0.03); Immature Granulocytes Pct Auto 0.3 % (0.0-0.5); Lymphocytes Absolute Auto 1.6 10^3/uL (1.2-3.8); Mean Corpuscular HGB Conc 34.3 g/dL (29.9-35.2); Mean Corpuscular Hemoglobin 36.0 pg (25.9-34.0); Mean Corpuscular Volume 104.9 fL (80.0-94.0); Platelet Count 186 10^3/uL (150-450); Red Blood Count 4.08 10^6/uL (4.70-6.10); White Blood Count 7.1 10^3/uL (4.0-11.0)
[2025-02-22 10:58] LABS: Alanine Aminotransferase 30 U/L (16-63); Albumin Globulin Ratio 0.8; Albumin Level 3.6 g/dL (3.4-5.0); Alkaline Phosphatase 61 U/L (46-116); Anion Gap 14.4; Aspartate Amino Transferase 8 U/L (15-37); Blood Urea Nitrogen 10.0 mg/dL (7.0-18.0); Calcium 9.1 mg/dL (8.5-10.1); Carbon Dioxide 29.9 mmol/L (21.0-32.0); Chloride 104 mmol/L (98-107); Cholesterol 195 mg/dL (<=200); Estimated GFR (African America >60 (>=60 mL/min/1.73m^2); Estimated GFR (Non-African Ame >60 (>=60 mL/min/1.73m^2); Globulin 4.3 g/dL; Glucose 117 mg/dL (74-106); HDL Cholesterol 66 mg/dL (40-60); Potassium 4.3 mmol/L (3.5-5.1); Sodium 144 mmol/L (136-145); Thyroid Stimulating Hormone 1.447 uIU/mL (0.358-3.740); Total Protein 7.9 g/dL (6.4-8.2); Triglycerides 50 mg/dL (<=150); VLDL CHOLESTEROL 10.0 mg/dL
== END 2025-02-22 09:54 | disposition home or self-care (01) ==
LOC: LAB 09:55
PROVIDERS: PCP Family Medicine; Visit Provider Family Medicine
DX: Z00.00 Encounter for general adult medical examination without abnormal findings (principal); R73.03 Prediabetes; Z79.899 Other long term (current) drug therapy; E78.5 Hyperlipidemia, unspecified; R53.83 Other fatigue; Z12.5 Encounter for screening for malignant neoplasm of prostate
CPT/HCPCS: 36415; 80053; 80061; 83036; 84443; 85025; G0103